=== PATIENT | male | born 1950 | race Caucasian/White ===

== ENCOUNTER 2018-05-02 13:49 | Outpatient (RCR) | payer MEDICARE, MEDICAID, SELFPAY | END 2018-05-20 23:59 | disposition home or self-care (01) | LOC: INF 13:49 | PROVIDERS: PCP General Practice; Visit Provider General Practice | DX: Z45.2 Encounter for adjustment and management of vascular access device (principal) | CPT/HCPCS: 36569; 71045 ==

== ENCOUNTER 2018-05-02 14:24 | Outpatient (CLI) | payer MEDICARE, MEDICAID, SELFPAY ==
--- NOTE | 2018-05-02 13:55 | DI.RAD_ITS ---
SYMPTOMS/DIAGNOSIS: S/P PICC LINE PORTABLE AP CHEST: Comparison is 12/11/17. The heart size and pulmonary vasculature are within normal limits. There is again seen an aortic valve replacement. Sternal wires are in place. There has been interval placement of a right PICC line. The tip is seen in the superior vena cava in good position. There are again seen catheters in the base of each lung, which are stable in position. The lungs are clear. No effusions are seen. No pneumothorax is appreciated. Old left rib fractures are identified. IMPRESSION: Interval placement of a right PICC line whose tip is at the junction of the superior vena cava and right atrium.
== END 2018-05-02 14:44 ==
PROVIDERS: PCP General Practice; Visit Provider General Practice
DX: Z95.2 Presence of prosthetic heart valve (principal); Z45.2 Encounter for adjustment and management of vascular access device; J44.9 Chronic obstructive pulmonary disease, unspecified
CPT/HCPCS: 71045

== ENCOUNTER 2018-05-04 11:50 | Emergency (ER) | payer MEDICARE, MEDICAID, SELFPAY ==
[2018-05-04 12:00] VITALS: BP 128/64; PULSE 80; RESP 20; TEMP 36.6; O2SAT 98
--- NOTE | 2018-05-04 13:06 | W.ED.GENAD ---
Discharge Plan Disposition Patient Disposition: HOME Condition: Improving Discharge Details Chief Complaint: Recheck Clinical Impression: Contact dermatitis, PICC (peripherally inserted central catheter) in place Primary Care Provider: Logan Bruce ED Provider: Shad Pelletier Home Meds and New Rx's Prescriptions: Continue omeprazole 20 MG capsule,delayed release(DR/EC) 20 mg PO DAILY RF: 0 gabapentin [Neurontin] 100 MG capsule 300 mg PO HS RF: 0 ipratropium-albuterol [Combivent] 200 PUFF aerosol 2 puff Inhalation QID RF: 0 morphine concentrate 20 MG/ML syringe 10 mg PO .Q4HR/PRN RF: 0 metoprolol tartrate 25 MG tablet 25 mg PO BID RF: 0 trace elements Cr-Cu-Mn-Zn [Multitrace-4 Concentrate] 1 ML solution 1 ml IV .BY DURATION RF: 0 potassium phosphate m-/d-basic 45 MM/15 ML solution 3 mm IV .BY DURATION RF: 0 sodium acetate 40 MEQ/20 ML solution 29.5 meq IV .BY DURATION RF: 0 magnesium chloride 10,000 MG/50 ML solution 254 mg IV .BY DURATION RF: 0 calcium gluconate 4.65 MEQ/10 ML solution 4.5 meq IV .BY DURATION RF: 0 sodium chloride 120 MEQ/30 ML parenteral solution 5.5 meq IV .BY DURATION RF: 0 potassium chloride 20 MEQ/10 ML solution 10 meq IV .BY DURATION RF: 0 mvi, adult no.4 with vit K [Infuvite Adult] 10 ML solution 10 ml IV .BY DURATION RF: 0 fat emulsion [Intralipid] 250 ML emulsion 250 ml IV DAILY@1700 RF: 0 prednisone 20 MG tablet PO DAILY Qty: 20 RF: 0 Discharge Instructions Instructions: Peripherally Inserted Central Catheters and Midline Catheters (ED), Dermatitis (ED) Additional Instructions: Continue to follow your regular dressing changes and if you continue to have symptoms please follow-up with your primary care provider for reassessment. Return immediately to the emergency department for any fever chills, significant swelling, bleeding, or changes in your access site they are concerned about. Referrals: Logan Bruce MD [Primary Care Provider] - Return if symptoms worsen Discharge Data Discharge Date/Time-TO BE ENTERED AT DEPARTURE: 05/04/18 13:28 Medical Decision Making MDM Narrative Medical decision making narrative: Patient presenting to the emergency department for chief complaint of burning and itching around PICC line insertion site of right arm. Patient recently had PICC line changed 2 days ago due to similar symptoms on left upper extremity. Patient denies fever chills, streaking redness, chest pain or shortness of breath. Physical exam is unremarkable except for left upper extremity showing squared off well-demarcated erythema surrounding old PICC line site and very mild erythema to right PICC line site. Given well demarcation and perfect square-like shape I am mostly concerned of contact dermatitis due to either chlorhexidine or Tegaderm. I did contact lens specialist whom stated she would come down and evaluate patient site given that she just removed the old one and is well familiar with patient along with inserted the new line Lauren SOLORZANO came down and viewed the left upper arm and states it is extremely improved since removal of the old line and that the new site dressing was changed and soon his dressing was changed and cleaned patient had results resolution of symptoms. I feel that this correlates with my clinical suspicion of a contact dermatitis due to either Tegaderm or chlorhexidine. I do not feel that there are any other interventions needed at this time patient should continue to follow through with normal dressing changes and PICC line care as previously directed . Patient to return immediately to the emergency department for new or worsening symptoms or follow up with his primary care provider as needed. After discussion of diagnosis and plan of care patient states no further needs, questions, or concerns at this time. HPI - General Adult General Mode of arrival: ambulatory. Date/Time Provider Initiated Documentation: 05/04/18 12:01. Limitations to Documentation: no limitations. Information obtained by: patient, RN notes reviewed and old records reviewed. History of Present Illness 67 year old M presents to the emergency department with the chief complaint of PICC line discomfort and reddness, described as moderate, with intensity rated at 3. Quality is described as burning (itching), and is localized to the right and upper extremity. Patient reports no radiation. Patient started experiencing this day(s) (2) and it has been constant. No relieving factors improve symptom(s), No exacerbating factors reported . Patient did receive the following treatments prior to arrival, none Related Data Home Medications Medication Instructions Recorded Confirmed omeprazole 20 mg PO DAILY 10/24/12 05/04/18 gabapentin [Neurontin] 300 mg PO HS 04/27/17 05/04/18 ipratropium-albuterol [Combivent] 2 puff INHALATION QID 04/27/17 05/04/18 metoprolol tartrate 25 mg PO BID 07/26/17 05/04/18 morphine concentrate 10 mg PO .Q4HR/PRN 11/29/17 05/04/18 Previous Rx's Medication Instructions Recorded calcium gluconate 4.5 meq IV .BY DURATION vial 12/11/17 fat emulsion [Intralipid] 250 ml IV DAILY@1700 bag 12/11/17 magnesium chloride 254 mg IV .BY DURATION vial 12/11/17 mvi, adult no.4 with vit K 10 ml IV .BY DURATION vial 12/11/17 [Infuvite Adult] potassium chloride 10 meq IV .BY DURATION vial 12/11/17 potassium phosphate m-/d-basic 3 mm IV .BY DURATION vial 12/11/17 prednisone See Taper PO DAILY #20 tab 12/11/17 sodium acetate 29.5 meq IV .BY DURATION vial 12/11/17 sodium chloride 5.5 meq IV .BY DURATION vial 12/11/17 trace elements Cr-Cu-Mn-Zn 1 ml IV .BY DURATION vial 12/11/17 [Multitrace-4 Concentrate] Allergies Allergy/AdvReac Type Severity Reaction Status Date / Time penicillin G Allergy Severe Unverified 12/28/17 11:41 General Stated Complaint: Recheck KIM: 4 Review of Systems Constitutional Denies body ache(s), Denies chills and Denies fever(s) Cardiovascular Denies chest pain and Denies dyspnea Respiratory Denies dyspnea Gastrointestinal Denies abdominal pain, Denies nausea and Denies vomiting Integumentary/Breasts Reports as per HPI and Denies rash Neurologic Denies confusion and Denies sensory deficit Psychiatric Denies confusion [facility] Social History Smoking/Tobacco Use Status: Former Tobacco Use Exam Const General: cooperative, no acute distress and not ill appearing Orientation: alert, awake and oriented x3 HENMT Mouth: moist mucous membranes Resp Effort & Inspection: normal respiratory effort, able to speak in complete sentences and no respiratory distress Cardio Rate: regular rate Rhythm: regular rhythm Neuro General: alert, awake, oriented x3, moves all extremities and no focal motor deficits Sensory Exam: no sensory deficits noted Extrem Right upper extremity: full ROM, normal capillary refill and shoulder/upper arm (mild erythema underneath the Tegaderm surrounding PICC line with no edema no purulence, no drainage, no streaking) Left upper extremity: shoulder/upper arm Details: axillary nerve sensory function normal, normal ROM and other (Erythema noted in a square pattern on the medial aspect of the left bicep over area where Tegaderm was previously placed. no streaking and minimal warmth) Course Vital Signs Temperature 36.6 C 05/04/18 12:00 Pulse 80 05/04/18 12:00 Respiratory Rate 20 05/04/18 12:00 Blood Pressure 128/64 05/04/18 12:00 Pulse Oximetry 98 05/04/18 12:00 Temperature 36.6 C 05/04/18 12:00 Pulse 80 05/04/18 12:00 Respiratory Rate 20 05/04/18 12:00 Blood Pressure 128/64 05/04/18 12:00 Pulse Oximetry 98 05/04/18 12:00
--- NOTE | 2018-05-04 13:12 | ED.GENADUL_ITS ---
Discharge Plan Disposition Patient Disposition: HOME Condition: Improving Discharge Details Chief Complaint: Recheck Clinical Impression: Contact dermatitis, PICC (peripherally inserted central catheter) in place Primary Care Provider: Logan Bruce ED Provider: Shad Pelletier Home Meds and New Rx's Prescriptions: Continue omeprazole 20 MG capsule,delayed release(DR/EC) 20 mg PO DAILY RF: 0 gabapentin [Neurontin] 100 MG capsule 300 mg PO HS RF: 0 ipratropium-albuterol [Combivent] 200 PUFF aerosol 2 puff Inhalation QID RF: 0 morphine concentrate 20 MG/ML syringe 10 mg PO .Q4HR/PRN RF: 0 metoprolol tartrate 25 MG tablet 25 mg PO BID RF: 0 trace elements Cr-Cu-Mn-Zn [Multitrace-4 Concentrate] 1 ML solution 1 ml IV .BY DURATION RF: 0 potassium phosphate m-/d-basic 45 MM/15 ML solution 3 mm IV .BY DURATION RF: 0 sodium acetate 40 MEQ/20 ML solution 29.5 meq IV .BY DURATION RF: 0 magnesium chloride 10,000 MG/50 ML solution 254 mg IV .BY DURATION RF: 0 calcium gluconate 4.65 MEQ/10 ML solution 4.5 meq IV .BY DURATION RF: 0 sodium chloride 120 MEQ/30 ML parenteral solution 5.5 meq IV .BY DURATION RF: 0 potassium chloride 20 MEQ/10 ML solution 10 meq IV .BY DURATION RF: 0 mvi, adult no.4 with vit K [Infuvite Adult] 10 ML solution 10 ml IV .BY DURATION RF: 0 fat emulsion [Intralipid] 250 ML emulsion 250 ml IV DAILY@1700 RF: 0 prednisone 20 MG tablet PO DAILY Qty: 20 RF: 0 Discharge Instructions Instructions: Peripherally Inserted Central Catheters and Midline Catheters (ED ), Dermatitis (ED) Additional Instructions: Continue to follow your regular dressing changes and if you continue to have symptoms please follow-up with your primary care provider for reassessment. Return immediately to the emergency department for any fever chills, significant swelling, bleeding, or changes in your access site they are concerned about. Referrals: Logan Bruce MD [Primary Care Provider] - Return if symptoms worsen Discharge Data Discharge Date/Time-TO BE ENTERED AT DEPARTURE: 05/04/18 13:28 Medical Decision Making MDM Narrative Medical decision making narrative: Patient presenting to the emergency department for chief complaint of burning and itching around PICC line insertion site of right arm. Patient recently had PICC line changed 2 days ago due to similar symptoms on left upper extremity. Patient denies fever chills, streaking redness, chest pain or shortness of breath. Physical exam is unremarkable except for left upper extremity showing squared off well- demarcated erythema surrounding old PICC line site and very mild erythema to right PICC line site. Given well demarcation and perfect square-like shape I am mostly concerned of contact dermatitis due to either chlorhexidine or Tegaderm. I did contact lens specialist whom stated she would come down and evaluate patient site given that she just removed the old one and is well familiar with patient along with inserted the new line Lauren SOLORZANO came down and viewed the left upper arm and states it is extremely improved since removal of the old line and that the new site dressing was changed and soon his dressing was changed and cleaned patient had results resolution of symptoms. I feel that this correlates with my clinical suspicion of a contact dermatitis due to either Tegaderm or chlorhexidine. I do not feel that there are any other interventions needed at this time patient should continue to follow through with normal dressing changes and PICC line care as previously directed . Patient to return immediately to the emergency department for new or worsening symptoms or follow up with his primary care provider as needed. After discussion of diagnosis and plan of care patient states no further needs, questions, or concerns at this time. HPI - General Adult General Mode of arrival: ambulatory . Date/Time Provider Initiated Documentation: 05/04/18 12:01 . Limitations to Documentation: no limitations . Information obtained by: patient, RN notes reviewed and old records reviewed . History of Present Illness 67 year old M presents to the emergency department with the chief complaint of PICC line discomfort and reddness, described as moderate, with intensity rated at 3. Quality is described as burning (itching), and is localized to the right and upper extremity. Patient reports no radiation. Patient started experiencing this day(s) (2) and it has been constant. No relieving factors improve symptom(s), No exacerbating factors reported . Patient did receive the following treatments prior to arrival, none Related Data Home Medications Medication Instructions Recorded Confirmed omeprazole 20 mg PO DAILY 10/24/12 05/04/18 gabapentin [Neurontin] 300 mg PO HS 04/27/17 05/04/18 ipratropium-albuterol [Combivent] 2 puff INHALATION QID 04/27/17 05/04/18 metoprolol tartrate 25 mg PO BID 07/26/17 05/04/18 morphine concentrate 10 mg PO .Q4HR/PRN 11/29/17 05/04/18 Previous Rx's Medication Instructions Recorded calcium gluconate 4.5 meq IV .BY DURATION vial 12/11/17 fat emulsion [Intralipid] 250 ml IV DAILY@1700 bag 12/11/17 magnesium chloride 254 mg IV .BY DURATION vial 12/11/17 mvi, adult no.4 with vit K 10 ml IV .BY DURATION vial 12/11/17 [Infuvite Adult] potassium chloride 10 meq IV .BY DURATION vial 12/11/17 potassium phosphate m-/d-basic 3 mm IV .BY DURATION vial 12/11/17 prednisone See Taper PO DAILY #20 tab 12/11/17 sodium acetate 29.5 meq IV .BY DURATION vial 12/11/17 sodium chloride 5.5 meq IV .BY DURATION vial 12/11/17 trace elements Cr-Cu-Mn-Zn 1 ml IV .BY DURATION vial 12/11/17 [Multitrace-4 Concentrate] Allergies Allergy/AdvReac Type Severity Reaction Status Date / Time penicillin G Allergy Severe Unverified 12/28/17 11:41 General Stated Complaint: Recheck KIM: 4 Review of Systems Constitutional Denies body ache(s), Denies chills and Denies fever(s) Cardiovascular Denies chest pain and Denies dyspnea Respiratory Denies dyspnea Gastrointestinal Denies abdominal pain, Denies nausea and Denies vomiting Integumentary/Breasts Reports as per HPI and Denies rash Neurologic Denies confusion and Denies sensory deficit Psychiatric Denies confusion [facility] Social History Smoking/Tobacco Use Status: Former Tobacco Use Exam Const General: cooperative, no acute distress and not ill appearing Orientation: alert, awake and oriented x3 HENMT Mouth: moist mucous membranes Resp Effort & Inspection: normal respiratory effort, able to speak in complete sentences and no respiratory distress Cardio Rate: regular rate Rhythm: regular rhythm Neuro General: alert, awake, oriented x3, moves all extremities and no focal motor deficits Sensory Exam: no sensory deficits noted Extrem Right upper extremity: full ROM, normal capillary refill and shoulder/upper arm (mild erythema underneath the Tegaderm surrounding PICC line with no edema no purulence, no drainage, no streaking) Left upper extremity: shoulder/upper arm Details: axillary nerve sensory function normal, normal ROM and other (Erythema noted in a square pattern on the medial aspect of the left bicep over area where Tegaderm was previously placed. no streaking and minimal warmth) Course Vital Signs Temperature 36.6 C 05/04/18 12:00 Pulse 80 05/04/18 12:00 Respiratory Rate 20 05/04/18 12:00 Blood Pressure 128/64 05/04/18 12:00 Pulse Oximetry 98 05/04/18 12:00 Temperature 36.6 C 05/04/18 12:00 Pulse 80 05/04/18 12:00 Respiratory Rate 20 05/04/18 12:00 Blood Pressure 128/64 05/04/18 12:00 Pulse Oximetry 98 05/04/18 12:00
[2018-05-04 13:28] VITALS: BP 128/64; PULSE 80; RESP 20; TEMP 36.6; O2SAT 98
== END 2018-05-04 13:28 | disposition home or self-care (01) ==
LOC: ER 14:02
PROVIDERS: Emergency Provider Nurse Practitioner Family; PCP General Practice
DX: L23.89 Allergic contact dermatitis due to other agents (principal); Z95.828 Presence of other vascular implants and grafts
CPT/HCPCS: 99281

== ENCOUNTER 2018-07-13 11:58 | Outpatient (CLI) | payer MEDICARE, SELFPAY ==
[2018-07-13 13:22] LABS: CREATININE 2.26 mg/dL (0.70-1.30); Estimated GFR 29.18 (mL/min/1.73m2); Potassium 4.6 mmol/L (3.5-5.1)
[2018-07-13 14:48] LABS: BUN 97 mg/dL (7-18)
== END 2018-07-13 12:18 ==
PROVIDERS: PCP General Practice; Visit Provider General Practice
DX: N19 Unspecified kidney failure (principal)
CPT/HCPCS: 36415; 84520; 82565; 84132

== ENCOUNTER 2018-08-29 17:57 | Emergency (ER) | payer MEDICARE, SELFPAY ==
[2018-08-29 18:38] VITALS: BP 130/66; PULSE 74; RESP 12; TEMP 36.6; O2SAT 99
--- NOTE | 2018-08-29 19:36 | DI.RAD_ITS ---
SYMPTOMS/DIAGNOSIS: COUGH PA AND LATERAL CHEST: Comparison is made with [id number]. The heart size is normal. An aortic valve prosthesis and sternal wires are noted. There has been no change in the position of the PICC line with the tip in the SVC. Bilateral lower lobe pleural catheters are again noted. The lungs appear clear. There are old left rib fractures. IMPRESSION: No acute abnormality.
--- NOTE | 2018-08-29 20:32 | ED.GENADUL_ITS ---
Discharge Plan Disposition Patient Disposition: HOME Condition: Fair Discharge Details Chief Complaint: RespSymp Clinical Impression: Pneumonia Primary Care Provider: Logan Bruce ED Provider: Lexy Rico Home Meds and New Rx's Prescriptions: New levofloxacin 750 mg tablet 750 mg PO DAILY Qty: 4 RF: 0 Continued omeprazole 20 MG capsule,delayed release(DR/EC) 20 mg PO DAILY RF: 0 gabapentin [Neurontin] 100 MG capsule 300 mg PO HS RF: 0 Combivent 200 PUFF aerosol 2 puff Inhalation QID RF: 0 prochlorperazine maleate 5 mg Tablet 5 mg PO DIRECTED RF: 0 ondansetron HCl 8 mg Tablet 8 mg PO BID PRNRF: 0 mirtazapine 15 mg Tablet 15 mg PO HS RF: 0 metoprolol tartrate 25 MG tablet 25 mg PO BID RF: 0 trace elements Cr-Cu-Mn-Zn [Multitrace-4 Concentrate] 1 ML solution 1 ml IV .BY DURATION RF: 0 potassium phosphate m-/d-basic 45 MM/15 ML solution 3 mm IV .BY DURATION RF: 0 sodium acetate 40 MEQ/20 ML solution 29.5 meq IV .BY DURATION RF: 0 magnesium chloride 10,000 MG/50 ML solution 254 mg IV .BY DURATION RF: 0 calcium gluconate 4.65 MEQ/10 ML solution 4.5 meq IV .BY DURATION RF: 0 sodium chloride 120 MEQ/30 ML parenteral solution 5.5 meq IV .BY DURATION RF: 0 potassium chloride 20 MEQ/10 ML solution 10 meq IV .BY DURATION RF: 0 mvi, adult no.4 with vit K [Infuvite Adult] 10 ML solution 10 ml IV .BY DURATION RF: 0 fat emulsion [Intralipid] 250 ML emulsion 250 ml IV DAILY@1700 RF: 0 Discharge Instructions Instructions: Pneumonia (ED) Additional Instructions: Encourage hydration. Please take medications as previously advised. Please use inhalers as these did seem to help while here today. Take antibiotics as prescribed even if symptoms begin to improve, please take the entire course. Please follow-up with primary care next week for reevaluation. If you develop a focal to breathing, shortness of breath or the new/worsening symptoms please seek care urgently once again Referrals: Logan Bruce MD [Primary Care Provider] - Medical Decision Making Patient is 68-year-old male, well-known to myself, with chief complaint of cough. He reports his symptoms began just a few days ago. He has been endorsing some fevers at home. Also endorsing congestion and sore throat. Patient has history of recurrent pneumonia, anemia, malnutrition, rib fracture, COPD, short gut syndrome, colon cancer, [place] I, recurrent pleural effusions, CHF. Patient has bilateral Pleurx tubes that were placed for his recurrent pleural effusions. Has not noted body ached. Denies CP. Has chronic SOB that is slightly increaesd from baseline. On exam, patient appears chronically ill. Patient has expiratory wheeze in bilateral upper lobes. Crackles in RLL. Does not appear acutely toxic, no signs of repiratory distress. VS WNL. Will obtain XR and give nebulizer. Will obtain rapid flu. XR reviewed by radiologist: FINDINGS: Tubes, catheters and devices: Radiopaque catheter superimposed over each inferior lung. Lungs: Mild COPD. Pleural space: Unremarkable. No pleural effusion. No pneumothorax. Heart/Mediastinum: Unremarkable. No cardiomegaly. Bones/joints: Prior median sternotomy. IMPRESSION: 1. No active pulmonary disease. 2. Mild COPD. Discussed findings with patient and his familyu. Rapid flu negative. He feels improved after neb and wheezing has improved. He has breathing treatments available at home but has not utilized these. Advised he do so. While XR does not suggest pneumonia, wth his history and continued crackles in the RLL, will treat with Levofloxacin. It has been over one year since last on abx. Has been on this historically without issue. Has not been taking Zofran, advised that both of these can prolong QT. We discussed new/worsening symptoms and hwen ot seek care urgently once again. Advised f/u with PCP. All f their questions adn concerns were addressed, they are in agreement iwht this plan. HPI General Mode of arrival: wheelchair . Date/Time Provider Initiated Documentation: 08/29/18 19:29 . Limitations to Documentation: no limitations . Information obtained by: patient and family . History of Present Illness 68 year old M presents to the emergency department with the chief complaint of cough, described as moderate, Patient started experiencing this day(s) and it has been constant. No relieving factors improve symptom(s), No exacerbating factors reported . Patient notes cough, fever/chills, loss of appetite (chronic), shortness of breath and weakness (chronic); denies chest pain, headaches, nausea/vomiting, rash and syncope. Patient did receive the following treatments prior to arrival, none Related Data Home Medications Medication Instructions Recorded Confirmed omeprazole 20 mg PO DAILY 10/24/12 08/29/18 Combivent 2 puff INHALATION QID 04/27/17 08/29/18 gabapentin [Neurontin] 300 mg PO HS 04/27/17 08/29/18 metoprolol tartrate 25 mg PO BID 07/26/17 08/29/18 calcium gluconate 4.5 meq IV .BY DURATION vial 12/11/17 05/04/18 fat emulsion [Intralipid] 250 ml IV DAILY@1700 bag 12/11/17 05/04/18 magnesium chloride 254 mg IV .BY DURATION vial 12/11/17 05/04/18 mvi, adult no.4 with vit K 10 ml IV .BY DURATION vial 12/11/17 05/04/18 [Infuvite Adult] potassium chloride 10 meq IV .BY DURATION vial 12/11/17 05/04/18 potassium phosphate m-/d-basic 3 mm IV .BY DURATION vial 12/11/17 05/04/18 sodium acetate 29.5 meq IV .BY DURATION vial 12/11/17 05/04/18 sodium chloride 5.5 meq IV .BY DURATION vial 12/11/17 05/04/18 trace elements Cr-Cu-Mn-Zn 1 ml IV .BY DURATION vial 12/11/17 05/04/18 [Multitrace-4 Concentrate] levofloxacin 750 mg PO DAILY #4 tab 08/29/18 mirtazapine 15 mg PO HS 08/29/18 08/29/18 ondansetron HCl 8 mg PO BID PRN 08/29/18 08/29/18 prochlorperazine maleate 5 mg PO DIRECTED 08/29/18 08/29/18 Previous Rx's Medication Instructions Recorded calcium gluconate 4.5 meq IV .BY DURATION vial 12/11/17 fat emulsion [Intralipid] 250 ml IV DAILY@1700 bag 12/11/17 magnesium chloride 254 mg IV .BY DURATION vial 12/11/17 mvi, adult no.4 with vit K 10 ml IV .BY DURATION vial 12/11/17 [Infuvite Adult] potassium chloride 10 meq IV .BY DURATION vial 12/11/17 potassium phosphate m-/d-basic 3 mm IV .BY DURATION vial 12/11/17 sodium acetate 29.5 meq IV .BY DURATION vial 12/11/17 sodium chloride 5.5 meq IV .BY DURATION vial 12/11/17 trace elements Cr-Cu-Mn-Zn 1 ml IV .BY DURATION vial 12/11/17 [Multitrace-4 Concentrate] levofloxacin 750 mg PO DAILY #4 tab 08/29/18 Allergies Allergy/AdvReac Type Severity Reaction Status Date / Time penicillin G Allergy Severe Unverified 08/29/18 18:42 General Stated Complaint: RespSymp KIM: 3 Review of Systems Constitutional Reports as per HPI and Denies headache(s) Eyes Reports as per HPI, Denies eye discharge and Denies irritation ENT Denies ear discharge, Denies otalgia, Denies headache(s), Reports nasal congestion, Reports nasal discharge, Denies sinus pain, Denies sinus pressure, Reports sore throat and Denies throat swelling Cardiovascular Reports as per HPI, Denies chest pain and Reports dyspnea (chronic) Respiratory Reports chest congestion, Reports cough, Denies hemoptysis, Denies pain on inspiration, Reports dyspnea (chronic), Denies stridor and Denies wheezing Gastrointestinal Reports as per HPI, Denies abdominal pain, Denies change in bowel habits, Denies nausea and Denies vomiting Integumentary/Breasts Reports as per HPI and Denies rash Neurologic Denies headache(s) Allergic/Immunologic Denies throat swelling and Denies wheezing [facility] Social History Smoking/Tobacco Use Status: Former Tobacco Use Exam Const General: cooperative, comfortable, no acute distress, well developed, well groomed and ill appearing chronically Nutritional Appearance: cachectic Orientation: alert and awake [facility] Head: normal to inspection, normocephalic and atraumatic Ears: hearing grossly normal bilaterally, external ears normal and TM's normal bilaterally General nose exam: external nose normal and nares normal Face and sinus: normal facial exam, sinuses nontender and face symmetric Mouth: oral mucosae normal, lip normal, tongue normal, oropharynx normal and mucous membranes dry (appears dry on exam) Teeth and gingiva: dentition normal Throat: posterior oropharynx normal, tonsils normal and uvula midline Eyes General: appearance normal, both eyes and all related structures Neck Neck: normal visual inspection, full ROM, no lymphadenopathy and no meningeal signs Resp Effort & Inspection: normal respiratory effort, able to speak in complete sentences, cough, no grunting, not labored, no respiratory distress, not tachypneic, no tripod positioning and no use of accessory muscles Auscultation: crackles on the right in the lower lung vann and wheezes (bilateral upper lobes) expiratory wheezes Cardio Rate: regular rate Rhythm: regular rhythm Heart Sounds: S1 normal and S2 normal Skin General skin exam: no rashes or lesions noted Neuro General: alert and awake Cognition: normal cognition Speech: speech normal Gait: normal gait Psych Appearance: grossly normal and well kempt Mental Status: mental status grossly normal Speech and Movement: speech and movement normal Course Vital Signs Temperature 36.6 C 08/29/18 18:38 Pulse 74 08/29/18 18:38 Respiratory Rate 12 08/29/18 18:38 Blood Pressure 130/66 08/29/18 18:38 Pulse Oximetry 99 08/29/18 18:38 Temperature 36.6 C 08/29/18 18:38 Temperature Source Temporal Artery Scan 08/29/18 18:38 Pulse 74 08/29/18 18:38 Respiratory Rate 12 08/29/18 18:38 Blood Pressure 130/66 08/29/18 18:38 Blood Pressure Position Sitting 08/29/18 18:38 Pulse Oximetry 99 08/29/18 18:38 Oxygen Delivery Method Room Air 08/29/18 18:38 Oxygen Flow Rate 0 08/29/18 18:38 Pain Level 8 08/29/18 18:38
[2018-08-29] MEDS: Albuterol/Ipratropium 3 ML UPD VIAL UPD (20:45)
--- NOTE | 2018-08-29 20:45 | DI.VRAD_ITS ---
EXAM: XR Chest, 2 Views EXAM DATE/TIME: 08/29/2018 7:37 PM CLINICAL HISTORY: 68 years old, male; Cough; Prior surgery TECHNIQUE: XR of the chest, 2 views. COMPARISON: CR (CHEST, RT) 05/02/2018 1:38 PM FINDINGS: Tubes, catheters and devices: Radiopaque catheter superimposed over each inferior lung. Lungs: Mild COPD. Pleural space: Unremarkable. No pleural effusion. No pneumothorax. Heart/Mediastinum: Unremarkable. No cardiomegaly. Bones/joints: Prior median sternotomy. IMPRESSION: 1. No active pulmonary disease. 2. Mild COPD. Dictated and Authenticated by: Garrett Ruby MD. Ordering:NITHIN Pugh MD
[2018-08-29] MEDS: LEVOFLOXACIN 500 MG, LEVOFLOXACIN 250 MG 750 MG PO (21:29)
== END 2018-08-29 21:40 | disposition home or self-care (01) ==
PROVIDERS: Emergency Provider Physician Assistant; PCP General Practice
DX: J18.9 Pneumonia, unspecified organism (principal); I12.9 Hypertensive chronic kidney disease with stage 1 through stage 4 chronic kidney disease, or unspecified chronic kidney disease; N18.9 Chronic kidney disease, unspecified
CPT/HCPCS: 87449; 94640; 99283; 71046; J7620

== ENCOUNTER 2018-09-17 17:19 | Inpatient (IN) | payer MEDICARE, MEDICAID, SELFPAY ==
[2018-09-17 17:32] VITALS: BP 113/87; PULSE 83; RESP 24; TEMP 36.3; O2SAT 94
--- NOTE | 2018-09-17 17:40 | DI.RAD_ITS ---
SYMPTOM/DIAGNOSIS: WORSENING COUGH PA AND LATERAL CHEST: Comparison is made with 29 Aug 2018. Sternal wires and aortic valve prosthesis as well as right sided PICC line and bilateral chest tubes are again noted. The heart size remains normal. There is stable mild bi-apical scarring. No superimposed infiltrate, effusion or pulmonary edema is seen. IMPRESSION: No acute abnormality.
--- NOTE | 2018-09-17 17:44 | W.ED.GENAD ---
Discharge Plan Disposition Patient Disposition: [facility] INPATIENT Condition: Stable Discharge Details Chief Complaint: SOB Clinical Impression: Pneumonitis Reason For Visit: PNEUMONITIS Admit Date/Time: 09/17/18 20:00 Admit Provider: Alfred Flynn Attending Provider: Alfred Flynn Primary Care Provider: Logan Bruce ED Provider: Hoang Wilde Discharge Data Discharge Date/Time-TO BE ENTERED AT DEPARTURE: 09/17/18 21:14 Medical Decision Making 68-year-old male with metastatic colon cancer on home TPN, presents with 3-4 days of worsening cough, congestion, production of sputum with associated fever and chills. Is referred in by Dr. Bruce today for admission. He was recently seen in the emergency department on August 29 and treated with a short course of Levaquin which he completed. He is on home TPN infusions and was referred in after home health spoke with Dr. Bruce. He states to me that he has had bilateral tube thoracostomies in his chest since having recurrent pleural effusions a year ago Patient arrives with a temperature of 36, pulse 83, blood pressure 113/87, 90-94% sat on room air with mild increased work of breathing. Differential diagnosis includes CHF, pneumonia, COPD exacerbation, possibly post-obstructive process. Patient given parenteral steroids, inhaled DuoNeb, referred for laboratory testing and chest x-ray. CXR without focal consolidation. Labs show acute renal failure and significant dehydration with a BUN of 128 and creatinine 5.7. This has increased over time. Potassium is 4.6. Patient has a chronic glucose cytosis and his white blood cell count today is 15. Other notable labs include a normal BNP and troponin. Given the fairly unremarkable chest x-ray, no evidence of CHF, and concern for chest mass or obstructive process, I did refer the patient for noncontrast CT scan of the chest. This shows mild opacities in the lower lobes that may represent atelectasis or pneumonia. Thoracostomy tubes are unchanged. We will admit for COPD exacerbation and pneumonia Lab Data Lab results reviewed: Yes I reviewed the patient's lab results. Laboratory Results - last 24 hr 09/17/18 09/17/18 18:34 18:34 WBC 15.78 H RBC 4.90 Hgb 13.7 Hct 40.4 MCV 82.4 MCH 28.0 MCHC 33.9 RDW 17.8 H Plt Count 250 MPV 13.4 H Immature Gran % 0.3 Neutrophils % 88.3 Lymphocytes % 6.0 Monocytes % 4.1 Eosinophils % 0.8 Basophils % 0.5 Absolute Neutrophils 13.93 H Absolute Lymphocytes 0.95 L Absolute Monocytes 0.65 Absolute Eosinophils 0.13 Absolute Basophils 0.08 Sodium 134 L Potassium 4.6 Chloride 93 L Carbon Dioxide 20.6 L Anion Gap 20.4 H BUN 128 H* Creatinine 5.78 H* Estimated GFR/1.73 m2 9.87 Glucose 166 H Calcium 9.6 Magnesium 2.7 H Total Bilirubin 1.3 H AST 40 H ALT 91 H Alkaline Phosphatase 398 H Troponin I 0.02 NT-Pro-B Natriuret Pep 276 Total Protein 8.5 H Albumin 3.2 L ECG Data Attestation: I personally reviewed and interpreted this ECG (s) as follows: Interpretation: Normal sinus rhythm with a rate of 71, the QRS is narrow, no ST segment elevation. HPI General Mode of arrival: ambulatory. Date/Time Provider Initiated Documentation: 09/17/18 17:26. Limitations to Documentation: no limitations. Information obtained by: patient and family. History of Present Illness 68 year old M presents to the emergency department with the chief complaint of Cough and shortness of breath, worsening this week over days time. + sputum, described as moderate, Quality is described as other (shortness of breath), and is localized to the chest. Patient started experiencing this day(s) and it has been constant. No relieving factors improve symptom(s), Movement worsens symptoms . Patient notes fever/chills, loss of appetite, shortness of breath and weakness; denies nausea/vomiting. Patient did receive the following treatments prior to arrival, none Related Data Home Medications Medication Instructions Recorded Confirmed omeprazole 20 mg PO DAILY 10/24/12 09/17/18 Combivent 2 puff INHALATION QID 04/27/17 09/17/18 gabapentin [Neurontin] 300 mg PO HS 04/27/17 09/17/18 metoprolol tartrate 25 mg PO BID 07/26/17 09/17/18 Infuvite Adult 10 ml IV .BY DURATION vial 12/11/17 09/17/18 Intralipid 250 ml IV DAILY@1700 bag 12/11/17 09/17/18 Multitrace-4 Concentrate 1 ml IV .BY DURATION vial 12/11/17 09/17/18 calcium gluconate 4.5 meq IV .BY DURATION vial 12/11/17 09/17/18 magnesium chloride 254 mg IV .BY DURATION vial 12/11/17 09/17/18 potassium chloride 10 meq IV .BY DURATION vial 12/11/17 09/17/18 potassium phosphate m-/d-basic 3 mm IV .BY DURATION vial 12/11/17 09/17/18 sodium acetate 29.5 meq IV .BY DURATION vial 12/11/17 09/17/18 sodium chloride 5.5 meq IV .BY DURATION vial 12/11/17 09/17/18 mirtazapine 15 mg PO HS 08/29/18 09/17/18 ondansetron HCl 8 mg PO BID PRN 08/29/18 09/17/18 prochlorperazine maleate 5 mg PO DIRECTED 08/29/18 09/17/18 morphine 10 mg PO Q4H PRN PRN 09/17/18 09/17/18 Previous Rx's Medication Instructions Recorded Infuvite Adult 10 ml IV .BY DURATION vial 12/11/17 Intralipid 250 ml IV DAILY@1700 bag 12/11/17 Multitrace-4 Concentrate 1 ml IV .BY DURATION vial 12/11/17 calcium gluconate 4.5 meq IV .BY DURATION vial 12/11/17 magnesium chloride 254 mg IV .BY DURATION vial 12/11/17 potassium chloride 10 meq IV .BY DURATION vial 12/11/17 potassium phosphate m-/d-basic 3 mm IV .BY DURATION vial 12/11/17 sodium acetate 29.5 meq IV .BY DURATION vial 12/11/17 sodium chloride 5.5 meq IV .BY DURATION vial 12/11/17 Allergies Allergy/AdvReac Type Severity Reaction Status Date / Time penicillin G Allergy Severe Unverified 09/17/18 21:03 General Stated Complaint: SOB KIM: 3 Review of Systems Review of Systems 8 systems reviewed and otherwise - [facility] Social History Smoking/Tobacco Use Status: Former Tobacco Use Exam Narrative Exam Narrative: GEN: awake, alert, oriented 3. Pleasant, well groomed, interactive. HEAD: Normocephalic, atraumatic ENT: Mucous membranes moist, oropharynx unremarkable, External ear exam unremarkable EYES: PERRL, EOMI NECK: Full ROM, no LEXIE, no menigismus CHEST/RESP: Nontender, mildly tachypneic with diffuse rhonchi/coarse rales bilaterally. Bilateral thoracostomy tubes CARDIOVASCULAR: Tachycardia, no murmur, rub paloma. 2+ Rad pulse bilateral ABDOMEN: Soft, nontender, no mass. +Bowel sounds. RLQ ostomy in place EXT: Full ROM, no edema, no rash. Right upper extremity with TPN infusing Neuro: Grossly normal neurologic exam, conversant, interactive. Psych: Speech fluent, thoughts congruent, affect normal Course Vital Signs Temperature 36.3 C L 09/17/18 17:32 Pulse 83 09/17/18 17:32 Respiratory Rate 24 09/17/18 17:32 Blood Pressure 113/87 09/17/18 17:32 Pulse Oximetry 94 L 09/17/18 17:32 Temperature 36.3 C L 09/17/18 17:32 Temperature Source Skin 09/17/18 17:32 Pulse 83 09/17/18 17:32 Respiratory Rate 24 09/17/18 17:32 Blood Pressure 113/87 09/17/18 17:32 Pulse Oximetry 94 L 09/17/18 17:32 Oxygen Delivery Method Room Air 09/17/18 17:32 Oxygen Flow Rate 0 09/17/18 17:32 Lab/Test Results Lab/Test Results: 09/17/18 17:40 Blood Blood Culture - Pending 09/17/18 17:40 Blood Blood Culture - Pending
--- NOTE | 2018-09-17 17:47 | ED.GENADUL_ITS ---
Discharge Plan Disposition Patient Disposition: [facility] INPATIENT Condition: Stable Discharge Details Chief Complaint: SOB Clinical Impression: Pneumonitis Reason For Visit: PNEUMONITIS Admit Date/Time: 09/17/18 20:00 Admit Provider: Alfred Flynn Attending Provider: Alfred Flynn Primary Care Provider: Logan Bruce ED Provider: Hoang Wilde Discharge Data Discharge Date/Time-TO BE ENTERED AT DEPARTURE: 09/17/18 21:14 Medical Decision Making 68-year-old male with metastatic colon cancer on home TPN, presents with 3-4 days of worsening cough, congestion, production of sputum with associated fever and chills. Is referred in by Dr. Bruce today for admission. He was recently seen in the emergency department on August 29 and treated with a short course of Levaquin which he completed. He is on home TPN infusions and was referred in after home health spoke with Dr. Bruce. He states to me that he has had bilateral tube thoracostomies in his chest since having recurrent pleural effusions a year ago Patient arrives with a temperature of 36, pulse 83, blood pressure 113/87, 90- 94% sat on room air with mild increased work of breathing. Differential diagnosis includes CHF, pneumonia, COPD exacerbation, possibly post-obstructive process. Patient given parenteral steroids, inhaled DuoNeb, referred for laboratory testing and chest x-ray. CXR without focal consolidation. Labs show acute renal failure and significant dehydration with a BUN of 128 and creatinine 5.7. This has increased over time. Potassium is 4.6. Patient has a chronic glucose cytosis and his white blood cell count today is 15. Other notable labs include a normal BNP and troponin. Given the fairly unremarkable chest x-ray, no evidence of CHF, and concern for chest mass or obstructive process, I did refer the patient for noncontrast CT scan of the chest. This shows mild opacities in the lower lobes that may represent atelectasis or pneumonia. Thoracostomy tubes are unchanged. We will admit for COPD exacerbation and pneumonia Lab Data Lab results reviewed: Yes I reviewed the patient's lab results. Laboratory Results - last 24 hr 09/17/18 09/17/18 18:34 18:34 WBC 15.78 H RBC 4.90 Hgb 13.7 Hct 40.4 MCV 82.4 MCH 28.0 MCHC 33.9 RDW 17.8 H Plt Count 250 MPV 13.4 H Immature Gran % 0.3 Neutrophils % 88.3 Lymphocytes % 6.0 Monocytes % 4.1 Eosinophils % 0.8 Basophils % 0.5 Absolute Neutrophils 13.93 H Absolute Lymphocytes 0.95 L Absolute Monocytes 0.65 Absolute Eosinophils 0.13 Absolute Basophils 0.08 Sodium 134 L Potassium 4.6 Chloride 93 L Carbon Dioxide 20.6 L Anion Gap 20.4 H BUN 128 H* Creatinine 5.78 H* Estimated GFR/1.73 m2 9.87 Glucose 166 H Calcium 9.6 Magnesium 2.7 H Total Bilirubin 1.3 H AST 40 H ALT 91 H Alkaline Phosphatase 398 H Troponin I 0.02 NT-Pro-B Natriuret Pep 276 Total Protein 8.5 H Albumin 3.2 L ECG Data Attestation: I personally reviewed and interpreted this ECG (s) as follows: Interpretation: Normal sinus rhythm with a rate of 71, the QRS is narrow, no ST segment elevation. HPI General Mode of arrival: ambulatory . Date/Time Provider Initiated Documentation: 09/17/18 17:26 . Limitations to Documentation: no limitations . Information obtained by: patient and family . History of Present Illness 68 year old M presents to the emergency department with the chief complaint of Cough and shortness of breath, worsening this week over days time. + sputum, described as moderate, Quality is described as other (shortness of breath), and is localized to the chest. Patient started experiencing this day(s) and it has been constant. No relieving factors improve symptom(s), Movement worsens symptoms . Patient notes fever/chills, loss of appetite, shortness of breath and weakness; denies nausea/vomiting. Patient did receive the following treatments prior to arrival, none Related Data Home Medications Medication Instructions Recorded Confirmed omeprazole 20 mg PO DAILY 10/24/12 09/17/18 Combivent 2 puff INHALATION QID 04/27/17 09/17/18 gabapentin [Neurontin] 300 mg PO HS 04/27/17 09/17/18 metoprolol tartrate 25 mg PO BID 07/26/17 09/17/18 Infuvite Adult 10 ml IV .BY DURATION vial 12/11/17 09/17/18 Intralipid 250 ml IV DAILY@1700 bag 12/11/17 09/17/18 Multitrace-4 Concentrate 1 ml IV .BY DURATION vial 12/11/17 09/17/18 calcium gluconate 4.5 meq IV .BY DURATION vial 12/11/17 09/17/18 magnesium chloride 254 mg IV .BY DURATION vial 12/11/17 09/17/18 potassium chloride 10 meq IV .BY DURATION vial 12/11/17 09/17/18 potassium phosphate m-/d-basic 3 mm IV .BY DURATION vial 12/11/17 09/17/18 sodium acetate 29.5 meq IV .BY DURATION vial 12/11/17 09/17/18 sodium chloride 5.5 meq IV .BY DURATION vial 12/11/17 09/17/18 mirtazapine 15 mg PO HS 08/29/18 09/17/18 ondansetron HCl 8 mg PO BID PRN 08/29/18 09/17/18 prochlorperazine maleate 5 mg PO DIRECTED 08/29/18 09/17/18 morphine 10 mg PO Q4H PRN PRN 09/17/18 09/17/18 Previous Rx's Medication Instructions Recorded Infuvite Adult 10 ml IV .BY DURATION vial 12/11/17 Intralipid 250 ml IV DAILY@1700 bag 12/11/17 Multitrace-4 Concentrate 1 ml IV .BY DURATION vial 12/11/17 calcium gluconate 4.5 meq IV .BY DURATION vial 12/11/17 magnesium chloride 254 mg IV .BY DURATION vial 12/11/17 potassium chloride 10 meq IV .BY DURATION vial 12/11/17 potassium phosphate m-/d-basic 3 mm IV .BY DURATION vial 12/11/17 sodium acetate 29.5 meq IV .BY DURATION vial 12/11/17 sodium chloride 5.5 meq IV .BY DURATION vial 12/11/17 Allergies Allergy/AdvReac Type Severity Reaction Status Date / Time penicillin G Allergy Severe Unverified 09/17/18 21:03 General Stated Complaint: SOB KIM: 3 Review of Systems Review of Systems 8 systems reviewed and otherwise - [facility] Social History Smoking/Tobacco Use Status: Former Tobacco Use Exam Narrative Exam Narrative: GEN: awake, alert, oriented 3. Pleasant, well groomed, interactive. HEAD: Normocephalic, atraumatic ENT: Mucous membranes moist, oropharynx unremarkable, External ear exam unremarkable EYES: PERRL, EOMI NECK: Full ROM, no LEXIE, no menigismus CHEST/RESP: Nontender, mildly tachypneic with diffuse rhonchi/coarse rales bilaterally. Bilateral thoracostomy tubes CARDIOVASCULAR: Tachycardia, no murmur, rub paloma. 2+ Rad pulse bilateral ABDOMEN: Soft, nontender, no mass. +Bowel sounds. RLQ ostomy in place EXT: Full ROM, no edema, no rash. Right upper extremity with TPN infusing Neuro: Grossly normal neurologic exam, conversant, interactive. Psych: Speech fluent, thoughts congruent, affect normal Course Vital Signs Temperature 36.3 C L 09/17/18 17:32 Pulse 83 09/17/18 17:32 Respiratory Rate 24 09/17/18 17:32 Blood Pressure 113/87 09/17/18 17:32 Pulse Oximetry 94 L 09/17/18 17:32 Temperature 36.3 C L 09/17/18 17:32 Temperature Source Skin 09/17/18 17:32 Pulse 83 09/17/18 17:32 Respiratory Rate 24 09/17/18 17:32 Blood Pressure 113/87 09/17/18 17:32 Pulse Oximetry 94 L 09/17/18 17:32 Oxygen Delivery Method Room Air 09/17/18 17:32 Oxygen Flow Rate 0 09/17/18 17:32 Lab/Test Results Lab/Test Results: 09/17/18 17:40 Blood Blood Culture - Pending 09/17/18 17:40 Blood Blood Culture - Pending
[2018-09-17 17:59] VITALS: RESP 24
--- NOTE | 2018-09-17 18:11 | DI.VRAD_ITS ---
EXAM: XR Chest, 2 Views EXAM DATE/TIME: 09/17/2018 5:42 PM CLINICAL HISTORY: 68 years old, male; Signs and symptoms; Cough; Prior surgery; Patient HX: Known CA, unknown origin TECHNIQUE: XR of the chest, 2 views. COMPARISON: CR XR CHEST 2V PA LATERAL 08/29/2018 7:56 PM FINDINGS: Tubes, catheters and devices: Stable tubes overlie the lung bases bilaterally. Lungs: Hyperexpanded lung vann consistent with COPD No focal consolidation Pleural space: Unremarkable. No pleural effusion. No pneumothorax. Heart/Mediastinum: Unremarkable. No cardiomegaly. Bones/joints: Status post median sternotomy IMPRESSION: No focal consolidation. Hyperexpanded lung vann consistent with COPD Dictated and Authenticated by: Clara Moore MD. Ordering:CHAD Bolton MD
[2018-09-17] MEDS: methylPREDNISolone SUCC 125 MG VIAL IVP (18:31)
[2018-09-17] MEDS: Albuterol/Ipratropium 3 ML UPD VIAL UPD ×2 (18:31→23:48)
[2018-09-17] MEDS: Normal Saline Flush 10 ML SYR IVP (18:32)
[2018-09-17 18:48] LABS: Abs Immature Grans 0.05 k/cumm (0.0-0.09); Absolute Basophil Count 0.08 k/cumm (0.0-0.2); Absolute Eosinophil Count 0.13 k/cumm (0.0-0.7); Absolute Lymphocyte Count 0.95 k/cumm (1.2-3.4); Absolute Monocyte Count 0.65 k/cumm (0.11-0.7); Basophils % 0.5; Eosinophils % 0.8; HCT 40.4 % (40.0-50.0); HGB 13.7 g/dL (13.5-17.5); Immature Grans % 0.3; Mean Corp. HGB Concentration 33.9 g/dL (32.0-36.0); Mean Corpuscular Volume 82.4 fL (80-95); Mean Platelet Volume 13.4 fL (8.0-11.0); Monocytes % 4.1; Neutrophils % 88.3; Platelet Count 250 x1000/uL (130-400); RBC Distribution Width 17.8 % (11.8-14.1); White Blood Cell Count 15.78 k/cumm (4.4-10.8)
[2018-09-17 18:52] LABS: Absolute Neutrophil Count 13.93 k/cumm (1.2-6.7)
[2018-09-17 19:09] LABS: ALT 91 U/L (12-78); AST 40 U/L (15-37); Albumin 3.2 g/dL (3.4-5.0); Alkaline Phosphatase 398 U/L (46-116); Anion Gap 20.4 mmol/L (3-11); Bilirubin, Total 1.3 mg/dL (0.2-1.0); CO2 20.6 mmol/L (21.0-32.0); Calcium 9.6 mg/dL (8.5-10.1); Chloride 93 mmol/L (98-107); Estimated GFR 9.87 (mL/min/1.73m2); Glucose 166 mg/dL (70-100); Magnesium 2.7 mg/dL (1.8-2.4); NT-proBNP 276 pg/mL; Potassium 4.6 mmol/L (3.5-5.1); Sodium 134 mmol/L (136-145); Total Protein 8.5 g/dL (6.4-8.2); Troponin I 0.02 ng/mL (0.00-0.06)
[2018-09-17 19:11] LABS: BUN 128 mg/dL (7-18)
[2018-09-17 19:12] LABS: CREATININE 5.78 mg/dL (0.70-1.30)
--- NOTE | 2018-09-17 19:14 | DI.CT_ITS ---
SYMPTOM/DIAGNOSIS: SOB, PERSISTENT COUGH, HX METASTATIC CANCER NONCONTRAST CHEST CT: Comparison is made with 01 December 2017. The patient is again noted to have bilateral thoracostomy tubes which terminate in the medial aspects of the lower lobes. No pneumothorax, pleural or pericardial effusion is seen. Coronary artery calcifications and aortic calcifications are noted. There is an aortic valve prosthesis. The ascending aorta measures 4.2 cm in diameter. Sternal wires are noted Evaluation of the lungs is limited by respiratory motion. There are mildly increased densities at the lung bases, left greater than right. The findings could represent foci of pneumonitis vs atelectasis. There is mild bronchiectasis. IMPRESSION: Limited exams secondary to respiratory motion. Question of bilateral lower lobe infiltrates vs atelectasis.
--- NOTE | 2018-09-17 19:59 | DI.VRAD_ITS ---
EXAM: CT Chest Without Contrast EXAM DATE/TIME: 09/17/2018 7:15 PM CLINICAL HISTORY: 68 years old, male; Signs and symptoms; Cough and shortness of breath; Prior surgery; Surgery date: 6+ months; Surgery type: Aortic valve surgery, HX of colon cancer. Metatastic CA, copd; Patient HX: Cough SOB TECHNIQUE: Axial computed tomography images of the chest without intravenous contrast. Coronal and sagittal reformatted images were created and reviewed. COMPARISON: CT CHEST WITHOUT CONTRAST 08/20/2017 8:43 AM FINDINGS: Tubes, catheters and devices: Thoracostomy tube terminates in the medial aspect of the right lower lobe. Additional thoracostomy tube terminates in the medial aspect of the left lower lobe.. Lungs: Mild panlobular emphysematous changes Mild opacities in the lower lobes may represent atelectasis or pneumonia. Bronchiectasis Pleural space: Normal. No pneumothorax. No pleural effusion. Heart: Coronary artery calcifications may indicate coronary artery disease. Mediastinum: Air debris level in mildly dilated mid esophagus. (2:34). Debris in the proximal esophagus. Aorta: Unruptured ascending aortic aneurysm 4 x 4.2 cm. Status post aortic valve replacement. Lymph nodes: Unremarkable. No enlarged lymph nodes. Bones/joints: Median sternotomy Soft tissues: Unremarkable. Other findings: Motion artifact degrades images IMPRESSION: 1. Mild opacities in the lower lobes may represent atelectasis or pneumonia. 2. Thoracostomy tube terminates in the medial aspect of the right lower lobe. Additional thoracostomy tube terminates in the medial aspect of the left lower lobe.. 3. Unruptured ascending aortic aneurysm 4 x 4.2 cm. Status post aortic valve replacement. 4. Air debris level in mildly dilated mid esophagus. (2:34). Debris in the proximal esophagus. Dictated and Authenticated by: Clara Moore MD. Ordering:CHAD Bolton MD
[2018-09-17] MEDS: Normal Saline 1,000 ML 150 ML IV (20:51)
[2018-09-17] MEDS: LEVOFLOXACIN 500 MG/100 ML BAG 100 MG IVPB (20:52)
[2018-09-17 21:14] VITALS: BP 114/50; PULSE 70; RESP 20; TEMP 36.6; O2SAT 94
[2018-09-17 21:25] VITALS: BP 159/68; PULSE 78; RESP 24; TEMP 36.7; O2SAT 94
--- NOTE | 2018-09-17 21:46 | NUR.NOTE ---
Patient brought to the unit coming for the Emergency Room. He gave history of coughing, SOB, generalize weakness for the passed 2 weeks. State is diagnosed with stage 4-5 Colon cancer since 1 year now and he has had multiple surgeries since then. On assessment patient has generalized muscle atrophy. He is conscious, alert, rational, oriented x 3. Mucus membrane pale pink not very moist. Lungs sounds noted with fine Rhonchi and diminishes in the bases. pt noted with bilateral tubes to his lungs and also colostomy to the right side of abdomen. IV fluids progressing with normal saline and Levoflaxacin at this time.
--- NOTE | 2018-09-17 23:57 | HPE_ITS ---
Date of service: 09/17/18 Time of Service: 23:57 Assessment and Plan (1) Community acquired pneumonia: Current visit: Yes Status: Acute given his structural lung disease from COPD and possible mets from his co anita CA, I have broadened his antibiotic coverage to include Cefepime. He has been on this in the remote past (November 2017) and had no reactions to this even though he reportedly has severe life threatening reaction to PCN. He just completed course of treatment w/ Levaquin but failed this therefore I do not feel that continued Levaquin will likely resolve his pneumonia. However, he needs coverage for atypicals, i.e. Mycoplasma, Legionella, etc. I will put him on Azithromycin instead of Levaquin and continue w/ Cefepime at renal adjusted doses. Also I have put him on hydrocortisone 50 mg IV q6hr for next 5 days. Continue w/ DuoNeb aerosol treatment. I have also put him on Tamiflu until we get PCR negative for influenza, although given the length of his symptoms and lack of fever, if he did have the flu he is past the point where Tamiflu is likely to benefit him. He should enter into hospice upon discharge and not be readmitted given the advanced stage of his colon cancer. (2) COPD (chronic obstructive pulmonary disease): Current visit: No Status: Chronic aerosolized bronchodilators and antibiotics and corticosteroids as listed above. (3) Acute kidney injury (nontraumatic): Current visit: Yes Status: Acute gentle iv fluid hydration. Given his chronic diastolic HF and pulm. 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 Mr. De Luna had recently been treated w/ Levaquin in early August for CAP. He says that despite completion of his Levaqin he continues to have moist productive cough of purulent sputum but no associated fever or rigors although he always feels chilled. He has had progressive dyspnea over past couple of weeks. Dr. Hoang Wilde, emergency room attending, performed workup that included labs (CMP, CBC, pro-BNP, troponin, nasal swab for influenza), CXR, EKG, and CT of his chest. Labs demonstrated severe dehydration and worsening azotemia w/ BUN 128, creatinine of 5.78 (baseline BUN of 97 and creatinine of 2.26 as of July 13. prior creatinine had bene 1.3 to 1.5 last spring. He has chronically elevated transaminases, low albumin of 3.2 with elevated total protein of 8.5 and a leukocytosis of 15,000. Influenza nasal swab was negative. He has been afebrile at 36.7 and his room air oxygen saturation has been satisfactory at 94%. His CXR failed to demonstrate any focal consolidation but shows hyperexpanded lungs c/w COPD. However his chest CT demonstrated mild lower lobe opacities that could represent either atelectasis or pneumonia. He has bilateral thoracostomy tubes in the medial right lower lobe and medial left lower lobe. He also has a nondissecting ascending aortic aneurysm of 4 x 4.2 cm. Treatment in the ER included iv fluids, iv levaquin, after obtaining blood cultures, (patient has severe allergy to PCN although by past records in November 2017 he tolerated Cefepime and Vancomcyin), Duoneb aerosol treatments and iv solumedrol. Patient is now admitted to hospital for stabilization of his pneumonia. I spoke w/ the patient about his colon cancer and it is his understanding that he has terminal colon cancer. I asked him if he is ready to go into hospice and he seems to think that hospice has been already set up for him. Review of Systems Constitutional Reports as per [facility] Medical History Chronic bilateral pleural effusions (Chronic) Chronic congestive heart failure with left ventricular diastolic dysfunction (Chronic) Depression (Chronic) History of Henoch-Schonlein purpura (Chronic) Anemia (Chronic) Iron deficiency (Chronic) Protein-calorie malnutrition, severe (Chronic) COPD (chronic obstructive pulmonary disease) (Chronic) Back pain (Chronic) Short gut syndrome (Chronic) Colon cancer (Chronic) Elevated LFTs (Chronic) High output ileostomy (Chronic) PTSD (post-traumatic stress disorder) (Chronic) History of colon cancer, stage IV (Chronic) Pleural effusion (Chronic) End of life care (Chronic) Weight loss (Chronic) History of endocarditis (Resolved) History of glomerulonephritis (Resolved) History of ischemic bowel disease (Resolved) History of nephrotic syndrome (Resolved) PSVT (paroxysmal supraventricular tachycardia) (Resolved) Surgical History History of colectomy (Chronic) History of aortic valve replacement (Resolved) History of bowel resection (Resolved) S/P thoracostomy tube placement (Resolved) Social History caregiver/support person: Yes household members: spouse housing: house marital status: lives independently: No (lives at home w/ help of his and visiting nurse) number of children: 1 correction: No current occupational status: disabled leisure activities: fishing diet: other high-fat food intake: 3 or more times/day eating out: rarely or never reads food labels: seldom or never during the past year weight has: increased > 10 lbs Smoking/Tobacco Use Status: Former Tobacco Use substance use type: does not use Meds Home Medications Medication Instructions Recorded Confirmed Type omeprazole 20 mg PO DAILY 10/24/12 09/17/18 History Combivent 2 puff INHALATION QID 04/27/17 09/17/18 History gabapentin [Neurontin] 300 mg PO HS 04/27/17 09/17/18 History metoprolol tartrate 25 mg PO BID 07/26/17 09/17/18 History Infuvite Adult 10 ml IV .BY DURATION vial 12/11/17 09/17/18 Rx Intralipid 250 ml IV DAILY@1700 bag 12/11/17 09/17/18 Rx Multitrace-4 Concentrate 1 ml IV .BY DURATION vial 12/11/17 09/17/18 Rx calcium gluconate 4.5 meq IV .BY DURATION vial 12/11/17 09/17/18 Rx magnesium chloride 254 mg IV .BY DURATION vial 12/11/17 09/17/18 Rx potassium chloride 10 meq IV .BY DURATION vial 12/11/17 09/17/18 Rx potassium phosphate m-/d-basic 3 mm IV .BY DURATION vial 12/11/17 09/17/18 Rx sodium acetate 29.5 meq IV .BY DURATION vial 12/11/17 09/17/18 Rx sodium chloride 5.5 meq IV .BY DURATION vial 12/11/17 09/17/18 Rx mirtazapine 15 mg PO HS 08/29/18 09/17/18 History ondansetron HCl 8 mg PO BID PRN 08/29/18 09/17/18 History prochlorperazine maleate 5 mg PO DIRECTED 08/29/18 09/17/18 History morphine 10 mg PO Q4H PRN PRN 09/17/18 09/17/18 History Allergies Allergy/AdvReac Type Severity Reaction Status Date / Time penicillin G Allergy Severe Unverified 09/17/18 21:03 Exam Const General: cooperative, frail appearing and ill appearing chronically Nutritional Appearance: cachectic Orientation: alert, awake and oriented x3 HENMT Head: normal to inspection, no palpable skull fracture, normocephalic and atraumatic Mouth: tongue abnormal discolored (wang) and other (dry mucous membranes) Eyes General: appearance normal, both eyes and all related structures Visual Vann: normal visual vann by confrontation Alignment and Position: alignment normal Periorbital: periorbital findings normal Eyelids: eyelids normal Conjunctivae: conjunctivae normal Sclera: sclerae normal Cornea: corneas normal Pupils: PERRL EOM: EOM intact bilaterally Neck Neck: normal visual inspection, full ROM, no lymphadenopathy and no JVD Carotids: normal carotid upstroke Lymphatic: no lymphadenopathy noted Resp Effort & Inspection: able to speak in complete sentences and audible wheezes Auscultation: bronchovesicular breath sounds bilaterally and wheezes scattered wheezes Cardio Jugular venous pressure: no JVD Palpation: normal PMI Rate: regular rate Rhythm: regular rhythm Heart Sounds: S1 normal and murmur systolic early, III/ and at the base Pulses: normal peripheral pulses GI Inspection: scaphoid Palpation: soft and nontender Percussion: normal to percussion Auscultation: normal bowel sounds Skin General skin exam: no rashes or lesions noted Neuro General: alert, awake, oriented x3, moves all extremities and no focal motor deficits Cognition: normal cognition Speech: speech normal Motor: muscle tone normal throughout and no movement abnormalities noted Sensory Exam: no sensory deficits noted Extrem General: normal to inspection, full ROM, no joint enlargement, no clubbing, cyanosis or edema, no pedal edema and no calf tenderness Psych Appearance: grossly normal Mental Status: mental status grossly normal Speech and Movement: speech and movement normal Mood: congruent mood Affect: normal affect Attitude: cooperative Thought Process: normal Thought Content: normal Insight: insight good Judgment: judgment good Results Imaging Chest x-ray: image reviewed (COPD w/ bilateral thoracostomy tubes in lower lung zones, no consolidation nor effusions) CT scan - chest: image reviewed (IMPRESSION: 1. Mild opacities in the lower lobes may represent atelectasis or pneumonia. 2. Thoracostomy tube terminates in the medial aspect of the right lower lobe. Additional thoracostomy tube terminates in the medial aspect of the left lower lobe.. 3. Unruptured ascending aortic aneurysm 4 ) Additional studies: NSR rate 70 bpm, evidence of pulmonary disease (prominent anterior R waves, inverted anterior T waves) EKG: image reviewed Labs : 09/19/18 06:10 09/19/18 06:10 Laboratory Results - last 24 hr 09/17/18 09/17/18 18:34 18:34 WBC 15.78 H RBC 4.90 Hgb 13.7 Hct 40.4 MCV 82.4 MCH 28.0 MCHC 33.9 RDW 17.8 H Plt Count 250 MPV 13.4 H Immature Gran % 0.3 Neutrophils % 88.3 Lymphocytes % 6.0 Monocytes % 4.1 Eosinophils % 0.8 Basophils % 0.5 Absolute Neutrophils 13.93 H Absolute Lymphocytes 0.95 L Absolute Monocytes 0.65 Absolute Eosinophils 0.13 Absolute Basophils 0.08 Sodium 134 L Potassium 4.6 Chloride 93 L Carbon Dioxide 20.6 L Anion Gap 20.4 H BUN 128 H* Creatinine 5.78 H* Estimated GFR/1.73 m2 9.87 Glucose 166 H Calcium 9.6 Magnesium 2.7 H Total Bilirubin 1.3 H AST 40 H ALT 91 H Alkaline Phosphatase 398 H Troponin I 0.02 NT-Pro-B Natriuret Pep 276 Total Protein 8.5 H Albumin 3.2 L Last Vital Signs Temp 36.7 C 09/17/18 21:25 Pulse 78 09/17/18 21:25 Resp 24 09/17/18 21:25 BP 159/68 H 09/17/18 21:25 Pulse Ox 94 L 09/17/18 21:25
[2018-09-18 01:29] VITALS: BP 118/58; PULSE 77; RESP 20; TEMP 36.6; O2SAT 94
[2018-09-18] MEDS: CEFEPIME 1 GM in Normal Saline 50 ML IVPB (02:26)
[2018-09-18] MEDS: Heparin 5,000 UNITS/ML VIAL 5000 UNITS SC ×3 (06:40→20:55)
[2018-09-18] MEDS: Hydrocortisone SOD SUC. 100 MG VIAL 50 MG IVP ×3 (06:44→19:35)
[2018-09-18] MEDS: Albuterol/Ipratropium 3 ML UPD VIAL UPD ×3 (06:44→18:29)
[2018-09-18] MEDS: Normal Saline Flush 10 ML SYR IVP ×2 (06:45→13:00)
[2018-09-18] MEDS: Normal Saline 1,000 ML 85 ML IV (07:13)
[2018-09-18 07:25] LABS: Abs Immature Grans 0.04 k/cumm (0.0-0.09); Absolute Basophil Count 0.01 k/cumm (0.0-0.2); Absolute Lymphocyte Count 0.95 k/cumm (1.2-3.4); Absolute Monocyte Count 0.24 k/cumm (0.11-0.7); Basophils % 0.1; HCT 34.2 % (40.0-50.0); HGB 11.5 g/dL (13.5-17.5); Immature Grans % 0.3; Lymphocytes % 6.7; Mean Corp. HGB Concentration 33.6 g/dL (32.0-36.0); Mean Corpuscular Hemoglobin 27.4 pg (27.0-33.0); Mean Corpuscular Volume 81.6 fL (80-95); Monocytes % 1.7; Neutrophils % 91.2; Platelet Count 212 x1000/uL (130-400); RBC 4.19 m/cumm (4.50-6.00); RBC Distribution Width 17.1 % (11.8-14.1); White Blood Cell Count 14.22 k/cumm (4.4-10.8)
[2018-09-18 07:27] LABS: Absolute Neutrophil Count 12.97 k/cumm (1.2-6.7)
[2018-09-18 07:35] VITALS: BP 109/63; PULSE 70; RESP 18; TEMP 36.2; O2SAT 97
[2018-09-18 07:39] LABS: Anion Gap 18.1 mmol/L (3-11); CO2 18.9 mmol/L (21.0-32.0); Chloride 97 mmol/L (98-107); Estimated GFR 11.33 (mL/min/1.73m2); Glucose 122 mg/dL (70-100); Magnesium 2.4 mg/dL (1.8-2.4); Potassium 4.1 mmol/L (3.5-5.1); Sodium 134 mmol/L (136-145)
[2018-09-18 07:41] LABS: BUN 130 mg/dL (7-18)
[2018-09-18 07:42] LABS: CREATININE 5.13 mg/dL (0.70-1.30)
[2018-09-18 08:00] VITALS: RESP 24; O2SAT 94
--- NOTE | 2018-09-18 09:40 | PDOC.CMIN ---
Care Management Initial Assess REASON FOR HOSPITALIZATION:: Pneumonitis PAST MEDICAL HISTORY/PAST SURGICAL HISTORY:: Anemia, back pain, chronic bilateral PE, chronic CHF with left ventricular diastolic dysfunction, colon cancer, COPD, Depression, Elevated PREVIOUS FUNCTIONAL STATUS/SOCIAL/FAMILY SUPPORTS:: Humberto Truong) lives at home with his in [place] where they rent a home. His cares for him with assitance from the [facility]. Spouse is Crystal she provides [place] transportation to and from appointments. CURRENT FUNCTIONAL STATUS:: Boogie was lying in bed when CM met with him, his face appeared shields than the last time this food writer observed him and he spoke in length about deep sea fishing with his son, as he had dreamed of-in [place]. He appeared in great spirits and only requested orders for nicotrol inhaler as he was feeling he needed replacement as soon as possible. CM notified GUEST ROOM INSPECTOR who entered order. JEANINE Boykin reported pharmacy was expediting request. Boogie was agreeable to meeting with Dr. Jensen for Palliative Care tomorrow and reported his would participate by phone. ADVANCE DIRECTIVES:: On File at [facility] agent Crystal De Luna Has patient been provided with information about the portal?: Yes Did the patient sign up for the portal?: No CODE STATUS:: DNR/DNI INSURANCE COVERAGE / FINANCIAL ISSUES:: Medicare. Medicaid CURRENT HOME/COMMUNITY SERVICES/EQUIPMENT:: Walker, wheelchair[facility] for TPN at home. PRIMARY CARE PHYSICIAN:: Dr.David Bruce POTENTIAL DISCHARGE NEEDS:: Resume orders through [facility], Palliative Care Consult, [place] order coordination to MD and resumption upon discharge, follow up appointments. PATIENT/FAMILY EDUCATION NEEDS:: Discharge education, limitation and follow up plan of care, ask me three dicussion and self management. ANTICIPATED BARRIERS TO DISCHARGE:: None at this time. TRANSPORTATION:: Via private car with spouse Crystal when medically ready. PLAN:: Boogie will dicharge home with a resumption of services through [facility], RN 3x/wk, primary nurse is Brittney Ramos contact number is [phone] fax for discharge orders is [phone]. [facility] care for TPN; [facility] faxed orders to this food writer who provided to MD and RNCC. Resumption orders-CM will fax orders to . Boogie will return home with spouse when medically ready and she will transport him by private car. CM will continue to provide support to patient, family and care team for ongoing discharge planning and disposition.
[2018-09-18] MEDS: Oseltamivir 30 MG CAP PO (10:01)
--- NOTE | 2018-09-18 10:04 | INITIAL_ITS ---
Care Management Initial Assess REASON FOR HOSPITALIZATION:: Pneumonitis PAST MEDICAL HISTORY/PAST SURGICAL HISTORY:: Anemia, back pain, chronic bilateral PE, chronic CHF with left ventricular diastolic dysfunction, colon cancer, COPD, Depression, Elevated PREVIOUS FUNCTIONAL STATUS/SOCIAL/FAMILY SUPPORTS:: Humberto Truong) lives at home with his in [place] where they rent a home. His cares for him with assitance from the [facility]. Spouse is Crystal she provides [place] transportation to and from appointments. CURRENT FUNCTIONAL STATUS:: Boogie was lying in bed when CM met with him, his face appeared shields than the last time this typewriter tester observed him and he spoke in length about deep sea fishing with his son, as he had dreamed of-in [place]. He appeared in great spirits and only requested orders for nicotrol inhaler as he was feeling he needed replacement as soon as possible. CM notified COMMUNITY RELATIONS ADVISOR who entered order. JEANINE Boykin reported pharmacy was expediting request. Boogie was agreeable to meeting with Dr. Jensen for Palliative Care tomorrow and reported his would participate by phone. ADVANCE DIRECTIVES:: On File at [facility] agent Crystal De Luna Has patient been provided with information about the portal?: Yes Did the patient sign up for the portal?: No CODE STATUS:: DNR/DNI INSURANCE COVERAGE / FINANCIAL ISSUES:: Medicare. Medicaid CURRENT HOME/COMMUNITY SERVICES/EQUIPMENT:: Walker[facility] wheelchair[facility] for [facility] at home. PRIMARY CARE PHYSICIAN:: Dr.David Bruce POTENTIAL DISCHARGE NEEDS:: Resume orders through [facility], Palliative Care Consult, [place] order coordination to MD and resumption upon discharge, follow up appointments. PATIENT/FAMILY EDUCATION NEEDS:: Discharge education, limitation and follow up plan of care, ask me three dicussion and self management. ANTICIPATED BARRIERS TO DISCHARGE:: None at this time. TRANSPORTATION:: Via private car with spouse Crystal when medically ready. PLAN:: Boogie will dicharge home with a resumption of services through [facility], RN 3x/wk, primary nurse is Brittney Ramos contact number is [phone] fax for discharge orders is [phone]. [facility] care for TPN; [facility] orders to this typewriter tester who provided to MD and RNCC. Resumption orders-CM will fax orders to . Boogie will return home with spouse when medically ready and she will transport him by private car. CM will continue to provide support to patient, family and care team for ongoing discharge planning and disposition.
[2018-09-18] MEDS: VANCOMYCIN 500 MG in Normal Saline 100 ML 100 MG IV (10:07)
[2018-09-18 12:03] VITALS: PULSE 68; RESP 18; RESP 2; RESP 4; RESP 7; O2SAT 93
--- NOTE | 2018-09-18 16:28 | PGE_ITS ---
Date of Service Date of service: 09/18/18 Time of Service: 16:08 Assessment and Plan (1) Pneumonia: Current visit: Yes Status: Acute Treat with HCAP coverage given presumed recent antibiotic failure. Initiate Vancomycin and continue Cefepime. Await culture results. Also on Stress dose steroids. (2) Acute kidney injury (nontraumatic): Current visit: Yes Status: Acute Potentially prerenal in patient with a history of CKD and prior HD with recovery. Continue gentle IVFs, renally dose medications, and avoid nephrotoxins. (3) Chronic bilateral pleural effusions: Current visit: No Status: Chronic B/l pleural Catheters in place (4) Chronic congestive heart failure with left ventricular diastolic dysfunction: Current visit: No Status: Chronic Diastolic CHF. Monitor fluid status. (5) History of colon cancer, stage IV: Current visit: No Status: Chronic Noted. Palliative medicine aware and will see patient in consultation. (6) Elevated LFTs: Current visit: No Status: Chronic Chronic, stable, and unchanged. 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 Continue TPN. (8) DVT prophylaxis: Current visit: Yes Status: Acute SC Heparin. (9) Advance directive on file: Current visit: Yes Status: Acute DNR/DNI Subjective Interval history since last seen: 68-year-old man with past medical history significant for end-stage colon CA and CKD, admitted from [facility] Emergency Department on 09/17 with a diagnosis of community-acquired pneumonia and ALONSO. Mr. De Luna has a history of likely end-stage colon CA, COPD, chronic b/l pleural effusions necessitating placement of bilateral pleural catheters in November 2017, CKD secondary to nephrotic syndrome and glomerulonephritis with a prior history of hemodialysis with subsequent recovery of renal function. 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 The patient also has a history of recurrent, potentially postobstructive pneumonia in the past. Mr. Cervantes reports being treated with levofloxacin in early August for community-acquired pneumonia. He states that despite completion of this antibiotic is continued to have a moist productive cough along with purulent sputum, along with progressive dyspnea. Workup in the ED included evidence of significant acute on chronic kidney injury with a BUN greater than 100 and a creatinine of 5.78, elevated LFTs that appear chronic, and leukocytosis. His flu swab was checked and negative. As his chest x-ray appeared negative, a CT of the chest was procured showing lower lobe opacities representing either atelectasis or pneumonia. Also noted was a non- dissecting a sending aortic aneurysm measuring 4 x 4.2 cm. He was referred for admission at that time. This morning Mr. De Luna reports mild improvement overall, but still with significant weakness. Patient with continued, minimally improved leukocytosis. Creatinine remains significantly elevated, minimally improved since admission. No other events reported. Currently remains afebrile. Exam Narrative Exam Narrative: General: Patient is thin, comfortable appearing, AAOX3, NAD Neck: Supple CV: Regular, nontachycardic, S1S2, No rubs, murmurs, or gallops. Pulmonary: Clear to auscultation bilaterally with minimal bibasilar crackles, no wheezing. Abdomen: + Bowel Sounds, soft, nontender, nondistended Vascular: No lower extremity edema Psych: Normal mood and affect. Objective Objective Clinical Data: Abnormal lab results 09/17/18 09/17/18 09/18/18 Range/Units 18:34 18:34 06:50 WBC 15.78 H (4.4-10.8) k/cumm RBC (4.50-6.00) m/cumm Hgb (13.5-17.5) g/dL Hct (40.0-50.0) % RDW 17.8 H (11.8-14.1) % MPV 13.4 H (8.0-11.0) fL Absolute Neutrophils 13.93 H (1.2-6.7) k/cumm Absolute Lymphocytes 0.95 L (1.2-3.4) k/cumm Sodium 134 L 134 L (136-145) mmol/L Chloride 93 L 97 L (98-107) mmol/L Carbon Dioxide 20.6 L 18.9 L (21.0-32.0) mmol/L Anion Gap 20.4 H 18.1 H (3-11) mmol/L BUN 128 H* 130 H* (7-18) mg/dL Creatinine 5.78 H* 5.13 H* (0.70-1.30) mg/dL Glucose 166 H 122 H (70-100) mg/dL Magnesium 2.7 H (1.8-2.4) mg/dL Total Bilirubin 1.3 H (0.2-1.0) mg/dL AST 40 H (15-37) U/L ALT 91 H (12-78) U/L Alkaline Phosphatase 398 H (46-116) U/L Total Protein 8.5 H (6.4-8.2) g/dL Albumin 3.2 L (3.4-5.0) g/dL 09/18/18 Range/Units 06:50 WBC 14.22 H (4.4-10.8) k/cumm RBC 4.19 L (4.50-6.00) m/cumm Hgb 11.5 L D (13.5-17.5) g/dL Hct 34.2 L (40.0-50.0) % RDW 17.1 H (11.8-14.1) % MPV 13.0 H (8.0-11.0) fL Absolute Neutrophils 12.97 H (1.2-6.7) k/cumm Absolute Lymphocytes 0.95 L (1.2-3.4) k/cumm Sodium (136-145) mmol/L Chloride (98-107) mmol/L Carbon Dioxide (21.0-32.0) mmol/L Anion Gap (3-11) mmol/L BUN (7-18) mg/dL Creatinine (0.70-1.30) mg/dL Glucose (70-100) mg/dL Magnesium (1.8-2.4) mg/dL Total Bilirubin (0.2-1.0) mg/dL AST (15-37) U/L ALT (12-78) U/L Alkaline Phosphatase (46-116) U/L Total Protein (6.4-8.2) g/dL Albumin (3.4-5.0) g/dL Vital Signs Temperature 36.2 C L 09/18/18 07:35 Temperature Source Tympanic 09/18/18 07:35 Pulse 68 09/18/18 12:03 Pulse Rhythm Irregular 09/18/18 08:15 Respiratory Rate 18 09/18/18 12:03 Respiratory Effort 09/18/18 08:15 Respiratory Depth Shallow 09/18/18 08:15 Respiratory Pattern Normal 09/18/18 08:15 Blood Pressure 109/63 09/18/18 07:35 Pulse Oximetry 93 L 09/18/18 12:03 Oxygen Delivery Method Room Air 09/18/18 12:03 Oxygen Flow Rate 0 09/18/18 12:03 Pain Level 7 09/18/18 10:37 Intake & Output 09/17/18 09/18/18 09/18/18 23:59 11:59 23:59 Intake Total 397.5 / 497.5 992.5 / 1232.5 240 / 1232.5 Output Total 125 / 450 325 / 450 Balance 397.5 / 497.5 867.5 / 782.5 -85 / 782.5 Weight 48.988 kg Intake: IV 397.5 / 497.5 752.5 / 752.5 Oral 240 / 480 240 / 480 Output: Urine 125 / 175 50 / 175 Stool 275 / 275 Other: Urine Color Light Lucia Urine Appearance Clear Clear Urine Odor Normal Comment urine sent to lab. Stool Characteristics Soft Voiding Methods Urinal Urinal Urinal Laboratory Results WBC 14.22 k/cumm (4.4-10.8) H 09/18/18 06:50 RBC 4.19 m/cumm (4.50-6.00) L 09/18/18 06:50 Hgb 11.5 g/dL (13.5-17.5) L D 09/18/18 06:50 Hct 34.2 % (40.0-50.0) L 09/18/18 06:50 MCV 81.6 fL (80-95) 09/18/18 06:50 MCH 27.4 pg (27.0-33.0) 09/18/18 06:50 MCHC 33.6 g/dL (32.0-36.0) 09/18/18 06:50 RDW 17.1 % (11.8-14.1) H 09/18/18 06:50 Plt Count 212 x1000/uL (130-400) 09/18/18 06:50 MPV 13.0 fL (8.0-11.0) H 09/18/18 06:50 Immature Gran % 0.3 09/18/18 06:50 Neutrophils % 91.2 09/18/18 06:50 Lymphocytes % 6.7 09/18/18 06:50 Monocytes % 1.7 09/18/18 06:50 Eosinophils % 0.0 09/18/18 06:50 Basophils % 0.1 09/18/18 06:50 Absolute Neutrophils 12.97 k/cumm (1.2-6.7) H 09/18/18 06:50 Absolute Lymphocytes 0.95 k/cumm (1.2-3.4) L 09/18/18 06:50 Absolute Monocytes 0.24 k/cumm (0.11-0.7) 09/18/18 06:50 Absolute Eosinophils 0.00 k/cumm (0.0-0.7) 09/18/18 06:50 Absolute Basophils 0.01 k/cumm (0.0-0.2) 09/18/18 06:50 Sodium 134 mmol/L (136-145) L 09/18/18 06:50 Potassium 4.1 mmol/L (3.5-5.1) 09/18/18 06:50 Chloride 97 mmol/L (98-107) L 09/18/18 06:50 Carbon Dioxide 18.9 mmol/L (21.0-32.0) L 09/18/18 06:50 Anion Gap 18.1 mmol/L (3-11) H 09/18/18 06:50 BUN 130 mg/dL (7-18) H* 09/18/18 06:50 Creatinine 5.13 mg/dL (0.70-1.30) H* 09/18/18 06:50 Estimated GFR/1.73 m2 11.33 (mL/min/1.73m2) 09/18/18 06:50 Glucose 122 mg/dL (70-100) H 09/18/18 06:50 Calcium 9.0 mg/dL (8.5-10.1) 09/18/18 06:50 Magnesium 2.4 mg/dL (1.8-2.4) 09/18/18 06:50 Total Bilirubin 1.3 mg/dL (0.2-1.0) H 09/17/18 18:34 AST 40 U/L (15-37) H 09/17/18 18:34 ALT 91 U/L (12-78) H 09/17/18 18:34 Alkaline Phosphatase 398 U/L (46-116) H 09/17/18 18:34 Troponin I 0.02 ng/mL (0.00-0.06) 09/17/18 18:34 NT-Pro-B Natriuret Pep 276 pg/mL (-299) 09/17/18 18:34 Total Protein 8.5 g/dL (6.4-8.2) H 09/17/18 18:34 Albumin 3.2 g/dL (3.4-5.0) L 09/17/18 18:34
[2018-09-18 16:31] VITALS: BP 118/65; PULSE 78; RESP 18; TEMP 35.8; O2SAT 96
[2018-09-18] MEDS: Insulin Aspart 300 UNITS/3 ML PEN SC (18:00)
[2018-09-19] VITALS (8 sets, daily range): BP systolic 104–126; BP diastolic 50–59; PULSE 71–88; RESP 1–18; TEMP 35.9–36.4; O2SAT 96–97
[2018-09-19] MEDS: Hydrocortisone SOD SUC. 100 MG VIAL 50 MG IVP ×3 (00:05→18:34)
[2018-09-19] MEDS: CEFEPIME 1 GM in Normal Saline 50 ML IVPB (02:50)
[2018-09-19] MEDS: Normal Saline 1,000 ML 100 ML IV (03:20)
[2018-09-19] MEDS: Albuterol/Ipratropium 3 ML UPD VIAL UPD ×4 (06:10→18:38)
[2018-09-19] MEDS: Heparin 5,000 UNITS/ML VIAL 5000 UNITS SC ×3 (06:21→21:06)
[2018-09-19] MEDS: Normal Saline Flush 10 ML SYR IVP ×2 (07:00→18:37)
[2018-09-19 07:24] LABS: Abs Immature Grans 0.04 k/cumm (0.0-0.09); Absolute Monocyte Count 0.54 k/cumm (0.11-0.7); Absolute Neutrophil Count 12.64 k/cumm (1.2-6.7); HCT 28.7 % (40.0-50.0); HGB 9.6 g/dL (13.5-17.5); Immature Grans % 0.3; Lymphocytes % 6.8; Mean Corp. HGB Concentration 33.4 g/dL (32.0-36.0); Mean Corpuscular Hemoglobin 27.6 pg (27.0-33.0); Mean Corpuscular Volume 82.5 fL (80-95); Monocytes % 3.8; Neutrophils % 89.1; RBC 3.48 m/cumm (4.50-6.00); RBC Distribution Width 17.3 % (11.8-14.1); White Blood Cell Count 14.19 k/cumm (4.4-10.8)
[2018-09-19 07:29] LABS: Absolute Lymphocyte Count 0.96 k/cumm (1.2-3.4)
[2018-09-19 07:40] LABS: Diff Comment RBC Morph Reviewed; Platelet Count 185 x1000/uL (130-400); Poikilocytes 1+
[2018-09-19 07:44] LABS: ALT 54 U/L (12-78); AST 25 U/L (15-37); Albumin 2.3 g/dL (3.4-5.0); Alkaline Phosphatase 238 U/L (46-116); Anion Gap 12.7 mmol/L (3-11); Bilirubin, Total 0.7 mg/dL (0.2-1.0); CO2 20.3 mmol/L (21.0-32.0); Calcium 8.9 mg/dL (8.5-10.1); Chloride 103 mmol/L (98-107); Estimated GFR 16.89 (mL/min/1.73m2); Glucose 125 mg/dL (70-100); Potassium 4.1 mmol/L (3.5-5.1); Sodium 136 mmol/L (136-145); Total Protein 6.3 g/dL (6.4-8.2)
[2018-09-19 08:10] LABS: BUN 115 mg/dL (7-18); CREATININE 3.63 mg/dL (0.70-1.30)
--- NOTE | 2018-09-19 08:53 | CMPROGNOTE_ITS ---
Care Management Progress Note S/O: Boogie met with Dr. Jensen today for Palliative Care. He continues to report confidence in knowing when he is ready to transition to Hospice Care through [facility]-Brittney Ramos RN confirmed this as well. Boogie remains pleasant in interaction and presents with good spirits. CM will continue to follow; no change to overall plan. A: 68 year old male admitted 09/17/18 for Pneumonitis P: Boogie will discharge home with a resumption of services through [facility], RN 3x/wk, primary nurse is Brittney Ramos contact number is [phone] fax for discharge orders is [phone]. [facility] for TPN; [facility] faxed orders to this hand sign writer who provided to MD and RNCC. Resumption orders-CM will fax orders to . Boogie will return home with spouse when medically ready and she will transport him by private car. CM will continue to provide support to patient, family and care team for ongoing discharge planning and disposition.
[2018-09-19] MEDS: Oseltamivir 30 MG CAP PO (09:55)
[2018-09-19] MEDS: Metoprolol 25 MG TAB PO ×2 (11:55→21:05)
--- NOTE | 2018-09-19 12:02 | W.NUTCONSULT ---
Date of service: 09/19/18 Time of Service: 12:03 Nutritional Consult ASSESSMENT: Mr. De Luna has a history of malnutrition. He currently gets TPN at home which provides 100% of his estimated energy and protein needs. He eats food by mouth ad maki to supplement. Here in the hospital he is receiving 1520 calories and 85 grams of protein from TPN. This regimen provides 31 kcal/kg/day and 1.7 g/kg/day of protein which is 100% of his calorie and protein needs. He is 48.9 kg on admission. He is 72. His weight has increased intentionally by 6% since November of 2017. NUTRITIONAL DIAGNOSIS: Underweight related to a history of malnutrition and inadequate energy intake as evidenced by a BMI of 15.5 kg/m2. INTERVENTION: Would continue TPN as ordered. RD and/or CDM will continue to visit with Mr. De Luna prior to meals to ensure that he get foods that are most appealing to him. MONITORING AND EVALUATION: 1. Will monitor weight and PO intake. Will watch for changes in TPN as well as make recommendations for changes if needed. 2. Will evaluate nutrition care plan ongoing and adjust as needed. Thank you for the consult. Time Spent in Nutritional Counseling and Treatment: TAI
--- NOTE | 2018-09-19 12:24 | PT.INIE ---
Date of service: 09/19/18 Time of Service: 12:00 PT Notes Inpatient Physical Therapy Evaluation Date: 09/19/18 Referring Doctor: Kalpana Pinzon NP PT Orders: PT CONSULT: generalized weakness Precautions: fall, contact Patient Profile/Admitting Diagnosis: Patient admitted for management of community acquired pneumonia in the presence of COPD, lung cancer with possible metastases, and chronic bilat pleural effusions with pleural cath. Patient has expressed desire to get up and moving, and PT consultation was requested to assess his mobility. PMHX: colon CA; recurrent pneumonia; CKD s/p prior hemodialysis; endocarditis s/p aortic valve replacement; chronic diastolic heart failure; ischemic bowel, s/p resection. Social History/Home Situation: Patient lives independently with his . He states that his home is fully set up for him with grab bars, multiple walkers, commode, etc. He does not manage stairs, but is up and around throughout the day, typically with a rollator walker, although at times with a cane. He states that he's up tinkering most of the day. His assists with his ADLs, and he also has Home Health daily. He states that he has a regular exercise program that he completes on his own each day. Current Functional Limitations: Patient states that he hasn't been walking in a couple of days and worries that he's getting weak. Equipment Owned/DME: as above. Handicap accessible home with with multiple assistive devices and adaptive equipment. Subjective: Boogie states that he's feeling well. He is anxious to get out of bed, stating he feels like he's getting weaker. He states that he's on his way out and wants to maintain his ability to walk and move around as he wishes for as long as possible. Objective: General Observation: Resting in bed with lines to both right and left UEs. Colostomy bag in place. Mental Status: A&Ox3. Very pleasant and conversant throughout session. Pain: denies ROM: Right Upper Extremity: WFL Left Upper Extremity: WFL, with the exception of left hand. Patient has only partial grasp, maintaining full right digit IP extension. Right Lower Extremity: WFL Left Lower Extremity: WFL Strength: Right Upper Extremity: Shoulder flexion 4/5. Biceps 4/5. Left Upper Extremity: Shoulder flexion 4/5. Biceps 4/5. Right Lower Extremity: Hip flexion 4/5. Quads 4/5. Ankle DF 4/5. Left Lower Extremity: Hip flexion 4/5. Quads 4/5. Ankle DF 4/5. Bed Mobility/Transfers: Supine to sit: Independent Sit to stand: Contact-guard Stand to sit: Contact-guard Bed to chair: Contact-guard, FW W Gait: Patient ambulate 6 feet with FW W and contact-guard. He has mild JOHNSON, which resolves with standing rest. Balance: Static Sitting: Normal Dynamic Sitting: Normal Static Standing: Good Dynamic Standing: Fair Special Tests: Mobility Limitations Standardized Measure [facility] AM-PAC 6 clicks Basic Mobility Inpatient Short Form: Raw Score: 18 standardized Score: 43.63 CMS Score: 47% Informed Consent/Education: Patient instructed in purpose of PT consult and plan of care. Treatment: The session consisted of evaluation, followed by instruction in an early therapeutic exercise program. Patient was instructed in both seated and standing activities for general conditioning and balance. Full program can be found noted in flowsheet. Assessment: Patient is a 68 year old male referred to physical therapy services with the diagnosis of generalized weakness in patient with community-acquired pneumonia in the presence of colon cancer and COPD.. Patient presents with clinical signs and symptoms consistent with diagnosis, as demonstrated by the following impairment level findings: 1. Decreased lower extremity strength 2. Decreased upper extremity strength 3. Decreased balance 4. Decreased activity tolerance Impairments are contributing to the following functional limitations: 1. Unable to tolerate community distance ambulation 2. Decreased safety with ambulation, at high risk for falls 3. Decreased independence with transfers [facility] score 47% deficit. Patient is assessed as Moderate 37131 complexity based on the following: History: 68-year-old male presenting with generalized weakness in the presence of terminal colon cancer. He has a complicated medical history as noted above, and diminished mobility at baseline. Patient has support systems in place at home, and has goals to maintain his mobility for as long as possible during this period of declining health Examination: Functional limitations as above Presentation: Unstable Decision Making: Moderate complexity Goals: Goals X1 week 1. Supine-Sit : Supervision 2. Sit-Supine : Supervision 3. Sit-Stand : Supervision 4. Stand-Sit : Supervision 5. Bed-Chair : Supervision with WW 6. Chair-Bed : Supervision with WW 7. Gait : Supervision with WW x 25' Plan of Care/Treatment Plan: 1-2x/day, 7 days/week x 1 week. Plan of care has been reviewed with the WIND TUNNEL TECHNICIAN providing the service under Physical Therapy direction. Initiate Physical Therapy intervention for strengthening, bed mobility, transfers, gait, stairs, balance training, use of assistive device. DISCHARGE RECOMMENDATIONS: Home with continued care from family and home health TREATMENT CODE/TIME: 25 minutes (02689) Roxane Albrecht, PT, DPT [facility]
--- NOTE | 2018-09-19 12:39 | IN_ITS ---
Date of service: 09/19/18 Time of Service: 12:00 PT Notes Inpatient Physical Therapy Evaluation Date: 09/19/18 Referring Doctor: Kalpana Pinzon NP PT Orders: PT CONSULT: generalized weakness Precautions: fall, contact Patient Profile/Admitting Diagnosis: Patient admitted for management of community acquired pneumonia in the presence of COPD, lung cancer with possible metastases, and chronic bilat pleural effusions with pleural cath. Patient has expressed desire to get up and moving, and PT consultation was requested to assess his mobility. PMHX: colon CA; recurrent pneumonia; CKD s/p prior hemodialysis; endocarditis s/p aortic valve replacement; chronic diastolic heart failure; ischemic bowel, s/p resection. Social History/Home Situation: Patient lives independently with his . He states that his home is fully set up for him with grab bars, multiple walkers, commode, etc. He does not manage stairs, but is up and around throughout the day, typically with a rollator walker, although at times with a cane. He states that he's up tinkering most of the day. His assists with his ADLs, and he also has Home Health daily. He states that he has a regular exercise program that he completes on his own each day. Current Functional Limitations: Patient states that he hasn't been walking in a couple of days and worries that he's getting weak. Equipment Owned/DME: as above. Handicap accessible home with with multiple assistive devices and adaptive equipment. Subjective: Boogie states that he's feeling well. He is anxious to get out of bed, stating he feels like he's getting weaker. He states that he's on his way out and wants to maintain his ability to walk and move around as he wishes for as long as possible. Objective: General Observation: Resting in bed with lines to both right and left UEs. Colostomy bag in place. Mental Status: A&Ox3. Very pleasant and conversant throughout session. Pain: denies ROM: Right Upper Extremity: WFL Left Upper Extremity: WFL, with the exception of left hand. Patient has only partial grasp, maintaining full right digit IP extension. Right Lower Extremity: WFL Left Lower Extremity: WFL Strength: Right Upper Extremity: Shoulder flexion 4/5. Biceps 4/5. Left Upper Extremity: Shoulder flexion 4/5. Biceps 4/5. Right Lower Extremity: Hip flexion 4/5. Quads 4/5. Ankle DF 4/5. Left Lower Extremity: Hip flexion 4/5. Quads 4/5. Ankle DF 4/5. Bed Mobility/Transfers: Supine to sit: Independent Sit to stand: Contact-guard Stand to sit: Contact-guard Bed to chair: Contact-guard, FW W Gait: Patient ambulate 6 feet with FW W and contact-guard. He has mild JOHNSON, which resolves with standing rest. Balance: Static Sitting: Normal Dynamic Sitting: Normal Static Standing: Good Dynamic Standing: Fair Special Tests: Mobility Limitations Standardized Measure [facility] AM-PAC 6 clicks Basic Mobility Inpatient Short Form: Raw Score: 18 standardized Score: 43.63 CMS Score: 47% Informed Consent/Education: Patient instructed in purpose of PT consult and plan of care. Treatment: The session consisted of evaluation, followed by instruction in an early therapeutic exercise program. Patient was instructed in both seated and standing activities for general conditioning and balance. Full program can be found noted in flowsheet. Assessment: Patient is a 68 year old male referred to physical therapy services with the diagnosis of generalized weakness in patient with community-acquired pneumonia in the presence of colon cancer and COPD.. Patient presents with clinical signs and symptoms consistent with diagnosis, as demonstrated by the following impairment level findings: 1. Decreased lower extremity strength 2. Decreased upper extremity strength 3. Decreased balance 4. Decreased activity tolerance Impairments are contributing to the following functional limitations: 1. Unable to tolerate community distance ambulation 2. Decreased safety with ambulation, at high risk for falls 3. Decreased independence with transfers [facility] score 47% deficit. Patient is assessed as Moderate [id number] complexity based on the following: History: 68-year-old male presenting with generalized weakness in the presence of terminal colon cancer. He has a complicated medical history as noted above, and diminished mobility at baseline. Patient has support systems in place at home, and has goals to maintain his mobility for as long as possible during this period of declining health Examination: Functional limitations as above Presentation: Unstable Decision Making: Moderate complexity Goals: Goals X1 week 1. Supine-Sit : Supervision 2. Sit-Supine : Supervision 3. Sit-Stand : Supervision 4. Stand-Sit : Supervision 5. Bed-Chair : Supervision with WW 6. Chair-Bed : Supervision with WW 7. Gait : Supervision with WW x 25' Plan of Care/Treatment Plan: 1-2x/day, 7 days/week x 1 week. Plan of care has been reviewed with the DIE PRESS OPERATOR providing the service under Physical Therapy direction. Initiate Physical Therapy intervention for strengthening, bed mobility, transfers, gait, stairs, balance training, use of assistive device. DISCHARGE RECOMMENDATIONS: Home with continued care from family and home health TREATMENT CODE/TIME: 25 minutes ([id number]) Roxane Albrecht, PT, DPT [facility]
--- NOTE | 2018-09-19 15:16 | PT.INNT ---
Date of service: 09/19/18 Time of Service: 15:17 PT Notes 09/19/18 Patient refused afternoon PT session stating he was too tired to participate. Will attempt to resume PT services tomorrow morning.
[2018-09-19] MEDS: Normal Saline 1,000 ML 75 ML IV (15:20)
--- NOTE | 2018-09-19 15:20 | PGE_ITS ---
Date of Service Date of service: 09/19/18 Time of Service: 15:13 Assessment and Plan (1) Pneumonia: Current visit: Yes Status: Acute Treat with HCAP coverage given presumed recent antibiotic failure. Continue Vancomycin and Cefepime, day #2. Await culture results - current sputum with MRSA. Also on Stress dose steroids - wean today. (2) Acute kidney injury (nontraumatic): Current visit: Yes Status: Acute Potentially prerenal in patient with a history of CKD and prior HD with recovery. Continue gentle IVFs, renally dose medications, and avoid nephrotoxins. Appears to be improving. (3) Chronic bilateral pleural effusions: Current visit: No Status: Chronic B/l pleural Catheters in place (4) Chronic congestive heart failure with left ventricular diastolic dysfunction: Current visit: No Status: Chronic Diastolic CHF. Monitor fluid status. (5) History of colon cancer, stage IV: Current visit: No Status: Chronic According to meeting between palliative care and patient: Mr. De Luna is aware that his Colon Ca is end-stage, without any further treatment options. He is DNR/DNI. He is also well known to Hospice, and accepted - he is currently enjoying his life and would like to continue until his quality of life becomes poor, and then will contact Hospice to actively enroll. Continue treatment regimen as above. (6) Elevated LFTs: Current visit: No Status: Chronic Chronic, stable, and unchanged. 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 Continue TPN. (8) DVT prophylaxis: Current visit: Yes Status: Acute SC Heparin. (9) Advance directive on file: Current visit: Yes Status: Acute DNR/DNI Subjective Interval history since last seen: 68-year-old man with past medical history significant for end-stage colon CA and CKD, admitted from [facility] Emergency Department on 09/17 with a diagnosis of community-acquired pneumonia and ALONSO. Mr. De Luna has a history of likely end-stage colon CA, COPD, chronic b/l pleural effusions necessitating placement of bilateral pleural catheters in November 2017, CKD secondary to nephrotic syndrome and glomerulonephritis with a prior history of hemodialysis with subsequent recovery of renal function. 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 The patient also has a history of recurrent, potentially postobstructive pneumonia in the past. Mr. Cervantes reports being treated with levofloxacin in early August for community-acquired pneumonia. He stated that despite completion of this antibiotic is continued to have a moist productive cough along with purulent sputum, along with progressive dyspnea. Workup in the ED included evidence of significant acute on chronic kidney injury with a BUN greater than 100 and a creatinine of 5.78, elevated LFTs that appear chronic, and leukocytosis. His flu swab was checked and negative. As his chest x-ray appeared negative, a CT of the chest was procured showing lower lobe opacities representing either atelectasis or pneumonia. Also noted was a non- dissecting a sending aortic aneurysm measuring 4 x 4.2 cm. He was referred for admission at that time. This morning Mr. De Luna reports vast improvement overall. His creatinine continues to improve, and his leukocytosis is unchanged in the setting of concurrent steroid use. Palliative care has met with patient, and reporting that Mr. De Luna is well known to hospice. No other events reported. Currently remains afebrile. Exam Narrative Exam Narrative: General: Patient is thin, comfortable appearing, AAOX3, NAD Neck: Supple CV: Regular, nontachycardic, S1S2, No rubs, murmurs, or gallops. Pulmonary: Clear to auscultation bilaterally with minimal bibasilar crackles, no wheezing. Abdomen: + Bowel Sounds, soft, nontender, nondistended Vascular: No lower extremity edema Psych: Normal mood and affect. Objective Objective Clinical Data: Abnormal lab results 09/19/18 09/19/18 Range/Units 06:10 06:10 WBC 14.19 H (4.4-10.8) k/cumm RBC 3.48 L (4.50-6.00) m/cumm Hgb 9.6 L (13.5-17.5) g/dL Hct 28.7 L (40.0-50.0) % RDW 17.3 H (11.8-14.1) % Absolute Neutrophils 12.64 H (1.2-6.7) k/cumm Absolute Lymphocytes 0.96 L (1.2-3.4) k/cumm Carbon Dioxide 20.3 L (21.0-32.0) mmol/L Anion Gap 12.7 H (3-11) mmol/L BUN 115 H* (7-18) mg/dL Creatinine 3.63 H* D (0.70-1.30) mg/dL Glucose 125 H (70-100) mg/dL Alkaline Phosphatase 238 H (46-116) U/L Total Protein 6.3 L (6.4-8.2) g/dL Albumin 2.3 L (3.4-5.0) g/dL Vital Signs Temperature 36.4 C L 09/19/18 11:01 Temperature Source Tympanic 09/19/18 11:01 Pulse 78 09/19/18 11:01 Pulse Rhythm Regular 09/19/18 10:00 Respiratory Rate 16 09/19/18 11:01 Respiratory Effort Non-Labored 09/19/18 10:00 Respiratory Depth Normal 09/19/18 10:00 Respiratory Pattern Normal 09/19/18 10:00 Blood Pressure 124/53 L 09/19/18 11:01 Pulse Oximetry 97 09/19/18 11:01 Oxygen Delivery Method Room Air 09/19/18 11:01 Oxygen Flow Rate 0 09/19/18 11:01 Pain Level 0 09/19/18 11:13 Intake & Output 09/18/18 09/19/18 09/19/18 23:59 11:59 23:59 Intake Total 1240 / 2332.5 1812.667 / 1812.667 Output Total 1250 / 1375 625 / 975 350 / 975 Balance -10 / 957.5 1187.667 / 837.667 -350 / 837.667 Intake: IV 1000 / 1852.5 1692.667 / 1692.667 Oral 240 / 480 120 / 120 Output: Urine 600 / 725 525 / 725 200 / 725 Stool 650 / 650 100 / 250 150 / 250 Other: Urine Color Yellow Yellow Straw Straw Urine Appearance Clear Clear Clear Urine Odor Normal Strong Normal Stool Characteristics Liquid Voiding Methods Urinal Urinal Laboratory Results WBC 14.19 k/cumm (4.4-10.8) H 09/19/18 06:10 RBC 3.48 m/cumm (4.50-6.00) L 09/19/18 06:10 Hgb 9.6 g/dL (13.5-17.5) L 09/19/18 06:10 Hct 28.7 % (40.0-50.0) L 09/19/18 06:10 MCV 82.5 fL (80-95) 09/19/18 06:10 MCH 27.6 pg (27.0-33.0) 09/19/18 06:10 MCHC 33.4 g/dL (32.0-36.0) 09/19/18 06:10 RDW 17.3 % (11.8-14.1) H 09/19/18 06:10 Plt Count 185 x1000/uL (130-400) 09/19/18 06:10 MPV fL (8.0-11.0) 09/19/18 06:10 Immature Gran % 0.3 09/19/18 06:10 Neutrophils % 89.1 09/19/18 06:10 Lymphocytes % 6.8 09/19/18 06:10 Monocytes % 3.8 09/19/18 06:10 Eosinophils % 0.0 09/19/18 06:10 Basophils % 0.0 09/19/18 06:10 Absolute Neutrophils 12.64 k/cumm (1.2-6.7) H 09/19/18 06:10 Absolute Lymphocytes 0.96 k/cumm (1.2-3.4) L 09/19/18 06:10 Absolute Monocytes 0.54 k/cumm (0.11-0.7) 09/19/18 06:10 Absolute Eosinophils 0.00 k/cumm (0.0-0.7) 09/19/18 06:10 Absolute Basophils 0.00 k/cumm (0.0-0.2) 09/19/18 06:10 Differential Comment Rbc morph reviewed 09/19/18 06:10 RBC Morphology See below 09/19/18 06:10 Poikilocytosis 1+ 09/19/18 06:10 Sodium 136 mmol/L (136-145) 09/19/18 06:10 Potassium 4.1 mmol/L (3.5-5.1) 09/19/18 06:10 Chloride 103 mmol/L (98-107) 09/19/18 06:10 Carbon Dioxide 20.3 mmol/L (21.0-32.0) L 09/19/18 06:10 Anion Gap 12.7 mmol/L (3-11) H 09/19/18 06:10 BUN 115 mg/dL (7-18) H* 09/19/18 06:10 Creatinine 3.63 mg/dL (0.70-1.30) H* D 09/19/18 06:10 Estimated GFR/1.73 m2 16.89 (mL/min/1.73m2) 09/19/18 06:10 Glucose 125 mg/dL (70-100) H 09/19/18 06:10 Calcium 8.9 mg/dL (8.5-10.1) 09/19/18 06:10 Magnesium 2.4 mg/dL (1.8-2.4) 09/18/18 06:50 Total Bilirubin 0.7 mg/dL (0.2-1.0) 09/19/18 06:10 AST 25 U/L (15-37) 09/19/18 06:10 ALT 54 U/L (12-78) 09/19/18 06:10 Alkaline Phosphatase 238 U/L (46-116) H 09/19/18 06:10 Troponin I 0.02 ng/mL (0.00-0.06) 09/17/18 18:34 NT-Pro-B Natriuret Pep 276 pg/mL (-299) 09/17/18 18:34 Total Protein 6.3 g/dL (6.4-8.2) L 09/19/18 06:10 Albumin 2.3 g/dL (3.4-5.0) L 09/19/18 06:10 Legionella Source (see note) 09/18/18 02:55 Legionella Reprt Status (see note) 09/18/18 02:55 Legionella Final Result (see note) 09/18/18 02:55
--- NOTE | 2018-09-19 15:52 | PHARADMIT ---
Addendum entered by Dana Regalado 09/20/18 17:34: TPN looks to be hanging 7am/7pm Vanco adjusted, see note on kinetic sheet because SCr went from 5.13 to 2.18, did not get a chance to reach steady state, in agreement Cefepime dose is still Q24h even though renal function has improved (CrCl~23ml/min) Omeprazole changed to Protonix IV BID Anemia work-up, H/H down, ostomy output is heme positive Added Ferrous sulfate and Ascorbic acid, IV steroids dc'd Original Note: Admission Pharmacy Clinical Review PNEUMONITIS Code Status DNR/DNI Current Weight Wgt-49 kg Renally Cleared and Narrow Therapeutic Index Meds CrCl~ 13.8 mL/min Meds-OK QTc Value / Action Taken QTc-432 NA BP Control, Fever BP- 124/53 Tmax- 36.7C Electrolytes reviewed Na- 136 K+4.1 Mag-2.4 DVT Prophylaxis Heparin 5,000 SC Opiate Usage / Scheduled Bowel Regimen Ordered Yes Yes Plt/SCr for Heparin / Enoxaparin Plts-185 SCr- 3.63 (down was 5.78) INR for Warfarin na H/H stable, WBC/Bands H&H- 9.6/28.7 WBC- 14.19 Antibiotic appropriateness Cefepime, Vancomycin, Tamiflu Cultures and Sensitivities BLOOD, Sputum, Flu-negative Surgical ABX d/c within 24 hr na DM control / Insulin Dosing BG- 125 Aspart Heart Failure (Check EF%) (MICHAEL's, B-Block, Diuretics) Lopressor IV to PO Switch No Home Meds Reviewed Yes Home Meds Not Ordered InTPN _MagChloride, CalciumGluconate, PotPhos, Comments On TPN (here and at home)
--- NOTE | 2018-09-19 19:42 | PCNE_ITS ---
Date of service: 09/19/18 History of Present Illness Chief Complaint: discussion of GOC, plans to transition to hospice Narrative: I last saw Humberto on his November 2017 admission. 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 He has been on TPN at home since that discharge. He has not developed any problems with his TPN, except for some worsening of his kidney function. He has had no line infections. He has had no liver failure. He has gained about 20 lbs over the last 8-9 months, though he is still cachectic at 108 lbs. He was able to go deep sea fishing with his only child, his son, 6 times this last summer. That was his goal. IF he lives to see this next summer, he wants to go out with his son again. He is very involved with the [facility] and hospice. He clearly states that there are no other cancer directed therapies or surgical therapies for him. He knows that he is being sustained by his TPN and that if he stopped it, he would likely from protein and calorie malnutrition in weeks. He says his pain is well controlled. His energy is not bad. He does still eat some foods by mouth, for pleasure, but not a lot. He has a plan with the [facility] that he will go on hospice when he has had enough OR when he develops complications from his TPN,. HIs of 37 years is aware. He is still enjoying life and tolerating TPN for now, so he is not quite ready to make that switch. He feels comfortable that his nurses, his PCP and his family will help him recognize when it is time. Until then, life is good. Consults Consult date: 09/19/18 Requesting physician: Apollo Nielsen Assessment and Plan (1) Palliative care patient: Current visit: Yes Status: Chronic Humberto looks remarkably well. He is being treated for pneumonia. His lung exam was close to normal today. He did not cough once during my visit. He had no increased WOB. He is well-versed in his illness and for him, the long process of dying. He still hopes to make it to the summer to fish again with his son. He knows that he is at risk for complications from his TPN. However, his creatinine is already coming down from 5 to 3 with hospitalist interventions. He is at peace. He tells me that he thinks he will know when it is time for him to . He believes his twin sister will come back and get him to go to the other side with her. He is not afraid. He is not having pain or anxiety. He feels very comfortable with his home health team from [facility]. He plans to at home on hospice when his TPN is no longer effective. He has a COLST form that outlines his wishes. No need to see him again on this admission (he would come back for IV antibiotics if needed). Am available in the future if hospitalist team needs me. Reason for consult today was to clarify his plans and understand how this admission fits into them. (2) On total parenteral nutrition (TPN): Current visit: Yes Status: Chronic See above (3) History of colon cancer, stage IV: Current visit: No Status: Chronic (4) Short gut syndrome: Current visit: No Status: Chronic (5) Protein-calorie malnutrition, severe: Current visit: No Status: Chronic Humberto has gained about 20 lbs in the last 9 months. He's very pleased with being able to have TPN at home so he can live his life as fully as possible. Review of Systems Constitutional Reports body ache(s), Reports fatigue, Reports weakness and Reports weight gain Eyes Reports requires corrective lenses ENT Reports change in voice, Reports dysphagia and Reports dry mouth Cardiovascular Reports pedal edema, Reports palpitations, Reports dyspnea and Reports dyspnea on exertion Respiratory Reports chest congestion, Reports cough, Reports dyspnea and Reports dyspnea on exertion Gastrointestinal Reports bloating, Reports dysphagia, Reports early satiety, Reports diarrhea and Reports loose stools Genitourinary Reports difficulty urinating Musculoskeletal Reports muscle weakness Neurologic Reports memory loss and Reports weakness Psychiatric Reports difficulty concentrating and Reports memory loss Endocrine Reports fatigue and Reports palpitations Hematologic/Lymphatic Reports easy bruising [facility] Medical History Chronic bilateral pleural effusions (Chronic) Chronic congestive heart failure with left ventricular diastolic dysfunction (Chronic) Depression (Chronic) History of Henoch-Schonlein purpura (Chronic) Anemia (Chronic) Iron deficiency (Chronic) Protein-calorie malnutrition, severe (Chronic) COPD (chronic obstructive pulmonary disease) (Chronic) Back pain (Chronic) Short gut syndrome (Chronic) Colon cancer (Chronic) Elevated LFTs (Chronic) High output ileostomy (Chronic) PTSD (post-traumatic stress disorder) (Chronic) History of colon cancer, stage IV (Chronic) Pleural effusion (Chronic) End of life care (Chronic) Weight loss (Chronic) History of endocarditis (Resolved) History of glomerulonephritis (Resolved) History of ischemic bowel disease (Resolved) History of nephrotic syndrome (Resolved) PSVT (paroxysmal supraventricular tachycardia) (Resolved) Surgical History History of colectomy (Chronic) History of aortic valve replacement (Resolved) History of bowel resection (Resolved) S/P thoracostomy tube placement (Resolved) Family History Son No problems noted. Sister HSP (Henoch Schonlein purpura) Social History caregiver/support person: Yes household members: spouse housing: house marital status: lives independently: No (lives at home w/ help of his and visiting nurse) number of children: 1 penitentiary: No current occupational status: disabled leisure activities: fishing diet: other high-fat food intake: 3 or more times/day eating out: rarely or never reads food labels: seldom or never during the past year weight has: increased > 10 lbs Smoking/Tobacco Use Status: Former Tobacco Use substance use type: does not use Exam Const General: cooperative, frail appearing and ill appearing Nutritional Appearance: cachectic Orientation: alert, awake and oriented x3 HENMT Head: normal to inspection, no palpable skull fracture, normocephalic and atraumatic Mouth: tongue abnormal and other (dry mucous membranes) Eyes General: appearance normal, both eyes and all related structures Visual Vann: normal visual vann by confrontation Alignment and Position: alignment normal Periorbital: periorbital findings normal Eyelids: eyelids normal Conjunctivae: conjunctivae normal Sclera: sclerae normal Cornea: corneas normal Pupils: PERRL EOM: EOM intact bilaterally Neck Neck: normal visual inspection, full ROM, no lymphadenopathy and no JVD Carotids: normal carotid upstroke Lymphatic: no lymphadenopathy noted Resp Effort & Inspection: able to speak in complete sentences and audible wheezes Auscultation: bronchovesicular breath sounds and wheezes Cardio Jugular venous pressure: no JVD Palpation: normal PMI Rate: regular rate Rhythm: regular rhythm Heart Sounds: S1 normal and murmur Pulses: normal peripheral pulses GI Inspection: scaphoid Palpation: soft and nontender Percussion: normal to percussion Auscultation: normal bowel sounds Skin General skin exam: no rashes or lesions noted Neuro General: alert, awake, oriented x3, moves all extremities and no focal motor deficits Cognition: normal cognition Speech: speech normal Motor: muscle tone normal throughout and no movement abnormalities noted Sensory Exam: no sensory deficits noted Extrem General: normal to inspection, full ROM, no joint enlargement, no clubbing, cyanosis or edema, no pedal edema and no calf tenderness Psych Appearance: grossly normal Mental Status: mental status grossly normal Speech and Movement: speech and movement normal Mood: congruent mood Affect: normal affect Attitude: cooperative Thought Process: normal Thought Content: normal Insight: insight good Judgment: judgment good Results Last Vital Signs Temp 97.5 F L 09/19/18 11:01 Pulse 78 09/19/18 11:01 Resp 16 09/19/18 11:01 BP 124/53 L 09/19/18 11:01 Pulse Ox 97 09/19/18 11:01 Labs : 09/19/18 06:10 09/19/18 06:10 Laboratory Results - last 24 hr 09/18/18 09/19/18 09/19/18 02:55 06:10 06:10 WBC 14.19 H RBC 3.48 L Hgb 9.6 L Hct 28.7 L MCV 82.5 MCH 27.6 MCHC 33.4 RDW 17.3 H Plt Count 185 MPV Immature Gran % 0.3 Neutrophils % 89.1 Lymphocytes % 6.8 Monocytes % 3.8 Eosinophils % 0.0 Basophils % 0.0 Absolute Neutrophils 12.64 H Absolute Lymphocytes 0.96 L Absolute Monocytes 0.54 Absolute Eosinophils 0.00 Absolute Basophils 0.00 Differential Comment Rbc morph reviewed RBC Morphology See below Poikilocytosis 1+ Sodium 136 Potassium 4.1 Chloride 103 Carbon Dioxide 20.3 L Anion Gap 12.7 H BUN 115 H* Creatinine 3.63 H* D Estimated GFR/1.73 m2 16.89 Glucose 125 H Calcium 8.9 Total Bilirubin 0.7 AST 25 ALT 54 Alkaline Phosphatase 238 H Total Protein 6.3 L Albumin 2.3 L Legionella Source (see note) Legionella Reprt Status (see note) Legionella Final Result (see note)
[2018-09-19] MEDS: Ondansetron O.D.T. 4 MG TABEF 8 MG PO (19:47)
[2018-09-19] MEDS: VANCOMYCIN 500 MG in Normal Saline 100 ML 100 MG IV (19:48)
[2018-09-19] MEDS: Mirtazapine 15 MG TAB PO (21:05)
[2018-09-19] MEDS: Gabapentin 300 MG CAP PO (21:05)
[2018-09-20 00:25] VITALS: BP 103/57; PULSE 64; RESP 20; TEMP 36; O2SAT 98
[2018-09-20] MEDS: CEFEPIME 1 GM in Normal Saline 50 ML IVPB (01:00)
[2018-09-20] MEDS: Hydrocortisone SOD SUC. 100 MG VIAL 50 MG IVP (05:59)
[2018-09-20] MEDS: Heparin 5,000 UNITS/ML VIAL 5000 UNITS SC (05:59)
[2018-09-20] MEDS: Normal Saline 1,000 ML 75 ML IV ×2 (06:00→18:41)
[2018-09-20 07:34] LABS: Abs Immature Grans 0.05 k/cumm (0.0-0.09); Absolute Basophil Count 0.01 k/cumm (0.0-0.2); Absolute Eosinophil Count 0.01 k/cumm (0.0-0.7); Absolute Monocyte Count 0.96 k/cumm (0.11-0.7); Basophils % 0.1; Eosinophils % 0.1; HCT 27.5 % (40.0-50.0); HGB 8.8 g/dL (13.5-17.5); Immature Grans % 0.4; Lymphocytes % 13.1; Mean Corpuscular Hemoglobin 27.3 pg (27.0-33.0); Mean Corpuscular Volume 85.4 fL (80-95); Mean Platelet Volume 12.9 fL (8.0-11.0); Monocytes % 7.7; Neutrophils % 78.6; Platelet Count 169 x1000/uL (130-400); RBC 3.22 m/cumm (4.50-6.00); RBC Distribution Width 17.6 % (11.8-14.1); White Blood Cell Count 12.49 k/cumm (4.4-10.8)
[2018-09-20 07:35] LABS: Absolute Lymphocyte Count 1.64 k/cumm (1.2-3.4); Absolute Neutrophil Count 9.82 k/cumm (1.2-6.7)
[2018-09-20 07:40] VITALS: BP 116/51; PULSE 63; RESP 20; O2SAT 99
[2018-09-20] MEDS: Ipratropium/Albuterol 4 GM 120 PUFF INH IH ×4 (07:43→20:46)
[2018-09-20 07:48] LABS: PHOSPHORUS 2.2 mg/dL (2.6-4.7)
[2018-09-20 07:51] LABS: ALT 75 U/L (12-78); AST 47 U/L (15-37); Albumin 2.2 g/dL (3.4-5.0); Alkaline Phosphatase 214 U/L (46-116); Anion Gap 8.8 mmol/L (3-11); Bilirubin, Total 0.7 mg/dL (0.2-1.0); CO2 23.2 mmol/L (21.0-32.0); CREATININE 2.18 mg/dL (0.70-1.30); Calcium 8.8 mg/dL (8.5-10.1); Chloride 109 mmol/L (98-107); Estimated GFR 30.42 (mL/min/1.73m2); Glucose 94 mg/dL (70-100); Magnesium 2.2 mg/dL (1.8-2.4); Potassium 4.5 mmol/L (3.5-5.1); Sodium 141 mmol/L (136-145); Total Protein 5.8 g/dL (6.4-8.2)
[2018-09-20 07:54] LABS: BUN 95 mg/dL (7-18)
[2018-09-20 08:12] LABS: Prothrombin Time 9.9 sec (9.3-11.0)
[2018-09-20] MEDS: Ondansetron O.D.T. 4 MG TABEF 8 MG PO ×2 (08:17→20:41)
[2018-09-20] MEDS: Omeprazole 20 MG CAPCR PO (08:17)
[2018-09-20] MEDS: Oseltamivir 30 MG CAP PO (08:17)
[2018-09-20] MEDS: Metoprolol 25 MG TAB PO (10:09)
[2018-09-20 10:10] VITALS: BP 104/44; PULSE 68
[2018-09-20 10:34] LABS: Iron 21 ug/dL (50-175); Total Iron Binding Capacity 312 ug/dL (250-450); Transferrin Sat 7 % (20-55)
[2018-09-20 11:01] LABS: Ferritin 28 ng/mL (8-388); Vitamin B12 1360 pg/mL (193-986)
[2018-09-20 11:09] LABS: Folate > 20.0 ng/mL (8.6-20.0)
--- NOTE | 2018-09-20 11:33 | PT.INTREAT ---
Date of service: 09/20/18 Time of Service: 11:33 PT Notes Inpatient Physical Therapy Treatment Note [facility] Date: 09/20/18 PRECAUTIONS: Contact, Fall SUBJECTIVE: Boogie states that he is feeling good today. OBJECTIVE: PAIN: No c/o pain BED MOBILITY/TRANSFERS Supine-sit: I Sit-supine: I Sit-stand: SBA Stand-sit: SBA GAIT Assistive Device: FWW Weight bearing: Full Assist: SBA Distance: 50' THEREX: Patient completed a standing LE strengthening program, as per flow sheet. NEURO RE-ED: Patient completed a static balance retraining program, as per flow sheet. Patient requires CGA for safety. ASSESSMENT: Patient tolerated session well without complaint of pain. He was able to tolerate a progression in gait distance with FWW support. He was able to tolerate a progression in ther ex, as well as the addition of neuro re-ed. He would benefit from continued gait and transfer training as well as ther ex and balance re-training. PLAN: Continue with PT's POC TREATMENT CODE/TIME: 40 minutes; 29877, [id number] x2
[2018-09-20 13:24] LABS: HCT 29.9 % (40.0-50.0); HGB 9.7 g/dL (13.5-17.5)
--- NOTE | 2018-09-20 14:20 | PT.INTREAT ---
Date of service: 09/20/18 Time of Service: 14:20 PT Notes Date: 09/20/18 PRECAUTIONS: Contact, Fall SUBJECTIVE: Boogie is agreeable to participating in PT. OBJECTIVE: PAIN: No c/o pain BED MOBILITY/TRANSFERS Supine-sit: I Sit-supine: I Sit-stand: S Stand-sit: S GAIT Assistive Device: FWW Weight bearing: Full Assist: SBA Distance: 40' THEREX: Patient completed a standing LE strengthening program, as per flow sheet. Patient tolerated a progression in his program, modifications made to reps are noted on flow sheet. ASSESSMENT: Patient tolerated session well without complaint of pain. He was able to tolerate a progression in his ther ex program. He would benefit from continued gait and transfer training as well as ther ex and balance re-training. PLAN: Continue with PT's POC TREATMENT CODE/TIME: 30 minutes; 63590, [id number]
[2018-09-20 14:33] LABS: Streptococcus Pneumoniae Ag, U Negative (Negative)
--- NOTE | 2018-09-20 15:46 | W.PM.PROGNOT ---
Date of Service Date of service: 09/20/18 Time of Service: 15:46 Assessment and Plan (1) Pneumonia: Current visit: Yes Status: Acute Treat with HCAP coverage given presumed recent antibiotic failure. Continue Vancomycin and Cefepime, day #3. Await culture results - current sputum with MRSA. Also on Stress dose steroids - discontinue today. (2) Anemia: Current visit: No Status: Chronic FOBT + in patient with end-stage Colon Cancer. Iron low and Ferritin abnormally low - Ensure PPI BID, discontinue steroids, and initiate iron. Continue to monitor Hgb carefully. (3) Acute kidney injury (nontraumatic): Current visit: Yes Status: Acute Potentially prerenal in patient with a history of CKD and and current acute illness. Prior history of HD with recovery. Continue gentle IVFs, renally dose medications, and avoid nephrotoxins. Continues to improve. (4) Chronic bilateral pleural effusions: Current visit: No Status: Chronic B/l pleural Catheters in place (5) Chronic congestive heart failure with left ventricular diastolic dysfunction: Current visit: No Status: Chronic Diastolic CHF. Monitor fluid status. (6) History of colon cancer, stage IV: Current visit: No Status: Chronic According to meeting between palliative care and patient: Mr. De Luna is aware that his Colon Ca is end-stage, without any further treatment options. He is DNR/DNI. He is also well known to Hospice, and accepted - he is currently enjoying his life and would like to continue until his quality of life becomes poor, and then will contact Hospice to actively enroll. Continue treatment regimen as above. (7) Elevated LFTs: Current visit: No Status: Chronic Chronic, stable, and unchanged. 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 Continue TPN. (9) DVT prophylaxis: Current visit: Yes Status: Acute SC Heparin. (10) Advance directive on file: Current visit: Yes Status: Acute DNR/DNI Subjective Interval history since last seen: 68-year-old man with past medical history significant for end-stage colon CA and CKD, admitted from [facility] Emergency Department on 09/17 with a diagnosis of community-acquired pneumonia and ALONSO. Mr. De Luna has a history of likely end-stage colon CA, COPD, chronic b/l pleural effusions necessitating placement of bilateral pleural catheters in November 2017, CKD secondary to nephrotic syndrome and glomerulonephritis with a prior history of hemodialysis with subsequent recovery of renal function. 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 The patient also has a history of recurrent, potentially postobstructive pneumonia in the past. Mr. Cervantes reports being treated with levofloxacin in early August for community-acquired pneumonia. He stated that despite completion of this antibiotic is continued to have a moist productive cough along with purulent sputum, along with progressive dyspnea. Workup in the ED included evidence of significant acute on chronic kidney injury with a BUN greater than 100 and a creatinine of 5.78, elevated LFTs that appear chronic, and leukocytosis. His flu swab was checked and negative. As his chest x-ray appeared negative, a CT of the chest was procured showing lower lobe opacities representing either atelectasis or pneumonia. Also noted was a non-dissecting asending aortic aneurysm measuring 4 x 4.2 cm. He was referred for admission at that time. This morning Mr. De Luna reports vast improvement overall. His creatinine continues to improve, as does his leukocytosis. Palliative care has met with patient, and reporting that Mr. De Luna is well known to hospice. His hemoglobin appears to have dropped further this morning, and his stool appears positive for occult blood. No other events reported. Currently remains afebrile. Exam Narrative Exam Narrative: General: Patient is thin, comfortable appearing, AAOX3, NAD. Pale. Neck: Supple CV: Regular, nontachycardic, S1S2, No rubs, murmurs, or gallops. Pulmonary: Clear to auscultation bilaterally with minimal bibasilar crackles, no wheezing. Abdomen: + Bowel Sounds, soft, nontender, nondistended Vascular: No lower extremity edema Psych: Normal mood and affect. Objective Objective Clinical Data: Abnormal lab results 09/20/18 09/20/18 09/20/18 Range/Units 06:25 06:25 06:25 WBC 12.49 H (4.4-10.8) k/cumm RBC 3.22 L (4.50-6.00) m/cumm Hgb 8.8 L (13.5-17.5) g/dL Hct 27.5 L (40.0-50.0) % RDW 17.6 H (11.8-14.1) % MPV 12.9 H (8.0-11.0) fL Absolute Neutrophils 9.82 H (1.2-6.7) k/cumm Absolute Monocytes 0.96 H (0.11-0.7) k/cumm Chloride 109 H (98-107) mmol/L BUN 95 H* (7-18) mg/dL Creatinine 2.18 H D (0.70-1.30) mg/dL Phosphorus 2.2 L (2.6-4.7) mg/dL Iron (50-175) ug/dL Transferrin % Sat (20-55) % AST 47 H (15-37) U/L Alkaline Phosphatase 214 H (46-116) U/L Total Protein 5.8 L (6.4-8.2) g/dL Albumin 2.2 L (3.4-5.0) g/dL Vitamin B12 1360 H (193-986) pg/mL Folate > 20.0 H (8.6-20.0) ng/mL 09/20/18 09/20/18 Range/Units 06:25 13:02 WBC (4.4-10.8) k/cumm RBC (4.50-6.00) m/cumm Hgb 9.7 L (13.5-17.5) g/dL Hct 29.9 L (40.0-50.0) % RDW (11.8-14.1) % MPV (8.0-11.0) fL Absolute Neutrophils (1.2-6.7) k/cumm Absolute Monocytes (0.11-0.7) k/cumm Chloride (98-107) mmol/L BUN (7-18) mg/dL Creatinine (0.70-1.30) mg/dL Phosphorus (2.6-4.7) mg/dL Iron 21 L (50-175) ug/dL Transferrin % Sat 7 L (20-55) % AST (15-37) U/L Alkaline Phosphatase (46-116) U/L Total Protein (6.4-8.2) g/dL Albumin (3.4-5.0) g/dL Vitamin B12 (193-986) pg/mL Folate (8.6-20.0) ng/mL Vital Signs Temperature 36.0 C L 09/20/18 00:25 Temperature Source Tympanic 09/20/18 07:40 Pulse 68 09/20/18 10:10 Pulse Rhythm Regular 09/20/18 10:00 Respiratory Rate 20 09/20/18 07:40 Respiratory Effort Non-Labored 09/20/18 10:00 Respiratory Depth Normal 09/20/18 10:00 Respiratory Pattern Normal 09/20/18 10:00 Blood Pressure 104/44 L 09/20/18 10:10 Pulse Oximetry 99 09/20/18 07:40 Oxygen Delivery Method Room Air 09/20/18 07:40 Oxygen Flow Rate 0 09/20/18 07:40 Pain Level 0 09/19/18 23:07 Intake & Output 09/19/18 09/20/18 09/20/18 23:59 11:59 23:59 Intake Total 1998.333 / 3811.000 3122 / 3362 240 / 3362 Output Total 750 / 1675 900 / 1350 450 / 1350 Balance 1248.333 / 2136.000 2221 -2011 Intake: IV 1758.333 / 3451.000 2031 / 2031 Oral 240 / 360 1090 / 1330 240 / 1330 Output: Urine 300 / 825 450 / 550 100 / 550 Stool 450 / 850 450 / 800 350 / 800 Other: Urine Color Yellow Yellow Yellow Urine Appearance Clear Clear Clear Urine Odor Normal Stool Occult Blood Positive Positive Voiding Methods Urinal Urinal Urinal Laboratory Results WBC 12.49 k/cumm (4.4-10.8) H 09/20/18 06:25 RBC 3.22 m/cumm (4.50-6.00) L 09/20/18 06:25 Hgb 9.7 g/dL (13.5-17.5) L 09/20/18 13:02 Hct 29.9 % (40.0-50.0) L 09/20/18 13:02 MCV 85.4 fL (80-95) 09/20/18 06:25 MCH 27.3 pg (27.0-33.0) 09/20/18 06:25 MCHC 32.0 g/dL (32.0-36.0) 09/20/18 06:25 RDW 17.6 % (11.8-14.1) H 09/20/18 06:25 Plt Count 169 x1000/uL (130-400) 09/20/18 06:25 MPV 12.9 fL (8.0-11.0) H 09/20/18 06:25 Immature Gran % 0.4 09/20/18 06:25 Neutrophils % 78.6 09/20/18 06:25 Lymphocytes % 13.1 09/20/18 06:25 Monocytes % 7.7 09/20/18 06:25 Eosinophils % 0.1 09/20/18 06:25 Basophils % 0.1 09/20/18 06:25 Absolute Neutrophils 9.82 k/cumm (1.2-6.7) H 09/20/18 06:25 Absolute Lymphocytes 1.64 k/cumm (1.2-3.4) 09/20/18 06:25 Absolute Monocytes 0.96 k/cumm (0.11-0.7) H 09/20/18 06:25 Absolute Eosinophils 0.01 k/cumm (0.0-0.7) 09/20/18 06:25 Absolute Basophils 0.01 k/cumm (0.0-0.2) 09/20/18 06:25 Differential Comment Rbc morph reviewed 09/19/18 06:10 RBC Morphology See below 09/19/18 06:10 Poikilocytosis 1+ 09/19/18 06:10 PT 9.9 sec (9.3-11.0) 09/20/18 06:25 INR 1.0 (0.9-1.1) 09/20/18 06:25 Sodium 141 mmol/L (136-145) 09/20/18 06:25 Potassium 4.5 mmol/L (3.5-5.1) 09/20/18 06:25 Chloride 109 mmol/L (98-107) H 09/20/18 06:25 Carbon Dioxide 23.2 mmol/L (21.0-32.0) 09/20/18 06:25 Anion Gap 8.8 mmol/L (3-11) 09/20/18 06:25 BUN 95 mg/dL (7-18) H* 09/20/18 06:25 Creatinine 2.18 mg/dL (0.70-1.30) H D 09/20/18 06:25 Estimated GFR/1.73 m2 30.42 (mL/min/1.73m2) 09/20/18 06:25 Glucose 94 mg/dL (70-100) 09/20/18 06:25 Calcium 8.8 mg/dL (8.5-10.1) 09/20/18 06:25 Phosphorus 2.2 mg/dL (2.6-4.7) L 09/20/18 06:25 Magnesium 2.2 mg/dL (1.8-2.4) 09/20/18 06:25 Iron 21 ug/dL (50-175) L 09/20/18 06:25 TIBC 312 ug/dL (250-450) 09/20/18 06:25 Transferrin % Sat 7 % (20-55) L 09/20/18 06:25 Ferritin 28 ng/mL (8-388) 09/20/18 06:25 Total Bilirubin 0.7 mg/dL (0.2-1.0) 09/20/18 06:25 AST 47 U/L (15-37) H 09/20/18 06:25 ALT 75 U/L (12-78) 09/20/18 06:25 Alkaline Phosphatase 214 U/L (46-116) H 09/20/18 06:25 Troponin I 0.02 ng/mL (0.00-0.06) 09/17/18 18:34 NT-Pro-B Natriuret Pep 276 pg/mL (-299) 09/17/18 18:34 Total Protein 5.8 g/dL (6.4-8.2) L 09/20/18 06:25 Albumin 2.2 g/dL (3.4-5.0) L 09/20/18 06:25 Vitamin B12 1360 pg/mL (193-986) H 09/20/18 06:25 Folate > 20.0 ng/mL (8.6-20.0) H 09/20/18 06:25 Legionella Source (see note) 09/18/18 02:55 Legionella Reprt Status (see note) 09/18/18 02:55 Legionella Final Result (see note) 09/18/18 02:55
[2018-09-20 16:24] VITALS: BP 104/48; PULSE 74; RESP 20; TEMP 36.8; O2SAT 99
--- NOTE | 2018-09-20 17:08 | PDOC.CMPRO ---
Care Management Progress Note S/O: Boogie continues to be treated with IV ABX and is being closely monitored; per MD his H&H is being closely monitored as his stool tested heme positive. Boogie remains pleasant in interaction and shares no concerns at this time. A: 68 year old male admitted 09/17/18 for Pneumonitis P: Boogie will discharge home with a resumption of services through [facility] central [place], RN 3x/wk, primary nurse is Brittney Ramos contact number is [phone] fax for discharge orders is [phone]. [facility] for TPN; [facility] faxed orders to this insurance underwriter who provided to MD and RNCC. Resumption orders- will fax orders to . Boogie will return home with spouse when medically ready and she will transport him by private car. CM will continue to provide support to patient, family and care team for ongoing discharge planning and disposition.
--- NOTE | 2018-09-20 17:12 | CMPROGNOTE_ITS ---
Care Management Progress Note S/O: Boogie continues to be treated with IV ABX and is being closely monitored; per MD his H&H is being closely monitored as his stool tested heme positive. Boogie remains pleasant in interaction and shares no concerns at this time. A: 68 year old male admitted 09/17/18 for Pneumonitis P: Boogie will discharge home with a resumption of services through [facility] central [place], RN 3x/wk, primary nurse is Brittney Ramos contact number is [phone] fax for discharge orders is [phone]. [facility] for TPN; [facility] faxed orders to this financial writer who provided to MD and RNCC. Resumption orders- will fax orders to . Boogie will return home with spouse when medically ready and she will transport him by private car. CM will continue to provide support to patient, family and care team for ongoing discharge planning and disposition.
[2018-09-20] MEDS: Normal Saline Flush 10 ML SYR IVP (20:40)
[2018-09-20] MEDS: Pantoprazole 40 MG VIAL IVP (20:40)
[2018-09-20] MEDS: Ferrous Sulfate 325 MG TAB PO (20:41)
[2018-09-20] MEDS: Ascorbic Acid 500 MG TAB PO (20:41)
[2018-09-20 21:29] LABS: Mycoplasma Pneumoniae PCR Negative; Specimen source SPUTUM
[2018-09-20] MEDS: Gabapentin 300 MG CAP PO (22:08)
[2018-09-20] MEDS: Mirtazapine 15 MG TAB PO (22:08)
[2018-09-20 22:24] VITALS: BP 116/60; PULSE 69; RESP 18; TEMP 36.7; O2SAT 98
[2018-09-21] MEDS: CEFEPIME 1 GM in Normal Saline 50 ML IVPB (01:52)
[2018-09-21 04:36] VITALS: O2SAT 98
[2018-09-21] MEDS: Normal Saline Flush 10 ML SYR IVP ×2 (06:18→08:46)
[2018-09-21] MEDS: Normal Saline 1,000 ML 75 ML IV (06:30)
[2018-09-21 07:26] LABS: Abs Immature Grans 0.08 k/cumm (0.0-0.09); Absolute Eosinophil Count 0.22 k/cumm (0.0-0.7); Absolute Lymphocyte Count 2.12 k/cumm (1.2-3.4); Absolute Monocyte Count 1.43 k/cumm (0.11-0.7); Absolute Neutrophil Count 8.24 k/cumm (1.2-6.7); Basophils % 0.2; Eosinophils % 1.8; HCT 29.6 % (40.0-50.0); HGB 9.5 g/dL (13.5-17.5); Immature Grans % 0.7; Lymphocytes % 17.5; Mean Corp. HGB Concentration 32.1 g/dL (32.0-36.0); Mean Corpuscular Hemoglobin 27.6 pg (27.0-33.0); Mean Platelet Volume 13.4 fL (8.0-11.0); Monocytes % 11.8; Platelet Count 185 x1000/uL (130-400); RBC 3.44 m/cumm (4.50-6.00); White Blood Cell Count 12.12 k/cumm (4.4-10.8)
[2018-09-21 07:29] LABS: Absolute Basophil Count 0.02 k/cumm (0.0-0.2)
[2018-09-21 07:46] LABS: ALT 124 U/L (12-78); AST 64 U/L (15-37); Albumin 2.2 g/dL (3.4-5.0); Alkaline Phosphatase 224 U/L (46-116); Anion Gap 8.6 mmol/L (3-11); BUN 73 mg/dL (7-18); Bilirubin, Total 1.3 mg/dL (0.2-1.0); CO2 22.4 mmol/L (21.0-32.0); CREATININE 1.83 mg/dL (0.70-1.30); Calcium 8.6 mg/dL (8.5-10.1); Chloride 109 mmol/L (98-107); Estimated GFR 37.22 (mL/min/1.73m2); Glucose 77 mg/dL (70-100); Magnesium 1.8 mg/dL (1.8-2.4); Potassium 4.1 mmol/L (3.5-5.1); Sodium 140 mmol/L (136-145)
[2018-09-21 08:06] VITALS: BP 124/68; PULSE 68; RESP 18; TEMP 37.1; O2SAT 98
[2018-09-21 08:19] LABS: PHOSPHORUS 1.1 mg/dL (2.6-4.7)
[2018-09-21] MEDS: Ondansetron O.D.T. 4 MG TABEF 8 MG PO ×2 (08:43→20:28)
[2018-09-21] MEDS: Oseltamivir 30 MG CAP PO (08:44)
[2018-09-21] MEDS: Ferrous Sulfate 325 MG TAB PO ×2 (08:44→20:28)
[2018-09-21] MEDS: Ascorbic Acid 500 MG TAB PO ×2 (08:44→20:28)
[2018-09-21] MEDS: Pantoprazole 40 MG VIAL IVP ×2 (08:45→20:28)
[2018-09-21 09:17] LABS: Prealbumin 30 mg/dL (20-40)
[2018-09-21] MEDS: VANCOMYCIN 750 MG in Normal Saline 250 ML 167 ML IVPB (10:29)
[2018-09-21] MEDS: Magnesium Oxide 400 MG TAB PO (10:30)
[2018-09-21] MEDS: Metoprolol 25 MG TAB PO ×2 (10:30→21:43)
[2018-09-21 10:31] VITALS: BP 128/53; PULSE 91
[2018-09-21] MEDS: Ipratropium/Albuterol 4 GM 120 PUFF INH IH ×3 (10:47→20:29)
--- NOTE | 2018-09-21 13:08 | PGE_ITS ---
Date of Service Date of service: 09/21/18 Time of Service: 12:59 Assessment and Plan (1) Pneumonia: Current visit: Yes Status: Acute Treat with HCAP coverage given presumed recent antibiotic failure. Continue Vancomycin and Cefepime, day #4. Await culture results - current sputum with MRSA. Was onStress dose steroids - discontinued yesterday. (2) Anemia: Current visit: No Status: Chronic FOBT + in patient with end-stage Colon Cancer. Iron and Ferritin low - Ensure PPI BID, discontinued steroids, and initiated iron. Continue to monitor Hgb carefully. (3) Acute kidney injury (nontraumatic): Current visit: Yes Status: Acute Likely pre-renal in patient with a history of CKD and and acute illness. Prior history of HD with recovery. Continue gentle IVFs, renally dose medications, and avoid nephrotoxins. Continues to improve. (4) Chronic bilateral pleural effusions: Current visit: No Status: Chronic B/l pleural Catheters in place (5) Chronic congestive heart failure with left ventricular diastolic dysfunction: Current visit: No Status: Chronic Diastolic CHF. Monitor fluid status, especially with current IVFs. (6) History of colon cancer, stage IV: Current visit: No Status: Chronic According to meeting between palliative care and patient: Mr. De Luna is aware that his Colon Ca is end-stage, without any further treatment options. He is DNR/DNI. He is also well known to Hospice, and accepted - he is currently enjoying his life and would like to continue until his quality of life becomes poor, and then will contact Hospice to actively enroll. Continue treatment regimen as above. (7) Elevated LFTs: Current visit: No Status: Chronic Chronic, stable, and unchanged. 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 Continue TPN. (9) DVT prophylaxis: Current visit: Yes Status: Acute SC Heparin. (10) Advance directive on file: Current visit: Yes Status: Acute DNR/DNI Subjective Interval history since last seen: 68-year-old man with past medical history significant for end-stage colon CA and CKD, admitted from [facility] Emergency Department on 09/17 with a diagnosis of community-acquired pneumonia and ALONSO. Mr. De Luna has a history of likely end-stage colon CA per review of Palliative Medicine's notes. 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 The patient also has a history of recurrent, potentially postobstructive pneumonia in the past. Mr. Cervantes reports being treated with levofloxacin in early August for community-acquired pneumonia. He stated that despite completion of this antibiotic he continued to have a moist productive cough along with purulent sputum, as well as progressive dyspnea. Work-up in the ED included evidence of significant acute on chronic kidney injury with a BUN greater than 100 and a creatinine of 5.78, elevated LFTs that appear chronic, and leukocytosis. His flu swab was checked and negative. As his chest x-ray appeared negative, a CT of the chest was procured showing lower lobe opacities representing either atelectasis or pneumonia. Also noted was a non-dissecting asending aortic aneurysm measuring 4 x 4.2 cm. He was referred for admission at that time. This morning Mr. De Luna reports continued improvement overall. His creatinine continues to improve, as does his leukocytosis. Palliative care has met with patient, and reporting that Mr. De Luna is well known to hospice. His hemoglobin appeared to have dropped previously, and his stool was checked and positive for occult blood. Hemoglobin was trended and remained stable after. No other events reported. Currently remains afebrile. Exam Narrative Exam Narrative: General: Patient is thin, comfortable appearing, AAOX3, NAD. Pale. Neck: Supple CV: Regular with intermittent ectopy, nontachycardic, S1S2, 3/6 RUSB/LLSB murmur Pulmonary: Clear to auscultation bilaterally with minimal bibasilar crackles, no wheezing. Abdomen: + Bowel Sounds, soft, nontender, nondistended Vascular: No lower extremity edema Psych: Normal mood and affect. Objective Objective Clinical Data: Abnormal lab results 09/20/18 09/21/18 09/21/18 Range/Units 13:02 06:25 06:25 WBC 12.12 H (4.4-10.8) k/cumm RBC 3.44 L (4.50-6.00) m/cumm Hgb 9.7 L 9.5 L (13.5-17.5) g/dL Hct 29.9 L 29.6 L (40.0-50.0) % RDW 18.0 H (11.8-14.1) % MPV 13.4 H (8.0-11.0) fL Absolute Neutrophils 8.24 H (1.2-6.7) k/cumm Absolute Monocytes 1.43 H (0.11-0.7) k/cumm Chloride 109 H (98-107) mmol/L BUN 73 H D (7-18) mg/dL Creatinine 1.83 H (0.70-1.30) mg/dL Phosphorus (2.6-4.7) mg/dL Total Bilirubin 1.3 H (0.2-1.0) mg/dL AST 64 H (15-37) U/L ALT 124 H (12-78) U/L Alkaline Phosphatase 224 H (46-116) U/L Total Protein 6.0 L (6.4-8.2) g/dL Albumin 2.2 L (3.4-5.0) g/dL 09/21/18 Range/Units 06:25 WBC (4.4-10.8) k/cumm RBC (4.50-6.00) m/cumm Hgb (13.5-17.5) g/dL Hct (40.0-50.0) % RDW (11.8-14.1) % MPV (8.0-11.0) fL Absolute Neutrophils (1.2-6.7) k/cumm Absolute Monocytes (0.11-0.7) k/cumm Chloride (98-107) mmol/L BUN (7-18) mg/dL Creatinine (0.70-1.30) mg/dL Phosphorus 1.1 L (2.6-4.7) mg/dL Total Bilirubin (0.2-1.0) mg/dL AST (15-37) U/L ALT (12-78) U/L Alkaline Phosphatase (46-116) U/L Total Protein (6.4-8.2) g/dL Albumin (3.4-5.0) g/dL Vital Signs Temperature 37.1 C 09/21/18 08:06 Temperature Source Tympanic 09/21/18 08:06 Pulse 91 H 09/21/18 10:31 Pulse Rhythm Regular 09/21/18 10:59 Respiratory Rate 18 09/21/18 08:06 Respiratory Effort 09/21/18 10:59 Respiratory Depth Normal 09/21/18 10:59 Respiratory Pattern Normal 09/21/18 10:59 Blood Pressure 128/53 L 09/21/18 10:31 Pulse Oximetry 98 09/21/18 08:06 Oxygen Delivery Method Room Air 09/21/18 08:06 Oxygen Flow Rate 0 09/21/18 08:06 Pain Level 0 09/21/18 08:06 Intake & Output 09/20/18 09/21/18 09/21/18 23:59 11:59 23:59 Intake Total 2850 / 5972 1546.25 / 1546.25 Output Total 2100 / 3000 500 / 500 Balance 750 / 2972 1046.25 / 1046.25 Weight 53.2 kg Intake: IV 2370 / 4402 936.25 / 936.25 Oral 480 / 1570 610 / 610 Output: Urine 700 / 1150 200 / 200 Stool 1400 / 1850 300 / 300 Other: Urine Color Yellow Pale Yellow Urine Appearance Clear Clear Urine Odor None Comment pt passes urine in the urinal Stool Occult Blood Positive Voiding Methods Urinal Laboratory Results WBC 12.12 k/cumm (4.4-10.8) H 09/21/18 06:25 RBC 3.44 m/cumm (4.50-6.00) L 09/21/18 06:25 Hgb 9.5 g/dL (13.5-17.5) L 09/21/18 06:25 Hct 29.6 % (40.0-50.0) L 09/21/18 06:25 MCV 86.0 fL (80-95) 09/21/18 06:25 MCH 27.6 pg (27.0-33.0) 09/21/18 06:25 MCHC 32.1 g/dL (32.0-36.0) 09/21/18 06:25 RDW 18.0 % (11.8-14.1) H 09/21/18 06:25 Plt Count 185 x1000/uL (130-400) 09/21/18 06:25 MPV 13.4 fL (8.0-11.0) H 09/21/18 06:25 Immature Gran % 0.7 09/21/18 06:25 Neutrophils % 68.0 09/21/18 06:25 Lymphocytes % 17.5 09/21/18 06:25 Monocytes % 11.8 09/21/18 06:25 Eosinophils % 1.8 09/21/18 06:25 Basophils % 0.2 09/21/18 06:25 Absolute Neutrophils 8.24 k/cumm (1.2-6.7) H 09/21/18 06:25 Absolute Lymphocytes 2.12 k/cumm (1.2-3.4) 09/21/18 06:25 Absolute Monocytes 1.43 k/cumm (0.11-0.7) H 09/21/18 06:25 Absolute Eosinophils 0.22 k/cumm (0.0-0.7) 09/21/18 06:25 Absolute Basophils 0.02 k/cumm (0.0-0.2) 09/21/18 06:25 Differential Comment Rbc morph reviewed 09/19/18 06:10 RBC Morphology See below 09/19/18 06:10 Poikilocytosis 1+ 09/19/18 06:10 PT 9.9 sec (9.3-11.0) 09/20/18 06:25 INR 1.0 (0.9-1.1) 09/20/18 06:25 Sodium 140 mmol/L (136-145) 09/21/18 06:25 Potassium 4.1 mmol/L (3.5-5.1) 09/21/18 06:25 Chloride 109 mmol/L (98-107) H 09/21/18 06:25 Carbon Dioxide 22.4 mmol/L (21.0-32.0) 09/21/18 06:25 Anion Gap 8.6 mmol/L (3-11) 09/21/18 06:25 BUN 73 mg/dL (7-18) H D 09/21/18 06:25 Creatinine 1.83 mg/dL (0.70-1.30) H 09/21/18 06:25 Estimated GFR/1.73 m2 37.22 (mL/min/1.73m2) 09/21/18 06:25 Glucose 77 mg/dL (70-100) 09/21/18 06:25 Calcium 8.6 mg/dL (8.5-10.1) 09/21/18 06:25 Phosphorus 1.1 mg/dL (2.6-4.7) L 09/21/18 06:25 Magnesium 1.8 mg/dL (1.8-2.4) 09/21/18 06:25 Iron 21 ug/dL (50-175) L 09/20/18 06:25 TIBC 312 ug/dL (250-450) 09/20/18 06:25 Transferrin % Sat 7 % (20-55) L 09/20/18 06:25 Ferritin 28 ng/mL (8-388) 09/20/18 06:25 Total Bilirubin 1.3 mg/dL (0.2-1.0) H 09/21/18 06:25 AST 64 U/L (15-37) H 09/21/18 06:25 ALT 124 U/L (12-78) H 09/21/18 06:25 Alkaline Phosphatase 224 U/L (46-116) H 09/21/18 06:25 Troponin I 0.02 ng/mL (0.00-0.06) 09/17/18 18:34 NT-Pro-B Natriuret Pep 276 pg/mL (-299) 09/17/18 18:34 Total Protein 6.0 g/dL (6.4-8.2) L 09/21/18 06:25 Albumin 2.2 g/dL (3.4-5.0) L 09/21/18 06:25 Prealbumin 30 mg/dL (20-40) 09/20/18 06:25 Vitamin B12 1360 pg/mL (193-986) H 09/20/18 06:25 Folate > 20.0 ng/mL (8.6-20.0) H 09/20/18 06:25 Legionella Source (see note) 09/18/18 02:55 Legionella Reprt Status (see note) 09/18/18 02:55 Legionella Final Result (see note) 09/18/18 02:55 M. pneumoniae Source Sputum 09/18/18 02:54 M. pneumoniae (PCR) Negative 09/18/18 02:54 Ur Strep pneumoniae Ag Negative (Negative) 09/18/18 02:55
[2018-09-21] MEDS: CEFEPIME 2 GM in Normal Saline 100 ML IVPB (14:25)
--- NOTE | 2018-09-21 15:51 | PT.INTREAT ---
Date of service: 09/21/18 Time of Service: 15:59 PT Notes Inpatient Physical Therapy Treatment Note [facility] Date: 09/21/18 PRECAUTIONS: Fall, Contact SUBJECTIVE: Humberto states that he has been having some trouble urinating this afternoon, which is causing him some discomfort. OBJECTIVE: PAIN: Patient c/o R ankle pain in a.m. with ther ex. BED MOBILITY/TRANSFERS Supine-sit: I Sit-supine: I Sit-stand: I Stand-sit: I GAIT Assistive Device: FWW Weight bearing: Full Assist: S Distance: 150' THEREX: Patient completed a LE strengthening program in a standing position with FWW support and CGA, as per flow sheet. He was able to tolerate a slight progression in his program, modifications made to reps are noted on flow sheet. NEURO RE-ED: Patient completed a static and dynamic balance re-training program, as per flow sheet. Patient was able to tolerate the addition of standing dynamic balance activities with eyes closed for improved proprioception and balance. Patient required CGA and gait belt for safety with all activities. ASSESSMENT: Patient tolerated sessions well with some c/o R ankle pain in a.m. with ther ex. He was able to tolerate a progression in gait distance with FWW support, as well as a progression in ther ex and neuro re-ed. PLAN: Continue with PT's POC TREATMENT CODE/TIME: Session 1: 35 minutes; 51789, [id number] Session 2: 30 minutes; 11782 x2
[2018-09-21 16:07] VITALS: BP 109/51; PULSE 76; RESP 19; TEMP 37.4; O2SAT 100
--- NOTE | 2018-09-21 16:07 | PTTR_ITS ---
Date of service: 09/21/18 Time of Service: 15:59 PT Notes Inpatient Physical Therapy Treatment Note [facility] Date: 09/21/18 PRECAUTIONS: Fall, Contact SUBJECTIVE: Humberto states that he has been having some trouble urinating this aft ernoon, which is causing him some discomfort. OBJECTIVE: PAIN: Patient c/o R ankle pain in a.m. with ther ex. BED MOBILITY/TRANSFERS Supine-sit: I Sit-supine: I Sit-stand: I Stand-sit: I GAIT Assistive Device: FWW Weight bearing: Full Assist: S Distance: 150' THEREX: Patient completed a LE strengthening program in a standing position with FWW support and CGA, as per flow sheet. He was able to tolerate a slight progression in his program, modifications made to reps are noted on flow sheet. NEURO RE-ED: Patient completed a static and dynamic balance re-training program, as per flow sheet. Patient was able to tolerate the addition of standing dynamic balance activities with eyes closed for improved proprioception and balance. Patient required CGA and gait belt for safety with all activities. ASSESSMENT: Patient tolerated sessions well with some c/o R ankle pain in a.m. with ther ex. He was able to tolerate a progression in gait distance with FWW support, as well as a progression in ther ex and neuro re-ed. PLAN: Continue with PT's POC TREATMENT CODE/TIME: Session 1: 35 minutes; 62275, [id number] Session 2: 30 minutes; 30005 x2
--- NOTE | 2018-09-21 18:00 | PDOC.CMPRO ---
Care Management Progress Note S/O: Boogie was lying in bed when CM met with him. He reported doing well and shared he had just been up ambulating. He reported having a sore throat but shared he had already notified the RN who was bringing him a lozenge. Boogie shared no concerns and reported confidence in discharge plan. CM notified [facility] [place] [facility] of anticipated discharge date of 09/23/18. [facility] requested confirmation tomorrow, 09/22/18 prior to mixing the TPN for delivery. CM notified weekend CM and [facility] of this information. A: 68 year old male admitted 09/17/18 for Pneumonitis P: Boogie will discharge home with a resumption of services through [facility] [place], RN 3x/wk, primary nurse is Brittney Ramos contact number is [phone] fax for discharge orders is [phone]. [facility] will require notification as well P#[phone], F#[phone], . Boogie will return home with spouse when medically ready and she will transport him by private car. CM will continue to provide support to patient, family and care team for ongoing discharge planning and disposition.
--- NOTE | 2018-09-21 18:05 | CMPROGNOTE_ITS ---
Care Management Progress Note S/O: Boogie was lying in bed when CM met with him. He reported doing well and shared he had just been up ambulating. He reported having a sore throat but shared he had already notified the RN who was bringing him a lozenge. Boogie shared no concerns and reported confidence in discharge plan. CM notified [facility] and [facility] of anticipated discharge date of 09/23/18. [facility] requested confirmation tomorrow, 09/22/18 prior to mixing the TPN for delivery. CM notified weekend CM and [facility] of this information. A: 68 year old male admitted 09/17/18 for Pneumonitis P: Boogie will discharge home with a resumption of services through [facility] [place], RN 3x/wk, primary nurse is Brittney Ramos contact number is [phone] fax f or discharge orders is [phone]. [facility] will require notification as well P#[phone], F#[phone], . Boogie will return home with spouse when medically ready and she will transport him by private car. CM will continue to provide support to patient, family and care team for ongoing discharge planning and disposition.
[2018-09-21 18:50] LABS: Bilirubin Negative (Negative); Blood Trace-lysed (Negative); Clarity Clear; Glucose Negative (Negative); Ketones Negative (Negative); Leukocyte Esterase Small (Negative); Nitrite Negative (Negative); Urobilinogen 0.2 EU/dL (Up TO 0.2); pH 5.5 (5-8)
[2018-09-21 19:01] LABS: Bacteria Rare HPF (Negative); Epithelial Cells Negative HPF (Negative); WBC 20-50 HPF (0-5)
[2018-09-21 19:02] LABS: C & S Indicated? Yes; Mucus Trace (Negative)
--- NOTE | 2018-09-21 19:46 | NUR.NOTE ---
Nursing Note: Report received from off-going nurse, patient is currently sitting up in bed with no report of pain or discomfort at this time, the bed is in the low and locked position, side rails up x2, call light within reach, bed alarm on.
[2018-09-21] MEDS: Gabapentin 300 MG CAP PO (21:42)
[2018-09-21] MEDS: Mirtazapine 15 MG TAB PO (21:43)
[2018-09-22 00:35] VITALS: BP 103/52; PULSE 76; RESP 18; TEMP 37.1; O2SAT 94
[2018-09-22] MEDS: CEFEPIME 2 GM in Normal Saline 100 ML IVPB ×2 (01:54→14:45)
[2018-09-22] MEDS: VANCOMYCIN 750 MG in Normal Saline 250 ML IVPB (01:54)
--- NOTE | 2018-09-22 02:04 | NUR.NOTE ---
Nursing Note: Pt. bladder scanned at this time, 223 reading obtained. Pt. is currently experiencing no discomfort.
[2018-09-22] MEDS: Normal Saline 1,000 ML 75 ML IV ×2 (04:52→16:18)
--- NOTE | 2018-09-22 04:58 | NUR.NOTE ---
Nursing Note: Patient bladder scanned after voiding, post void residual 257. Patient reports no discomfort at this time. I explained to the patient that the has placed orders for Q8 straight cath as needed, the patient has requested I wait and allow him time to go naturally before we cath him.
--- NOTE | 2018-09-22 06:56 | NUR.NOTE ---
Nursing Note: In and out cath performed on patient per MD orders, 400ml out very slowly over several minutes. Post cath residual of 87.
[2018-09-22 07:41] LABS: Absolute Monocyte Count 1.33 k/cumm (0.11-0.7); Absolute Neutrophil Count 8.06 k/cumm (1.2-6.7); Basophils % 0.3; Eosinophils % 5.2; HCT 26.8 % (40.0-50.0); HGB 8.5 g/dL (13.5-17.5); Immature Grans % 1.1; Mean Corp. HGB Concentration 31.7 g/dL (32.0-36.0); Mean Corpuscular Hemoglobin 27.5 pg (27.0-33.0); Mean Corpuscular Volume 86.7 fL (80-95); Mean Platelet Volume 13.2 fL (8.0-11.0); Monocytes % 11.1; Neutrophils % 67.3; Platelet Count 157 x1000/uL (130-400); RBC 3.09 m/cumm (4.50-6.00); RBC Distribution Width 18.1 % (11.8-14.1); White Blood Cell Count 11.97 k/cumm (4.4-10.8)
[2018-09-22 07:42] LABS: Abs Immature Grans 0.13 k/cumm (0.0-0.09); Absolute Eosinophil Count 0.62 k/cumm (0.0-0.7)
[2018-09-22 07:44] LABS: Absolute Basophil Count 0.04 k/cumm (0.0-0.2)
[2018-09-22 07:46] LABS: PHOSPHORUS 1.8 mg/dL (2.6-4.7)
[2018-09-22 07:49] LABS: ALT 85 U/L (12-78); AST 36 U/L (15-37); Albumin 1.8 g/dL (3.4-5.0); Alkaline Phosphatase 180 U/L (46-116); Anion Gap 9.1 mmol/L (3-11); BUN 58 mg/dL (7-18); CO2 23.9 mmol/L (21.0-32.0); CREATININE 1.62 mg/dL (0.70-1.30); Calcium 8.1 mg/dL (8.5-10.1); Chloride 110 mmol/L (98-107); Estimated GFR 42.84 (mL/min/1.73m2); Glucose 84 mg/dL (70-100); Magnesium 1.6 mg/dL (1.8-2.4); Potassium 3.6 mmol/L (3.5-5.1); Sodium 143 mmol/L (136-145); Total Protein 5.3 g/dL (6.4-8.2)
[2018-09-22 07:55] VITALS: BP 129/62; PULSE 77; RESP 19; TEMP 36.7; O2SAT 96
[2018-09-22] MEDS: Pantoprazole 40 MG VIAL IVP ×2 (07:56→20:20)
[2018-09-22] MEDS: Normal Saline Flush 10 ML SYR IVP ×2 (07:56→20:20)
[2018-09-22] MEDS: Ferrous Sulfate 325 MG TAB PO ×2 (07:57→20:18)
[2018-09-22] MEDS: Ondansetron O.D.T. 4 MG TABEF 8 MG PO ×2 (07:57→20:17)
[2018-09-22] MEDS: Ascorbic Acid 500 MG TAB PO ×2 (07:57→20:18)
[2018-09-22] MEDS: Oseltamivir 30 MG CAP PO (07:57)
[2018-09-22] MEDS: Ipratropium/Albuterol 4 GM 120 PUFF INH IH ×4 (09:25→22:27)
[2018-09-22 10:25] VITALS: BP 132/70
[2018-09-22] MEDS: Metoprolol 25 MG TAB PO ×2 (10:30→22:26)
--- NOTE | 2018-09-22 10:57 | DI.RAD_ITS ---
SYMPTOM/DIAGNOSIS: CHRONIC BILATERAL PLEURAL EFFUSIONS, FOLLOW UP PORTABLE CHEST: Comparison is made with 17 Sep 2018 There are now patchy bilateral pulmonary opacities not previously seen, suspicious for bilateral pneumonitis. Bilateral chest tubes, PICC line, sternal wires and aortic valve prosthesis are unchanged. IMPRESSION: Bilateral pulmonary infiltrates. Small bilateral pleural effusions.
[2018-09-22] MEDS: MAGNESIUM SULFATE 2 GM/50 ML BAG IVPB (11:08)
--- NOTE | 2018-09-22 11:30 | DI.VRAD_ITS ---
EXAM: XR Chest, 1 View EXAM DATE/TIME: 09/22/2018 10:28 AM CLINICAL HISTORY: 68 years old, male; Signs and symptoms; Other: Chronic bilat pleural effusions follow up TECHNIQUE: XR of the chest, 1 view. COMPARISON: CR XR CHEST 2V PA LATERAL 09/17/2018 5:56 PM FINDINGS: Tubes, catheters and devices: Stable bilateral chest tubes in place. Right PICC line tip over the atrial caval junction. Lungs: Interval appearance of mild mild interstitial pattern consistent with infectious pneumonitis, allergic pneumonitis or pulmonary interstitial edema. Interval appearance of mild bibasilar atelectasis and/or infiltrate and/or effusion. Pleural space: Unremarkable. No pleural effusion. No pneumothorax. Heart/Mediastinum: Unremarkable. No cardiomegaly. Bones/joints: Previous sternotomy. IMPRESSION: 1. Stable bilateral chest tubes in place. 2. Right PICC line tip over the atrial caval junction. 3. Interval appearance of mild mild interstitial pattern consistent with infectious pneumonitis, allergic pneumonitis or pulmonary interstitial edema. 4. Interval appearance of mild bibasilar atelectasis and/or infiltrate and/or effusion. Dictated and Authenticated by: Rashard Sauer MD. Ordering:DARLYN Mcdowell MD
--- NOTE | 2018-09-22 14:36 | PDOC.CMPRO ---
- If Service Date Differs Date of service: 09/22/18 Time of Service: 14:36
--- NOTE | 2018-09-22 14:58 | PDOC.CMPRO ---
- If Service Date Differs Date of service: 09/22/18 Time of Service: 14:58 Care Management Progress Note S/O: Boogie is lying in bed this morning when this grant writer visits, he is pleasant and receptive to discussion. CM spoke with Dr. Olvera this afternoon whom states that Boogie will most likely be ready for DC 09/23/18. CM contacted [facility] and spoke with Brianna whom will fax order to this grant writer. CM to have Dr. Olvera sign order and will fax back to [facility] today for DC tomorrow. A: 68 year old male admitted 09/17/18 for Pneumonitis P: Boogie will discharge home with a resumption of services through [facility] [place], RN 3x/wk, primary nurse is Brittney Ramos contact number is [phone] fax for discharge orders is [phone]. [facility] will require notification as well P#[phone], F#[phone], . Boogie will return home with spouse when medically ready and she will transport him by private car. CM will continue to provide support to patient, family and care team for ongoing discharge planning and disposition.
--- NOTE | 2018-09-22 15:22 | W.PM.PROGNOT ---
Date of Service Date of service: 09/22/18 Time of Service: 15:22 Assessment and Plan (1) Community acquired pneumonia: Current visit: Yes Status: Acute Due to MRSA. On HCAP coverage due to oral abx failure - continue vancomycin/cefepime D5. Consider discharging home tomorrow with 2-3 more days of antibiotics (levofloxacin) as patient is immunosuppressed. (2) COPD (chronic obstructive pulmonary disease): Current visit: No Status: Chronic No longer appears to be in acute exacerbation. Did receive stress dose steroids on presentation. (3) On total parenteral nutrition (TPN): Current visit: Yes Status: Chronic Continue while in the hospital and on discharge. Patient states he has a supply at home. Home health agency is being notified of likely discharge tomorrow. (4) Acute kidney injury (nontraumatic): Current visit: Yes Status: Acute On CKD, now at baseline. ALONSO was likely in setting of dehydration/acute illness. (5) Anemia: Current visit: No Status: Chronic Chronic. H/H down to 8.5 from 9.5 yesterday (baseline is closer to 12). Check hemoccult. Will recheck H/H in am - at this point, no massive bleeding is observed and no indication for urgent transfusion. Asymptomatic. (6) Chronic bilateral pleural effusions: Current visit: No Status: Chronic Not enough fluid on CXR to drain. (7) Chronic congestive heart failure with left ventricular diastolic dysfunction: Current visit: No Status: Chronic Euvolemic. 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 (10) Hypomagnesemia: Current visit: Yes Status: Acute replete and recheck in am (11) Discharge planning issues: Current visit: Yes Status: Acute Likely discharge home tomorrow with TPN (12) DVT prophylaxis: Current visit: Yes Status: Acute SCD's + TEDS Subjective Interval history since last seen: Mr De Luna feels almost back to normal today. His biggest complaint is his sore throat. He denies dizziness, chest pain, shortness of breath, nausea, vomiting. His cough is now productive of grayish sputum, and it was previously green. He feels it's getting a lot better. Exam Narrative Exam Narrative: General: Very pleasant middle-aged male, coughing occasionally, NAD, comfortable in bed HEENT: EOMI, MMM; no thrush or pharyngeal erythema Heart: RRR, no m/r/g; slightly tachycardic Lungs: CTAB/diminished breath sounds B; B anterior wall pleurex catheters GI: abdomen is soft, nontender; nondistended; ostomy clean/dry/intact Exremities: no e/c/c BLE's; 1+ pedal pulses B Objective Objective Clinical Data: Abnormal lab results 09/21/18 09/22/18 09/22/18 Range/Units 18:30 05:50 05:50 WBC 11.97 H (4.4-10.8) k/cumm RBC 3.09 L (4.50-6.00) m/cumm Hgb 8.5 L (13.5-17.5) g/dL Hct 26.8 L (40.0-50.0) % MCHC 31.7 L (32.0-36.0) g/dL RDW 18.1 H (11.8-14.1) % MPV 13.2 H (8.0-11.0) fL Absolute Neutrophils 8.06 H (1.2-6.7) k/cumm Absolute Monocytes 1.33 H (0.11-0.7) k/cumm Chloride 110 H (98-107) mmol/L BUN 58 H D (7-18) mg/dL Creatinine 1.62 H (0.70-1.30) mg/dL Calcium 8.1 L (8.5-10.1) mg/dL Phosphorus (2.6-4.7) mg/dL Magnesium 1.6 L (1.8-2.4) mg/dL ALT 85 H (12-78) U/L Alkaline Phosphatase 180 H (46-116) U/L Total Protein 5.3 L (6.4-8.2) g/dL Albumin 1.8 L (3.4-5.0) g/dL Urine Protein 30 H (Negative) mg/dL Urine Blood Trace-lysed H (Negative) Ur Leukocyte Esterase Small H (Negative) Urine RBC 3-5 H (0-2) 09/22/18 Range/Units 05:50 WBC (4.4-10.8) k/cumm RBC (4.50-6.00) m/cumm Hgb (13.5-17.5) g/dL Hct (40.0-50.0) % MCHC (32.0-36.0) g/dL RDW (11.8-14.1) % MPV (8.0-11.0) fL Absolute Neutrophils (1.2-6.7) k/cumm Absolute Monocytes (0.11-0.7) k/cumm Chloride (98-107) mmol/L BUN (7-18) mg/dL Creatinine (0.70-1.30) mg/dL Calcium (8.5-10.1) mg/dL Phosphorus 1.8 L (2.6-4.7) mg/dL Magnesium (1.8-2.4) mg/dL ALT (12-78) U/L Alkaline Phosphatase (46-116) U/L Total Protein (6.4-8.2) g/dL Albumin (3.4-5.0) g/dL Urine Protein (Negative) mg/dL Urine Blood (Negative) Ur Leukocyte Esterase (Negative) Urine RBC (0-2) Vital Signs Temperature 36.7 C 09/22/18 07:55 Temperature Source Tympanic 09/22/18 07:55 Pulse 77 09/22/18 07:55 Pulse Rhythm Regular 09/22/18 07:51 Respiratory Rate 19 09/22/18 07:55 Respiratory Effort Non-Labored 09/22/18 07:51 Respiratory Depth Normal 09/22/18 07:51 Respiratory Pattern Normal 09/22/18 07:51 Blood Pressure 129/62 09/22/18 07:55 Pulse Oximetry 96 09/22/18 07:55 Oxygen Delivery Method Room Air 09/22/18 07:55 Oxygen Flow Rate 0 09/22/18 07:55 Pain Level 0 09/21/18 22:35 Intake & Output 09/21/18 09/22/18 09/22/18 23:59 11:59 23:59 Intake Total 2980 / 5557.25 1744.3333 / 3507.1663 1762.833 / 3507.1663 Output Total 1100 / 1600 2050 / 2350 300 / 2350 Balance 1880 / 3957.25 -305.6667 / 1157.1663 1462.833 / 1157.1663 Intake: IV 2620 / 4587.25 1384.3333 / 2667.1663 1282.833 / 2667.1663 Oral 360 / 970 360 / 840 480 / 840 Output: Urine 800 / 1000 1625 / 1925 300 / 1925 Stool 300 / 600 425 / 425 Other: Urine Color Straw Pale Pale Yellow Urine Appearance Clear Cloudy Clear Urine Odor None Normal Normal Comment Void x3 in urinal. The Three scans were 341,234,498. Stool Size Moderate Small Stool Characteristics Liquid Liquid Green Voiding Methods Urinal Urinal Urinal Laboratory Results WBC 11.97 k/cumm (4.4-10.8) H 09/22/18 05:50 RBC 3.09 m/cumm (4.50-6.00) L 09/22/18 05:50 Hgb 8.5 g/dL (13.5-17.5) L 09/22/18 05:50 Hct 26.8 % (40.0-50.0) L 09/22/18 05:50 MCV 86.7 fL (80-95) 09/22/18 05:50 MCH 27.5 pg (27.0-33.0) 09/22/18 05:50 MCHC 31.7 g/dL (32.0-36.0) L 09/22/18 05:50 RDW 18.1 % (11.8-14.1) H 09/22/18 05:50 Plt Count 157 x1000/uL (130-400) 09/22/18 05:50 MPV 13.2 fL (8.0-11.0) H 09/22/18 05:50 Immature Gran % 1.1 09/22/18 05:50 Neutrophils % 67.3 09/22/18 05:50 Lymphocytes % 15.0 09/22/18 05:50 Monocytes % 11.1 09/22/18 05:50 Eosinophils % 5.2 09/22/18 05:50 Basophils % 0.3 09/22/18 05:50 Absolute Neutrophils 8.06 k/cumm (1.2-6.7) H 09/22/18 05:50 Absolute Lymphocytes 1.80 k/cumm (1.2-3.4) 09/22/18 05:50 Absolute Monocytes 1.33 k/cumm (0.11-0.7) H 09/22/18 05:50 Absolute Eosinophils 0.62 k/cumm (0.0-0.7) 09/22/18 05:50 Absolute Basophils 0.04 k/cumm (0.0-0.2) 09/22/18 05:50 Differential Comment Rbc morph reviewed 09/19/18 06:10 RBC Morphology See below 09/19/18 06:10 Poikilocytosis 1+ 09/19/18 06:10 PT 9.9 sec (9.3-11.0) 09/20/18 06:25 INR 1.0 (0.9-1.1) 09/20/18 06:25 Sodium 143 mmol/L (136-145) 09/22/18 05:50 Potassium 3.6 mmol/L (3.5-5.1) 09/22/18 05:50 Chloride 110 mmol/L (98-107) H 09/22/18 05:50 Carbon Dioxide 23.9 mmol/L (21.0-32.0) 09/22/18 05:50 Anion Gap 9.1 mmol/L (3-11) 09/22/18 05:50 BUN 58 mg/dL (7-18) H D 09/22/18 05:50 Creatinine 1.62 mg/dL (0.70-1.30) H 09/22/18 05:50 Estimated GFR/1.73 m2 42.84 (mL/min/1.73m2) 09/22/18 05:50 Glucose 84 mg/dL (70-100) 09/22/18 05:50 Calcium 8.1 mg/dL (8.5-10.1) L 09/22/18 05:50 Phosphorus 1.8 mg/dL (2.6-4.7) L 09/22/18 05:50 Magnesium 1.6 mg/dL (1.8-2.4) L 09/22/18 05:50 Iron 21 ug/dL (50-175) L 09/20/18 06:25 TIBC 312 ug/dL (250-450) 09/20/18 06:25 Transferrin % Sat 7 % (20-55) L 09/20/18 06:25 Ferritin 28 ng/mL (8-388) 09/20/18 06:25 Total Bilirubin 1.0 mg/dL (0.2-1.0) 09/22/18 05:50 AST 36 U/L (15-37) 09/22/18 05:50 ALT 85 U/L (12-78) H 09/22/18 05:50 Alkaline Phosphatase 180 U/L (46-116) H 09/22/18 05:50 Troponin I 0.02 ng/mL (0.00-0.06) 09/17/18 18:34 NT-Pro-B Natriuret Pep 276 pg/mL (-299) 09/17/18 18:34 Total Protein 5.3 g/dL (6.4-8.2) L 09/22/18 05:50 Albumin 1.8 g/dL (3.4-5.0) L 09/22/18 05:50 Prealbumin 30 mg/dL (20-40) 09/20/18 06:25 Vitamin B12 1360 pg/mL (193-986) H 09/20/18 06:25 Folate > 20.0 ng/mL (8.6-20.0) H 09/20/18 06:25 Urine Color Yellow (Yellow) 09/21/18 18:30 Urine Clarity Clear 09/21/18 18:30 Urine pH 5.5 (5-8) 09/21/18 18:30 Ur Specific [place] 1.010 (1.005-1.025) 09/21/18 18:30 Urine Protein 30 mg/dL (Negative) H 09/21/18 18:30 Urine Ketones Negative mg/dL (Negative) 09/21/18 18:30 Urine Blood Trace-lysed (Negative) H 09/21/18 18:30 Urine Nitrite Negative (Negative) 09/21/18 18:30 Urine Bilirubin Negative (Negative) 09/21/18 18:30 Urine Urobilinogen 0.2 EU/dL (Up TO 0.2) 09/21/18 18:30 Ur Leukocyte Esterase Small (Negative) H 09/21/18 18:30 Urine RBC 3-5 (0-2) H 09/21/18 18:30 Urine WBC 20-50 HPF (0-5) 09/21/18 18:30 Ur Epithelial Cells Negative HPF (Negative) 09/21/18 18:30 Urine Crystals HPF (Negative) 09/21/18 18:30 Urine Bacteria Rare HPF (Negative) 09/21/18 18:30 Urine Casts 10-20 coarsegranular LPF (Negative) 09/21/18 18:30 Urine Mucus Trace (Negative) 09/21/18 18:30 Ur Culture Indicated? Yes 09/21/18 18:30 Urine Glucose Negative mg/dL (Negative) 09/21/18 18:30 Specimen Type Cancelled 09/19/18 18:39 Influenza Type A RNA Cancelled 09/19/18 18:39 Influenza Type B RNA Cancelled 09/19/18 18:39 Legionella Source (see note) 09/18/18 02:55 Legionella Reprt Status (see note) 09/18/18 02:55 Legionella Final Result (see note) 09/18/18 02:55 M. pneumoniae Source Sputum 09/18/18 02:54 M. pneumoniae (PCR) Negative 09/18/18 02:54 RSV RNA Qual (PCR) Cancelled 09/19/18 18:39 Ur Strep pneumoniae Ag Negative (Negative) 09/18/18 02:55 CXR: 1. Stable bilateral chest tubes in place. 2. Right PICC line tip over the atrial caval junction. 3. Interval appearance of mild mild interstitial pattern consistent with infectious pneumonitis, allergic pneumonitis or pulmonary interstitial edema. 4. Interval appearance of mild bibasilar atelectasis and/or infiltrate and/or effusion.
--- NOTE | 2018-09-22 15:37 | CMPROGNOTE_ITS ---
- If Service Date Differs Date of service: 09/22/18 Time of Service: 14:58 Care Management Progress Note S/O: Boogie is lying in bed this morning when this law writer visits, he is pleasant and receptive to discussion. CM spoke with Dr. Olvera this afternoon whom states that Boogie will most likely be ready for DC 09/23/18. CM contacted [facility] and spoke with Brianna whom will fax order to this law writer. CM to have Dr. Olvera sign order and will fax back to [facility] today for DC tomorrow. A: 68 year old male admitted 09/17/18 for Pneumonitis P: Boogie will discharge home with a resumption of services through [facility] [place], RN 3x/wk, primary nurse is Brittney Ramos contact number is [phone] fax for discharge orders is [phone]. [facility] will require notification as well P#[phone], F#[phone], . Boogie will return home with spouse when medically ready and she will transport him by private car. CM will continue to provide support to patient, family and care team for ongoing discharge planning and disposition.
[2018-09-22 16:01] VITALS: BP 113/65; PULSE 73; RESP 18; TEMP 37.3; O2SAT 96
[2018-09-22] MEDS: Lidocaine 2% Jelly 11 ML SYR UR (20:37)
[2018-09-22 22:24] VITALS: BP 124/57; PULSE 78; RESP 18; TEMP 37.8; O2SAT 96
[2018-09-22] MEDS: Gabapentin 300 MG CAP PO (22:26)
[2018-09-22] MEDS: Mirtazapine 15 MG TAB PO (22:26)
[2018-09-22] MEDS: Insulin Aspart 300 UNITS/3 ML PEN SC (23:58)
[2018-09-23] MEDS: CEFEPIME 2 GM in Normal Saline 100 ML IVPB (02:28)
[2018-09-23] MEDS: Normal Saline 1,000 ML 75 ML IV (05:16)
[2018-09-23 07:17] LABS: Abs Immature Grans 0.25 k/cumm (0.0-0.09); Absolute Basophil Count 0.03 k/cumm (0.0-0.2); Absolute Eosinophil Count 0.58 k/cumm (0.0-0.7); Absolute Lymphocyte Count 1.61 k/cumm (1.2-3.4); Basophils % 0.3; Eosinophils % 5.2; HCT 27.5 % (40.0-50.0); HGB 8.6 g/dL (13.5-17.5); Immature Grans % 2.3; Lymphocytes % 14.5; Mean Corp. HGB Concentration 31.3 g/dL (32.0-36.0); Mean Corpuscular Hemoglobin 27.2 pg (27.0-33.0); Mean Platelet Volume 13.1 fL (8.0-11.0); Monocytes % 11.6; Neutrophils % 66.1; Platelet Count 154 x1000/uL (130-400); RBC 3.16 m/cumm (4.50-6.00); RBC Distribution Width 18.2 % (11.8-14.1); White Blood Cell Count 11.08 k/cumm (4.4-10.8)
[2018-09-23 07:26] LABS: Absolute Monocyte Count 1.29 k/cumm (0.11-0.7); Absolute Neutrophil Count 7.32 k/cumm (1.2-6.7)
[2018-09-23 07:27] LABS: Anion Gap 8.8 mmol/L (3-11); BUN 45 mg/dL (7-18); CO2 23.2 mmol/L (21.0-32.0); Calcium 7.8 mg/dL (8.5-10.1); Chloride 112 mmol/L (98-107); Estimated GFR 43.46 (mL/min/1.73m2); Glucose 96 mg/dL (70-100); Magnesium 1.9 mg/dL (1.8-2.4); Potassium 3.4 mmol/L (3.5-5.1); Sodium 144 mmol/L (136-145)
[2018-09-23 07:31] LABS: PHOSPHORUS 2.2 mg/dL (2.6-4.7)
[2018-09-23] MEDS: Ondansetron O.D.T. 4 MG TABEF 8 MG PO (08:00)
[2018-09-23] MEDS: Ascorbic Acid 500 MG TAB PO (08:00)
[2018-09-23] MEDS: Oseltamivir 30 MG CAP PO (08:00)
[2018-09-23] MEDS: Ferrous Sulfate 325 MG TAB PO (08:01)
[2018-09-23] MEDS: Normal Saline Flush 10 ML SYR IVP (08:01)
[2018-09-23] MEDS: Pantoprazole 40 MG VIAL IVP (08:01)
[2018-09-23 08:02] LABS: Diff Comment Agrees w/ Instrument
[2018-09-23 08:03] LABS: Hypochromasia 1+; Poikilocytes 1+; Polychromasia Present
[2018-09-23 08:21] VITALS: BP 118/49; PULSE 82; RESP 20; TEMP 36.3; O2SAT 95
[2018-09-23] MEDS: Ipratropium/Albuterol 4 GM 120 PUFF INH IH ×2 (08:25→12:43)
[2018-09-23] MEDS: Tamsulosin 0.4 MG CAPCR PO (09:24)
[2018-09-23] MEDS: Metoprolol 25 MG TAB PO (09:24)
--- NOTE | 2018-09-23 10:38 | PT.INTREAT ---
Date of service: 09/23/18 Time of Service: 10:39 PT Notes Inpatient Physical Therapy Treatment Note [facility] Date: 09/23/18 PRECAUTIONS: Fall, contact SUBJECTIVE: Humberto states that he is feeling good today, that he may be going home later today. OBJECTIVE: PAIN: No complaints of pain BED MOBILITY/TRANSFERS Rolling L/R: I Supine-sit: I Sit-supine: I Sit-stand: I Stand-sit: I GAIT Assistive Device: FWW Weight bearing: Full Assist: I Distance: 250' THEREX: Patient completed a global strengthening program in a supine position, as per flow sheet. Patient quickly fatigued today, while performing exercises, patient was not able to complete ther ex program in its entirety today. ASSESSMENT: Patient tolerated session with complaints of increased fatigue. Patient was able to tolerate a progression in gait distance with FWW support demonstrating appropriate pacing and safety. Patient would benefit from continued strengthening for improved activity tolerance. PLAN: As per primary PT TREATMENT CODE/TIME: 25 minutes; 20911, [id number]
[2018-09-23] MEDS: Potassium Chloride 20 MEQ TABCR 40 MEQ PO (13:15)
--- NOTE | 2018-09-23 14:09 | PDOC.CMDIS ---
- If Service Date Differs Date of service: 09/23/18 Time of Service: 14:09 LACE Index Scoring Tool - Questions: Length of Stay (in days): 4 - 6 Acuity (Admit via E.D.?): Yes Comorbidities: Congestive Heart Failure, Chronic Pulmonary Disease, Any Tumor E.D. Visits: 8 - Answers: Total Score: 16 Risk of Readmission: High Risk Care Management Discharge Reason for Hospitalization: Pneumonitis Discharge Plan: Boogie will return home today with a resumption of home health RN services through [facility]. ALEKS spoke with JOHAN Becerra, and faxed TPN orders, Mariam will arrange for delivery. ALEKS has outreached to [facility] and am awaiting a call back to alert of DC plan for today. [place] to transport. He will F/U with PCP and plan of care as prescribed. Patient/Family Education Needs: Review DC instructions, any limitations, and discuss 'Ask me three' Services Needed at Discharge: Home Health Care Services ([facility] - RN services), Infusion Therapy (TPN through [facility])
--- NOTE | 2018-09-23 14:12 | CMDISCH_ITS ---
- If Service Date Differs Date of service: 09/23/18 Time of Service: 14:09 LACE Index Scoring Tool - Questions: Length of Stay (in days): 4 - 6 Acuity (Admit via E.D.?): Yes Comorbidities: Congestive Heart Failure, Chronic Pulmonary Disease, Any Tumor E.D. Visits: 8 - Answers: Total Score: 16 Risk of Readmission: High Risk Care Management Discharge Reason for Hospitalization: Pneumonitis Discharge Plan: Boogie will return home today with a resumption of home health RN services through [facility]. ALEKS spoke with JOHAN Becerra, and faxed TPN orders, Mariam will arrange for delivery. ALEKS has outreached to [facility] and am awaiting a call back to alert of DC plan for today. [place] to transport. He will F/U with PCP and plan of care as prescribed. Patient/Family Education Needs: Review DC instructions, any limitations, and discuss 'Ask me three' Services Needed at Discharge: Home Health Care Services ([facility] - RN services), Infusion Therapy (TPN through [facility])
--- NOTE | 2018-09-23 15:10 | W.PM.DS.N ---
Date of service: 09/23/18 Time of Service: 15:13 DS: Diagnosis Discharge Diagnosis (1) Community acquired pneumonia: Status: Acute Asessment and Plan: Sputum with MRSA (2) COPD (chronic obstructive pulmonary disease): Status: Chronic (3) On total parenteral nutrition (TPN): Status: Chronic (4) Acute kidney injury (nontraumatic): Status: Acute (5) Anemia: Status: Chronic Asessment and Plan: hemoccult positive and dilutional (6) Chronic bilateral pleural effusions: Status: Chronic (7) Chronic congestive heart failure with left ventricular diastolic dysfunction: Status: Chronic (8) Short gut syndrome: Status: Chronic (9) History of colon cancer, stage IV: Status: Chronic (10) Hypomagnesemia: Status: Acute (11) Urinary retention: Status: Acute (12) Hypophosphatemia: Status: Acute Discharge Plan Disposition Patient Disposition: HOME W/HOME HEALTH SERVICE Condition: Stable Discharge Details Reason For Visit: PNEUMONITIS Admit Date/Time: 09/17/18 20:00 Admit Provider: Alfred Flynn Attending Provider: Alfred Flynn Primary Care Provider: Logan Bruce Hospital Course Hospital Course: Mr De Luna is a 68 year old male with PMHx of stage IV colon cancer, non-oxygen requiring COPD, tobacco abuse, chronic bilateral pleural effusions, CKD, no longer HD dependent, s/p AVR due to prior endocarditis, who was admitted to [facility] on 09/17/18 for CAP, having failed outpatient therapy, in addition to ALONSO with evidence of both dehydration and urinary retention. The patient's sputum grew MRSA. His antibiotics were initially azithromycin and cefepime, but were adjusted to vancomycin and cefepime when this became evident. He received 6 days of vancomycin and 7 days of cefepime during his hospitalization with clinical resolution of symptoms, and return of his kidney function to baseline. He does not require oxygen. He did not require drainage of his pleurex catheters as there were not significant pleural effusions noted on this admission. He was maintained on his TPN in addition to IVF. He was re-initiated on flomax that he used to take previously with improvement of his urinary retention. He is anemic, and his anemia is hemoccult positive. H/H on discharge is 8.6/27.5, without any symptoms of anemia. Baseline H/H is around 12. The hemoccult positivity is expected with his colon cancer and was not investigated further. He does not require a transfusion at this time as he is asymptomatic and H/H remains stable. Dilutional component is also likely. He was started on PO iron and vitamin C. He is not quite ready for hospice on this admission, but was seen by Dr Jensen in consultation. He has a plan on when to call hospice, but at this time is not quite ready. He is returning home today with resumption of his home health services, baseline TPN and labs as prior to admission. He is to be discharged home with a PICC line in place. Home Meds and New Rx's Prescriptions: New ascorbic acid (vitamin C) [Vitamin C] 500 mg Tablet 500 mg PO BID Qty: 0 RF: 0 ferrous sulfate 325 mg (65 mg iron) Tablet 325 mg PO BID Qty: 60 RF: 0 Phenaseptic 1.4 % Aerosol,[place] 5 spray Mucous Membrane QID PRN PRNQty: 1 RF: 0 tamsulosin [Flomax] 0.4 mg capsule 0.4 mg PO DAILY Qty: 30 RF: 0 pantoprazole [Protonix] 40 mg tablet,delayed release (DR/EC) 40 mg PO DAILY Qty: 30 RF: 0 Nicotrol 10 mg cartridge 1 inh IH 4-6XD PRN (Reason: nicotine cravings) Qty: 168 RF: 0 Continued gabapentin [Neurontin] 100 MG capsule 300 mg PO HS RF: 0 Combivent 200 PUFF aerosol 2 puff Inhalation QID RF: 0 prochlorperazine maleate 5 mg Tablet 5 mg PO DIRECTED RF: 0 ondansetron HCl 8 mg Tablet 8 mg PO BID PRNRF: 0 mirtazapine 15 mg Tablet 15 mg PO HS RF: 0 metoprolol tartrate 25 MG tablet 25 mg PO BID RF: 0 Multitrace-4 Concentrate 1 ML solution 1 ml IV .BY DURATION RF: 0 potassium phosphate m-/d-basic 45 MM/15 ML solution 3 mm IV .BY DURATION RF: 0 sodium acetate 40 MEQ/20 ML solution 29.5 meq IV .BY DURATION RF: 0 magnesium chloride 10,000 MG/50 ML solution 254 mg IV .BY DURATION RF: 0 calcium gluconate 4.65 MEQ/10 ML solution 4.5 meq IV .BY DURATION RF: 0 sodium chloride 120 MEQ/30 ML parenteral solution 5.5 meq IV .BY DURATION RF: 0 potassium chloride 20 MEQ/10 ML solution 10 meq IV .BY DURATION RF: 0 Infuvite Adult 10 ML solution 10 ml IV .BY DURATION RF: 0 Intralipid 250 ML emulsion 250 ml IV DAILY@1700 RF: 0 morphine 10 mg/5 mL Solution 10 mg PO Q4H PRN PRNRF: 0 Discontinued omeprazole 20 MG capsule,delayed release(DR/EC) 20 mg PO DAILY RF: 0 Discharge Instructions Instructions: Tamsulosin (By mouth), Pneumonitis (DC), Urinary Retention in Men (GEN), Anemia (DC) Additional Instructions: Return to the hospital if you have any difficulty with urination/are unable to void, if you having chest pain, shortness of breath, or bleeding. You must try to stop smoking! Follow up with your PCP in 1-2 days. Care Plan Goals: Resume home health services and TPN as prior to admission. Stand Alone Forms: Nursing Discharge Form Referrals: Logan Bruce MD [Primary Care Provider] - (Please call Dr. Bruce's office to schedule a follow up appointment for within 2 weeks of discharge. ) Activity:: Activity as Tolerated Equipment/Supplies:: No Equipment Needed Diet:: regular + TPN via PICC Discharge Orders Discharge Orders: Discharge Order (Routine); Ordered 09/23/18 Ordered By: July Olvera Exam Narrative Exam Narrative: General: Very pleasant middle-aged male, coughing occasionally, NAD, comfortable in bed HEENT: EOMI, MMM; no thrush or pharyngeal erythema Heart: RRR, +JUANA Lungs: CTAB/diminished breath sounds B; B anterior wall pleurex catheters GI: abdomen is soft, nontender; nondistended; ostomy clean/dry/intact Exremities: no e/c/c BLE's; 1+ pedal pulses B DS: Data Vitals/I&O Vitals and I&O: Vital Signs Temperature 36.3 C L 09/23/18 08:21 Temperature Source Tympanic 09/23/18 08:21 Pulse 82 09/23/18 08:21 Pulse Rhythm Regular 09/23/18 07:54 Respiratory Rate 20 09/23/18 08:21 Respiratory Effort Short of Breath 09/23/18 07:54 Respiratory Depth Normal 09/23/18 07:54 Respiratory Pattern Normal 09/23/18 07:54 Blood Pressure 118/49 L 09/23/18 08:21 Pulse Oximetry 95 09/23/18 08:21 Oxygen Delivery Method Room Air 09/23/18 08:21 Oxygen Flow Rate 0 09/23/18 08:21 Pain Level 7 09/22/18 22:26 Comment 09/22/18 10:25 Intake & Output 09/22/18 09/23/18 09/23/18 23:59 11:59 23:59 Intake Total 3664.5833 / 5408.9166 1641.8333 / 1641.8333 Output Total 1300 / 3350 1345 / 2270 925 / 2270 Balance 2364.5833 / 2058.9166 296.8333 / -628.1667 -925 / -628.1667 Weight 54.2 kg Intake: IV 2944.5833 / 4328.9166 1641.8333 / 1641.8333 Oral 720 / 1080 Output: Urine 1050 / 2675 650 / 1175 525 / 1175 Stool 250 / 675 695 / 1095 400 / 1095 Other: Urine Color Yellow Yellow Yellow Urine Appearance Clear Clear Clear Urine Odor Normal Normal Normal Comment The Three scans were 341,234,498. Average of 100 ml in bladder post void. Pt received dose of flomax this am Post void. Stool Occult Blood Positive Negative Stool Size Small Small Stool Characteristics Liquid Liquid Liquid Brown Voiding Methods Urinal Urinal Urinal Pending studies at discharge: CT chest: Limited exams secondary to respiratory motion. Question of bilateral lower lobe infiltrates vs atelectasis. CXR 09/22/18: 1. Stable bilateral chest tubes in place. 2. Right PICC line tip over the atrial caval junction. 3. Interval appearance of mild mild interstitial pattern consistent with infectious pneumonitis, allergic pneumonitis or pulmonary interstitial edema. 4. Interval appearance of mild bibasilar atelectasis and/or infiltrate and/or effusion. Labs on day of discharge: Labs from last 24 hours 09/23/18 09/23/18 09/23/18 06:10 06:10 06:10 WBC 11.08 H RBC 3.16 L Hgb 8.6 L Hct 27.5 L MCV 87.0 MCH 27.2 MCHC 31.3 L RDW 18.2 H Plt Count 154 MPV 13.1 H Immature Gran % 2.3 Neutrophils % 66.1 Lymphocytes % 14.5 Monocytes % 11.6 Eosinophils % 5.2 Basophils % 0.3 Absolute Neutrophils 7.32 H Absolute Lymphocytes 1.61 Absolute Monocytes 1.29 H Absolute Eosinophils 0.58 Absolute Basophils 0.03 Differential Comment Agrees w/ instrument RBC Morphology See below Polychromasia Present Hypochromasia 1+ Poikilocytosis 1+ Sodium 144 Potassium 3.4 L Chloride 112 H Carbon Dioxide 23.2 Anion Gap 8.8 BUN 45 H D Creatinine 1.60 H Estimated GFR/1.73 m2 43.46 Glucose 96 Calcium 7.8 L Phosphorus 2.2 L Magnesium 1.9 PFSH Medical History Chronic bilateral pleural effusions (Chronic) Chronic congestive heart failure with left ventricular diastolic dysfunction (Chronic) Depression (Chronic) History of Henoch-Schonlein purpura (Chronic) Anemia (Chronic) Iron deficiency (Chronic) Protein-calorie malnutrition, severe (Chronic) COPD (chronic obstructive pulmonary disease) (Chronic) Back pain (Chronic) Short gut syndrome (Chronic) Colon cancer (Chronic) Elevated LFTs (Chronic) High output ileostomy (Chronic) PTSD (post-traumatic stress disorder) (Chronic) History of colon cancer, stage IV (Chronic) Pleural effusion (Chronic) End of life care (Chronic) Weight loss (Chronic) History of endocarditis (Resolved) History of glomerulonephritis (Resolved) History of ischemic bowel disease (Resolved) History of nephrotic syndrome (Resolved) PSVT (paroxysmal supraventricular tachycardia) (Resolved) Surgical History History of colectomy (Chronic) History of aortic valve replacement (Resolved) History of bowel resection (Resolved) S/P thoracostomy tube placement (Resolved) Family History Son No problems noted. Sister HSP (Henoch Schonlein purpura) Social History caregiver/support person: Yes household members: spouse housing: house marital status: lives independently: No (lives at home w/ help of his and visiting nurse) number of children: 1 fdc: No current occupational status: disabled leisure activities: fishing diet: other high-fat food intake: 3 or more times/day eating out: rarely or never reads food labels: seldom or never during the past year weight has: increased > 10 lbs Smoking/Tobacco Use Status: Former Tobacco Use substance use type: does not use
[2018-09-23 15:59] VITALS: BP 121/65; PULSE 72; RESP 18; TEMP 37.7; O2SAT 99
[2018-09-24 09:59] LABS: Specimen Description SEE COMMENTS
[2018-09-24 10:00] LABS: Influenza A RNA Result Negative; Influenza B RNA Result Negative; RSV RNA Result Negative
--- NOTE | 2018-09-24 10:35 | PT.INDS ---
Date of service: 09/24/18 Time of Service: 10:35 PT Notes Date: 09/24/18 Referring Doctor: Kalpana Pinzon NP PT Orders: PT CONSULT: generalized weakness Treatment Dates: 09/19/18 - 09/23/18 This document serves as a summary of care. No PT intervention was provided on this date. Patient Profile/Admitting Diagnosis: Patient admitted for management of community acquired pneumonia in the presence of COPD, lung cancer with possible metastases, and chronic bilat pleural effusions with pleural cath. Patient has expressed desire to get up and moving, and PT consultation was requested to assess his mobility. Boogie was seen for 7 PT sessions over the course of 5 days, with improvements in independence and activity tolerance during that time. PMHX: colon CA; recurrent pneumonia; CKD s/p prior hemodialysis; endocarditis s/p aortic valve replacement; chronic diastolic heart failure; ischemic bowel, s/p resection. Social History/Home Situation: Patient lives independently with his . He states that his home is fully set up for him with grab bars, multiple walkers, commode, etc. He does not manage stairs, but is up and around throughout the day, typically with a rollator walker, although at times with a cane. He states that he's up tinkering most of the day. His assists with his ADLs, and he also has Home Health daily. He states that he has a regular exercise program that he completes on his own each day. Current Functional Limitations: Patient states that he hasn't been walking in a couple of days and worries that he's getting weak. Equipment Owned/DME: as above. Handicap accessible home with with multiple assistive devices and adaptive equipment. Subjective: None obtained, as patient discharged home 09/23/18 Objective: ROM: Right Upper Extremity: WFL Left Upper Extremity: WFL, with the exception of left hand. Patient has only partial grasp, maintaining full right digit IP extension. Right Lower Extremity: WFL Left Lower Extremity: WFL Strength: Right Upper Extremity: Shoulder flexion 4/5. Biceps 4/5. Left Upper Extremity: Shoulder flexion 4/5. Biceps 4/5. Right Lower Extremity: Hip flexion 4/5. Quads 4/5. Ankle DF 4/5. Left Lower Extremity: Hip flexion 4/5. Quads 4/5. Ankle DF 4/5. Bed Mobility/Transfers: Supine to sit: Independent Sit to stand: Independent Stand to sit: Independent Bed to chair: Independent with FWW Gait: Patient ambulate 250 feet with FW W, independently. Balance: Static Sitting: Normal Dynamic Sitting: Normal Static Standing: Good Dynamic Standing: Fair Assessment: Patient is a 68 year old male referred to physical therapy services with the diagnosis of generalized weakness in patient with community-acquired pneumonia in the presence of colon cancer and COPD.. Patient was seen for 7 PT sessions over the course of 5 days, with improvements in mobility and activity tolerance sufficient to allow for safe return home once he medically stabilized. All rehab goals were met, and patient was safe for transition back to independent living with support from his . Goals: Goals X1 week 1. Supine-Sit : Supervision 2. Sit-Supine : Supervision 3. Sit-Stand : Supervision 4. Stand-Sit : Supervision 5. Bed-Chair : Supervision with WW 6. Chair-Bed : Supervision with WW 7. Gait : Supervision with WW x 25' GOALS 1-7 MET Plan of Care/Treatment Plan: D/C from PT in acute care setting DISCHARGE RECOMMENDATIONS: Home with continued care from family and home health TREATMENT CODE/TIME: NONE Roxane Albrecht, PT, DPT [facility]
== END 2018-09-23 17:07 | disposition home health service (06) | DRG 177 ==
LOC: ER 20:02 → MS 21:12
PROVIDERS: Internal Medicine; Admitting Provider Internal Medicine; Emergency Provider Emergency Medicine; PCP General Practice; Visit Provider Internal Medicine
DX: J15.212 Pneumonia due to Methicillin resistant Staphylococcus aureus (principal); E43 Unspecified severe protein-calorie malnutrition; J44.0 Chronic obstructive pulmonary disease with (acute) lower respiratory infection; N17.9 Acute kidney failure, unspecified; J90 Pleural effusion, not elsewhere classified; I50.32 Chronic diastolic (congestive) heart failure; K91.2 Postsurgical malabsorption, not elsewhere classified; C18.9 Malignant neoplasm of colon, unspecified; Z68.1 Body mass index [BMI] 19.9 or less, adult; R33.9 Retention of urine, unspecified; E86.0 Dehydration; J44.9 Chronic obstructive pulmonary disease, unspecified; D64.9 Anemia, unspecified; R79.89 Other specified abnormal findings of blood chemistry; E83.42 Hypomagnesemia; E83.39 Other disorders of phosphorus metabolism; R19.5 Other fecal abnormalities; F17.210 Nicotine dependence, cigarettes, uncomplicated; N18.9 Chronic kidney disease, unspecified; Z51.5 Encounter for palliative care; Z88.0 Allergy status to penicillin; Z93.8 Other artificial opening status; Z66 Do not resuscitate; Z93.2 Ileostomy status
CPT/HCPCS: 36415; 71250; 80048; 80053; 87040; 87077; 87449; 87631; 93005; 94640; 96361; 96365; 96375; 97110; 97112; 97162; 97530; 99223; 99232; 99233; 99239; 99254; 99285; 71045; 71046; 81003; 81015; 82270; 82607; 82728; 82746; 83540; 83550; 83735; 83880; 84100; 84134; 84484; 85014; 85018; 85025; 85610; 87070; 87086; 87186; 87205; 87450; 87581; 93010; J1644; J1720; J1956; J2930; J3490; J7620

== ENCOUNTER 2018-09-29 16:43 | Inpatient (IN) | payer MEDICARE, MEDICAID, SELFPAY ==
[2018-09-29] VITALS (36 sets, daily range): BP systolic 100–151; BP diastolic 50–88; PULSE 63–93; RESP 4–36; TEMP 36.7–37.5; O2SAT 89–99
--- NOTE | 2018-09-29 17:01 | DI.RAD_ITS ---
SYMPTOM/DIAGNOSIS: COUGH, SOB, H/O BILAT PLEURAL EFFUSIONS CHEST X-RAY: Portable AP view. Comparison 09/22/18 Heart size and pulmonary vasculature are within normal limits. There are again seen post surgical changes of an aortic valve replacement. There is also a right PICC line. The tip of the catheter is stable in position at the cavo-atrial junction. Bilateral basilar infiltrates are noted right greater than left. There also appears to be a small right pleural effusion. There are bilateral chest tubes projected over the lower lobes laterally. No pneumothorax is identified.
[2018-09-29 17:07] LABS: BE (Venous) 1.2 mmol/L (-3-3); HCO3 (Venous) 26 mmol/L (22-28); O2 Sat (Venous) 72 % (70-80); TCO2 (Venous) 24 mmol/L (22-29); pCO2 (Venous) 38 mm/Hg (34-47); pH (Venous) 7.43 (7.32-7.43); pO2 (Venous) 36 mm/Hg (28-44)
[2018-09-29 17:11] LABS: Lactate-non-spesis 1.4 mmol/l (0.6-1.4)
[2018-09-29 17:12] LABS: Abs Immature Grans 0.06 k/cumm (0.0-0.09); HCT 29.9 % (40.0-50.0); HGB 9.3 g/dL (13.5-17.5); Mean Corp. HGB Concentration 31.1 g/dL (32.0-36.0); Mean Corpuscular Hemoglobin 27.4 pg (27.0-33.0); Mean Corpuscular Volume 87.9 fL (80-95); Mean Platelet Volume 12.3 fL (8.0-11.0); RBC Distribution Width 18.1 % (11.8-14.1); White Blood Cell Count 13.84 k/cumm (4.4-10.8)
[2018-09-29 17:27] LABS: ALT 43 U/L (12-78); AST 26 U/L (15-37); Albumin 2.1 g/dL (3.4-5.0); Alkaline Phosphatase 444 U/L (46-116); Anion Gap 10.1 mmol/L (3-11); BUN 32 mg/dL (7-18); Bilirubin, Total 0.6 mg/dL (0.2-1.0); CO2 25.9 mmol/L (21.0-32.0); CREATININE 1.41 mg/dL (0.70-1.30); Calcium 8.8 mg/dL (8.5-10.1); Chloride 106 mmol/L (98-107); Estimated GFR 50.29 (mL/min/1.73m2); Glucose 89 mg/dL (70-100); Potassium 4.1 mmol/L (3.5-5.1); Sodium 142 mmol/L (136-145); Total Protein 6.9 g/dL (6.4-8.2); Troponin I 0.02 ng/mL (0.00-0.06)
[2018-09-29 17:31] LABS: NT-proBNP 867 pg/mL
[2018-09-29 17:45] LABS: Absolute Eosinophil Count 0.55 k/cumm (0.0-0.7); Absolute Lymphocyte Count 1.52 k/cumm (1.2-3.4); Absolute Monocyte Count 0.69 k/cumm (0.11-0.7); Absolute Neutrophil Count 10.93 k/cumm (1.2-6.7); Anisocytosis 2+; Diff Comment Manual Differential; Hypochromasia 2+; Microcytosis 1+; Poikilocytes 1+
[2018-09-29 17:46] LABS: Polychromasia Present
[2018-09-29 17:48] LABS: Platelet Count 214 x1000/uL (130-400)
--- NOTE | 2018-09-29 18:11 | DI.VRAD_ITS ---
EXAM: XR Chest, 1 View EXAM DATE/TIME: 09/29/2018 5:02 PM CLINICAL HISTORY: 68 years old, male; Signs and symptoms; Cough; Prior surgery; Surgery date: 6+ months; Patient HX: Cough, SOB, HX of bilat pleural effusions TECHNIQUE: XR of the chest, 1 view. COMPARISON: SC XR PORTABLE CHEST AP 09/22/2018 10:51 AM FINDINGS: The patient is status post aortic valve replacement. A PICC line is present with its tip superimposed over the cavoatrial junction, unchanged. There is a chest tube superimposed over the right lower thorax. There has been mild interval increase in right lower lobe patchy opacities consistent with worsening airspace disease (atelectasis and/or pneumonia). There are findings suspicious for a tiny right pleural effusion. There is a chest tube superimposed over the left lower thorax. No left pleural effusion is identified. There is worsening parenchymal opacity within the left lower lobe consistent with worsening atelectasis and/or pneumonia. No pneumothorax is identified. The cardiomediastinal silhouette and pulmonary vasculature are within normal limits. IMPRESSION: 1. Worsening bilateral lower lobe airspace disease (atelectasis versus pneumonia). 2. Bilateral chest tubes. There are findings suspicious for a small right pleural effusion. No left pleural effusion is identified. Dictated and Authenticated by: Mal Adame MD. Ordering:ROBBY Pierre MD
--- NOTE | 2018-09-29 19:11 | HPE_ITS ---
Date of service: 09/29/18 Time of Service: 19:07 Assessment and Plan (1) Hospital acquired PNA: Start date: 09/29/18 Current visit: Yes Status: Acute This is a 68-year-old gentleman who has recurrent pneumonia now over both bases with chronic pleural effusions and chronic MRSA by history. He is on triple antibiotic therapy and this will be continued for now. Long-term need to decide whether we should keep treating his possible pneumonia or move toward comfort care with hospice with his end-stage colon cancer and pleural effusions. He is a DNR/DNI. (2) Chronic bilateral pleural effusions: Current visit: No Status: Chronic Patient does have bilateral pleural tubes which can be accessed or recurrent effusions with this. Be stable at this time. (3) COPD (chronic obstructive pulmonary disease): Current visit: No Status: Chronic This problem complicates his recurrent respiratory infections and will max imize nebulizer treatments but for now we will not start steroids. He appears more comfortable at this time. (4) Colon cancer: Current visit: No Status: Chronic Patient appears to have metastatic colon cancer which may be causing recurrent pulmonary issues and he should move toward hospice care and not be rehospitalized but Comfortable at home. This discussion is ongoing with his PMD. 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 Long-term this may need to be rediscussed if he goes to hospice. He does seem to do well when he eats better this should be the direction his healthcare providers move toward if he stays home on hospice. History of Present Illness Chief Complaint: Shortness of breath with recent hospitalization for pneumonia Narrative: This is a 68-year-old gentleman who was recently hospitalized September 17, 2018 for pneumonia. This is recurrent in a patient with bilateral pleural catheters because of recurrent effusions which may be secondary to metastatic colon cancer status post colectomy but also he does have CHF. He is to be placed on hospice in the near future but for now is being rehospitalized for recurrent pneumonia with the patient presenting with increasing shortness of breath, rigors which he often has whether he has infection are not and CT scan revealing probable bilateral lower lobe pneumonia which is now hospital-acquired being recently hospitalized. He was given broad-spectrum antibiotics in the ED and these will be continued for now. Long-term he needs to determine whether he wants to keep treating these pneumonias with a history of chronic MRSA c olonization of his sputum and his end-stage pulmonary, cardiac and colon cancer with metastases. He has been on multiple antibiotic treatments for pulmonary infections in the recent past. His prognosis is poor and he is a DNR/DNI but as stated still is not on hospice. I did review his history and physical from September 17, 2018 which was was quite extensive extensive with the details of his past history. He states that his health has gone downhill since he had renal failure requiring dialysis which then prompted cardiac disease with endocarditis and required an aortic valve replacement with a bioprosthetic valve. He is status post colectomy and then bowel resection for ischemic bowel with an ileostomy bag in his upper right abdomen. He has been losing weight despite being on TPN but during his last hospitalization he states he gained weight because he ate well. He is very pleasant and comfortable at the time I saw him offering detailed history. He was not given steroids during this hospitalization and with his respiratory status improved after nebulizers these will not be started at this time. We will continue his triple antibiotic coverage. Long-term he does need to decide hospice and possibly not treating infections which are recurrent and not clearing at this time. [facility] Medical History Chronic bilateral pleural effusions (Chronic) Chronic congestive heart failure with left ventricular diastolic dysfunction (Chronic) Depression (Chronic) History of Henoch-Schonlein purpura (Chronic) Anemia (Chronic) Iron deficiency (Chronic) Protein-calorie malnutrition, severe (Chronic) COPD (chronic obstructive pulmonary disease) (Chronic) Back pain (Chronic) Short gut syndrome (Chronic) Colon cancer (Chronic) Elevated LFTs (Chronic) High output ileostomy (Chronic) PTSD (post-traumatic stress disorder) (Chronic) History of colon cancer, stage IV (Chronic) Pleural effusion (Chronic) End of life care (Chronic) Weight loss (Chronic) History of endocarditis (Resolved) History of glomerulonephritis (Resolved) History of ischemic bowel disease (Resolved) History of nephrotic syndrome (Resolved) PSVT (paroxysmal supraventricular tachycardia) (Resolved) Surgical History History of colectomy (Chronic) History of aortic valve replacement (Resolved) History of bowel resection (Resolved) S/P thoracostomy tube placement (Resolved) Family History Son No problems noted. Sister HSP (Henoch Schonlein purpura) Social History caregiver/support person: Yes household members: spouse housing: house marital status details: for 37 years lives independently: No (lives at home w/ help of his and visiting nurse) number of children: 1 highest education level completed: high school graduate [employer]: No current occupational status: disabled leisure activities: fishing diet: other high-fat food intake: 3 or more times/day eating out: rarely or never reads food labels: seldom or never during the past year weight has: increased > 10 lbs Smoking and Tabacco status: Former Tobacco Use substance use type: does not use What is your relationship status?: How often do you talk on the phone with friends or family?: three or more times per week How often do you get together with friends or relatives?: three or more times per week Panel score (0-1 are the most socially isolated patients): 2 Meds Home Medications Medication Instructions Recorded Confirmed Type Combivent 2 puff INHALATION QID 04/27/17 09/29/18 History gabapentin [Neurontin] 300 mg PO HS 04/27/17 09/29/18 History metoprolol tartrate 25 mg PO BID 07/26/17 09/29/18 History Infuvite Adult 10 ml IV .BY DURATION vial 12/11/17 09/29/18 Rx Intralipid 250 ml IV DAILY@1700 bag 12/11/17 09/29/18 Rx Multitrace-4 Concentrate 1 ml IV .BY DURATION vial 12/11/17 09/29/18 Rx calcium gluconate 4.5 meq IV .BY DURATION vial 12/11/17 09/29/18 Rx magnesium chloride 254 mg IV .BY DURATION vial 12/11/17 09/29/18 Rx potassium chloride 10 meq IV .BY DURATION vial 12/11/17 09/29/18 Rx potassium phosphate m-/d-basic 3 mm IV .BY DURATION vial 12/11/17 09/29/18 Rx sodium acetate 29.5 meq IV .BY DURATION vial 12/11/17 09/29/18 Rx sodium chloride 5.5 meq IV .BY DURATION vial 12/11/17 09/29/18 Rx mirtazapine 15 mg PO HS 08/29/18 09/29/18 History ondansetron HCl 8 mg PO BID PRN 08/29/18 09/29/18 History prochlorperazine maleate 5 mg PO DIRECTED 08/29/18 09/29/18 History morphine 10 mg PO Q4H PRN PRN 09/17/18 09/29/18 History ascorbic acid (vitamin C) [Vitamin 500 mg PO BID #0 tab 09/23/18 Rx C] ferrous sulfate 325 mg PO BID #60 tab 09/23/18 09/29/18 Rx nicotine [Nicotrol] 1 inh IH 4-6XD PRN #168 each 09/23/18 09/29/18 Rx pantoprazole [Protonix] 40 mg PO DAILY #30 tab 09/23/18 09/29/18 Rx phenol [Phenaseptic] 5 spray MUCOUS MEMBRANE QID PRN 09/23/18 09/29/18 Rx PRN #1 ml tamsulosin [Flomax] 0.4 mg PO DAILY #30 cap 09/23/18 09/29/18 Rx Allergies Allergy/AdvReac Type Severity Reaction Status Date / Time penicillin G Allergy Severe Unverified 09/29/18 19:00 Exam Narrative Exam Narrative: General: Patient appears cachectic but comfortable, alert and oriented x3. He is in no acute distress. HEENT: Normocephalic with eyes revealing pupils equal react to light symmetrically and extraocular movement intact without anicteric sclera. Ears normal. Oropharynx with moist mucosa and the patient edentulous. Neck: Without JVD and supple. Lungs: Poor aeration with diffuse expiratory and expiratory rhonchi more on the right and left with no focalizing expiratory rales, decreased aeration over the right base more than left and bronchovesicular breath sounds diffusely. Aeration is best over the upper lung vann. Does have slight increased ex piratory phase but no expiratory wheeze. There are bilateral pleural tubes over the anterior lower chest area. Heart: Regular rate and rhythm with 3/6 to 4/6 systolic murmur of the left sternal border. No rubs or gallops appreciated. Abdomen: Scaphoid, ileostomy bag over the right upper abdomen with brown stool in the bag, bowel sounds are positive but decreased in all quadrants. No palpable masses or hepatosplenomegaly. Nontender to palpation. Genitalia: Normal external genitalia with uncircumcised penis. Rectal: Not examined. Patient states that he does not pass stool and he may have had an AP resection though this is not documented. Extremities: Without clubbing, cyanosis or pitting edema. Marked muscle atrophy over his upper and lower extremities. No joint swelling. Neuro: No focalizing motor deficits, cranial nerves II through XII grossly intact. No Babinski's. Sensation appear to be grossly intact. Skin: Diffuse actinic changes with no skin lesions or rashes noted. There is no bruising. Psych/mental status: Patient has a normal affect and is almost euphoric despite his multiple medical problems. Short-term and long-term memory appear to be intact. Results Labs : 09/29/18 17:00 09/29/18 17:00 Laboratory Results - last 24 hr 09/29/18 09/29/18 09/29/18 17:00 17:00 17:00 WBC 13.84 H RBC 3.40 L Hgb 9.3 L Hct 29.9 L MCV 87.9 MCH 27.4 MCHC 31.1 L RDW 18.1 H Plt Count 214 MPV 12.3 H Immature Gran % 0.0 Neutrophils % 76.0 Band Neutrophils % 3.0 Lymphocytes % 11.0 Monocytes % 5.0 Eosinophils % 4.0 Basophils % 0.0 Absolute Neutrophils 10.93 H Absolute Lymphocytes 1.52 Absolute Monocytes 0.69 Absolute Eosinophils 0.55 Absolute Basophils 0.00 Metamyelocytes 1.0 Differential Comment Manual differential RBC Morphology See below Polychromasia Present Hypochromasia 2+ Poikilocytosis 1+ Anisocytosis 2+ Microcytosis 1+ VBG pH VBG pCO2 VBG pO2 VBG HCO3 VBG Total CO2 VBG O2 Saturation VBG Base Excess Sodium 142 Potassium 4.1 Chloride 106 Carbon Dioxide 25.9 Anion Gap 10.1 BUN 32 H Creatinine 1.41 H Estimated GFR/1.73 m2 50.29 Glucose 89 Lactate 1.4 Calcium 8.8 Total Bilirubin 0.6 AST 26 ALT 43 Alkaline Phosphatase 444 H Troponin I 0.02 NT-Pro-B Natriuret Pep Total Protein 6.9 Albumin 2.1 L 02/09/19 02/09/19 17:00 17:00 WBC RBC Hgb Hct MCV MCH MCHC RDW Plt Count MPV Immature Gran % Neutrophils % Band Neutrophils % Lymphocytes % Monocytes % Eosinophils % Basophils % Absolute Neutrophils Absolute Lymphocytes Absolute Monocytes Absolute Eosinophils Absolute Basophils Metamyelocytes Differential Comment RBC Morphology Polychromasia Hypochromasia Poikilocytosis Anisocytosis Microcytosis VBG pH 7.43 VBG pCO2 38 VBG pO2 36 VBG HCO3 26 VBG Total CO2 24 VBG O2 Saturation 72 VBG Base Excess 1.2 Sodium Potassium Chloride Carbon Dioxide Anion Gap BUN Creatinine Estimated GFR/1.73 m2 Glucose Lactate Calcium Total Bilirubin AST ALT Alkaline Phosphatase Troponin I NT-Pro-B Natriuret Pep 867 H Total Protein Albumin Last Vital Signs Temp 37.2 C 09/29/18 16:50 Pulse 78 09/29/18 16:50 Resp 28 H 09/29/18 16:50 BP 151/53 H 09/29/18 16:50 Pulse Ox 99 09/29/18 16:50
[2018-09-29] MEDS: LEVOFLOXACIN 750 MG/150 ML BAG 100 MG IVPB (19:17)
[2018-09-29 20:31] LABS: Magnesium 1.7 mg/dL (1.8-2.4)
[2018-09-29] MEDS: Ferrous Sulfate 325 MG TAB PO (20:46)
[2018-09-29] MEDS: Metoprolol 25 MG TAB PO (20:46)
[2018-09-29] MEDS: Normal Saline Flush 10 ML SYR IVP ×2 (20:46→21:58)
--- NOTE | 2018-09-29 20:51 | ED.GENADUL_ITS ---
Discharge Plan Disposition Patient Disposition: HOME Condition: Stable Discharge Details Chief Complaint: SOB Clinical Impression: Hospital-acquired bacterial pneumonia, Colon cancer Reason For Visit: BILATERAL HOSPITAL ACQUIRED PNEUMONIA Admit Date/Time: 09/29/18 18:42 Admit Provider: Logan Hurley Attending Provider: Logan Hurley Primary Care Provider: Logan Bruce ED Provider: Ignacio Mejia Medical Decision Making This is a 68-year-old male with stage IV colon cancer, who is DNR/DNI, who was recently here and subsequently discharged 1 week ago for community- acquired pneumonia. No antibiotics are given at discharge as he had notable improvement. Over the last 3 days he has had shortness of breath, with productive green and yellow sputum, with notable shortness of breath. Patient has no evidence of tachycardia, tachypnea or hypoxemia, however his productivity for his cough is notably worsened and he feels subjectively continued short of breath. X-ray was ordered to evaluate for worsening or return pneumonia, and x- ray does demonstrate evidence of worsening bilateral lower lobe airspace disease, and with his worsening productivity, shortness of breath and feel this does correlate well with worsening pneumonia. Troponin and EKG are benign, EKG shows no evidence of S1, Q3 T 3. VBG is stable, electrolytes are normal, troponin is normal, proBNP stable at 867, which is notably lower than normal. Patient does demonstrate a notable left shift at 10.93, and an elevated white count of 13.84 which is raised from discharge. With the positive chest x-ray findings, medical symptoms of cough, and productive sputum, I do feel that his signs and symptoms are clinically consistent with now hospital-acquired pneumonia. I discussed the case with the hospitalist Dr. Reid, he agrees with the assessment and plan need for inpatient admission. The patient's penicillin allergy we will give aztreonam, vancomycin, and Levaquin for double gram-negative coverage for hospital-acquired pneumonia. I have extensively reviewed the treatment plan with the patient. I have addressed all patient concerns at this time. I have also discussed the plan with the admitting physician and they agree with the current assessment and plan and have agreed to assume responsibility for the patient. All parties demonstrate verbal understanding and agreement with our assessment and plan at this time. FINDINGS: The patient is status post aortic valve replacement. A PICC line is present with its tip superimposed over the cavoatrial junction, unchanged. There is a chest tube superimposed over the right lower thorax. There has been mild interval increase in right lower lobe patchy opacities consistent with worsening airspace disease (atelectasis and/or pneumonia). There are findings suspicious for a tiny right pleural effusion. There is a chest tube superimposed over the left lower thorax. No left pleural effusion is identified. There is worsening parenchymal opacity within the left lower lobe consistent with worsening atelectasis and/or pneumonia. No pneumothorax is identified. The cardiomediastinal silhouette and pulmonary vasculature are within normal limits. IMPRESSION: 1. Worsening bilateral lower lobe airspace disease (atelectasis versus pneumonia). 2. Bilateral chest tubes. There are findings suspicious for a small right pleural effusion. No left pleural effusion is identified. Dictated and Authenticated by: Mal Adame MD. HPI General Date/Time Provider Initiated Documentation: 09/29/18 16:45 . HPI Narrative: This is a 68-year-old male with past medical history of colon cancer stage IV, chronic pleural effusions, aortic valve replacement with a pig valve, who was recently here and discharged on Monday for community-acquired pneumonia. He was given Levaquin here in the hospital, but was not given antibiotics for home. 3 days ago which was 3 days after discharge he developed chills, shortness of breath, cough, difficulty breathing. He denies any chest pain, or pleuritic chest pain. He does admit to a productive cough with green sputum. He does admit to generalized weakness, however he does have chronic recurrent weakness secondary to a stroke in the past. Patient denies any recent weight gain, any vomiting, or diarrhea. He denies any other complaints at this time. He does have a chronic right-sided PICC line, and takes TPN through this. Related Data Home Medications Medication Instructions Recorded Confirmed Combivent 2 puff INHALATION QID 04/27/17 09/29/18 gabapentin [Neurontin] 300 mg PO HS 04/27/17 09/29/18 metoprolol tartrate 25 mg PO BID 07/26/17 09/29/18 Infuvite Adult 10 ml IV .BY DURATION vial 12/11/17 09/29/18 Intralipid 250 ml IV DAILY@1700 bag 12/11/17 09/29/18 Multitrace-4 Concentrate 1 ml IV .BY DURATION vial 12/11/17 09/29/18 calcium gluconate 4.5 meq IV .BY DURATION vial 12/11/17 09/29/18 magnesium chloride 254 mg IV .BY DURATION vial 12/11/17 09/29/18 potassium chloride 10 meq IV .BY DURATION vial 12/11/17 09/29/18 potassium phosphate m-/d-basic 3 mm IV .BY DURATION vial 12/11/17 09/29/18 sodium acetate 29.5 meq IV .BY DURATION vial 12/11/17 09/29/18 sodium chloride 5.5 meq IV .BY DURATION vial 12/11/17 09/29/18 mirtazapine 15 mg PO HS 08/29/18 09/29/18 ondansetron HCl 8 mg PO BID PRN 08/29/18 09/29/18 prochlorperazine maleate 5 mg PO DIRECTED 08/29/18 09/29/18 morphine 10 mg PO Q4H PRN PRN 09/17/18 09/29/18 ascorbic acid (vitamin C) [Vitamin 500 mg PO BID #0 tab 09/23/18 C] ferrous sulfate 325 mg PO BID #60 tab 09/23/18 09/29/18 nicotine [Nicotrol] 1 inh IH 4-6XD PRN #168 each 09/23/18 09/29/18 pantoprazole [Protonix] 40 mg PO DAILY #30 tab 09/23/18 09/29/18 phenol [Phenaseptic] 5 spray MUCOUS MEMBRANE QID PRN 09/23/18 09/29/18 PRN #1 ml tamsulosin [Flomax] 0.4 mg PO DAILY #30 cap 09/23/18 09/29/18 Previous Rx's Medication Instructions Recorded Infuvite Adult 10 ml IV .BY DURATION vial 12/11/17 Intralipid 250 ml IV DAILY@1700 bag 12/11/17 Multitrace-4 Concentrate 1 ml IV .BY DURATION vial 12/11/17 calcium gluconate 4.5 meq IV .BY DURATION vial 12/11/17 magnesium chloride 254 mg IV .BY DURATION vial 12/11/17 potassium chloride 10 meq IV .BY DURATION vial 12/11/17 potassium phosphate m-/d-basic 3 mm IV .BY DURATION vial 12/11/17 sodium acetate 29.5 meq IV .BY DURATION vial 12/11/17 sodium chloride 5.5 meq IV .BY DURATION vial 12/11/17 ascorbic acid (vitamin C) [Vitamin 500 mg PO BID #0 tab 09/23/18 C] ferrous sulfate 325 mg PO BID #60 tab 09/23/18 nicotine [Nicotrol] 1 inh IH 4-6XD PRN #168 each 09/23/18 pantoprazole [Protonix] 40 mg PO DAILY #30 tab 09/23/18 phenol [Phenaseptic] 5 spray MUCOUS MEMBRANE QID PRN 09/23/18 PRN #1 ml tamsulosin [Flomax] 0.4 mg PO DAILY #30 cap 09/23/18 Allergies Allergy/AdvReac Type Severity Reaction Status Date / Time penicillin G Allergy Severe Unverified 09/29/18 19:00 General Stated Complaint: SOB KIM: 2 Review of Systems Review of Systems All systems reviewed & are unremarkable except as noted in HPI and below PFSH Medical History Chronic bilateral pleural effusions (Chronic) Chronic congestive heart failure with left ventricular diastolic dysfunction (Chronic) Depression (Chronic) History of Henoch-Schonlein purpura (Chronic) Anemia (Chronic) Iron deficiency (Chronic) Protein-calorie malnutrition, severe (Chronic) COPD (chronic obstructive pulmonary disease) (Chronic) Back pain (Chronic) Short gut syndrome (Chronic) Colon cancer (Chronic) Elevated LFTs (Chronic) High output ileostomy (Chronic) PTSD (post-traumatic stress disorder) (Chronic) History of colon cancer, stage IV (Chronic) Pleural effusion (Chronic) End of life care (Chronic) Weight loss (Chronic) History of endocarditis (Resolved) History of glomerulonephritis (Resolved) History of ischemic bowel disease (Resolved) History of nephrotic syndrome (Resolved) PSVT (paroxysmal supraventricular tachycardia) (Resolved) Surgical History History of colectomy (Chronic) History of aortic valve replacement (Resolved) History of bowel resection (Resolved) S/P thoracostomy tube placement (Resolved) Family History Son No problems noted. Sister HSP (Henoch Schonlein purpura) Social History caregiver/support person: Yes household members: spouse housing: house marital status details: for 37 years lives independently: No (lives at home w/ help of his and visiting nurse) number of children: 1 highest education level completed: high school graduate shelter: No current occupational status: disabled leisure activities: fishing diet: other high-fat food intake: 3 or more times/day eating out: rarely or never reads food labels: seldom or never during the past year weight has: increased > 10 lbs Smoking and Tabacco status: Former Tobacco Use substance use type: does not use What is your relationship status?: How often do you talk on the phone with friends or family?: three or more times per week How often do you get together with friends or relatives?: three or more times per week Panel score (0-1 are the most socially isolated patients): 2 Exam Narrative Exam Narrative: 1.Const: Cachectic appearing 2.Eyes: PERRL, no conjunctival injection, and symmetrical lids. 3.ENT: Atraumatic external nose and ears. dry MM. Neck: Symmetric, trachea midline, No thyromegaly. 4.CVS: +S1/S2, No murmurs or gallops. Peripheral pulses 2+ and equal in all extremities. Brisk capillary refill in all extremities. 5.RESP: Notable rhonchi throughout, crackles in the bases. Bilateral thoracic drains are present. No significant erythema or leak. 6.GI: Soft, Nontender/Nondistended, No hepatosplenomegaly. No guarding or rebound. 7.MSK: Normocephalic/Atraumatic, Extremities w/o deformity or ttp No cyanosis or clubbing, right-sided PICC line in place. Patient demonstrates chronic weakness in his right upper and lower extremity, but baseline movements in all of them per the patient. 8.Skin: Warm, Dry. No rashes or lesions. 9.Neuro: golf range attendant II-XII grossly intact. Sensation grossly intact, no focal neurologic deficits. Patient at his normal neurologic baseline with movements and capabilities secondary to his chronic stroke. 10.Psych: (AAO) x3. Appropriate mood and affect Course Vital Signs Pulse 79 09/29/18 16:44 Blood Pressure 151/53 H 09/29/18 16:44 Pulse Oximetry 99 09/29/18 16:44 Temperature 36.7 C 09/29/18 20:15 Temperature Source Temporal Artery Scan 09/29/18 16:50 Pulse 80 09/29/18 20:15 Pulse Rhythm Irregular 09/29/18 20:15 Pulse 74 09/29/18 19:50 Respiratory Rate 20 09/29/18 20:15 Respiratory Effort Incrsd Work of Breathing 09/29/18 20:15 Respiratory Depth Normal 09/29/18 20:15 Respiratory Pattern Normal 09/29/18 20:15 Blood Pressure 128/63 09/29/18 20:15 Blood Pressure Mean 74 09/29/18 19:33 Blood Pressure Position Supine 09/29/18 16:50 Pulse Oximetry 94 L 09/29/18 20:15 Oxygen Delivery Method Room Air 09/29/18 20:15 Oxygen Flow Rate 0 09/29/18 20:15 Pain Level 6 09/29/18 20:15 Lab/Test Results Lab/Test Results: 09/29/18 18:25 Blood Blood Culture - Pending 09/29/18 17:00 Blood Blood Culture - Pending Laboratory Tests Range/Units 09/29/18 09/29/18 09/29/18 17:00 17:00 17:00 WBC (4.4-10.8) k/cumm 13.84 H RBC (4.50-6.00) m/cumm 3.40 L Hgb (13.5-17.5) g/dL 9.3 L Hct (40.0-50.0) % 29.9 L MCV (80-95) fL 87.9 MCH (27.0-33.0) pg 27.4 MCHC (32.0-36.0) g/dL 31.1 L RDW (11.8-14.1) % 18.1 H Plt Count (130-400) x1000/uL 214 MPV (8.0-11.0) fL 12.3 H Immature Gran % 0.0 Neutrophils % 76.0 Band Neutrophils % % 3.0 Lymphocytes % 11.0 Monocytes % 5.0 Eosinophils % 4.0 Basophils % 0.0 Absolute Neutrophils (1.2-6.7) k/cumm 10.93 H Absolute Lymphocytes (1.2-3.4) k/cumm 1.52 Absolute Monocytes (0.11-0.7) k/cumm 0.69 Absolute Eosinophils (0.0-0.7) k/cumm 0.55 Absolute Basophils (0.0-0.2) k/cumm 0.00 Metamyelocytes % 1.0 Differential Comment Manual differential RBC Morphology See below Polychromasia Present Hypochromasia 2+ Poikilocytosis 1+ Anisocytosis 2+ Microcytosis 1+ VBG pH (7.32-7.43) VBG pCO2 (34-47) mm/Hg VBG pO2 (28-44) mm/Hg VBG HCO3 (22-28) mmol/L VBG Total CO2 (22-29) mmol/L VBG O2 Saturation (70-80) % VBG Base Excess (-3-3) mmol/L Sodium (136-145) mmol/L 142 Potassium (3.5-5.1) mmol/L 4.1 Chloride (98-107) mmol/L 106 Carbon Dioxide (21.0-32.0) mmol/L 25.9 Anion Gap (3-11) mmol/L 10.1 BUN (7-18) mg/dL 32 H Creatinine (0.70-1.30) mg/dL 1.41 H Estimated GFR/1.73 m2 (mL/min/1.73m2) 50.29 Glucose (70-100) mg/dL 89 Lactate (0.6-1.4) mmol/l 1.4 Calcium (8.5-10.1) mg/dL 8.8 Magnesium (1.8-2.4) mg/dL Total Bilirubin (0.2-1.0) mg/dL 0.6 AST (15-37) U/L 26 ALT (12-78) U/L 43 Alkaline Phosphatase (46-116) U/L 444 H Troponin I (0.00-0.06) ng/mL 0.02 NT-Pro-B Natriuret Pep ( - 299) pg/mL Total Protein (6.4-8.2) g/dL 6.9 Albumin (3.4-5.0) g/dL 2.1 L Range/Units 09/29/18 09/29/18 09/29/18 17:00 17:00 17:00 WBC (4.4-10.8) k/cumm RBC (4.50-6.00) m/cumm Hgb (13.5-17.5) g/dL Hct (40.0-50.0) % MCV (80-95) fL MCH (27.0-33.0) pg MCHC (32.0-36.0) g/dL RDW (11.8-14.1) % Plt Count (130-400) x1000/uL MPV (8.0-11.0) fL Immature Gran % Neutrophils % Band Neutrophils % % Lymphocytes % Monocytes % Eosinophils % Basophils % Absolute Neutrophils (1.2-6.7) k/cumm Absolute Lymphocytes (1.2-3.4) k/cumm Absolute Monocytes (0.11-0.7) k/cumm Absolute Eosinophils (0.0-0.7) k/cumm Absolute Basophils (0.0-0.2) k/cumm Metamyelocytes % Differential Comment RBC Morphology Polychromasia Hypochromasia Poikilocytosis Anisocytosis Microcytosis VBG pH (7.32-7.43) 7.43 VBG pCO2 (34-47) mm/Hg 38 VBG pO2 (28-44) mm/Hg 36 VBG HCO3 (22-28) mmol/L 26 VBG Total CO2 (22-29) mmol/L 24 VBG O2 Saturation (70-80) % 72 VBG Base Excess (-3-3) mmol/L 1.2 Sodium (136-145) mmol/L Potassium (3.5-5.1) mmol/L Chloride (98-107) mmol/L Carbon Dioxide (21.0-32.0) mmol/L Anion Gap (3-11) mmol/L BUN (7-18) mg/dL Creatinine (0.70-1.30) mg/dL Estimated GFR/1.73 m2 (mL/min/1.73m2) Glucose (70-100) mg/dL Lactate (0.6-1.4) mmol/l Calcium (8.5-10.1) mg/dL Magnesium (1.8-2.4) mg/dL 1.7 L Total Bilirubin (0.2-1.0) mg/dL AST (15-37) U/L ALT (12-78) U/L Alkaline Phosphatase (46-116) U/L Troponin I (0.00-0.06) ng/mL NT-Pro-B Natriuret Pep ( - 299) pg/mL 867 H Total Protein (6.4-8.2) g/dL Albumin (3.4-5.0) g/dL
[2018-09-29] MEDS: Normal Saline 500 ML IV (21:56)
[2018-09-29] MEDS: Gabapentin 100 MG CAP 300 MG PO (22:04)
[2018-09-29] MEDS: Mirtazapine 15 MG TAB PO (22:05)
[2018-09-29] MEDS: Heparin 5,000 UNITS/ML VIAL 5000 UNITS SC (22:05)
[2018-09-29] MEDS: Albuterol/Ipratropium 3 ML UPD VIAL UPD (23:33)
[2018-09-29] MEDS: Water,Injection,Bacteriostatic 30 ML VIAL (23:34)
[2018-09-29] MEDS: AZTREONAM 2,000 MG in Normal Saline 100 ML 200 MG IVPB (23:45)
[2018-09-29] MEDS: Ondansetron 4 MG TAB 8 MG PO (23:51)
[2018-09-30] VITALS (13 sets, daily range): BP systolic 100–122; BP diastolic 49–65; PULSE 67–82; RESP 4–24; TEMP 36.4–38.5; O2SAT 94–96
[2018-09-30] MEDS: Acetaminophen 325 MG TAB PO ×2 (00:18→20:01)
[2018-09-30] MEDS: Normal Saline Flush 10 ML SYR IVP ×4 (01:05→19:22)
[2018-09-30] MEDS: Albuterol/Ipratropium 3 ML UPD VIAL UPD ×4 (06:21→23:21)
[2018-09-30] MEDS: Heparin 5,000 UNITS/ML VIAL 5000 UNITS SC ×2 (06:21→14:12)
[2018-09-30 08:27] LABS: HCT 26.8 % (40.0-50.0); HGB 8.3 g/dL (13.5-17.5); Mean Corpuscular Volume 87.3 fL (80-95); Mean Platelet Volume 12.6 fL (8.0-11.0); Platelet Count 181 x1000/uL (130-400); RBC 3.07 m/cumm (4.50-6.00); White Blood Cell Count 14.81 k/cumm (4.4-10.8)
[2018-09-30 08:50] LABS: ALT 34 U/L (12-78); AST 22 U/L (15-37); Albumin 1.7 g/dL (3.4-5.0); Alkaline Phosphatase 357 U/L (46-116); Anion Gap 8.6 mmol/L (3-11); BUN 29 mg/dL (7-18); Bilirubin, Total 0.5 mg/dL (0.2-1.0); CO2 26.4 mmol/L (21.0-32.0); CREATININE 1.64 mg/dL (0.70-1.30); Calcium 8.1 mg/dL (8.5-10.1); Chloride 106 mmol/L (98-107); Estimated GFR 42.24 (mL/min/1.73m2); Glucose 91 mg/dL (70-100); Magnesium 1.5 mg/dL (1.8-2.4); PHOSPHORUS 3.2 mg/dL (2.6-4.7); Potassium 3.9 mmol/L (3.5-5.1); Sodium 141 mmol/L (136-145); Total Protein 5.9 g/dL (6.4-8.2)
[2018-09-30] MEDS: Pantoprazole 40 MG TABCR PO (09:39)
[2018-09-30] MEDS: Ferrous Sulfate 325 MG TAB PO ×2 (09:39→19:21)
[2018-09-30] MEDS: Tamsulosin 0.4 MG CAPCR PO (09:39)
[2018-09-30] MEDS: Metoprolol 25 MG TAB PO ×2 (09:39→19:21)
[2018-09-30] MEDS: AZTREONAM 2,000 MG in Normal Saline 100 ML 200 MG IVPB ×2 (10:14→18:11)
[2018-09-30] MEDS: MAGNESIUM SULFATE 2 GM/50 ML BAG IVPB (11:19)
[2018-09-30] MEDS: Potassium Chloride 10 MEQ TABCR PO (11:19)
--- NOTE | 2018-09-30 12:49 | PDOC.CMIN ---
Care Management Initial Assess REASON FOR HOSPITALIZATION:: Bilateral HCAP PAST MEDICAL HISTORY/PAST SURGICAL HISTORY:: Anemia, back pain, chronic bilateral PE, chronic CHF with left ventricular diastolic dysfunction, colon cancer, COPD, Depression, Elevated PREVIOUS FUNCTIONAL STATUS/SOCIAL/FAMILY SUPPORTS:: Humberto Truong) resides in [place] with his , Crystal. His cares for him with assitance from the [facility] of [facility]. Crystal provides transportation as well. CURRENT FUNCTIONAL STATUS:: Humberto is much sicker and weaker than a week ago when he discharged home. He was sleeping when CM attempted to meet with him. ADVANCE DIRECTIVES:: On File at [facility] agent Crystal De Luna Has patient been provided with information about the portal?: Yes Did the patient sign up for the portal?: No CODE STATUS:: DNR/DNI INSURANCE COVERAGE / FINANCIAL ISSUES:: Medicare. Medicaid CURRENT HOME/COMMUNITY SERVICES/EQUIPMENT:: Walker, wheelchair. [facility], palliative services and [facility] for TPN at home. PRIMARY CARE PHYSICIAN:: Logan Bruce MD. POTENTIAL DISCHARGE NEEDS:: [facility], [facility] order coordination to MD and resumption upon discharge, follow up appointments. CM faxed notification of patient admission to [facility]: F#[phone]. PATIENT/FAMILY EDUCATION NEEDS:: Discharge education, limitation and follow up plan of care, ask me three dicussion and self management. ANTICIPATED BARRIERS TO DISCHARGE:: None at this time. Boogie is followed by Palliative Care and well managed by VNA; plan is for Boogie to transition to Hospice when he feels ready. TRANSPORTATION:: Via private car with spouse Crystal when medically ready. PLAN:: Boogie will dicharge home with a resumption of services through [facility], RN 3x/wk, primary nurse is Brittney Ramos contact number is [phone] fax for discharge orders is [phone]. [facility] care for TPN; F# . Boogie will return home with Crystal when medically ready and she will transport him via private vehicle. CM will continue to provide support to patient, family and care team for ongoing discharge planning and disposition. Readmission - Within the Past 30 Days Yes or No: Y - Date of First Admission Date of 1st Admission: 09/17/18 - Date of this Admission Date of Admission: 09/29/18 This admission was: Through ED - If the patient had a VNA ordered Did the patient have a VNA order?: Yes - ED visits How many ED visits in the past 12 months: 9 - Assessment for Readmission Summary of readmission circumstances, based upon interviews: Medically complex, terminal patient, re-presents six days post discharge with BILAT HCAP. 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 Humberto has been on TPN since November of 2017. 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 His of 37 years is aware. He is still enjoying life and tolerating TPN for now, so he is not quite ready to make that switch. He feels comfortable that his nurses, his PCP and his family will help him recognize when it is time. Until then, life is good.
--- NOTE | 2018-09-30 13:02 | INITIAL_ITS ---
Care Management Initial Assess REASON FOR HOSPITALIZATION:: Bilateral HCAP PAST MEDICAL HISTORY/PAST SURGICAL HISTORY:: Anemia, back pain, chronic bilateral PE, chronic CHF with left ventricular diastolic dysfunction, colon cancer, COPD, Depression, Elevated PREVIOUS FUNCTIONAL STATUS/SOCIAL/FAMILY SUPPORTS:: Humberto Truong) resides in [place] with his , Crystal. His cares for him with assitance from the [facility] of [facility]. Crystal provides transportation as well. CURRENT FUNCTIONAL STATUS:: Humberto is much sicker and weaker than a week ago when he discharged home. He was sleeping when CM attempted to meet with him. ADVANCE DIRECTIVES:: On File at [facility] agent Crystal De Luna Has patient been provided with information about the portal?: Yes Did the patient sign up for the portal?: No CODE STATUS:: DNR/DNI INSURANCE COVERAGE / FINANCIAL ISSUES:: Medicare. Medicaid CURRENT HOME/COMMUNITY SERVICES/EQUIPMENT:: Walker, wheelchair. [facility], palliative services and [facility] for TPN at home. PRIMARY CARE PHYSICIAN:: Logan Bruce MD. POTENTIAL DISCHARGE NEEDS:: [facility], [facility] order coordination to MD and resumption upon discharge, follow up appointments. CM faxed notification of patient admission to [facility]: F#[phone]. PATIENT/FAMILY EDUCATION NEEDS:: Discharge education, limitation and follow up plan of care, ask me three dicussion and self management. ANTICIPATED BARRIERS TO DISCHARGE:: None at this time. Boogie is followed by Palliative Care and well managed by VNA; plan is for Boogie to transition to Hospice when he feels ready. TRANSPORTATION:: Via private car with spouse Crystal when medically ready. PLAN:: Boogie will dicharge home with a resumption of services through [facility], RN 3x/wk, primary nurse is Brittney Ramos contact number is [phone] fax for discharge orders is [phone]. [facility] care for TPN; F# . Boogie will return home with Crystal when medically ready and she will transport him via private vehicle. CM will continue to provide support to patient, family and care team for ongoing discharge planning and disposition. Readmission - Within the Past 30 Days Yes or No: Y - Date of First Admission Date of 1st Admission: 09/17/18 - Date of this Admission Date of Admission: 09/29/18 This admission was: Through ED - If the patient had a VNA ordered Did the patient have a VNA order?: Yes - ED visits How many ED visits in the past 12 months: 9 - Assessment for Readmission Summary of readmission circumstances, based upon interviews: Medically complex, terminal patient, re-presents six days post discharge with BILAT HCAP. 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 Humberto has been on TPN since November of 2017. Not willing to consider [employer] until he is ready; Per Palliative Care Consult last admission: He has a plan with the [place] [facility] that he will go on hospice when he has had enough OR when he develops complications from his TPN,. His of 37 years is aware. He is still enjoying life and tolerating TPN for now, so he is not quite ready to make that switch. He feels comfortable that his nurses, his PCP and his family will help him recognize when it is time. Until then, life is good.
--- NOTE | 2018-09-30 17:07 | W.PM.PROGNOT ---
Date of Service Date of service: 09/30/18 Time of Service: 17:07 Assessment and Plan (1) Pneumonia: Current visit: No Status: Acute Just treated with HCAP coverage that included Vancomycin and Cefepime, with course completed on 09/22, now returning with worsening symptoms and imaging. Also with history of recurrent PNA, as well as b/l pleural catheters in place. Continue Vancomycin, Levofloxacin, and Aztreonam day #1, and monitor blood and sputum cultures. Appears improved. (2) Anemia: Current visit: No Status: Chronic FOBT + during last hospitalization, in patient with end-stage Colon Cancer. Iron and Ferritin low - Continue PP and initiated iron. Continue to monitor Hgb. (3) Chronic bilateral pleural effusions: Current visit: No Status: Chronic B/l pleural Catheters in place (4) Chronic congestive heart failure with left ventricular diastolic dysfunction: Current visit: No Status: Chronic Diastolic CHF. Currently appears mildly dry to euvolemic, with BNP levels significantly lower than prior values. Monitor fluid status and daily weight. (5) History of colon cancer, stage IV: Current visit: No Status: Chronic According to meeting between palliative care and patient during prior hospitalization - Mr. De Luna is aware that his Colon Ca is end-stage, without any further treatment options. He is DNR/DNI. He is also well known to Hospice, and accepted - he is currently enjoying his life and would like to continue until his quality of life becomes poor, and then will contact Hospice to actively enroll. (6) Elevated LFTs: Current visit: No Status: Chronic Chronic, stable, and unchanged. Monitor. 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 Continue TPN. (8) DVT prophylaxis: Current visit: No Status: Acute Hold SC Heparin in setting of anemia and recent heme + stool. Ensure SCDs and TEDs. (9) Advance directive on file: Current visit: No Status: Acute DNR/DNI. Subjective Interval history since last seen: 68-year-old man with past medical history significant for end-stage colon CA and CKD, admitted from [facility] Emergency Department on 09/29 with a diagnosis of Healthcare-acquired pneumonia. Mr. De Luna has a history of likely end-stage colon CA. He also suffers from COPD, chronic b/l pleural effusions necessitating placement of bilateral pleural catheters in November 2017, CKD secondary to nephrotic syndrome and glomerulonephritis with a prior history of hemodialysis, with subsequent recovery of renal function. 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 During his last admission imaging showed evidence of a non-dissecting Ascending Aortic Aneurysm. The patient also has a history of recurrent, pneumonia, recently hospitalized between 09/17 - 09/23 and treated for a bout of Pneumonia and ALONSO, reportedly after an initial treatment with levofloxacin in early August for community-acquired pneumonia was unsuccessful. Following discharge Mr. De Luna felt well until approximately 3 days prior to his readmission, when he began experiencing worsening dyspnea, with a productive cough. Imaging in the ED showed evidence of worsening b/l lower lobe opacities. He also had a mild leukocytosis. The patient was referred for admission for further evaluation and treatment of HCAP. This morning the patient reports improved symptoms overall. There were no overnight events reported. Remains afebrile. Exam Narrative Exam Narrative: General: Patient is thin, comfortable appearing, AAOX3, NAD. Pale. Neck: Supple CV: Regular, nontachycardic, S1S2, 3/6 RUSB/LLSB murmur Pulmonary: Clear to auscultation bilaterally with minimal bibasilar crackles and decreased breath sounds, no wheezing. Abdomen: + Bowel Sounds, soft, nontender, nondistended Vascular: No lower extremity edema Psych: Normal mood and affect. Objective Objective Clinical Data: Abnormal lab results 09/29/18 09/29/18 09/29/18 Range/Units 17:00 17:00 17:00 WBC 13.84 H (4.4-10.8) k/cumm RBC 3.40 L (4.50-6.00) m/cumm Hgb 9.3 L (13.5-17.5) g/dL Hct 29.9 L (40.0-50.0) % MCHC 31.1 L (32.0-36.0) g/dL RDW 18.1 H (11.8-14.1) % MPV 12.3 H (8.0-11.0) fL Absolute Neutrophils 10.93 H (1.2-6.7) k/cumm BUN 32 H (7-18) mg/dL Creatinine 1.41 H (0.70-1.30) mg/dL Calcium (8.5-10.1) mg/dL Magnesium (1.8-2.4) mg/dL Alkaline Phosphatase 444 H (46-116) U/L NT-Pro-B Natriuret Pep 867 H ( - 299) pg/mL Total Protein (6.4-8.2) g/dL Albumin 2.1 L (3.4-5.0) g/dL 09/29/18 09/30/18 09/30/18 Range/Units 17:00 08:00 08:00 WBC 14.81 H (4.4-10.8) k/cumm RBC 3.07 L (4.50-6.00) m/cumm Hgb 8.3 L (13.5-17.5) g/dL Hct 26.8 L (40.0-50.0) % MCHC 31.0 L (32.0-36.0) g/dL RDW 18.0 H (11.8-14.1) % MPV 12.6 H (8.0-11.0) fL Absolute Neutrophils (1.2-6.7) k/cumm BUN 29 H (7-18) mg/dL Creatinine 1.64 H (0.70-1.30) mg/dL Calcium 8.1 L (8.5-10.1) mg/dL Magnesium 1.7 L 1.5 L (1.8-2.4) mg/dL Alkaline Phosphatase 357 H (46-116) U/L NT-Pro-B Natriuret Pep ( - 299) pg/mL Total Protein 5.9 L (6.4-8.2) g/dL Albumin 1.7 L (3.4-5.0) g/dL Vital Signs Temperature 36.5 C 09/30/18 15:53 Temperature Source Tympanic 09/30/18 15:53 Pulse 68 09/30/18 15:53 Pulse Rhythm Regular 09/30/18 13:40 Pulse 74 09/29/18 19:50 Respiratory Rate 19 09/30/18 15:53 Respiratory Effort Non-Labored 09/30/18 13:40 Respiratory Depth Normal 09/30/18 13:40 Respiratory Pattern Normal 09/30/18 13:40 Blood Pressure 115/63 09/30/18 15:53 Blood Pressure Mean 74 09/29/18 19:33 Blood Pressure Position Supine 09/29/18 16:50 Pulse Oximetry 95 09/30/18 15:53 Oxygen Delivery Method Room Air 09/30/18 15:53 Oxygen Flow Rate 0 09/30/18 15:53 Pain Level 6 09/30/18 16:06 Intake & Output 09/29/18 09/30/18 09/30/18 23:59 11:59 23:59 Intake Total 400 / 400 968.358 / 968.358 Output Total 650 / 650 650 / 950 300 / 950 Balance -250 / -250 318.358 / 18.358 -300 / 18.358 Weight 51.8 kg 51.2 kg Intake: IV 400 / 400 318.358 / 318.358 Oral 650 / 650 Output: Urine 250 / 250 500 / 700 200 / 700 Stool 400 / 400 150 / 250 100 / 250 Other: Urine Color Yellow Yellow Yellow Urine Appearance Clear Clear Urine Odor Normal Normal Voiding Methods Urinal Urinal Urinal Laboratory Results WBC 14.81 k/cumm (4.4-10.8) H 09/30/18 08:00 RBC 3.07 m/cumm (4.50-6.00) L 09/30/18 08:00 Hgb 8.3 g/dL (13.5-17.5) L 09/30/18 08:00 Hct 26.8 % (40.0-50.0) L 09/30/18 08:00 MCV 87.3 fL (80-95) 09/30/18 08:00 MCH 27.0 pg (27.0-33.0) 09/30/18 08:00 MCHC 31.0 g/dL (32.0-36.0) L 09/30/18 08:00 RDW 18.0 % (11.8-14.1) H 09/30/18 08:00 Plt Count 181 x1000/uL (130-400) 09/30/18 08:00 MPV 12.6 fL (8.0-11.0) H 09/30/18 08:00 Immature Gran % 0.0 09/29/18 17:00 Neutrophils % 76.0 09/29/18 17:00 Band Neutrophils % 3.0 % 09/29/18 17:00 Lymphocytes % 11.0 09/29/18 17:00 Monocytes % 5.0 09/29/18 17:00 Eosinophils % 4.0 09/29/18 17:00 Basophils % 0.0 09/29/18 17:00 Absolute Neutrophils 10.93 k/cumm (1.2-6.7) H 09/29/18 17:00 Absolute Lymphocytes 1.52 k/cumm (1.2-3.4) 09/29/18 17:00 Absolute Monocytes 0.69 k/cumm (0.11-0.7) 09/29/18 17:00 Absolute Eosinophils 0.55 k/cumm (0.0-0.7) 09/29/18 17:00 Absolute Basophils 0.00 k/cumm (0.0-0.2) 09/29/18 17:00 Metamyelocytes 1.0 % 09/29/18 17:00 Differential Comment Manual differential 09/29/18 17:00 RBC Morphology See below 09/29/18 17:00 Polychromasia Present 09/29/18 17:00 Hypochromasia 2+ 09/29/18 17:00 Poikilocytosis 1+ 09/29/18 17:00 Anisocytosis 2+ 09/29/18 17:00 Microcytosis 1+ 09/29/18 17:00 VBG pH 7.43 (7.32-7.43) 09/29/18 17:00 VBG pCO2 38 mm/Hg (34-47) 09/29/18 17:00 VBG pO2 36 mm/Hg (28-44) 09/29/18 17:00 VBG HCO3 26 mmol/L (22-28) 09/29/18 17:00 VBG Total CO2 24 mmol/L (22-29) 09/29/18 17:00 VBG O2 Saturation 72 % (70-80) 09/29/18 17:00 VBG Base Excess 1.2 mmol/L (-3-3) 09/29/18 17:00 Sodium 141 mmol/L (136-145) 09/30/18 08:00 Potassium 3.9 mmol/L (3.5-5.1) 09/30/18 08:00 Chloride 106 mmol/L (98-107) 09/30/18 08:00 Carbon Dioxide 26.4 mmol/L (21.0-32.0) 09/30/18 08:00 Anion Gap 8.6 mmol/L (3-11) 09/30/18 08:00 BUN 29 mg/dL (7-18) H 09/30/18 08:00 Creatinine 1.64 mg/dL (0.70-1.30) H 09/30/18 08:00 Estimated GFR/1.73 m2 42.24 (mL/min/1.73m2) 09/30/18 08:00 Glucose 91 mg/dL (70-100) 09/30/18 08:00 Lactate 1.4 mmol/l (0.6-1.4) 09/29/18 17:00 Calcium 8.1 mg/dL (8.5-10.1) L 09/30/18 08:00 Phosphorus 3.2 mg/dL (2.6-4.7) 09/30/18 08:00 Magnesium 1.5 mg/dL (1.8-2.4) L 09/30/18 08:00 Total Bilirubin 0.5 mg/dL (0.2-1.0) 09/30/18 08:00 AST 22 U/L (15-37) 09/30/18 08:00 ALT 34 U/L (12-78) 09/30/18 08:00 Alkaline Phosphatase 357 U/L (46-116) H 09/30/18 08:00 Troponin I 0.02 ng/mL (0.00-0.06) 09/29/18 17:00 NT-Pro-B Natriuret Pep 867 pg/mL (-299) H 09/29/18 17:00 Total Protein 5.9 g/dL (6.4-8.2) L 09/30/18 08:00 Albumin 1.7 g/dL (3.4-5.0) L 09/30/18 08:00
[2018-09-30] MEDS: LEVOFLOXACIN 500 MG/100 ML BAG 100 MG IVPB (19:22)
[2018-09-30] MEDS: Mirtazapine 15 MG TAB PO (21:07)
[2018-09-30] MEDS: Gabapentin 300 MG CAP PO (21:07)
[2018-10-01] VITALS (14 sets, daily range): BP systolic 92–123; BP diastolic 49–66; PULSE 71–80; RESP 4–22; TEMP 36.5–37.5; O2SAT 86–97
[2018-10-01] MEDS: AZTREONAM 2,000 MG in Normal Saline 100 ML 200 MG IVPB ×3 (01:32→18:10)
[2018-10-01] MEDS: Normal Saline Flush 10 ML SYR IVP ×7 (01:33→19:39)
[2018-10-01] MEDS: Albuterol 2.5 MG/3 ML INH SOLN VIAL UPD (04:26)
--- NOTE | 2018-10-01 04:49 | NUR.NOTE ---
Nursing Note: At 04:00 hrs., Patient was shivering and having SOB while on bed. O2 Sat was 79% at [facility] air. O2 administered at 2L/NC, K-Pad applied, more warm blankets provided. O2 rechecked 96% at 2L/NC. Nebs tx and morphine PRN given and with good effect. Verbalized of feeling better. Latest temp is 36.6. Will continue to monitor.
[2018-10-01] MEDS: Albuterol/Ipratropium 3 ML UPD VIAL UPD ×4 (06:18→23:19)
[2018-10-01 07:10] LABS: Abs Immature Grans 0.03 k/cumm (0.0-0.09); Absolute Basophil Count 0.05 k/cumm (0.0-0.2); Absolute Eosinophil Count 0.27 k/cumm (0.0-0.7); Absolute Lymphocyte Count 0.52 k/cumm (1.2-3.4); Absolute Monocyte Count 0.86 k/cumm (0.11-0.7); Basophils % 0.6; Eosinophils % 3.2; HCT 26.5 % (40.0-50.0); Immature Grans % 0.4; Lymphocytes % 6.1; Mean Corp. HGB Concentration 30.2 g/dL (32.0-36.0); Mean Corpuscular Hemoglobin 26.8 pg (27.0-33.0); Mean Corpuscular Volume 88.9 fL (80-95); Mean Platelet Volume 12.5 fL (8.0-11.0); Monocytes % 10.1; Neutrophils % 79.6; Platelet Count 161 x1000/uL (130-400); RBC 2.98 m/cumm (4.50-6.00); RBC Distribution Width 17.9 % (11.8-14.1); White Blood Cell Count 8.51 k/cumm (4.4-10.8)
[2018-10-01 07:13] LABS: Absolute Neutrophil Count 6.77 k/cumm (1.2-6.7)
[2018-10-01 07:31] LABS: ALT 30 U/L (12-78); AST 20 U/L (15-37); Albumin 1.7 g/dL (3.4-5.0); Alkaline Phosphatase 309 U/L (46-116); Anion Gap 8.3 mmol/L (3-11); BUN 28 mg/dL (7-18); Bilirubin, Total 0.5 mg/dL (0.2-1.0); CO2 26.7 mmol/L (21.0-32.0); CREATININE 1.49 mg/dL (0.70-1.30); Chloride 105 mmol/L (98-107); Estimated GFR 47.19 (mL/min/1.73m2); Glucose 100 mg/dL (70-100); Potassium 3.9 mmol/L (3.5-5.1); Sodium 140 mmol/L (136-145); Total Protein 5.8 g/dL (6.4-8.2)
[2018-10-01 07:34] LABS: CREATININE 1.49 mg/dL (0.70-1.30); Estimated GFR 47.19 (mL/min/1.73m2); Magnesium 1.8 mg/dL (1.8-2.4); PHOSPHORUS 3.3 mg/dL (2.6-4.7)
[2018-10-01] MEDS: Tamsulosin 0.4 MG CAPCR PO (08:33)
[2018-10-01] MEDS: Ferrous Sulfate 325 MG TAB PO ×2 (08:33→19:36)
[2018-10-01] MEDS: Pantoprazole 40 MG TABCR PO (08:33)
[2018-10-01] MEDS: Potassium Chloride 20 MEQ TABCR PO (09:41)
[2018-10-01 09:54] LABS: INR 1.1 (0.9-1.1); Prothrombin Time 10.6 sec (9.3-11.0)
[2018-10-01] MEDS: Magnesium Oxide 400 MG TAB PO (10:33)
--- NOTE | 2018-10-01 17:06 | PDOC.CMPRO ---
Care Management Progress Note S/O: Boogie was lying in bed when CM met with him. He shared some frustration at his current state of health and spoke about how fast the onset was, and reported feeling as he made to the ER just in time. He was pleasant in interaction, but struggled with shortness of breath when speaking. CM will continue to follow. A: 68 year old male admitted to [facility] P: Boogie will dicharge home with a resumption of services through [facility] ricardo GRIGSBY, RN 3x/wk, primary nurse is Brittney Ramos contact number is [phone] fax for discharge orders is [phone]. [facility] for TPN; F# . Boogie will return home with Crystal when medically ready and she will transport him via private vehicle. CM will continue to provide support to patient, family and care team for ongoing discharge planning and disposition.
--- NOTE | 2018-10-01 17:48 | PGE_ITS ---
Date of Service Date of service: 10/01/18 Time of Service: 17:42 Assessment and Plan (1) Pneumonia: Current visit: No Status: Acute Just treated with HCAP coverage that included Vancomycin and Cefepime, with course completed on 09/22, now returning with worsening symptoms and imaging. Also with history of recurrent PNA, as well as b/l pleural catheters in place. Continue Vancomycin, Levofloxacin, and Aztreonam day #2, and monitor blood and sputum cultures. Check speech eval to ensure lack of aspiration risk given recurrence of pneumonia, and consider repeat CT if continued symptoms. (2) Anemia: Current visit: No Status: Chronic FOBT + during last hospitalization, in patient with end-stage Colon Cancer. Iron and Ferritin low - Continue PP and initiated iron. Continue to monitor Hgb. (3) Chronic bilateral pleural effusions: Current visit: No Status: Chronic B/l pleural Catheters in place (4) Chronic congestive heart failure with left ventricular diastolic dysfunction: Current visit: No Status: Chronic Diastolic CHF. Currently appears mildly dry to euvolemic, with BNP levels significantly lower than prior values. Monitor fluid status and daily weight. (5) History of colon cancer, stage IV: Current visit: No Status: Chronic According to meeting between palliative care and patient during prior hospitalization - Mr. De Luna is aware that his Colon Ca is end-stage, without any further treatment options. He is DNR/DNI. He is also well known to Hospice, and accepted - he is currently enjoying his life and would like to continue until his quality of life becomes poor, and then will contact Hospice to actively enroll. (6) Elevated LFTs: Current visit: No Status: Chronic Chronic finding, currently with normal ALT & AST. Monitor. 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 Continue TPN. (8) DVT prophylaxis: Current visit: No Status: Acute No chemical prophylaxis in setting of anemia and recent heme + stool. Ensure SCDs and TEDs. (9) Advance directive on file: Current visit: No Status: Acute DNR/DNI. Subjective Interval history since last seen: 68-year-old man with past medical history significant for end-stage colon CA and CKD, admitted from [facility] Emergency Department on 09/29 with a diagnosis of Healthcare-acquired pneumonia. Mr. De Luna has a history of likely end-stage colon CA. He also suffers from COPD, chronic b/l pleural effusions necessitating placement of bilateral pleural catheters in November 2017, CKD secondary to nephrotic syndrome, and glomerulonephritis with a prior history of hemodialysis with subsequent recovery of renal function. 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 During his last admission imaging showed evidence of a non-dissecting Ascending Aortic Aneurysm. The patient also has a history of recurrent, pneumonia, recently hospitalized between 09/17 - 09/23 and treated for a bout of Pneumonia and ALONSO, reportedly after an initial treatment with levofloxacin in early August for community-acquired pneumonia was unsuccessful. Following discharge Mr. De Luna felt well until approximately 3 days prior to his readmission, when he began experiencing worsening dyspnea and a productive cough. Imaging in the ED showed evidence of worsening b/l lower lobe opacities. He also had a mild leukocytosis. The patient was referred for admission for further evaluation and treatment of HCAP. Yesterday the patient continued to have fevers, and reported onset of rigors overnight - all resolved and improved this morning. Continues to complain of a cough. There were no other overnight events reported. Remains afebrile. Exam Narrative Exam Narrative: General: Patient is thin, comfortable appearing, AAOX3, NAD. Pale. Neck: Supple CV: Regular, nontachycardic, S1S2, 3/6 RUSB/LLSB murmur Pulmonary: Clear to auscultation bilaterally with minimal bibasilar crackles and decreased breath sounds, no wheezing. Abdomen: + Bowel Sounds, soft, nontender, nondistended Vascular: No lower extremity edema Psych: Normal mood and affect. Objective Objective Clinical Data: Abnormal lab results 10/01/18 10/01/18 10/01/18 Range/Units 06:30 06:30 06:30 RBC 2.98 L (4.50-6.00) m/cumm Hgb 8.0 L (13.5-17.5) g/dL Hct 26.5 L (40.0-50.0) % MCH 26.8 L (27.0-33.0) pg MCHC 30.2 L (32.0-36.0) g/dL RDW 17.9 H (11.8-14.1) % MPV 12.5 H (8.0-11.0) fL Absolute Neutrophils 6.77 H (1.2-6.7) k/cumm Absolute Lymphocytes 0.52 L (1.2-3.4) k/cumm Absolute Monocytes 0.86 H (0.11-0.7) k/cumm BUN 28 H (7-18) mg/dL Creatinine 1.49 H 1.49 H (0.70-1.30) mg/dL Calcium 8.0 L (8.5-10.1) mg/dL Alkaline Phosphatase 309 H (46-116) U/L Total Protein 5.8 L (6.4-8.2) g/dL Albumin 1.7 L (3.4-5.0) g/dL Vital Signs Temperature 37 C 10/01/18 16:15 Temperature Source Tympanic 10/01/18 16:15 Pulse 71 10/01/18 16:15 Pulse Rhythm Regular 10/01/18 08:30 Pulse 74 09/29/18 19:50 Respiratory Rate 19 10/01/18 16:15 Respiratory Effort 10/01/18 12:28 Respiratory Depth Normal 10/01/18 12:28 Respiratory Pattern Normal 10/01/18 08:30 Blood Pressure 123/66 10/01/18 16:15 Blood Pressure Mean 74 09/29/18 19:33 Blood Pressure Position Supine 09/29/18 16:50 Pulse Oximetry 97 10/01/18 16:15 Oxygen Delivery Method Nasal Cannula 10/01/18 16:15 Oxygen Flow Rate 2 10/01/18 16:15 Pain Level 0 10/01/18 04:40 Comment 10/01/18 07:30 Intake & Output 09/30/18 10/01/18 10/01/18 23:59 11:59 23:59 Intake Total 350 / 9601.478 5284.3333 / 3647.6666 1393.3333 / 3647.6666 Output Total 950 / 1600 2350 / 3250 900 / 3250 Balance -600 / -281.642 -95.6667 / 397.6666 493.3333 / 397.6666 Weight 52.3 kg Intake: IV 350 / 788.964 3861.3333 / 2737.6666 1033.3333 / 2737.6666 Oral 550 / 910 360 / 910 Output: Urine 350 / 850 1050 / 1450 400 / 1450 Stool 600 / 750 1300 / 1800 500 / 1800 Other: Urine Color Yellow Yellow Yellow Urine Appearance Clear Clear Clear Urine Odor Normal Strong Normal Voiding Methods Urinal Urinal Urinal Laboratory Results WBC 8.51 k/cumm (4.4-10.8) D 10/01/18 06:30 RBC 2.98 m/cumm (4.50-6.00) L 10/01/18 06:30 Hgb 8.0 g/dL (13.5-17.5) L 10/01/18 06:30 Hct 26.5 % (40.0-50.0) L 10/01/18 06:30 MCV 88.9 fL (80-95) 10/01/18 06:30 MCH 26.8 pg (27.0-33.0) L 10/01/18 06:30 MCHC 30.2 g/dL (32.0-36.0) L 10/01/18 06:30 RDW 17.9 % (11.8-14.1) H 10/01/18 06:30 Plt Count 161 x1000/uL (130-400) 10/01/18 06:30 MPV 12.5 fL (8.0-11.0) H 10/01/18 06:30 Immature Gran % 0.4 10/01/18 06:30 Neutrophils % 79.6 10/01/18 06:30 Band Neutrophils % 3.0 % 09/29/18 17:00 Lymphocytes % 6.1 10/01/18 06:30 Monocytes % 10.1 10/01/18 06:30 Eosinophils % 3.2 10/01/18 06:30 Basophils % 0.6 10/01/18 06:30 Absolute Neutrophils 6.77 k/cumm (1.2-6.7) H 10/01/18 06:30 Absolute Lymphocytes 0.52 k/cumm (1.2-3.4) L 10/01/18 06:30 Absolute Monocytes 0.86 k/cumm (0.11-0.7) H 10/01/18 06:30 Absolute Eosinophils 0.27 k/cumm (0.0-0.7) 10/01/18 06:30 Absolute Basophils 0.05 k/cumm (0.0-0.2) 10/01/18 06:30 Metamyelocytes 1.0 % 09/29/18 17:00 Differential Comment Manual differential 09/29/18 17:00 RBC Morphology See below 09/29/18 17:00 Polychromasia Present 09/29/18 17:00 Hypochromasia 2+ 09/29/18 17:00 Poikilocytosis 1+ 09/29/18 17:00 Anisocytosis 2+ 09/29/18 17:00 Microcytosis 1+ 09/29/18 17:00 PT 10.6 sec (9.3-11.0) 10/01/18 08:45 INR 1.1 (0.9-1.1) 10/01/18 08:45 VBG pH 7.43 (7.32-7.43) 09/29/18 17:00 VBG pCO2 38 mm/Hg (34-47) 09/29/18 17:00 VBG pO2 36 mm/Hg (28-44) 09/29/18 17:00 VBG HCO3 26 mmol/L (22-28) 09/29/18 17:00 VBG Total CO2 24 mmol/L (22-29) 09/29/18 17:00 VBG O2 Saturation 72 % (70-80) 09/29/18 17:00 VBG Base Excess 1.2 mmol/L (-3-3) 09/29/18 17:00 Sodium 140 mmol/L (136-145) 10/01/18 06:30 Potassium 3.9 mmol/L (3.5-5.1) 10/01/18 06:30 Chloride 105 mmol/L (98-107) 10/01/18 06:30 Carbon Dioxide 26.7 mmol/L (21.0-32.0) 10/01/18 06:30 Anion Gap 8.3 mmol/L (3-11) 10/01/18 06:30 BUN 28 mg/dL (7-18) H 10/01/18 06:30 Creatinine 1.49 mg/dL (0.70-1.30) H 10/01/18 06:30 Estimated GFR/1.73 m2 47.19 (mL/min/1.73m2) 10/01/18 06:30 Glucose 100 mg/dL (70-100) 10/01/18 06:30 Lactate 1.4 mmol/l (0.6-1.4) 09/29/18 17:00 Calcium 8.0 mg/dL (8.5-10.1) L 10/01/18 06:30 Phosphorus 3.3 mg/dL (2.6-4.7) 10/01/18 06:30 Magnesium 1.8 mg/dL (1.8-2.4) 10/01/18 06:30 Total Bilirubin 0.5 mg/dL (0.2-1.0) 10/01/18 06:30 AST 20 U/L (15-37) 10/01/18 06:30 ALT 30 U/L (12-78) 10/01/18 06:30 Alkaline Phosphatase 309 U/L (46-116) H 10/01/18 06:30 Troponin I 0.02 ng/mL (0.00-0.06) 09/29/18 17:00 NT-Pro-B Natriuret Pep 867 pg/mL (-299) H 09/29/18 17:00 Total Protein 5.8 g/dL (6.4-8.2) L 10/01/18 06:30 Albumin 1.7 g/dL (3.4-5.0) L 10/01/18 06:30
--- NOTE | 2018-10-01 17:56 | CMPROGNOTE_ITS ---
Care Management Progress Note S/O: Boogie was lying in bed when CM met with him. He shared some frustration at his current state of health and spoke about how fast the onset was, and reported feeling as he made to the ER just in time. He was pleasant in interaction, but struggled with shortness of breath when speaking. CM will continue to follow. A: 68 year old male admitted to [facility] P: Boogie will dicharge home with a resumption of services through [facility] ricardo GRIGSBY, RN 3x/wk, primary nurse is Brittney Ramos contact number is [phone] fax for discharge orders is [phone]. [facility] for TPN; F# . Boogie will return home with Crystal when medically ready and she will transport him via private vehicle. CM will continue to provide support to patient, family and care team for ongoing discharge planning and disposition.
[2018-10-01] MEDS: LEVOFLOXACIN 500 MG/100 ML BAG 100 MG IVPB (19:37)
[2018-10-01] MEDS: Gabapentin 300 MG CAP PO (21:02)
[2018-10-01] MEDS: Mirtazapine 15 MG TAB PO (21:02)
[2018-10-02] VITALS (12 sets, daily range): BP systolic 113–125; BP diastolic 55–72; PULSE 66–85; RESP 1–22; TEMP 36.5–37.2; O2SAT 91–97
[2018-10-02] MEDS: Normal Saline Flush 10 ML SYR IVP ×4 (01:27→20:03)
[2018-10-02] MEDS: AZTREONAM 2,000 MG in Normal Saline 100 ML 200 MG IVPB ×3 (01:27→18:01)
[2018-10-02] MEDS: Albuterol/Ipratropium 3 ML UPD VIAL UPD ×4 (05:43→23:20)
[2018-10-02 05:45] LABS: Vancomycin, Trough 23.8 ug/mL (10.0-20.0)
[2018-10-02 07:13] LABS: Abs Immature Grans 0.02 k/cumm (0.0-0.09); Absolute Basophil Count 0.04 k/cumm (0.0-0.2); Absolute Eosinophil Count 0.44 k/cumm (0.0-0.7); Absolute Monocyte Count 0.88 k/cumm (0.11-0.7); Absolute Neutrophil Count 4.51 k/cumm (1.2-6.7); Basophils % 0.6; Eosinophils % 6.2; HCT 27.8 % (40.0-50.0); HGB 8.5 g/dL (13.5-17.5); Immature Grans % 0.3; Lymphocytes % 16.9; Mean Corp. HGB Concentration 30.6 g/dL (32.0-36.0); Mean Corpuscular Hemoglobin 27.3 pg (27.0-33.0); Mean Corpuscular Volume 89.4 fL (80-95); Monocytes % 12.4; Neutrophils % 63.6; Platelet Count 185 x1000/uL (130-400); RBC 3.11 m/cumm (4.50-6.00); RBC Distribution Width 18.3 % (11.8-14.1); White Blood Cell Count 7.09 k/cumm (4.4-10.8)
[2018-10-02 07:22] LABS: ALT 28 U/L (12-78); AST 22 U/L (15-37); Albumin 1.7 g/dL (3.4-5.0); Alkaline Phosphatase 312 U/L (46-116); Anion Gap 6.5 mmol/L (3-11); BUN 31 mg/dL (7-18); Bilirubin, Total 0.4 mg/dL (0.2-1.0); CO2 27.5 mmol/L (21.0-32.0); CREATININE 1.44 mg/dL (0.70-1.30); Calcium 8.4 mg/dL (8.5-10.1); Chloride 105 mmol/L (98-107); Estimated GFR 49.08 (mL/min/1.73m2); Glucose 98 mg/dL (70-100); Magnesium 1.9 mg/dL (1.8-2.4); PHOSPHORUS 3.4 mg/dL (2.6-4.7); Potassium 4.2 mmol/L (3.5-5.1); Sodium 139 mmol/L (136-145); Total Protein 6.1 g/dL (6.4-8.2)
[2018-10-02] MEDS: Pantoprazole 40 MG TABCR PO (07:45)
[2018-10-02] MEDS: Ferrous Sulfate 325 MG TAB PO ×2 (07:45→20:03)
[2018-10-02] MEDS: Tamsulosin 0.4 MG CAPCR PO (07:45)
[2018-10-02] MEDS: Metoprolol 25 MG TAB PO ×2 (07:45→20:03)
--- NOTE | 2018-10-02 09:41 | W.SPEECHEVAL ---
Date of service: 10/02/18 Time of Service: 07:15 Speech Therapy Evaluation Note: REFERRING PROVIDER: Dr. Nielsen BACKGROUND This is a 68 year old right-handed male who presented to the ED from home on 09/29/18 and was subsequently admitted for tx of a recurrent hospital acquired pneumonia. A CXR of that date showed a bibasilar pneumonia, R greater than L and a small R pleural effusion. A swallow evaluation was requested on 10/01/18. The pt has a recent h/o multiple visits to the ED as well as hospital admissions in a setting of end-stage metastatic colon CA. PMH: metastatic colon CA, CHF, COPD, PTSD, depression, anemia, iron deficiency, protein-calorie malnutrition, short gut syndrome, h/o Henoch-Schonlein purpura. 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 The patient (pt) is able to give additional information regarding p.o. consistencies taken at home in the weeks prior to this admission. He states that he takes what, by description, are Thin liquids, a Dysphagia Advanced diet with chopped meats and whole pills with a liquid wash. OBJECTIVE Nursing reports: - T: 36.8 - O2 sat: 94% on 2 L via NC - LS: wheezes bilaterally (B) in the presence of ABX - Toleration of whole pills with a liquid wash yesterday. - Poor p. o. intake yesterday - an avg of 25% - in the setting of TPN. - Pt stated his day yesterday with no voice but it did return after the pt had been awake for a bit. - Pt is on a Regular consistency diet, Thin liquids. The pt is awake, alert and able to converse, albeit with an aphonic voice. Later he gives a spontaneous phlegmy-sounding productive cough, after which his voice returns. He questions the reason for the eval and, once the connection between pneumonia and swallowing is explained to abby, he agrees to the eval. He is A & O x 2 (person, place) and able to follow 3-step directions. Oral Sensorimotor Exam The pt is totally edentulous and states he has been so for about 10 years. He denies any oral soft tissue soreness. Oral sensation is WNL-B for buccal, labial and lingual areas. Motorically, the smile is symmetrical as are forehead wrinkles. No lingual deviation on protrusion is seen in a setting of good excursion. Lingual lateralization is WNL-B but lingual rapid alternating movements are mildly decreased on the left and WNL on the R. Mandibular lateralization is WNL-B. Velopharyngeal elevation is strong and symmetrical. Volitional cough and throat-clear are both strong. Speech intelligibility to this unfamiliar listener in a setting of mild background noise is 100% in both phonic and aphonic settings. With the return of his voice, vocal quality is mildly hoarse and vocal intensity is mildly-moderately decreased. Swallowing - Thin liquid: Good bolus control and posterior oral transit (POT); no gómez signs/symptoms (s/s) of aspiration/penetration (A/P); oral clearance 100%; no oral escape. These results are true for both single and consecutive swallows by both large and small diameter straws. - Puree food: Good bolus control and linguopalatal bolus compression; POT is WNL; no gómez s/s A/P; oral clearance 100%; no oral escape. - Mechanically Altered food: Good mastication quality, bolus control & POT; no gómez s/s A/P; oral clearance 100%; no oral escape. - Dysphagia Advanced food: Use of increased mastication time but this does result in good mastication quality; good bolus control & POT; no gómez s/s A/P; oral clearance 100%; no oral escape. - Multiple whole pills taken at one time with a Thin liquid wash via straw: Good bolus control & POT; no gómez s/s A/P; oral clearance 100%; no oral escape. Pt is observed to self-feed using his dominant RUE and a regular utensil. INTERPRETATION The pt shows a mild oral-prep dysphagia secondary to total edentulousness. There are no clinical signs of a pharyngeal dysphagia. RECOMMENDATIONS 1. Change from a Regular consistency diet to a Dysphagia Advanced diet with moistened chopped meats. 2. Continue: - Thin liquids - whole pills with a liquid wash 3. Independent self-feeding 4. No speech therapy is indicated at this time. Thank you for referring [facility] pt.
[2018-10-02] MEDS: Magnesium Oxide 400 MG TAB PO (09:56)
--- NOTE | 2018-10-02 09:59 | CMPROGNOTE_ITS ---
Care Management Progress Note S/O: Boogie had a speech consult today for a swallow evaluation with the resulting recommendations; Dysphagia Advanced diet with moistened chopped meats, Thin liquids, whole pills with a liquid wash; Boogie was deemed independent for self-feeding. Boogie remains pleasant in interaction but reports not feeling well and continues to be short of breath. He shares no other concerns at this time. A: 68 year old male admitted to [facility] P: Boogie will discharge home with a resumption of services through [facility] ricardo GRIGSBY, RN 3x/wk, primary nurse is Brittney Ramos contact number is [phone] fax for discharge orders is [phone]. [facility] for TPN; F# . Boogie will return home with Crystal when medically ready and she will transport him via private vehicle. will continue to provide support to patient, family and care team for ongoing discharge planning and disposition.
--- NOTE | 2018-10-02 15:59 | PGE_ITS ---
Date of Service Date of service: 10/02/18 Time of Service: 15:51 Assessment and Plan (1) Pneumonia: Current visit: No Status: Acute Just treated with HCAP coverage that included Vancomycin and Cefepime, with course completed on 09/22, now returning with worsening symptoms and imaging. Also with history of recurrent PNA, as well as b/l pleural catheters in place. Continue Vancomycin, Levofloxacin, and Aztreonam day #3, and monitor blood and sputum cultures - currently with one set positive for staph epidermidis only. Speech eval without overt aspiration risk. Consider repeat CT if continued symptoms. (2) Anemia: Current visit: No Status: Chronic FOBT + during last hospitalization, in patient with end-stage Colon Cancer. Iron and Ferritin low - Continue PP and ironVitamin C. Continue to monitor Hgb. (3) Chronic bilateral pleural effusions: Current visit: No Status: Chronic B/l pleural Catheters in place (4) Chronic congestive heart failure with left ventricular diastolic dysfunction: Current visit: No Status: Chronic Diastolic CHF. Currently appears mildly dry to euvolemic, with BNP levels significantly lower than prior values at time of admission. Monitor fluid status and daily weight. (5) History of colon cancer, stage IV: Current visit: No Status: Chronic According to meeting between palliative care and patient during prior hospitalization - Mr. De Luna is aware that his Colon Ca is end-stage, without any further treatment options. He is DNR/DNI. He is also well known to Hospice, and accepted - he is currently enjoying his life and would like to continue until his quality of life becomes poor, and then will contact Hospice to actively enroll. (6) Elevated LFTs: Current visit: No Status: Chronic Chronic finding, currently with normal ALT & AST. Monitor. 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 Continue TPN. (8) DVT prophylaxis: Current visit: No Status: Acute No chemical prophylaxis in setting of anemia and recent heme + stool. Ensure SCDs and TEDs. (9) Advance directive on file: Current visit: No Status: Acute DNR/DNI. Subjective Interval history since last seen: 68-year-old man with past medical history significant for end-stage colon CA and CKD, admitted from [facility] Emergency Department on 09/29 with a diagnosis of Healthcare-acquired pneumonia. Mr. De Luna has a history of likely end-stage colon CA. He also suffers from COPD, chronic b/l pleural effusions necessitating placement of bilateral pleural catheters in November 2017, CKD secondary to nephrotic syndrome, and glomerulonephritis with a prior history of hemodialysis with subsequent recovery of renal function. 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 During his last admission imaging showed evidence of a non-dissecting Ascending Aortic Aneurysm. The patient also has a history of recurrent, pneumonia, recently hospitalized between 09/17 - 09/23 and treated for a bout of Pneumonia and ALONSO, reportedly after an initial treatment with levofloxacin in early August for community-acquired pneumonia was unsuccessful. Following discharge Mr. De Luna felt well until approximately 3 days prior to his readmission, when he began experiencing worsening dyspnea and a productive cough. Imaging in the ED showed evidence of worsening b/l lower lobe opacities. He also had a mild leukocytosis. The patient was referred for admission for further evaluation and treatment of HCAP. Mr. De Luna had continued to have fevers until the night of 09/30, and reported onset of rigors overnight previously - all resolved. He has remained afebrile since. Continues to complain of a cough and hoarseness when speaking. There were no other overnight events reported. Was evaluated by speech without evidence of overt aspiration. Recommendations for change to dysphagia diet due to mild oral -prep dysphagia secondary to being completely edentulous. Exam Narrative Exam Narrative: General: Patient is thin, comfortable appearing, AAOX3, NAD. Pale. Neck: Supple CV: Regular, nontachycardic, S1S2, 3/6 RUSB/LLSB murmur Pulmonary: Clear to auscultation bilaterally with minimal bibasilar crackles and decreased breath sounds, no wheezing. Abdomen: + Bowel Sounds, soft, nontender, nondistended Vascular: No lower extremity edema Psych: Normal mood and affect. Objective Objective Clinical Data: Abnormal lab results 10/02/18 10/02/18 10/02/18 Range/Units 05:15 05:15 05:15 RBC 3.11 L (4.50-6.00) m/cumm Hgb 8.5 L (13.5-17.5) g/dL Hct 27.8 L (40.0-50.0) % MCHC 30.6 L (32.0-36.0) g/dL RDW 18.3 H (11.8-14.1) % MPV 13.0 H (8.0-11.0) fL Absolute Monocytes 0.88 H (0.11-0.7) k/cumm BUN 31 H (7-18) mg/dL Creatinine 1.44 H (0.70-1.30) mg/dL Calcium 8.4 L (8.5-10.1) mg/dL Alkaline Phosphatase 312 H (46-116) U/L Total Protein 6.1 L (6.4-8.2) g/dL Albumin 1.7 L (3.4-5.0) g/dL Vancomycin Trough 23.8 H* (10.0-20.0) ug/mL Vital Signs Temperature 36.5 C 10/02/18 15:33 Temperature Source Tympanic 10/02/18 15:33 Pulse 82 10/02/18 15:33 Pulse Rhythm Regular 10/02/18 07:40 Pulse 74 09/29/18 19:50 Respiratory Rate 22 10/02/18 15:33 Respiratory Effort 10/02/18 07:40 Respiratory Depth Normal 10/02/18 07:40 Respiratory Pattern Normal 10/02/18 07:40 Blood Pressure 125/55 L 10/02/18 15:33 Blood Pressure Mean 74 09/29/18 19:33 Blood Pressure Position Supine 09/29/18 16:50 Pulse Oximetry 96 10/02/18 15:33 Oxygen Delivery Method Nasal Cannula 10/02/18 15:33 Oxygen Flow Rate 2 10/02/18 15:33 Pain Level 0 10/02/18 07:40 Comment 10/01/18 07:30 Intake & Output 10/01/18 10/02/18 10/02/18 23:59 11:59 23:59 Intake Total 1663.3333 / 3917.6666 2056.3333 / 2296.3333 240 / 2296.3333 Output Total 900 / 3250 750 / 1100 350 / 1100 Balance 763.3333 / 667.6666 1306.3333 / 1196.3333 -110 / 1196.3333 Weight 55.4 kg Intake: IV 1303.3333 / 3007.6666 1606.3333 / 1606.3333 Oral 360 / 910 450 / 690 240 / 690 Output: Urine 400 / 1450 400 / 550 150 / 550 Stool 500 / 1800 350 / 550 200 / 550 Other: Urine Color Yellow Yellow Yellow Urine Appearance Clear Clear Clear Urine Odor Normal None None Voiding Methods Urinal Urinal Urinal Laboratory Results WBC 7.09 k/cumm (4.4-10.8) 10/02/18 05:15 RBC 3.11 m/cumm (4.50-6.00) L 10/02/18 05:15 Hgb 8.5 g/dL (13.5-17.5) L 10/02/18 05:15 Hct 27.8 % (40.0-50.0) L 10/02/18 05:15 MCV 89.4 fL (80-95) 10/02/18 05:15 MCH 27.3 pg (27.0-33.0) 10/02/18 05:15 MCHC 30.6 g/dL (32.0-36.0) L 10/02/18 05:15 RDW 18.3 % (11.8-14.1) H 10/02/18 05:15 Plt Count 185 x1000/uL (130-400) 10/02/18 05:15 MPV 13.0 fL (8.0-11.0) H 10/02/18 05:15 Immature Gran % 0.3 10/02/18 05:15 Neutrophils % 63.6 10/02/18 05:15 Band Neutrophils % 3.0 % 09/29/18 17:00 Lymphocytes % 16.9 10/02/18 05:15 Monocytes % 12.4 10/02/18 05:15 Eosinophils % 6.2 10/02/18 05:15 Basophils % 0.6 10/02/18 05:15 Absolute Neutrophils 4.51 k/cumm (1.2-6.7) 10/02/18 05:15 Absolute Lymphocytes 1.20 k/cumm (1.2-3.4) 10/02/18 05:15 Absolute Monocytes 0.88 k/cumm (0.11-0.7) H 10/02/18 05:15 Absolute Eosinophils 0.44 k/cumm (0.0-0.7) 10/02/18 05:15 Absolute Basophils 0.04 k/cumm (0.0-0.2) 10/02/18 05:15 Metamyelocytes 1.0 % 09/29/18 17:00 Differential Comment Manual differential 09/29/18 17:00 RBC Morphology See below 09/29/18 17:00 Polychromasia Present 09/29/18 17:00 Hypochromasia 2+ 09/29/18 17:00 Poikilocytosis 1+ 09/29/18 17:00 Anisocytosis 2+ 09/29/18 17:00 Microcytosis 1+ 09/29/18 17:00 PT 10.6 sec (9.3-11.0) 10/01/18 08:45 INR 1.1 (0.9-1.1) 10/01/18 08:45 VBG pH 7.43 (7.32-7.43) 09/29/18 17:00 VBG pCO2 38 mm/Hg (34-47) 09/29/18 17:00 VBG pO2 36 mm/Hg (28-44) 09/29/18 17:00 VBG HCO3 26 mmol/L (22-28) 09/29/18 17:00 VBG Total CO2 24 mmol/L (22-29) 09/29/18 17:00 VBG O2 Saturation 72 % (70-80) 09/29/18 17:00 VBG Base Excess 1.2 mmol/L (-3-3) 09/29/18 17:00 Sodium 139 mmol/L (136-145) 10/02/18 05:15 Potassium 4.2 mmol/L (3.5-5.1) 10/02/18 05:15 Chloride 105 mmol/L (98-107) 10/02/18 05:15 Carbon Dioxide 27.5 mmol/L (21.0-32.0) 10/02/18 05:15 Anion Gap 6.5 mmol/L (3-11) 10/02/18 05:15 BUN 31 mg/dL (7-18) H 10/02/18 05:15 Creatinine 1.44 mg/dL (0.70-1.30) H 10/02/18 05:15 Estimated GFR/1.73 m2 49.08 (mL/min/1.73m2) 10/02/18 05:15 Glucose 98 mg/dL (70-100) 10/02/18 05:15 Lactate 1.4 mmol/l (0.6-1.4) 09/29/18 17:00 Calcium 8.4 mg/dL (8.5-10.1) L 10/02/18 05:15 Phosphorus 3.4 mg/dL (2.6-4.7) 10/02/18 05:15 Magnesium 1.9 mg/dL (1.8-2.4) 10/02/18 05:15 Total Bilirubin 0.4 mg/dL (0.2-1.0) 10/02/18 05:15 AST 22 U/L (15-37) 10/02/18 05:15 ALT 28 U/L (12-78) 10/02/18 05:15 Alkaline Phosphatase 312 U/L (46-116) H 10/02/18 05:15 Troponin I 0.02 ng/mL (0.00-0.06) 09/29/18 17:00 NT-Pro-B Natriuret Pep 867 pg/mL (-299) H 09/29/18 17:00 Total Protein 6.1 g/dL (6.4-8.2) L 10/02/18 05:15 Albumin 1.7 g/dL (3.4-5.0) L 10/02/18 05:15 Vancomycin Trough 23.8 ug/mL (10.0-20.0) H* 10/02/18 05:15
[2018-10-02] MEDS: LEVOFLOXACIN 500 MG/100 ML BAG 100 MG IVPB (20:04)
[2018-10-02] MEDS: Mirtazapine 15 MG TAB PO (22:10)
[2018-10-02] MEDS: Gabapentin 300 MG CAP PO (22:10)
[2018-10-03] VITALS (9 sets, daily range): BP systolic 86–128; BP diastolic 50–72; PULSE 66–102; RESP 7–21; TEMP 36.1–37.2; O2SAT 92–97
[2018-10-03] MEDS: Normal Saline Flush 10 ML SYR IVP ×6 (01:15→16:11)
[2018-10-03] MEDS: AZTREONAM 2,000 MG in Normal Saline 100 ML 200 MG IVPB ×3 (01:16→18:27)
[2018-10-03] MEDS: VANCOMYCIN 750 MG in Normal Saline 250 ML IVPB ×2 (02:06→19:26)
[2018-10-03] MEDS: Albuterol/Ipratropium 3 ML UPD VIAL UPD ×4 (05:37→23:30)
[2018-10-03 07:36] LABS: Abs Immature Grans 0.02 k/cumm (0.0-0.09); Absolute Basophil Count 0.03 k/cumm (0.0-0.2); Absolute Eosinophil Count 0.33 k/cumm (0.0-0.7); Absolute Lymphocyte Count 1.05 k/cumm (1.2-3.4); Absolute Monocyte Count 0.74 k/cumm (0.11-0.7); Absolute Neutrophil Count 4.75 k/cumm (1.2-6.7); Basophils % 0.4; Eosinophils % 4.8; HCT 27.3 % (40.0-50.0); HGB 8.3 g/dL (13.5-17.5); Immature Grans % 0.3; Lymphocytes % 15.2; Mean Corp. HGB Concentration 30.4 g/dL (32.0-36.0); Mean Corpuscular Hemoglobin 27.2 pg (27.0-33.0); Mean Corpuscular Volume 89.5 fL (80-95); Mean Platelet Volume 12.7 fL (8.0-11.0); Monocytes % 10.7; Neutrophils % 68.6; Platelet Count 194 x1000/uL (130-400); RBC 3.05 m/cumm (4.50-6.00); RBC Distribution Width 18.4 % (11.8-14.1); White Blood Cell Count 6.92 k/cumm (4.4-10.8)
[2018-10-03 07:53] LABS: Magnesium 1.8 mg/dL (1.8-2.4); PHOSPHORUS 3.6 mg/dL (2.6-4.7)
[2018-10-03 07:54] LABS: ALT 23 U/L (12-78); AST 21 U/L (15-37); Albumin 1.6 g/dL (3.4-5.0); Alkaline Phosphatase 355 U/L (46-116); Anion Gap 8.5 mmol/L (3-11); BUN 31 mg/dL (7-18); Bilirubin, Total 0.5 mg/dL (0.2-1.0); CO2 27.5 mmol/L (21.0-32.0); CREATININE 1.42 mg/dL (0.70-1.30); Calcium 8.5 mg/dL (8.5-10.1); Chloride 106 mmol/L (98-107); Estimated GFR 49.88 (mL/min/1.73m2); Glucose 100 mg/dL (70-100); Potassium 3.7 mmol/L (3.5-5.1); Sodium 142 mmol/L (136-145); Total Protein 5.9 g/dL (6.4-8.2)
[2018-10-03] MEDS: Pantoprazole 40 MG TABCR PO (08:46)
[2018-10-03] MEDS: Metoprolol 25 MG TAB PO ×2 (08:46→19:29)
[2018-10-03] MEDS: Ferrous Sulfate 325 MG TAB PO ×2 (08:46→19:29)
[2018-10-03] MEDS: Tamsulosin 0.4 MG CAPCR PO (08:46)
[2018-10-03] MEDS: POTASSIUM CHLORIDE 20 MEQ, POTASSIUM CHLORIDE 10 MEQ 30 MEQ PO (09:32)
[2018-10-03] MEDS: Magnesium Oxide 400 MG TAB PO (09:32)
--- NOTE | 2018-10-03 13:06 | DI.RAD_ITS ---
SYMPTOMS/DIAGNOSIS: WORSENING RESPIRATORY SYMPTOMS, RECURRENT PNEUMONIA PA AND LATERAL CHEST: The examination is compared with the prior study of 09/29/18. Interval deterioration is demonstrated with note made of small to moderate sized bilateral pleural effusions. Increased prominence of the basilar infiltrates particularly in the right lower lobe is also noted. Chest tubes are again demonstrated unchanged in position. A PICC line is in good position. The heart is unchanged in size in this patient who is status post AVR. The hilar structures, mediastinum and tracheal air column are intact. SUMMARY: Increased prominence of the basilar areas of infiltration and interval development of a small moderate sized bilateral pleural effusion is demonstrated.
--- NOTE | 2018-10-03 13:18 | PDOC.CMPRO ---
- If Service Date Differs Date of service: 10/03/18 Time of Service: 13:19 Care Management Progress Note S/O: ALEKS met with the patient at the bedside he is engaged and smiling. He states his breathing feels better since he has the left lung drained from the plural tube and bilat tubes where removed. Boogie's plural tubes removed and sent to lab for culture. ALEKS spoke with Boogie about his discharge plan he would prefer not to return home until he feels ready. He remains on his TPN here, IV antibiotics and steroids. Anticipate he will return home early next week once he has completed the full course of IV antibiotics. ALEKS did contacted [facility] today and provided update as well as a copy of his nutrition orders. [facility] will need current TPN orders prior to discharge, labs, faxed to [facility] once that is complete nutrition will review and return the orders for provider signature. A: Boogie is a 68 year old male admitted with Health care acquired pneumonia with a history of COPD, CHF and colon Ca. P: Boogie will return home with resumptions of home health services for nursing home. He will continue with palliative services through [facility]. Primary nurse is Brittney Ramos contact number is [phone] fax for discharge orders is [phone]. [facility] for TPN; F# . Boogie will return home with Crystal when medically ready and she will transport him via private vehicle. ALEKS will continue to provide support to patient, family and care team for ongoing discharge planning and disposition.
[2018-10-03] MEDS: methylPREDNISolone SUCC 40 MG VIAL IVP ×2 (13:23→19:29)
--- NOTE | 2018-10-03 13:30 | CMPROGNOTE_ITS ---
- If Service Date Differs Date of service: 10/03/18 Time of Service: 13:19 Care Management Progress Note S/O: ALEKS met with the patient at the bedside he is engaged and smiling. He states his breathing feels better since he has the left lung drained from the plural tube and bilat tubes where removed. Boogie's plural tubes removed and sent to lab for culture. ALEKS spoke with Boogie about his discharge plan he would prefer not to return home until he feels ready. He remains on his TPN here, IV an tibiotics and steroids. Anticipate he will return home early next week once he has completed the full course of IV antibiotics. ALEKS did contacted [facility] today and provided update as well as a copy of his nutrition orders. [facility] will need current TPN orders prior to discharge, labs, faxed to [facility] once that is complete nutrition will review and return the orders for provider signature. A: Boogie is a 68 year old male admitted with Health care acquired pneumonia with a history of COPD, CHF and colon Ca. P: Boogie will return home with resumptions of home health services for [facility]. He will continue with palliative services through [facility]. Primary nurse is Brittney Ramos contact number is [phone] fax for discharge orders is [phone]. [facility] for TPN; F# . Boogie will return home with Crystal when medically ready and she will transport him via private vehicle. ALEKS will continue to provide support to patient, family and care team for ongoing discharge planning and disposition.
--- NOTE | 2018-10-03 14:45 | PHARADMIT ---
Addendum entered by Kumar Dumas III 10/05/18 15:51: Provider & Patient have decided to transfer to Hospice on Monday. Plan is to continue current care and start Morphine infusion to be titrate for comfort and pain control, before him leaves. Nutrition consult recommends tapering his TPN. TPN to run at 86mL/hr from 8PM to 8AM daily x 2 bags, then stop. Atreonam & Vancomycin continue for now. Original Note: Addendum entered by Kumar Dumas III 10/04/18 15:52: Pharmacy Note Subjective Patient had tough day yetserday, Had pleural effusions tapped (400cc) and surgeon noted pigtails looked crusty, pulled tubes. Tips cultured staph & yeast. Bloood no growth X 96HRS. Objective Temp-38.5C WBC-13.17 pain:10/10 SCr-1.51 Assessment Vancomycin trough extrapolated to 19.1, increased drug interval by 2 hours. Aztreonam continues. Plan Pigtails to be replaced once infection clears Original Note: Admission Pharmacy Clinical Review bilateral hospital acquired Pneumonia, on TPN Code Status DNR/DNI Current Weight Wgt-52.2 kg Renally Cleared and Narrow Therapeutic Index Meds CrCl~ 37 mL/min Meds-OK QTc Value / Action Taken QTc-414 NA BP Control, Fever BP- 105/50 Tmax- 37.2C Electrolytes reviewed Na- 142 K+3.7 Mag- 1.8 Phos-3.6 DVT Prophylaxis TEDS SCDs Opiate Usage / Scheduled Bowel Regimen Ordered Yes Yes Plt/SCr for Heparin / Enoxaparin Plts-194 SCr-1.42 INR for Warfarin inr-1.1 H/H stable, WBC/Bands H&H- 8.3/27.3 WBC- 6.92 Antibiotic appropriateness Aztreonam, Levaquin, Vancomycin Cultures and Sensitivities Blood-no growth x 72hrs, Spututm-neg, Nose-MRSA positive Surgical ABX d/c within 24 hr na DM control / Insulin Dosing BG- 100 Heart Failure (Check EF%) (MICHAEL's, B-Block, Diuretics) Lopressor, IV to PO Switch No Home Meds Reviewed Yes Home Meds Not Ordered Vit-C, Comments [facility] Chloraseptic [place]
--- NOTE | 2018-10-03 15:21 | W.SURGCON ---
Date of service: 10/03/18 Time of Service: 15:21 Assessment and Plan (1) Pleural effusion: Current visit: No Status: Chronic A\\ 68 year old with end stage colon cancer and recurrent pleural effusions who was admitted with pneumonia. His effusions have gotten larger and I was asked to see patient to assist with drainage through the pleurX catheters. P\\ Drainage of pleural effusions through pleurX catheter. History of Present Illness Chief Complaint: Pleural effusions/ issues with pleurex catheter Narrative: Mr. De Luna is a 68 year old male with end stage colon cancer who about 1 1/2 years ago had recurrent pleural effusions. I placed pleurex catheters bilaterally. Since then he has drained his chest a handful of times. He was admitted recently with pneumonia. He was discharged and now re-admitted with pneumonia again. CXR today showed increase in pleural effusions and I was asked to assist with drainage. Patient also has had increased work of breathing and was having trouble speaking due to his SOB. Consults Consult date: 10/03/18 Requesting physician: Apollo Nielsen Review of Systems Constitutional Reports anorexia, Reports fatigue, Reports fever(s) and Denies weight loss Cardiovascular Reports system reviewed and no additional complaints, except as docu Respiratory Reports as per HPI Gastrointestinal Reports system reviewed and no additional complaints, except as docu Endocrine Reports fatigue [facility] Medical History Chronic bilateral pleural effusions (Chronic) Chronic congestive heart failure with left ventricular diastolic dysfunction (Chronic) Depression (Chronic) History of Henoch-Schonlein purpura (Chronic) Anemia (Chronic) Iron deficiency (Chronic) Protein-calorie malnutrition, severe (Chronic) COPD (chronic obstructive pulmonary disease) (Chronic) Back pain (Chronic) Short gut syndrome (Chronic) Colon cancer (Chronic) Elevated LFTs (Chronic) High output ileostomy (Chronic) PTSD (post-traumatic stress disorder) (Chronic) History of colon cancer, stage IV (Chronic) Pleural effusion (Chronic) End of life care (Chronic) Weight loss (Chronic) History of endocarditis (Resolved) History of glomerulonephritis (Resolved) History of ischemic bowel disease (Resolved) History of nephrotic syndrome (Resolved) PSVT (paroxysmal supraventricular tachycardia) (Resolved) Surgical History Status post thoracostomy tube placement (Acute ~2017) History of colectomy (Chronic) History of aortic valve replacement (Resolved) History of bowel resection (Resolved) S/P thoracostomy tube placement (Resolved) Family History Son No problems noted. Sister HSP (Henoch Schonlein purpura) Social History caregiver/support person: Yes household members: spouse housing: house marital status details: for 37 years lives independently: No (lives at home w/ help of his and visiting nurse) number of children: 1 highest education level completed: high school graduate residential: No current occupational status: disabled leisure activities: fishing diet: other high-fat food intake: 3 or more times/day eating out: rarely or never reads food labels: seldom or never during the past year weight has: increased > 10 lbs Smoking and Tabacco status: Former Tobacco Use substance use type: does not use What is your relationship status?: How often do you talk on the phone with friends or family?: three or more times per week How often do you get together with friends or relatives?: three or more times per week Panel score (0-1 are the most socially isolated patients): 2 Exam Const Nutritional Appearance: cachectic Orientation: alert and oriented x3 Chest Chest/axillae images: 1. pleurX catheter 2. pleurX catheter Resp Effort & Inspection: normal respiratory effort Auscultation: crackles and diminished lung sounds Cardio Rate: regular rate Rhythm: regular rhythm GI Palpation: soft Auscultation: normal bowel sounds Results Last Vital Signs Temp 97.0 F L 10/03/18 11:15 Pulse 77 10/03/18 11:15 Resp 18 10/03/18 11:15 BP 105/50 L 10/03/18 11:15 Pulse Ox 97 10/03/18 11:15 Labs : 10/03/18 06:45 10/03/18 06:40 Laboratory Results - last 24 hr 10/03/18 10/03/18 10/03/18 06:40 06:45 06:45 WBC 6.92 RBC 3.05 L Hgb 8.3 L Hct 27.3 L MCV 89.5 MCH 27.2 MCHC 30.4 L RDW 18.4 H Plt Count 194 MPV 12.7 H Immature Gran % 0.3 Neutrophils % 68.6 Lymphocytes % 15.2 Monocytes % 10.7 Eosinophils % 4.8 Basophils % 0.4 Absolute Neutrophils 4.75 Absolute Lymphocytes 1.05 L Absolute Monocytes 0.74 H Absolute Eosinophils 0.33 Absolute Basophils 0.03 Sodium 142 Potassium 3.7 Chloride 106 Carbon Dioxide 27.5 Anion Gap 8.5 BUN 31 H Creatinine 1.42 H Estimated GFR/1.73 m2 49.88 Glucose 100 Calcium 8.5 Phosphorus 3.6 Magnesium 1.8 Total Bilirubin 0.5 AST 21 ALT 23 Alkaline Phosphatase 355 H Total Protein 5.9 L Albumin 1.6 L
[2018-10-03] MEDS: HYDROmorphone 2 MG/ML VIAL 1 MG IVP (16:10)
[2018-10-03] MEDS: Lidocaine 2% Multi-Dose 20 ML VIAL IJ (16:12)
--- NOTE | 2018-10-03 16:37 | W.PM.OP ---
Date of service: 10/03/18 Time of Service: 16:37 Operative Note DATE OF PROCEDURE: 10/03/18 PRE-OP DIAGNOSIS: Pneumonia/ indwelling pleural catheters POST-OP DIAGNOSIS: same PROCEDURE: Removal of pleurX catheters at the bedside SURGEON: Octavia Bustamante ANESTHESIA: local (2% Lidocaine 15 cc) ESTIMATED BLOOD LOSS: 5 PATHOLOGY: other (catheters sent for culture) COMPLICATIONS: None Patient was transported to: no change Patient's condition: stable Indications: Mr. Butler was admitted a second time for pneumonia. I placed pleurX catheters last year for recurrent pleural effusions for end stage Colon Cancer. The catheters may be the source of the infection so I recommended removal of the catheters. Risks, benefits and complications were reviewed and he wished to proceed. No guarantees were given or implied. Procedure Description: After informed consent was obtained the skin and subcutenous tissue on both sides was infiltrated with 2% Lidocaine. Once the skin was numb a hemostat was used to separate the flange from the skin. The tube was from the tissue with the hemostat all the way to the entrance into the chest. The rib was then infiltrated with Lidocaine. Once numb the catheter was pulled out. The skin was cleaned and dried and a Dry dressing was applied. The same was done on the left side. The patient tolerated the procedure well and there were no immediate complications.
[2018-10-03] MEDS: Normal Saline 500 ML 200 ML IV (18:28)
[2018-10-03] MEDS: Insulin Aspart 300 UNITS/3 ML PEN SC (18:29)
[2018-10-03] MEDS: LEVOFLOXACIN 500 MG/100 ML BAG 100 MG IVPB (19:30)
--- NOTE | 2018-10-03 20:19 | PGE_ITS ---
Date of Service Date of service: 10/03/18 Time of Service: 20:11 Assessment and Plan (1) Pneumonia: Current visit: No Status: Acute Just treated with HCAP coverage that included Vancomycin and Cefepime, with course completed on 09/22, now returning with worsening symptoms and imaging. Also with history of recurrent PNA, as well as b/l pleural catheters in place. Symptomatically worsened despite 4 days of combination Vancomycin, Levofloxacin, and Aztreonam. Imaging with worsening effusion and infiltrate - surgery was consulted regarding draining of the caths - following discussion both caths were drained, with approximate 400cc's of fluid removal on the left only. As there was concern regarding infection involving the catheter tubes themselves, both of these were removed as well. Plan will be for culture of the fluid as well as catheters, continuation of antibiotics, and consideration for new catheters in the future if warranted following antibiotic therapy. Continue to monitor cultures, currently with one set of blood cultures positive for staph epidermidis only. Speech eval without overt aspiration risk. (2) Chronic bilateral pleural effusions: Current visit: No Status: Chronic B/l pleural Catheters, both removed today. Plan as above. (3) Anemia: Current visit: No Status: Chronic FOBT + during last hospitalization, in patient with end-stage Colon Cancer. Iron and Ferritin low - Continue PP and ironVitamin C. Continue to monitor Hgb. (4) Chronic congestive heart failure with left ventricular diastolic dysfunction: Current visit: No Status: Chronic Diastolic CHF. Currently appears mildly dry to euvolemic, with BNP levels significantly lower than prior values at time of admission. Monitor fluid status and daily weight. (5) History of colon cancer, stage IV: Current visit: No Status: Chronic According to meeting between palliative care and patient during prior hospitalization - Mr. De Luna is aware that his Colon Ca is end-stage, without any further treatment options. He is DNR/DNI. He is also well known to Hospice, and accepted - he is currently enjoying his life and would like to continue until his quality of life becomes poor, and then will contact Hospice to actively enroll. (6) Elevated LFTs: Current visit: No Status: Chronic Chronic finding, currently with normal ALT & AST. Monitor. 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 Continue TPN. (8) DVT prophylaxis: Current visit: No Status: Acute No chemical prophylaxis in setting of anemia and recent heme + stool. Ensure SCDs and TEDs. (9) Advance directive on file: Current visit: No Status: Acute DNR/DNI. Subjective Interval history since last seen: 68-year-old man with past medical history significant for end-stage colon CA and CKD, admitted from [facility] Emergency Department on 09/29 with a diagnosis of Healthcare-acquired pneumonia. Mr. De Luna has a history of likely end-stage colon CA. He also suffers from COPD, chronic b/l pleural effusions necessitating placement of bilateral pleural catheters in November 2017, CKD secondary to nephrotic syndrome, and glomerul onephritis with a prior history of hemodialysis with subsequent recovery of renal function. 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 During his last admission imaging showed evidence of a non-dissecting Ascending Aortic Aneurysm. The patient also has a history of recurrent, pneumonia, recently hospitalized between 09/17 - 09/23 and treated for a bout of Pneumonia and ALONSO, reportedly after an initial treatment with levofloxacin in early August for community-acquired pneumonia was unsuccessful. Following discharge Mr. De Luna felt well until approximately 3 days prior to his readmission, when he began experiencing worsening dyspnea and a productive cough. Imaging in the ED showed evidence of worsening b/l lower lobe opacities. He also had a mild leukocytosis. The patient was referred for admission for further evaluation and treatment of HCAP. Mr. De Luna had continued to have fevers until the night of 09/30, and reported onset of rigors overnight previously - all resolved. He has remained afebrile since. Continues to complain of a cough and hoarseness when speaking, followed by episodes of hemoptysis when coughing. A repeat CXR was obtained showing increased prominence of the basilar areas of infiltration, and interval development of a small to moderate sized pleural effusion. There were no other overnight events reported. Was evaluated by speech without evidence of overt aspiration. Recommendations for change to dysphagia diet due to mild oral -prep dysphagia secondary to being completely edentulous. Exam Narrative Exam Narrative: General: Patient is thin, More uncomfortable appearing, AAOX3, NAD. Pale. Neck: Supple CV: Regular, nontachycardic, S1S2, 3/6 RUSB/LLSB murmur Pulmonary: Worsening bibasilar crackles and decreased breath sounds, no wheezing. Abdomen: + Bowel Sounds, soft, nontender, nondistended Vascular: No lower extremity edema Psych: Normal mood and affect. Objective Objective Clinical Data: Abnormal lab results 10/03/18 10/03/18 Range/Units 06:40 06:45 RBC 3.05 L (4.50-6.00) m/cumm Hgb 8.3 L (13.5-17.5) g/dL Hct 27.3 L (40.0-50.0) % MCHC 30.4 L (32.0-36.0) g/dL RDW 18.4 H (11.8-14.1) % MPV 12.7 H (8.0-11.0) fL Absolute Lymphocytes 1.05 L (1.2-3.4) k/cumm Absolute Monocytes 0.74 H (0.11-0.7) k/cumm BUN 31 H (7-18) mg/dL Creatinine 1.42 H (0.70-1.30) mg/dL Alkaline Phosphatase 355 H (46-116) U/L Total Protein 5.9 L (6.4-8.2) g/dL Albumin 1.6 L (3.4-5.0) g/dL Vital Signs Temperature 37 C 10/03/18 16:29 Temperature Source Tympanic 10/03/18 16:29 Pulse 86 10/03/18 16:29 Pulse Rhythm Regular 10/03/18 08:10 Pulse 74 09/29/18 19:50 Respiratory Rate 21 10/03/18 16:29 Respiratory Effort Non-Labored 10/03/18 08:10 Respiratory Depth Normal 10/03/18 08:10 Respiratory Pattern Normal 10/03/18 08:10 Blood Pressure 107/62 10/03/18 16:29 Blood Pressure Mean 74 09/29/18 19:33 Blood Pressure Position Supine 09/29/18 16:50 Pulse Oximetry 95 10/03/18 16:29 Oxygen Delivery Method Nasal Cannula 10/03/18 16:29 Oxygen Flow Rate 2 10/03/18 16:29 Pain Level 4 10/03/18 17:10 Comment 10/03/18 16:29 Intake & Output 02/08/0810/03/18 10/03/18 23:59 11:59 23:59 Intake Total 1873.3333 / 3929.6666 2651.0003 / 4297.6666 1646.6663 / 4297.6666 Output Total 1475 / 2225 1425 / 1825 400 / 1825 Balance 398.3333 / 1704.6666 1226.0003 / 2472.6666 1246.6663 / 2472.6666 Weight 52.2 kg Intake: IV 1393.3333 / 2999.6666 1861.0003 / 3027.6666 1166.6663 / 3027.6666 Oral 480 / 930 790 / 1270 480 / 1270 Output: Urine 800 / 1200 825 / 925 100 / 925 Stool 675 / 1025 600 / 900 300 / 900 Other: Urine Color Yellow Yellow Yellow Urine Appearance Clear Clear Clear Urine Odor None None Normal Comment Void x1 in the urinal. Voiding Methods Urinal Urinal Urinal Laboratory Results WBC 6.92 k/cumm (4.4-10.8) 10/03/18 06:45 RBC 3.05 m/cumm (4.50-6.00) L 10/03/18 06:45 Hgb 8.3 g/dL (13.5-17.5) L 10/03/18 06:45 Hct 27.3 % (40.0-50.0) L 10/03/18 06:45 MCV 89.5 fL (80-95) 10/03/18 06:45 MCH 27.2 pg (27.0-33.0) 10/03/18 06:45 MCHC 30.4 g/dL (32.0-36.0) L 10/03/18 06:45 RDW 18.4 % (11.8-14.1) H 10/03/18 06:45 Plt Count 194 x1000/uL (130-400) 10/03/18 06:45 MPV 12.7 fL (8.0-11.0) H 10/03/18 06:45 Immature Gran % 0.3 10/03/18 06:45 Neutrophils % 68.6 10/03/18 06:45 Band Neutrophils % 3.0 % 09/29/18 17:00 Lymphocytes % 15.2 10/03/18 06:45 Monocytes % 10.7 10/03/18 06:45 Eosinophils % 4.8 10/03/18 06:45 Basophils % 0.4 10/03/18 06:45 Absolute Neutrophils 4.75 k/cumm (1.2-6.7) 10/03/18 06:45 Absolute Lymphocytes 1.05 k/cumm (1.2-3.4) L 10/03/18 06:45 Absolute Monocytes 0.74 k/cumm (0.11-0.7) H 10/03/18 06:45 Absolute Eosinophils 0.33 k/cumm (0.0-0.7) 10/03/18 06:45 Absolute Basophils 0.03 k/cumm (0.0-0.2) 10/03/18 06:45 Metamyelocytes 1.0 % 09/29/18 17:00 Differential Comment Manual differential 09/29/18 17:00 RBC Morphology See below 09/29/18 17:00 Polychromasia Present 09/29/18 17:00 Hypochromasia 2+ 09/29/18 17:00 Poikilocytosis 1+ 09/29/18 17:00 Anisocytosis 2+ 09/29/18 17:00 Microcytosis 1+ 09/29/18 17:00 PT 10.6 sec (9.3-11.0) 10/01/18 08:45 INR 1.1 (0.9-1.1) 10/01/18 08:45 VBG pH 7.43 (7.32-7.43) 09/29/18 17:00 VBG pCO2 38 mm/Hg (34-47) 09/29/18 17:00 VBG pO2 36 mm/Hg (28-44) 09/29/18 17:00 VBG HCO3 26 mmol/L (22-28) 09/29/18 17:00 VBG Total CO2 24 mmol/L (22-29) 09/29/18 17:00 VBG O2 Saturation 72 % (70-80) 09/29/18 17:00 VBG Base Excess 1.2 mmol/L (-3-3) 09/29/18 17:00 Sodium 142 mmol/L (136-145) 10/03/18 06:40 Potassium 3.7 mmol/L (3.5-5.1) 10/03/18 06:40 Chloride 106 mmol/L (98-107) 10/03/18 06:40 Carbon Dioxide 27.5 mmol/L (21.0-32.0) 10/03/18 06:40 Anion Gap 8.5 mmol/L (3-11) 10/03/18 06:40 BUN 31 mg/dL (7-18) H 10/03/18 06:40 Creatinine 1.42 mg/dL (0.70-1.30) H 10/03/18 06:40 Estimated GFR/1.73 m2 49.88 (mL/min/1.73m2) 10/03/18 06:40 Glucose 100 mg/dL (70-100) 10/03/18 06:40 Lactate 1.4 mmol/l (0.6-1.4) 09/29/18 17:00 Calcium 8.5 mg/dL (8.5-10.1) 10/03/18 06:40 Phosphorus 3.6 mg/dL (2.6-4.7) 10/03/18 06:45 Magnesium 1.8 mg/dL (1.8-2.4) 10/03/18 06:45 Total Bilirubin 0.5 mg/dL (0.2-1.0) 10/03/18 06:40 AST 21 U/L (15-37) 10/03/18 06:40 ALT 23 U/L (12-78) 10/03/18 06:40 Alkaline Phosphatase 355 U/L (46-116) H 10/03/18 06:40 Troponin I 0.02 ng/mL (0.00-0.06) 09/29/18 17:00 NT-Pro-B Natriuret Pep 867 pg/mL (-299) H 09/29/18 17:00 Total Protein 5.9 g/dL (6.4-8.2) L 10/03/18 06:40 Albumin 1.6 g/dL (3.4-5.0) L 10/03/18 06:40 Vancomycin Trough 23.8 ug/mL (10.0-20.0) H* 10/02/18 05:15
[2018-10-03] MEDS: Mirtazapine 15 MG TAB PO (21:38)
[2018-10-03] MEDS: Gabapentin 300 MG CAP PO (21:38)
[2018-10-04] VITALS (11 sets, daily range): BP systolic 95–118; BP diastolic 56–69; PULSE 90–104; RESP 1–34; TEMP 36.7–38.5; O2SAT 90–95
[2018-10-04] MEDS: AZTREONAM 2,000 MG in Normal Saline 100 ML 200 MG IVPB ×3 (01:42→17:39)
[2018-10-04] MEDS: methylPREDNISolone SUCC 40 MG VIAL IVP ×3 (03:08→20:25)
[2018-10-04] MEDS: Normal Saline Flush 10 ML SYR IVP ×4 (03:09→17:56)
[2018-10-04] MEDS: Albuterol/Ipratropium 3 ML UPD VIAL UPD ×3 (05:32→18:39)
[2018-10-04 07:38] LABS: Abs Immature Grans 0.04 k/cumm (0.0-0.09); Absolute Basophil Count 0.01 k/cumm (0.0-0.2); Absolute Eosinophil Count 0.01 k/cumm (0.0-0.7); Absolute Lymphocyte Count 0.63 k/cumm (1.2-3.4); Absolute Monocyte Count 0.78 k/cumm (0.11-0.7); Basophils % 0.1; Eosinophils % 0.1; HCT 27.5 % (40.0-50.0); HGB 8.4 g/dL (13.5-17.5); Immature Grans % 0.3; Lymphocytes % 4.8; Mean Corp. HGB Concentration 30.5 g/dL (32.0-36.0); Mean Corpuscular Hemoglobin 27.1 pg (27.0-33.0); Mean Corpuscular Volume 88.7 fL (80-95); Mean Platelet Volume 12.8 fL (8.0-11.0); Monocytes % 5.9; Neutrophils % 88.8; Platelet Count 206 x1000/uL (130-400); RBC Distribution Width 18.3 % (11.8-14.1); White Blood Cell Count 13.17 k/cumm (4.4-10.8)
[2018-10-04 07:45] LABS: Absolute Neutrophil Count 11.69 k/cumm (1.2-6.7)
[2018-10-04 07:59] LABS: ALT 25 U/L (12-78); AST 22 U/L (15-37); Albumin 1.6 g/dL (3.4-5.0); Alkaline Phosphatase 345 U/L (46-116); Anion Gap 13.1 mmol/L (3-11); BUN 36 mg/dL (7-18); Bilirubin, Total 0.5 mg/dL (0.2-1.0); CO2 22.9 mmol/L (21.0-32.0); CREATININE 1.51 mg/dL (0.70-1.30); Calcium 8.6 mg/dL (8.5-10.1); Chloride 105 mmol/L (98-107); Estimated GFR 46.47 (mL/min/1.73m2); Glucose 119 mg/dL (70-100); Magnesium 1.7 mg/dL (1.8-2.4); Potassium 3.8 mmol/L (3.5-5.1); Sodium 141 mmol/L (136-145); Total Protein 6.4 g/dL (6.4-8.2)
[2018-10-04 08:02] LABS: PHOSPHORUS 3.4 mg/dL (2.6-4.7)
[2018-10-04] MEDS: Tamsulosin 0.4 MG CAPCR PO (08:13)
[2018-10-04] MEDS: Metoprolol 25 MG TAB PO ×2 (08:13→20:24)
[2018-10-04] MEDS: Ferrous Sulfate 325 MG TAB PO ×2 (08:13→20:36)
[2018-10-04] MEDS: Pantoprazole 40 MG TABCR PO (08:13)
[2018-10-04 09:53] LABS: Vancomycin, Trough 21.7 ug/mL (10.0-20.0)
[2018-10-04] MEDS: Potassium Chloride 20 MEQ TABCR PO (10:14)
[2018-10-04] MEDS: Magnesium Oxide 400 MG TAB PO (10:14)
[2018-10-04] MEDS: VANCOMYCIN 750 MG in Normal Saline 250 ML IVPB (10:56)
--- NOTE | 2018-10-04 12:41 | PDOC.CMPRO ---
Care Management Progress Note S/O: Boogie had the pigtail pleural catheters removed last night, and cultures tested positive for yeast. shared concerns around possible sepsis and Boogie's BP is low, his lungs continue to fill with fluid and the pigtails can not be replaced due to sepsis; per MD. Boogie had a stat chest xray. JUDY Melgoza contacted Boogie's , Crystal to notify likely ongoing draining Boogie's lungs would be required. Crystal reported her preference would be to continue draining the lungs until she could come see Boogie tomorrow as she is unable to get to [facility] today. CM called Dr. Jensen and requested she come help walk Boogie and Crystal through decision making process. Dr. Jensen met with Boogie for some time, his Crystal participated by phone. Dr. Jensen reported she would return in the morning to revisit discussion with Boogie as per their discussion, both Dr. Jensen and Boogie feel this is the most clinically fragile he has been, and may not recover this time. will continue to follow and support Boogie and Crystal. A: Boogie is a 68 year old male admitted with Health care acquired pneumonia with a history of COPD, CHF and colon Ca. P: Boogie and his Crystal will meet with Palliative Care; Dr. Jensen again tomorrow morning to determine next steps.
--- NOTE | 2018-10-04 13:08 | CMPROGNOTE_ITS ---
Care Management Progress Note S/O: Boogie had the pigtail pleural catheters removed last night, and cultures tested positive for yeast. shared concerns around possible sepsis and Boogie's BP is low, his lungs continue to fill with fluid and the pigtails can not be replaced due to sepsis; per MD. Boogie had a stat chest xray. JUDY Melgoza contacted Boogie's , Crystal to notify likely ongoing draining Boogie's lungs would be required. Crystal reported her preference would be to continue draining the lungs until she could come see Boogie tomorrow as she is unable to get to [facility] today. CM called Dr. Jensen and requested she come help walk Boogie and Crystal through decision making process. Dr. Jensen met with Boogie for some time, his Crystal participated by phone. Dr. Jensen reported she would return in the morning to revisit discussion with Boogie as per their discussion, both Dr. Jensen and Boogie feel this is the most clinically fragile he has been, and may not recover this time. will continue to follow and support Boogie and Crystal. A: Boogie is a 68 year old male admitted with Health care acquired pneumonia with a history of COPD, CHF and colon Ca. P: Boogie and his Crystal will meet with Palliative Care; Dr. Jensen again tomorrow morning to determine next steps.
--- NOTE | 2018-10-04 13:12 | DI.RAD_ITS ---
SYMPTOMS/DIAGNOSIS: SHORTNESS OF BREATH, RT CHEST PAIN, S/P CHEST TUBE REMOVAL UPRIGHT AP PORTABLE CHEST: When compared with the previous examination of 10/03/18, there has been a significant interval decrease in the region of atelectasis and size of a left pleural effusion. Also there has been some apparent partial re-expansion of the right lower lobe. The right pleural effusion appears unchanged. The heart is unchanged in size in this patient who is status post AVR.
--- NOTE | 2018-10-04 17:07 | CHAPLAIN ---
I visited with Humberto shortly after the DI team had completed portable xrays. Humberto said he thinks he broke a rib coughing. He said he still feels like he hasn't turned the corner, and told me again that he hopes to have a good summer and then go be with the Lord. I asked him what a good summer would entail, and he said he hopes to spend time with his son who lives in [place], work on cars with him and go fishing. Humberto also told me about an experience he had in which he met his twin sister who has . Humberto said his sister told him he I still have work to do, but she'll be waiting for me. Humberto described this experience as being very comforting to him.
--- NOTE | 2018-10-04 17:24 | PGE_ITS ---
Date of Service Date of service: 10/04/18 Time of Service: 17:22 Assessment and Plan (1) Pneumonia: Current visit: No Status: Acute Just treated with HCAP coverage that included Vancomycin and Cefepime, with course completed on 09/22, returned with worsening symptoms and imaging. Also with history of recurrent PNA, as well as b/l pleural catheters in place. Symptomatically worsened despite 4 days of combination Vancomycin, Levofloxacin, and Aztreonam. Imaging with worsening effusion and infiltrate - surgery was consulted regarding draining of the caths - following discussion both caths were drained, with approximate 400cc's of fluid removal on the left only - subsequent CXR improved. As there was concern regarding infection involving the catheter tubes themselves, both of these were removed as well. Current cultures growing Coag Negative Staph - will await speciation. Patient also with repeat fever today - Will check CT of the chest to ensure lack of empyema or other pathology, and monitor. Continue antibiotics with above combination, now day #2 post removal of catheters. Continue to monitor cultures, currently with one set of blood cultures positive for staph epidermidis only. Speech eval without overt aspiration risk. (2) Chronic bilateral pleural effusions: Current visit: No Status: Chronic B/l pleural Catheters, both removed 10/03. Plan as above. (3) Anemia: Current visit: No Status: Chronic FOBT + during last hospitalization, in patient with end-stage Colon Cancer. Iron and Ferritin low - Continue PP and iron/Vitamin C. Continue to monitor Hgb. (4) Chronic congestive heart failure with left ventricular diastolic dysfunction: Current visit: No Status: Chronic Diastolic CHF. Currently appears mildly dry to euvolemic, with BNP levels significantly lower than prior values at time of admission. Monitor fluid status and daily weight. (5) History of colon cancer, stage IV: Current visit: No Status: Chronic According to meeting between palliative care and patient during prior hospitalization - Mr. De Luna is aware that his Colon Ca is end-stage, without any further treatment options. He is DNR/DNI. He is also well known to Hospice, and accepted - he is currently enjoying his life and would like to continue until his quality of life becomes poor, and then will contact Hospice to actively enroll. (6) Elevated LFTs: Current visit: No Status: Chronic Chronic finding, currently with normal ALT & AST. Monitor. 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 Continue TPN. (8) DVT prophylaxis: Current visit: No Status: Acute No chemical prophylaxis in setting of anemia and recent heme + stool. Ensure SCDs and TEDs. (9) Advance directive on file: Current visit: No Status: Acute DNR/DNI. Subjective Interval history since last seen: 68-year-old man with past medical history significant for end-stage colon CA and CKD, admitted from [facility] Emergency Department on 09/29 with a diagnosis of Healthcare-acquired pneumonia. Mr. De Luna has a history of likely end-stage colon CA. He also suffers from COPD, chronic b/l pleural effusions necessitating placement of bilateral pleural catheters in November 2017, CKD secondary to nephrotic syndrome, and glomerulonephritis with a prior history of hemodialysis with subsequent recovery of renal function. 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 During his last admission imaging showed evidence of a non-dissecting Ascending Aortic Aneurysm. The patient also has a history of recurrent, pneumonia, recently hospitalized between 09/17 - 09/23 and treated for a bout of Pneumonia and ALONSO, reportedly after an initial treatment with levofloxacin in early August for community-acquired pneumonia was unsuccessful. Following discharge Mr. De Luna felt well until approximately 3 days prior to his readmission, when he began experiencing worsening dyspnea and a productive cough. Imaging in the ED showed evidence of worsening b/l lower lobe opacities. He also had a mild leukocytosis. The patient was referred for admission for further evaluation and treatment of HCAP. Mr. De Luna had continued to have fevers until the night of 09/30, and reported onset of rigors overnight previously - all resolved until today. He Continued to complain of a cough and hoarseness when speaking, followed by episodes of hemoptysis when coughing. A repeat CXR was obtained showing increased prominence of the basilar areas of infiltration, and interval development of a small to moderate sized pleural effusion. His catheters were drained, and found to be encrusted with purulent appearing material. His pleural caths were pulled, and along with fluid were sent to the lab, now growing a Coag negative Staph. Cathie ent is complaining of pain at the catheter site on the right side. He had a fever of 38.5 this afternoon. Exam Narrative Exam Narrative: General: Patient is thin, More uncomfortable appearing, AAOX3, NAD. Pale. Neck: Supple CV: Regular, nontachycardic, S1S2, 3/6 RUSB/LLSB murmur Pulmonary: Decreased bibasilar crackles and decreased breath sounds, improved. No wheezing. Abdomen: + Bowel Sounds, soft, nontender, nondistended Vascular: No lower extremity edema Psych: Normal mood and affect. Objective Objective Clinical Data: Abnormal lab results 10/04/18 10/04/18 10/04/18 Range/Units 06:50 06:50 09:10 WBC 13.17 H D (4.4-10.8) k/cumm RBC 3.10 L (4.50-6.00) m/cumm Hgb 8.4 L (13.5-17.5) g/dL Hct 27.5 L (40.0-50.0) % MCHC 30.5 L (32.0-36.0) g/dL RDW 18.3 H (11.8-14.1) % MPV 12.8 H (8.0-11.0) fL Absolute Neutrophils 11.69 H (1.2-6.7) k/cumm Absolute Lymphocytes 0.63 L (1.2-3.4) k/cumm Absolute Monocytes 0.78 H (0.11-0.7) k/cumm Anion Gap 13.1 H (3-11) mmol/L BUN 36 H (7-18) mg/dL Creatinine 1.51 H (0.70-1.30) mg/dL Glucose 119 H (70-100) mg/dL Magnesium 1.7 L (1.8-2.4) mg/dL Alkaline Phosphatase 345 H (46-116) U/L Albumin 1.6 L (3.4-5.0) g/dL Vancomycin Trough 21.7 H* (10.0-20.0) ug/mL Vital Signs Temperature 37.5 C 10/04/18 15:45 Temperature Source Tympanic 10/04/18 15:45 Pulse 104 H 10/04/18 15:45 Pulse Rhythm Regular 10/04/18 08:00 Pulse 74 09/29/18 19:50 Respiratory Rate 34 H 02/14/19 15:45 Respiratory Effort Accessory Muscle Use 10/04/18 15:45 Respiratory Depth Deep 10/04/18 15:45 Respiratory Pattern Tachypnea 10/04/18 15:45 Blood Pressure 118/69 10/04/18 15:45 Blood Pressure Mean 74 09/29/18 19:33 Blood Pressure Position Supine 09/29/18 16:50 Pulse Oximetry 90 L 10/04/18 15:45 Oxygen Delivery Method Nasal Cannula 10/04/18 13:05 Oxygen Flow Rate 2 10/04/18 13:05 Pain Level 10 10/04/18 13:00 Comment 10/03/18 21:00 Intake & Output 10/03/18 10/04/18 10/04/18 23:59 11:59 23:59 Intake Total 2016.6663 / 4667.6666 2034.3333 / 2844.3333 810 / 2844.3333 Output Total 950 / 2375 700 / 1600 900 / 1600 Balance 1066.6663 / 2292.6666 1334.3333 / 1244.3333 -90 / 1244.3333 Weight 52.4 kg Intake: IV 1536.6663 / 3397.6666 1484.3333 / 1794.3333 310 / 1794.3333 Oral 480 / 1270 550 / 1050 500 / 1050 Output: Urine 300 / 1125 600 / 1050 450 / 1050 Stool 650 / 1250 100 / 550 450 / 550 Other: Urine Color Yellow Yellow Yellow Urine Appearance Clear Clear Clear Urine Odor Normal Normal Normal Voiding Methods Urinal Urinal Urinal Laboratory Results WBC 13.17 k/cumm (4.4-10.8) H D 10/04/18 06:50 RBC 3.10 m/cumm (4.50-6.00) L 10/04/18 06:50 Hgb 8.4 g/dL (13.5-17.5) L 10/04/18 06:50 Hct 27.5 % (40.0-50.0) L 10/04/18 06:50 MCV 88.7 fL (80-95) 10/04/18 06:50 MCH 27.1 pg (27.0-33.0) 10/04/18 06:50 MCHC 30.5 g/dL (32.0-36.0) L 10/04/18 06:50 RDW 18.3 % (11.8-14.1) H 10/04/18 06:50 Plt Count 206 x1000/uL (130-400) 10/04/18 06:50 MPV 12.8 fL (8.0-11.0) H 10/04/18 06:50 Immature Gran % 0.3 10/04/18 06:50 Neutrophils % 88.8 10/04/18 06:50 Band Neutrophils % 3.0 % 09/29/18 17:00 Lymphocytes % 4.8 10/04/18 06:50 Monocytes % 5.9 10/04/18 06:50 Eosinophils % 0.1 10/04/18 06:50 Basophils % 0.1 10/04/18 06:50 Absolute Neutrophils 11.69 k/cumm (1.2-6.7) H 10/04/18 06:50 Absolute Lymphocytes 0.63 k/cumm (1.2-3.4) L 10/04/18 06:50 Absolute Monocytes 0.78 k/cumm (0.11-0.7) H 10/04/18 06:50 Absolute Eosinophils 0.01 k/cumm (0.0-0.7) 10/04/18 06:50 Absolute Basophils 0.01 k/cumm (0.0-0.2) 10/04/18 06:50 Metamyelocytes 1.0 % 09/29/18 17:00 Differential Comment Manual differential 09/29/18 17:00 RBC Morphology See below 09/29/18 17:00 Polychromasia Present 09/29/18 17:00 Hypochromasia 2+ 09/29/18 17:00 Poikilocytosis 1+ 09/29/18 17:00 Anisocytosis 2+ 09/29/18 17:00 Microcytosis 1+ 09/29/18 17:00 PT 10.6 sec (9.3-11.0) 10/01/18 08:45 INR 1.1 (0.9-1.1) 10/01/18 08:45 VBG pH 7.43 (7.32-7.43) 09/29/18 17:00 VBG pCO2 38 mm/Hg (34-47) 09/29/18 17:00 VBG pO2 36 mm/Hg (28-44) 09/29/18 17:00 VBG HCO3 26 mmol/L (22-28) 09/29/18 17:00 VBG Total CO2 24 mmol/L (22-29) 09/29/18 17:00 VBG O2 Saturation 72 % (70-80) 09/29/18 17:00 VBG Base Excess 1.2 mmol/L (-3-3) 09/29/18 17:00 Sodium 141 mmol/L (136-145) 10/04/18 06:50 Potassium 3.8 mmol/L (3.5-5.1) 10/04/18 06:50 Chloride 105 mmol/L (98-107) 10/04/18 06:50 Carbon Dioxide 22.9 mmol/L (21.0-32.0) 10/04/18 06:50 Anion Gap 13.1 mmol/L (3-11) H 10/04/18 06:50 BUN 36 mg/dL (7-18) H 10/04/18 06:50 Creatinine 1.51 mg/dL (0.70-1.30) H 10/04/18 06:50 Estimated GFR/1.73 m2 46.47 (mL/min/1.73m2) 10/04/18 06:50 Glucose 119 mg/dL (70-100) H 10/04/18 06:50 Lactate 1.4 mmol/l (0.6-1.4) 09/29/18 17:00 Calcium 8.6 mg/dL (8.5-10.1) 10/04/18 06:50 Phosphorus 3.4 mg/dL (2.6-4.7) 10/04/18 06:50 Magnesium 1.7 mg/dL (1.8-2.4) L 10/04/18 06:50 Total Bilirubin 0.5 mg/dL (0.2-1.0) 10/04/18 06:50 AST 22 U/L (15-37) 10/04/18 06:50 ALT 25 U/L (12-78) 10/04/18 06:50 Alkaline Phosphatase 345 U/L (46-116) H 10/04/18 06:50 Troponin I 0.02 ng/mL (0.00-0.06) 09/29/18 17:00 NT-Pro-B Natriuret Pep 867 pg/mL (-299) H 09/29/18 17:00 Total Protein 6.4 g/dL (6.4-8.2) 10/04/18 06:50 Albumin 1.6 g/dL (3.4-5.0) L 10/04/18 06:50 Vancomycin Trough 21.7 ug/mL (10.0-20.0) H* 10/04/18 09:10
[2018-10-04] MEDS: Normal Saline 500 ML IV (17:38)
--- NOTE | 2018-10-04 17:45 | DI.CT_ITS ---
SYMPTOM/DIAGNOSIS:PERSISTENT FEVER, PNEUMONIA, PLEURAL FLUID CHEST CT: A noncontrast examination was performed. There is atherosclerosis of the thoracic aorta. The heart appears upper limits of normal to mildly enlarged. No significant pericardial effusion is seen. There is a right PICC line, the tip of the catheter is seen at the junction of the superior vena cava and right atrium. Mildly enlarged lymph nodes are seen in the mediastinum which are likely reactive. There are bilateral pleural effusions. There is a moderate right and a small left pleural effusion. Portion of the right pleural effusion appears loculated laterally. There are bilateral basilar infiltrates suspicious for pneumonia, right greater than left. Note is made of a small residual pneumothorax in the right lateral hemithorax. It appears to lie at the chest tube insertion level. Mild to moderate emphysematous changes are seen in the lungs. The tracheobronchial tree is unremarkable. No acute osseous abnormality is identified. Degenerative changes are seen in the bones. There is patient motion artifact present. IMPRESSION: 1. Bilateral basilar infiltrates suspicious for pneumonia, right greater than left. 2. Bilateral pleural effusions, moderate and loculated right and small left pleural effusion are present. 3. Patient motion artifact. 4. Small loculated right pneumothorax.
--- NOTE | 2018-10-04 18:23 | DI.VRAD_ITS ---
EXAM: CT Chest Without Contrast EXAM DATE/TIME: 10/04/2018 4:57 PM CLINICAL HISTORY: 68 years old, male; Signs and symptoms; Fever; Patient HX: Persistent fever; Pneumonia; Pleural fluid TECHNIQUE: Axial computed tomography images of the chest without intravenous contrast. Coronal and sagittal reformatted images were created and reviewed. COMPARISON: CT CHEST WO 09/17/2018 7:19 PM FINDINGS: Tubes, catheters and devices: Previous right upper lobe chest tube track identified with trace loculated residual pneumothorax at the chest tube insertion level. Lungs: There is moderate, dense right lower lobe consolidation and mild left lower lobe pneumonia. There is a moderate size right pleural effusion with areas of loculation and small left effusion. Pleural space: See Lungs Finding. Heart: Normal. No cardiomegaly. No pericardial effusion. Aorta: Moderate atherosclerotic change present in the vasculature. Lymph nodes: Unremarkable. No enlarged lymph nodes. Bones/joints: Status post median sternotomy. Soft tissues: Unremarkable. Other findings: Respiratory motion noted. IMPRESSION: 1. Bibasilar pneumonia, right worse than left. 2. Loculated, moderate sized right pleural effusion with small left effusion. COMMENT: Preliminary interpretation is based on receipt of 207 image(s). A final report will be issued subsequently. Dictated and Authenticated by: Debra Land MD. Ordering:MARJORIE Bustillos MD
[2018-10-04] MEDS: LEVOFLOXACIN 500 MG/100 ML BAG 100 MG IVPB (20:23)
[2018-10-04] MEDS: Mirtazapine 15 MG TAB PO (22:11)
[2018-10-04] MEDS: Gabapentin 300 MG CAP PO (22:11)
[2018-10-05] VITALS (13 sets, daily range): BP systolic 81–114; BP diastolic 51–76; PULSE 76–92; RESP 1–28; TEMP 36.3–37; O2SAT 90–99
[2018-10-05] MEDS: AZTREONAM 2,000 MG in Normal Saline 100 ML 200 MG IVPB ×3 (02:57→18:01)
[2018-10-05] MEDS: methylPREDNISolone SUCC 40 MG VIAL IVP ×3 (03:55→19:45)
[2018-10-05] MEDS: VANCOMYCIN 750 MG in Normal Saline 250 ML IVPB (07:01)
[2018-10-05] MEDS: Albuterol/Ipratropium 3 ML UPD VIAL UPD ×3 (07:02→17:29)
[2018-10-05 07:09] LABS: Abs Immature Grans 0.03 k/cumm (0.0-0.09); Absolute Basophil Count 0.01 k/cumm (0.0-0.2); Absolute Eosinophil Count 0.01 k/cumm (0.0-0.7); Absolute Lymphocyte Count 0.52 k/cumm (1.2-3.4); Absolute Monocyte Count 0.65 k/cumm (0.11-0.7); Absolute Neutrophil Count 12.01 k/cumm (1.2-6.7); Basophils % 0.1; Eosinophils % 0.1; HCT 26.6 % (40.0-50.0); HGB 8.2 g/dL (13.5-17.5); Immature Grans % 0.2; Lymphocytes % 3.9; Mean Corp. HGB Concentration 30.8 g/dL (32.0-36.0); Mean Corpuscular Hemoglobin 27.6 pg (27.0-33.0); Mean Corpuscular Volume 89.6 fL (80-95); Mean Platelet Volume 12.7 fL (8.0-11.0); Monocytes % 4.9; Neutrophils % 90.8; Platelet Count 211 x1000/uL (130-400); RBC 2.97 m/cumm (4.50-6.00); White Blood Cell Count 13.23 k/cumm (4.4-10.8)
[2018-10-05 07:41] LABS: Chloride 106 mmol/L (98-107); Magnesium 1.9 mg/dL (1.8-2.4)
[2018-10-05 07:47] LABS: Anisocytosis 2+; Diff Comment RBC Morph Reviewed; Hypochromasia 1+; Poikilocytes 1+; Polychromasia Present
[2018-10-05 07:48] LABS: PHOSPHORUS 3.4 mg/dL (2.6-4.7)
[2018-10-05] MEDS: Normal Saline Flush 10 ML SYR IVP ×3 (08:05→19:45)
[2018-10-05] MEDS: Metoprolol 25 MG TAB PO ×2 (08:06→19:45)
[2018-10-05] MEDS: Tamsulosin 0.4 MG CAPCR PO (08:06)
[2018-10-05] MEDS: Ferrous Sulfate 325 MG TAB PO ×2 (08:06→19:45)
[2018-10-05] MEDS: Pantoprazole 40 MG TABCR PO (08:06)
[2018-10-05 08:35] LABS: INR 1.1 (0.9-1.1); Prothrombin Time 10.8 sec (9.3-11.0)
[2018-10-05 08:47] LABS: ALT 24 U/L (12-78); AST 17 U/L (15-37); Albumin 1.6 g/dL (3.4-5.0); Alkaline Phosphatase 308 U/L (46-116); Anion Gap 10.4 mmol/L (3-11); BUN 39 mg/dL (7-18); Bilirubin, Total 0.5 mg/dL (0.2-1.0); CO2 24.6 mmol/L (21.0-32.0); CREATININE 1.47 mg/dL (0.70-1.30); Calcium 8.5 mg/dL (8.5-10.1); Estimated GFR 47.93 (mL/min/1.73m2); Glucose 136 mg/dL (70-100); Potassium 4.6 mmol/L (3.5-5.1); Sodium 141 mmol/L (136-145); Total Protein 6.1 g/dL (6.4-8.2)
--- NOTE | 2018-10-05 11:59 | PDOC.CMPRO ---
Care Management Progress Note S/O: Boogie had a family meeting with Dr. Jensen, his Crystal, his son Rashida and Rashida's , as well as RN: Kaya from [facility]. Boogie will transition home on Monday to Hospice Care. Dr. Jensen completed DME orders which this scenario writer faxed to [facility]. CM also spoke with Brittney Ramos to notify of Hospice Admission. Brittney agreed to fax CTI and additional Hospice orders as needed for completion. CM will continue to follow. A: Boogie is a 68 year old male admitted with Health care acquired pneumonia with a history of COPD, CHF and colon Ca. P: Boogie will transition home on Monday to Hospice Care. He will transport via EMS coordinated by this scenario writer.
--- NOTE | 2018-10-05 12:25 | CMPROGNOTE_ITS ---
Care Management Progress Note S/O: Boogie had a family meeting with Dr. Jensen, his Crystal, his son Rashida and Rashida's , as well as RN: Kaya from [facility]. Boogie will transition home on Monday to Hospice Care. Dr. Jensen completed DME orders which this process description writer faxed to [facility]. CM also spoke with Brittney Ramos to notify of Hospice Admission. Brittney agreed to fax CTI and additional Hospice orders as needed for completion. CM will continue to follow. A: Boogie is a 68 year old male admitted with Health care acquired pneumonia with a history of COPD, CHF and colon Ca. P: Boogie will transition home on Monday to Hospice Care. He will transport via EMS coordinated by this process description writer.
[2018-10-05] MEDS: Insulin Aspart 300 UNITS/3 ML PEN SC ×3 (13:12→22:27)
--- NOTE | 2018-10-05 13:59 | CHAPLAIN ---
Boogie was sitting up in bed when I visited today. He seemed more comfortable and in less pain than yesterday. Boogie said a scan done yesterday showed that he has a mass on his lung that can be removed and he said this has changed his outlook and expectation of his life expectancy. Yesterday he told me that he hopes to have a good summer, and likely after that because of his colon cancer. His twin sister predeceased him and yesterday he said he would be seeing her again soon, and today he said she'll have to wait. Boogie shared some personal history telling me about he and his twin sister raising their eight younger sisters after their dad abandoned the family and their mom began drinking and not being responsible. Boogie began working at 16 to earn money. 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 I grew up even faster then, he said of his service during [place]. He is close to his sister, after raising them. He also said he and his are very devoted to each other. They have been 38 years, have had disagreements but have never had a fight. Boogie said his is coming in today to meet with him and Dr. Jensen and make plans for next steps.
--- NOTE | 2018-10-05 14:21 | W.PM.PROGNOT ---
Date of Service Date of service: 10/05/18 Time of Service: 14:21 Assessment and Plan (1) Pneumonia: Current visit: No Status: Acute Recurrent pneumonia in setting of loculated effusions, indwelling pleural caths now removed - according to surgery would require a Video-assisted Thoracoscopic Surgery, and Mr. De Luna is not a good candidate given his comorbidities. Palliative care has met with patient - plan for initiation of morphine drip for pain control and for titration purposes, monitoring over the weekend, with discharge to home with home hospice on monday. For now will continue antibiotics while in-house so patient is able to return home. (2) Chronic bilateral pleural effusions: Current visit: No Status: Chronic B/l pleural Catheters, both removed 10/03. Plan as above. (3) Anemia: Current visit: No Status: Chronic FOBT + during last hospitalization, in patient with end-stage Colon Cancer. Iron and Ferritin low - Continue PP and iron/Vitamin C. Discontinue daily CBC. (4) Chronic congestive heart failure with left ventricular diastolic dysfunction: Current visit: No Status: Chronic Diastolic CHF. Currently appears mildly dry to euvolemic. (5) History of colon cancer, stage IV: Current visit: No Status: Chronic Home Hospice as above. 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 TPN being weaned off by nutrition, with plans for patient to return to eating for comfort. (8) DVT prophylaxis: Current visit: No Status: Acute No chemical prophylaxis in setting of anemia and recent heme + stool. Ensure SCDs and TEDs. (9) Advance directive on file: Current visit: No Status: Acute DNR/DNI. Subjective Interval history since last seen: 68-year-old man with past medical history significant for end-stage colon CA and CKD, admitted from [facility] Emergency Department on 09/29 with a diagnosis of Healthcare-acquired pneumonia. Mr. De Luna has a history of likely end-stage colon CA. He also suffers from COPD, chronic b/l pleural effusions necessitating placement of bilateral pleural catheters in November 2017, CKD secondary to nephrotic syndrome, and glomerulonephritis with a prior history of hemodialysis with subsequent recovery of renal function. 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 During his last admission imaging showed evidence of a non-dissecting Ascending Aortic Aneurysm. The patient also has a history of recurrent, pneumonia, recently hospitalized between 09/17 - 09/23 and treated for a bout of Pneumonia and ALONSO, reportedly after an initial treatment with levofloxacin in early August for community-acquired pneumonia was unsuccessful. Following discharge Mr. De Luna felt well until approximately 3 days prior to his readmission, when he began experiencing worsening dyspnea and a productive cough. Imaging in the ED showed evidence of worsening b/l lower lobe opacities. He also had a mild leukocytosis. The patient was referred for admission for further evaluation and treatment of HCAP. Mr. De Luna had continued to have fevers until the night of 09/30, and reported onset of rigors overnight previously. He also continued to complain of a cough and hoarseness when speaking, followed by episodes of hemoptysis when coughing. A repeat CXR was obtained showing increased prominence of the basilar areas of infiltration, and interval development of a small to moderate sized pleural effusion. His catheters were drained, and found to be encrusted with purulent appearing material. His pleural caths were pulled, and along with fluid were sent to the lab, now growing a Coag negative Staph (also with ubaldo on cultures). Of note, one set of blood cultures from 09/29 was positive for Staph Epidermidis. Patient was complaining of pain at the catheter site on the right side following catheter removal. Given continued fevers an empyema /loculated fluid collection was suspected. Susbsequent CT showed evidence of basilar infiltrates, bilateral effusions, loculated on the right, as well as a small loculated right pneumothorax. Discussed case with Surgery who informed that treatment would have to include VATS procedure, and that given patient's comorbidities he was unlikely to be a candidate for this. Following meeting with Palliative Care Mr. De Luna has decided to return to his home with Home Hospice. Exam Narrative Exam Narrative: General: Patient is thin, More uncomfortable appearing, AAOX3, NAD. Pale. Neck: Supple CV: Regular, nontachycardic, S1S2, 3/6 RUSB/LLSB murmur Pulmonary: Decreased bibasilar crackles and decreased breath sounds, improved. No wheezing. Abdomen: + Bowel Sounds, soft, nontender, nondistended Vascular: No lower extremity edema Psych: Normal mood and affect. Objective Objective Clinical Data: Abnormal lab results 10/05/18 10/05/18 Range/Units 06:40 06:40 WBC 13.23 H (4.4-10.8) k/cumm RBC 2.97 L (4.50-6.00) m/cumm Hgb 8.2 L (13.5-17.5) g/dL Hct 26.6 L (40.0-50.0) % MCHC 30.8 L (32.0-36.0) g/dL RDW 19.0 H (11.8-14.1) % MPV 12.7 H (8.0-11.0) fL Absolute Neutrophils 12.01 H (1.2-6.7) k/cumm Absolute Lymphocytes 0.52 L (1.2-3.4) k/cumm BUN 39 H (7-18) mg/dL Creatinine 1.47 H (0.70-1.30) mg/dL Glucose 136 H (70-100) mg/dL Alkaline Phosphatase 308 H (46-116) U/L Total Protein 6.1 L (6.4-8.2) g/dL Albumin 1.6 L (3.4-5.0) g/dL Vital Signs Temperature 37.0 C 10/05/18 11:35 Temperature Source Tympanic 10/05/18 11:35 Pulse 84 10/05/18 13:18 Pulse Rhythm Regular 10/05/18 03:00 Pulse 74 09/29/18 19:50 Respiratory Rate 28 H 10/05/18 13:18 Respiratory Effort 10/05/18 03:00 Respiratory Depth Deep 10/05/18 03:00 Respiratory Pattern Normal 10/05/18 03:00 Blood Pressure 96/60 L 10/05/18 11:35 Blood Pressure Mean 74 09/29/18 19:33 Blood Pressure Position Supine 09/29/18 16:50 Pulse Oximetry 99 10/05/18 13:22 Oxygen Delivery Method Nasal Cannula 10/05/18 13:18 Oxygen Flow Rate 2 10/05/18 13:18 Pain Level 10 10/04/18 13:00 Comment 10/05/18 03:00 Intake & Output 10/04/18 10/05/18 10/05/18 23:59 11:59 23:59 Intake Total 2373.7003 / 4408.0336 2040.9993 / 2490.9993 450 / 2490.9993 Output Total 1450 / 2150 900 / 1200 300 / 1200 Balance 923.7003 / 2258.0336 1140.9993 / 1290.9993 150 / 1290.9993 Weight 53.3 kg Intake: IV 1433.7003 / 2918.0336 1490.9993 / 1940.9993 450 / 1940.9993 Oral 940 / 1490 550 / 550 Output: Urine 700 / 1300 700 / 700 Stool 750 / 850 200 / 500 300 / 500 Other: Urine Color Dark Lucia Light Lucia Urine Appearance Clear Clear Urine Odor None Normal Voiding Methods Bedside Commode Urinal Urinal Laboratory Results WBC 13.23 k/cumm (4.4-10.8) H 10/05/18 06:40 RBC 2.97 m/cumm (4.50-6.00) L 10/05/18 06:40 Hgb 8.2 g/dL (13.5-17.5) L 10/05/18 06:40 Hct 26.6 % (40.0-50.0) L 10/05/18 06:40 MCV 89.6 fL (80-95) 10/05/18 06:40 MCH 27.6 pg (27.0-33.0) 10/05/18 06:40 MCHC 30.8 g/dL (32.0-36.0) L 10/05/18 06:40 RDW 19.0 % (11.8-14.1) H 10/05/18 06:40 Plt Count 211 x1000/uL (130-400) 10/05/18 06:40 MPV 12.7 fL (8.0-11.0) H 10/05/18 06:40 Immature Gran % 0.2 10/05/18 06:40 Neutrophils % 90.8 10/05/18 06:40 Band Neutrophils % 3.0 % 09/29/18 17:00 Lymphocytes % 3.9 10/05/18 06:40 Monocytes % 4.9 10/05/18 06:40 Eosinophils % 0.1 10/05/18 06:40 Basophils % 0.1 10/05/18 06:40 Absolute Neutrophils 12.01 k/cumm (1.2-6.7) H 10/05/18 06:40 Absolute Lymphocytes 0.52 k/cumm (1.2-3.4) L 10/05/18 06:40 Absolute Monocytes 0.65 k/cumm (0.11-0.7) 10/05/18 06:40 Absolute Eosinophils 0.01 k/cumm (0.0-0.7) 10/05/18 06:40 Absolute Basophils 0.01 k/cumm (0.0-0.2) 10/05/18 06:40 Metamyelocytes 1.0 % 09/29/18 17:00 Differential Comment Rbc morph reviewed 10/05/18 06:40 RBC Morphology See below 10/05/18 06:40 Polychromasia Present 10/05/18 06:40 Hypochromasia 1+ 10/05/18 06:40 Poikilocytosis 1+ 10/05/18 06:40 Anisocytosis 2+ 10/05/18 06:40 Microcytosis 1+ 09/29/18 17:00 PT 10.8 sec (9.3-11.0) 10/05/18 06:40 INR 1.1 (0.9-1.1) 10/05/18 06:40 VBG pH 7.43 (7.32-7.43) 09/29/18 17:00 VBG pCO2 38 mm/Hg (34-47) 09/29/18 17:00 VBG pO2 36 mm/Hg (28-44) 09/29/18 17:00 VBG HCO3 26 mmol/L (22-28) 09/29/18 17:00 VBG Total CO2 24 mmol/L (22-29) 09/29/18 17:00 VBG O2 Saturation 72 % (70-80) 09/29/18 17:00 VBG Base Excess 1.2 mmol/L (-3-3) 09/29/18 17:00 Sodium 141 mmol/L (136-145) 10/05/18 06:40 Potassium 4.6 mmol/L (3.5-5.1) D 10/05/18 06:40 Chloride 106 mmol/L (98-107) 10/05/18 06:40 Carbon Dioxide 24.6 mmol/L (21.0-32.0) 10/05/18 06:40 Anion Gap 10.4 mmol/L (3-11) 10/05/18 06:40 BUN 39 mg/dL (7-18) H 10/05/18 06:40 Creatinine 1.47 mg/dL (0.70-1.30) H 10/05/18 06:40 Estimated GFR/1.73 m2 47.93 (mL/min/1.73m2) 10/05/18 06:40 Glucose 136 mg/dL (70-100) H 10/05/18 06:40 Lactate 1.4 mmol/l (0.6-1.4) 09/29/18 17:00 Calcium 8.5 mg/dL (8.5-10.1) 10/05/18 06:40 Phosphorus 3.4 mg/dL (2.6-4.7) 10/05/18 06:40 Magnesium 1.9 mg/dL (1.8-2.4) 10/05/18 06:40 Total Bilirubin 0.5 mg/dL (0.2-1.0) 10/05/18 06:40 AST 17 U/L (15-37) 10/05/18 06:40 ALT 24 U/L (12-78) 10/05/18 06:40 Alkaline Phosphatase 308 U/L (46-116) H 10/05/18 06:40 Troponin I 0.02 ng/mL (0.00-0.06) 09/29/18 17:00 NT-Pro-B Natriuret Pep 867 pg/mL (-299) H 09/29/18 17:00 Total Protein 6.1 g/dL (6.4-8.2) L 10/05/18 06:40 Albumin 1.6 g/dL (3.4-5.0) L 10/05/18 06:40 Vancomycin Trough 21.7 ug/mL (10.0-20.0) H* 10/04/18 09:10
--- NOTE | 2018-10-05 14:25 | W.NUTCONSULT ---
Date of service: 10/05/18 Time of Service: 14:28 Nutritional Consult ASSESSMENT: Nutrition consult for recommendations to wean TPN. Mr. De Luna currently gets TPN which meets his caloric needs to maintain his current weight. His TPN currently runs at 85/hr x 24 hours. He is eating 25-100% of his meals. He did refuse a meal or two while he was here. He is ordered for a regular diet with advanced consistency and thin liquids. He is 72 and 53.3 kg. His weight has actually been fairly stable over the past month and has increased over the past few months. His BMI is 16.9 kg/m2 consistent with underweight. His estimated energy needs to maintain his current weight which is reasonable at this time is 1600 kcal/day (30 kcal/kg/day). His estimated protein needs are 53g-64g/day (1.0-1.2g/kg/day). NUTRITIONAL DIAGNOSIS: Underweight related to a history of inadequate intake of calories and protein as evidenced by BMI of 16.9 kg/m2. INTERVENTION: Would recommend the following wean from TPN: Recommend stop TPN 10/06/18 @ 0800 (or in the morning) and restart it at 2000 (or 12 hours later). Run the TPN for 12 hours until the morning of 10/07/18 and then discontinue TPN therapy. RD and/or CDM will encourage nutrient dense meals as well as liquid nutritional supplements. He does drink Ensure and similar drinks at home and here at times. MONITORING AND EVALUATION: Will monitor PO and transition. Will evaluate nutrition care plan ongoing and adjust as needed. Thank you for the consult. Time Spent in Nutritional Counseling and Treatment: TAI
[2018-10-05] MEDS: MORPHine 250 MG in Normal Saline 245 ML IV (15:55)
--- NOTE | 2018-10-05 16:44 | W.PALPGNOTE ---
Date of service: 10/05/18 Assessment and Plan (1) Palliative care patient: Current visit: No Status: Chronic We discussed whether hospice could cover tube feeds. Usually they do not. Nursing reports he is eating between 50-80% of his food as an inpatient. upset that he doesn't eat her food at home. Decision made to wean him off his tube feeds over the weekend and go home Monday or Monday just eating by mouth.. Consult called into nutrition to help us figure out proper way to wean him off his tube feeds. (2) Encounter for hospice care discussion: Current visit: No Status: Acute Humberto and his family have been hovering around the possibility of him entering hospice for about a year. He has made it much farther than expected. We talked about his desire to go deep sea fishing again. Son DARLENE present will try to arrange this for him. (3) Hospital acquired PNA: Current visit: No Status: Gina Will complete his treatment while here over the weekend. Continue IVF. Not a candidate for VATS or repeat chest tubes, as they were ineffective and risk of pneumothorax high given his frailty. Subjective Patient reports: still having pain, diarrhea and shortness of breath Interval history since last seen: met with Crystal, his ; DARLENE, his son; daughter in law; and Kaya, his Home Health nurse who came to see him on her vacation. We talked about Humberto's goals. He wants to get better. He wants to go home. He wanted me to explain the results of his CT scan ordered the night before today's visit, after my initial visit with Humberto on this admission. I explained to Humberto that I had reviewed the images, the report, talked with Dr Nielsen and Dr Bustamante about the findings. Dr Nielsen was hoping that Dr Bustamante would be able to draw off fluid from Humberto's lungs with needle aspiration or a new chest tube. She felt confident, reviewing the images, that this would not be helpful. When she removed his chest tubes soon after this admission, they were not draining. Humberto said they had not been draining for a long time. The other alternative to treating his lungs would be a VATS procedure, which would require Humberto to be intubated. Both Drs. Nielsen and Robby stated to me that they though intubation in his current condition would be high risk. We do not think that [facility] would be able to take Humberto down in transfer. He has been preparing to go on hospice for about a year now. We talked about the fact that this looks like the only way to proceed now. His , Crystal, asked if we could keep him through the weekend and admit him to hospice Monday or Monday. I deferred to the hospitalist. Exam Const General: cooperative, disheveled, frail appearing and ill appearing Nutritional Appearance: cachectic Orientation: alert, awake and oriented x3 HENMT Head: normocephalic and atraumatic Ears: hearing grossly normal bilaterally General nose exam: external nose normal Face and sinus: dry mucous membranes Eyes Conjunctivae: conjunctivae normal Sclera: sclerae normal Neck Neck: no lymphadenopathy and no JVD Resp Effort & Inspection: pursed lip breathing, respiratory distress, retractions, tachypneic and uses accessory muscles Auscultation: bronchial breath sounds and crackles Cardio Jugular venous pressure: no JVD Rate: tachycardic Rhythm: regular rhythm Heart Sounds: S1 normal and S2 normal GI Inspection: scaphoid and scar Palpation: soft Auscultation: hypoactive bowel sounds Skin General skin exam: ecchymosis Lesions: no lesions Hair: general thinning Nails: clubbing Neuro General: alert, awake and oriented x3 Cognition: normal cognition Speech: speech normal Gait: other (bedbound due to weakness and severe tachypnea with worsening JOHNSON) Extrem General: clubbing and muscle atrophy Psych Appearance: disheveled Mental Status: mental status grossly normal Speech and Movement: restless Mood: anxious mood Affect: sad and anxious affect Attitude: cooperative Thought Process: impoverished (frightened of next steps; wanted to live until end of summer, unlikely now) Thought Content: normal Insight: fair Judgment: fair Objective Objective Clinical Data: Abnormal lab results 10/05/18 10/05/18 Range/Units 06:40 06:40 WBC 13.23 H (4.4-10.8) k/cumm RBC 2.97 L (4.50-6.00) m/cumm Hgb 8.2 L (13.5-17.5) g/dL Hct 26.6 L (40.0-50.0) % MCHC 30.8 L (32.0-36.0) g/dL RDW 19.0 H (11.8-14.1) % MPV 12.7 H (8.0-11.0) fL Absolute Neutrophils 12.01 H (1.2-6.7) k/cumm Absolute Lymphocytes 0.52 L (1.2-3.4) k/cumm BUN 39 H (7-18) mg/dL Creatinine 1.47 H (0.70-1.30) mg/dL Glucose 136 H (70-100) mg/dL Alkaline Phosphatase 308 H (46-116) U/L Total Protein 6.1 L (6.4-8.2) g/dL Albumin 1.6 L (3.4-5.0) g/dL Vital Signs Temperature 97.5 F L 10/05/18 15:54 Temperature Source Tympanic 10/05/18 15:54 Pulse 92 H 10/05/18 15:54 Pulse Rhythm Regular 10/05/18 15:42 Pulse 74 09/29/18 19:50 Respiratory Rate 18 10/05/18 15:54 Respiratory Effort 10/05/18 15:42 Respiratory Depth Shallow 10/05/18 15:42 Respiratory Pattern Normal 10/05/18 15:42 Blood Pressure 114/76 10/05/18 15:54 Blood Pressure Mean 74 09/29/18 19:33 Blood Pressure Position Supine 09/29/18 16:50 Pulse Oximetry 93 L 10/05/18 15:54 Oxygen Delivery Method Nasal Cannula 10/05/18 15:54 Oxygen Flow Rate 2 10/05/18 15:54 Pain Level 6 10/05/18 15:55 Comment 10/05/18 03:00 Intake & Output 10/04/18 10/05/18 10/05/18 23:59 11:59 23:59 Intake Total 2373.7003 / 4408.0336 2040.9993 / 2770.9993 730 / 2770.9993 Output Total 1450 / 2150 900 / 2100 1200 / 2100 Balance 923.7003 / 2258.0336 1140.9993 / 670.9993 -470 / 670.9993 Weight 117 lb 8.102 oz Intake: IV 1433.7003 / 2918.0336 1490.9993 / 1980.9993 490 / 1980.9993 Oral 940 / 1490 550 / 790 240 / 790 Output: Urine 700 / 1300 700 / 1600 900 / 1600 Stool 750 / 850 200 / 500 300 / 500 Other: Urine Color Dark Lucia Light Lucia Straw Urine Appearance Clear Clear Clear Urine Odor None Normal Normal Voiding Methods Bedside Commode Urinal Urinal Urinal Laboratory Results WBC 13.23 k/cumm (4.4-10.8) H 10/05/18 06:40 RBC 2.97 m/cumm (4.50-6.00) L 10/05/18 06:40 Hgb 8.2 g/dL (13.5-17.5) L 10/05/18 06:40 Hct 26.6 % (40.0-50.0) L 10/05/18 06:40 MCV 89.6 fL (80-95) 10/05/18 06:40 MCH 27.6 pg (27.0-33.0) 10/05/18 06:40 MCHC 30.8 g/dL (32.0-36.0) L 10/05/18 06:40 RDW 19.0 % (11.8-14.1) H 10/05/18 06:40 Plt Count 211 x1000/uL (130-400) 10/05/18 06:40 MPV 12.7 fL (8.0-11.0) H 10/05/18 06:40 Immature Gran % 0.2 10/05/18 06:40 Neutrophils % 90.8 10/05/18 06:40 Band Neutrophils % 3.0 % 09/29/18 17:00 Lymphocytes % 3.9 10/05/18 06:40 Monocytes % 4.9 10/05/18 06:40 Eosinophils % 0.1 10/05/18 06:40 Basophils % 0.1 10/05/18 06:40 Absolute Neutrophils 12.01 k/cumm (1.2-6.7) H 10/05/18 06:40 Absolute Lymphocytes 0.52 k/cumm (1.2-3.4) L 10/05/18 06:40 Absolute Monocytes 0.65 k/cumm (0.11-0.7) 10/05/18 06:40 Absolute Eosinophils 0.01 k/cumm (0.0-0.7) 10/05/18 06:40 Absolute Basophils 0.01 k/cumm (0.0-0.2) 10/05/18 06:40 Metamyelocytes 1.0 % 09/29/18 17:00 Differential Comment Rbc morph reviewed 10/05/18 06:40 RBC Morphology See below 10/05/18 06:40 Polychromasia Present 10/05/18 06:40 Hypochromasia 1+ 10/05/18 06:40 Poikilocytosis 1+ 10/05/18 06:40 Anisocytosis 2+ 10/05/18 06:40 Microcytosis 1+ 09/29/18 17:00 PT 10.8 sec (9.3-11.0) 10/05/18 06:40 INR 1.1 (0.9-1.1) 10/05/18 06:40 VBG pH 7.43 (7.32-7.43) 09/29/18 17:00 VBG pCO2 38 mm/Hg (34-47) 09/29/18 17:00 VBG pO2 36 mm/Hg (28-44) 09/29/18 17:00 VBG HCO3 26 mmol/L (22-28) 09/29/18 17:00 VBG Total CO2 24 mmol/L (22-29) 09/29/18 17:00 VBG O2 Saturation 72 % (70-80) 09/29/18 17:00 VBG Base Excess 1.2 mmol/L (-3-3) 09/29/18 17:00 Sodium 141 mmol/L (136-145) 10/05/18 06:40 Potassium 4.6 mmol/L (3.5-5.1) D 10/05/18 06:40 Chloride 106 mmol/L (98-107) 10/05/18 06:40 Carbon Dioxide 24.6 mmol/L (21.0-32.0) 10/05/18 06:40 Anion Gap 10.4 mmol/L (3-11) 10/05/18 06:40 BUN 39 mg/dL (7-18) H 10/05/18 06:40 Creatinine 1.47 mg/dL (0.70-1.30) H 10/05/18 06:40 Estimated GFR/1.73 m2 47.93 (mL/min/1.73m2) 10/05/18 06:40 Glucose 136 mg/dL (70-100) H 10/05/18 06:40 Lactate 1.4 mmol/l (0.6-1.4) 09/29/18 17:00 Calcium 8.5 mg/dL (8.5-10.1) 10/05/18 06:40 Phosphorus 3.4 mg/dL (2.6-4.7) 10/05/18 06:40 Magnesium 1.9 mg/dL (1.8-2.4) 10/05/18 06:40 Total Bilirubin 0.5 mg/dL (0.2-1.0) 10/05/18 06:40 AST 17 U/L (15-37) 10/05/18 06:40 ALT 24 U/L (12-78) 10/05/18 06:40 Alkaline Phosphatase 308 U/L (46-116) H 10/05/18 06:40 Troponin I 0.02 ng/mL (0.00-0.06) 09/29/18 17:00 NT-Pro-B Natriuret Pep 867 pg/mL (-299) H 09/29/18 17:00 Total Protein 6.1 g/dL (6.4-8.2) L 10/05/18 06:40 Albumin 1.6 g/dL (3.4-5.0) L 10/05/18 06:40 Vancomycin Trough 21.7 ug/mL (10.0-20.0) H* 10/04/18 09:10
[2018-10-05] MEDS: Normal Saline 500 ML 20 ML IV (18:01)
[2018-10-05] MEDS: LEVOFLOXACIN 500 MG/100 ML BAG 100 MG IVPB (19:44)
[2018-10-05] MEDS: Gabapentin 300 MG CAP PO (22:28)
[2018-10-05] MEDS: Mirtazapine 15 MG TAB PO (22:28)
[2018-10-06] VITALS (9 sets, daily range): BP systolic 91–156; BP diastolic 60–71; PULSE 86–97; RESP 1–21; TEMP 36.1–36.8; O2SAT 93–97
[2018-10-06] MEDS: Normal Saline Flush 10 ML SYR IVP ×3 (00:22→19:33)
[2018-10-06] MEDS: VANCOMYCIN 750 MG in Normal Saline 250 ML IVPB ×2 (00:23→19:33)
[2018-10-06] MEDS: Albuterol/Ipratropium 3 ML UPD VIAL UPD ×5 (00:23→23:42)
[2018-10-06] MEDS: Normal Saline 500 ML 20 ML IV (01:50)
[2018-10-06] MEDS: AZTREONAM 2,000 MG in Normal Saline 100 ML 200 MG IVPB ×3 (02:04→17:52)
[2018-10-06] MEDS: methylPREDNISolone SUCC 40 MG VIAL IVP ×3 (04:36→19:35)
[2018-10-06 07:36] LABS: PHOSPHORUS 3.9 mg/dL (2.6-4.7)
[2018-10-06] MEDS: Ferrous Sulfate 325 MG TAB PO ×2 (09:09→19:35)
[2018-10-06] MEDS: Pantoprazole 40 MG TABCR PO (09:09)
[2018-10-06] MEDS: Metoprolol 25 MG TAB PO ×2 (09:09→19:37)
[2018-10-06] MEDS: Tamsulosin 0.4 MG CAPCR PO (09:09)
--- NOTE | 2018-10-06 12:05 | PDOC.CMPRO ---
Care Management Progress Note S/O: Sitting up in bed visiting. Appeared to be engaged in the conversation. I did not interrupt. A: 68 y.o. male admitted for treatment of bilateral pneumonia. Chest tubes have been removed. P: Anticipate discharge home on Hospice Monday. Transport by ambulance.
[2018-10-06] MEDS: Normal Saline 500 ML IV (17:51)
--- NOTE | 2018-10-06 20:20 | W.PM.PROGNOT ---
Date of Service Date of service: 10/06/18 Time of Service: 13:30 Assessment and Plan (1) Pneumonia: Current visit: No Status: Acute Recurrent pneumonia with loculated effusions/indwelling pleural caths now removed - not a candidate for VATS, per surgery. Planned to go to home on hospice on Monday. Meanwhile, continue aztreonam, levofloxacin, and vancomycin. Decrease solumedrol. (2) Chronic bilateral pleural effusions: Current visit: No Status: Chronic B/l pleural Catheters, both removed 10/03. Plan as above. (3) Anemia: Current visit: No Status: Chronic FOBT + during last hospitalization, in patient with end-stage Colon Cancer. Iron and Ferritin low - Continue PP and iron/Vitamin C. Discontinue daily CBC. (4) Chronic congestive heart failure with left ventricular diastolic dysfunction: Current visit: No Status: Chronic Diastolic CHF. Currently appears mildly dry to euvolemic. (5) History of colon cancer, stage IV: Current visit: No Status: Chronic Home Hospice as above. (6) Elevated LFTs: Current visit: No Status: Chronic Chronic finding, currently with normal ALT & AST. Monitor. 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 TPN being weaned off by nutrition, with plans for patient to return to eating for comfort. (8) DVT prophylaxis: Current visit: No Status: Acute No chemical prophylaxis in setting of anemia and recent heme + stool. Ensure SCDs and TEDs. (9) Advance directive on file: Current visit: No Status: Acute DNR/DNI. Planned for discharge home on Hospice on 10/08/18 Subjective Interval history since last seen: Mr De Luna states he is ready to go home on hospice on Monday. His cough is better. He hasn't brought up the bloody sputum in the last couple of days, he states. Denies dizziness, chest pain, shortness of breath, nausea, vomiting. He has been transitioned to a Cadd pump for morphine infusion. Exam Narrative Exam Narrative: General: Middle aged male, very pleasant, tearful when talking about how grateful he is for the care that he received. HEENT: EOMI, MMM Heart: RRR, +JUANA Lungs: Diminished breath sounds at B bases GI: abdomen is soft, nontender, nondistended Extremities: no e/c/c BLE's Objective Objective Clinical Data: Vital Signs Temperature 36.4 C L 10/06/18 19:28 Temperature Source Tympanic 10/06/18 19:28 Pulse 93 H 10/06/18 19:28 Pulse Rhythm Regular 10/06/18 15:22 Pulse 74 09/29/18 19:50 Respiratory Rate 20 10/06/18 19:28 Respiratory Effort 10/06/18 15:22 Respiratory Depth Deep 10/06/18 15:22 Respiratory Pattern Tachypnea 10/06/18 15:22 Blood Pressure 91/60 L 10/06/18 19:28 Blood Pressure Mean 74 09/29/18 19:33 Blood Pressure Position Supine 09/29/18 16:50 Pulse Oximetry 96 10/06/18 19:28 Oxygen Delivery Method Nasal Cannula 10/06/18 19:28 Oxygen Flow Rate 2 10/06/18 19:28 Pain Level 6 10/06/18 15:22 Comment 10/06/18 19:28 Intake & Output 10/05/18 10/06/18 10/06/18 23:59 11:59 23:59 Intake Total 2213.3333 / 4254.3326 996.333 / 1818.274 821.941 / 1818.274 Output Total 2200 / 3100 675 / 1125 450 / 1125 Balance 13.3333 / 1154.3326 321.333 / 693.274 371.941 / 693.274 Intake: IV 1733.3333 / 3224.3326 756.333 / 1338.274 581.941 / 1338.274 Oral 480 / 1030 240 / 480 240 / 480 Output: Urine 1500 / 2200 675 / 975 300 / 975 Stool 700 / 900 150 / 150 Other: Urine Color Yellow Yellow Yellow Urine Appearance Clear Clear Clear Urine Odor None Voiding Methods Urinal Urinal Laboratory Results WBC 13.23 k/cumm (4.4-10.8) H 10/05/18 06:40 RBC 2.97 m/cumm (4.50-6.00) L 10/05/18 06:40 Hgb 8.2 g/dL (13.5-17.5) L 10/05/18 06:40 Hct 26.6 % (40.0-50.0) L 10/05/18 06:40 MCV 89.6 fL (80-95) 10/05/18 06:40 MCH 27.6 pg (27.0-33.0) 10/05/18 06:40 MCHC 30.8 g/dL (32.0-36.0) L 10/05/18 06:40 RDW 19.0 % (11.8-14.1) H 10/05/18 06:40 Plt Count 211 x1000/uL (130-400) 10/05/18 06:40 MPV 12.7 fL (8.0-11.0) H 10/05/18 06:40 Immature Gran % 0.2 10/05/18 06:40 Neutrophils % 90.8 10/05/18 06:40 Band Neutrophils % 3.0 % 09/29/18 17:00 Lymphocytes % 3.9 10/05/18 06:40 Monocytes % 4.9 10/05/18 06:40 Eosinophils % 0.1 10/05/18 06:40 Basophils % 0.1 10/05/18 06:40 Absolute Neutrophils 12.01 k/cumm (1.2-6.7) H 10/05/18 06:40 Absolute Lymphocytes 0.52 k/cumm (1.2-3.4) L 10/05/18 06:40 Absolute Monocytes 0.65 k/cumm (0.11-0.7) 10/05/18 06:40 Absolute Eosinophils 0.01 k/cumm (0.0-0.7) 10/05/18 06:40 Absolute Basophils 0.01 k/cumm (0.0-0.2) 10/05/18 06:40 Metamyelocytes 1.0 % 09/29/18 17:00 Differential Comment Rbc morph reviewed 10/05/18 06:40 RBC Morphology See below 10/05/18 06:40 Polychromasia Present 10/05/18 06:40 Hypochromasia 1+ 10/05/18 06:40 Poikilocytosis 1+ 10/05/18 06:40 Anisocytosis 2+ 10/05/18 06:40 Microcytosis 1+ 09/29/18 17:00 PT 10.8 sec (9.3-11.0) 10/05/18 06:40 INR 1.1 (0.9-1.1) 10/05/18 06:40 VBG pH 7.43 (7.32-7.43) 09/29/18 17:00 VBG pCO2 38 mm/Hg (34-47) 09/29/18 17:00 VBG pO2 36 mm/Hg (28-44) 09/29/18 17:00 VBG HCO3 26 mmol/L (22-28) 09/29/18 17:00 VBG Total CO2 24 mmol/L (22-29) 09/29/18 17:00 VBG O2 Saturation 72 % (70-80) 09/29/18 17:00 VBG Base Excess 1.2 mmol/L (-3-3) 09/29/18 17:00 Sodium 141 mmol/L (136-145) 10/05/18 06:40 Potassium 4.6 mmol/L (3.5-5.1) D 10/05/18 06:40 Chloride 106 mmol/L (98-107) 10/05/18 06:40 Carbon Dioxide 24.6 mmol/L (21.0-32.0) 10/05/18 06:40 Anion Gap 10.4 mmol/L (3-11) 10/05/18 06:40 BUN 39 mg/dL (7-18) H 10/05/18 06:40 Creatinine 1.47 mg/dL (0.70-1.30) H 10/05/18 06:40 Estimated GFR/1.73 m2 47.93 (mL/min/1.73m2) 10/05/18 06:40 Glucose 136 mg/dL (70-100) H 10/05/18 06:40 Lactate 1.4 mmol/l (0.6-1.4) 09/29/18 17:00 Calcium 8.5 mg/dL (8.5-10.1) 10/05/18 06:40 Phosphorus 3.9 mg/dL (2.6-4.7) 10/06/18 06:05 Magnesium 1.9 mg/dL (1.8-2.4) 10/05/18 06:40 Total Bilirubin 0.5 mg/dL (0.2-1.0) 10/05/18 06:40 AST 17 U/L (15-37) 10/05/18 06:40 ALT 24 U/L (12-78) 10/05/18 06:40 Alkaline Phosphatase 308 U/L (46-116) H 10/05/18 06:40 Troponin I 0.02 ng/mL (0.00-0.06) 09/29/18 17:00 NT-Pro-B Natriuret Pep 867 pg/mL (-299) H 09/29/18 17:00 Total Protein 6.1 g/dL (6.4-8.2) L 10/05/18 06:40 Albumin 1.6 g/dL (3.4-5.0) L 10/05/18 06:40 Vancomycin Trough 21.7 ug/mL (10.0-20.0) H* 10/04/18 09:10
[2018-10-06] MEDS: Mirtazapine 15 MG TAB PO (21:07)
[2018-10-06] MEDS: Gabapentin 300 MG CAP PO (21:08)
[2018-10-06] MEDS: LEVOFLOXACIN 500 MG/100 ML BAG 100 MG IVPB (21:23)
[2018-10-07] VITALS (10 sets, daily range): BP systolic 94–136; BP diastolic 58–74; PULSE 83–93; RESP 1–20; TEMP 35.7–36.9; O2SAT 93–100
[2018-10-07] MEDS: AZTREONAM 2,000 MG in Normal Saline 100 ML 200 MG IVPB ×3 (02:00→18:06)
[2018-10-07] MEDS: Albuterol/Ipratropium 3 ML UPD VIAL UPD ×4 (05:32→23:59)
[2018-10-07 06:10] LABS: Abs Immature Grans 0.18 k/cumm (0.0-0.09); Absolute Neutrophil Count 12.87 k/cumm (1.2-6.7); Basophils % 0.1; HCT 27.5 % (40.0-50.0); HGB 8.3 g/dL (13.5-17.5); Immature Grans % 1.2; Lymphocytes % 6.2; Mean Corp. HGB Concentration 30.2 g/dL (32.0-36.0); Mean Corpuscular Hemoglobin 27.4 pg (27.0-33.0); Mean Corpuscular Volume 90.8 fL (80-95); Mean Platelet Volume 12.5 fL (8.0-11.0); Monocytes % 7.9; Neutrophils % 84.6; Platelet Count 290 x1000/uL (130-400); RBC 3.03 m/cumm (4.50-6.00); RBC Distribution Width 19.1 % (11.8-14.1); White Blood Cell Count 15.21 k/cumm (4.4-10.8)
[2018-10-07 06:21] LABS: Absolute Basophil Count 0.02 k/cumm (0.0-0.2); Absolute Lymphocyte Count 0.94 k/cumm (1.2-3.4)
[2018-10-07 06:25] LABS: Anion Gap 10.3 mmol/L (3-11); BUN 47 mg/dL (7-18); CO2 24.7 mmol/L (21.0-32.0); CREATININE 1.45 mg/dL (0.70-1.30); Calcium 8.8 mg/dL (8.5-10.1); Chloride 109 mmol/L (98-107); Estimated GFR 48.69 (mL/min/1.73m2); Glucose 135 mg/dL (70-100); Magnesium 1.9 mg/dL (1.8-2.4); Potassium 4.3 mmol/L (3.5-5.1); Sodium 144 mmol/L (136-145)
[2018-10-07] MEDS: Metoprolol 25 MG TAB PO ×2 (09:59→19:59)
[2018-10-07] MEDS: Pantoprazole 40 MG TABCR PO (09:59)
[2018-10-07] MEDS: methylPREDNISolone SUCC 40 MG VIAL IVP ×2 (09:59→19:58)
[2018-10-07] MEDS: Tamsulosin 0.4 MG CAPCR PO (09:59)
[2018-10-07] MEDS: Ferrous Sulfate 325 MG TAB PO ×2 (09:59→19:58)
[2018-10-07] MEDS: Normal Saline Flush 10 ML SYR IVP ×2 (10:00→18:05)
[2018-10-07] MEDS: VANCOMYCIN 750 MG in Normal Saline 250 ML IVPB (12:02)
--- NOTE | 2018-10-07 15:38 | PDOC.CMPRO ---
Care Management Progress Note S/O: Lying in bed with his eyes closed. Appears relaxed and comfortable. A: 68 y.o. male admitted for treatment of bilateral pneumonia. Chest tubes have been removed. P: Anticipate discharge home on Hospice Monday. Transport by ambulance.
[2018-10-07] MEDS: Normal Saline 500 ML 200 ML IV (18:06)
--- NOTE | 2018-10-07 19:23 | W.PM.PROGNOT ---
Date of Service Date of service: 10/07/18 Time of Service: 17:30 Subjective Interval history since last seen: Patient is emptying his ostomy bag when I came to examine him. He asked me to come back tomorrow (happily) so I can discharge him. Objective Objective Clinical Data: Abnormal lab results 10/07/18 10/07/18 Range/Units 05:35 05:35 WBC 15.21 H (4.4-10.8) k/cumm RBC 3.03 L (4.50-6.00) m/cumm Hgb 8.3 L (13.5-17.5) g/dL Hct 27.5 L (40.0-50.0) % MCHC 30.2 L (32.0-36.0) g/dL RDW 19.1 H (11.8-14.1) % MPV 12.5 H (8.0-11.0) fL Absolute Neutrophils 12.87 H (1.2-6.7) k/cumm Absolute Lymphocytes 0.94 L (1.2-3.4) k/cumm Absolute Monocytes 1.20 H (0.11-0.7) k/cumm Chloride 109 H (98-107) mmol/L BUN 47 H (7-18) mg/dL Creatinine 1.45 H (0.70-1.30) mg/dL Glucose 135 H (70-100) mg/dL Vital Signs Temperature 36.0 C L 10/07/18 15:50 Temperature Source Tympanic 10/07/18 15:50 Pulse 84 10/07/18 15:50 Pulse Rhythm Regular 10/07/18 02:10 Pulse 74 09/29/18 19:50 Respiratory Rate 18 10/07/18 15:50 Respiratory Effort 10/07/18 02:10 Respiratory Depth Shallow 10/07/18 02:10 Respiratory Pattern Tachypnea 10/07/18 02:10 Blood Pressure 136/62 10/07/18 15:50 Blood Pressure Mean 74 09/29/18 19:33 Blood Pressure Position Supine 09/29/18 16:50 Pulse Oximetry 98 10/07/18 15:50 Oxygen Delivery Method Nasal Cannula 10/07/18 15:50 Oxygen Flow Rate 2 10/07/18 15:50 Pain Level 0 10/07/18 16:05 Comment 10/06/18 23:50 Intake & Output 10/06/18 10/07/18 10/07/18 23:59 11:59 23:59 Intake Total 1213.608 / 3244.2743 1524.3333 / 2077.6663 553.333 / 2077.6663 Output Total 1400 / 2075 700 / 700 Balance -186.392 / 1169.2743 824.3333 / 1377.6663 553.333 / 1377.6663 Weight 54.8 kg Intake: IV 973.608 / 2764.2743 1284.3333 / 1597.6663 313.333 / 1597.6663 Oral 240 / 480 240 / 480 240 / 480 Output: Urine 700 / 1375 450 / 450 Stool 700 / 700 250 / 250 Other: Urine Color Yellow Pale Yellow Urine Appearance Clear Clear Urine Odor None None Comment Void x1 in the urinal. Voiding Methods Urinal Urinal Laboratory Results WBC 15.21 k/cumm (4.4-10.8) H 10/07/18 05:35 RBC 3.03 m/cumm (4.50-6.00) L 10/07/18 05:35 Hgb 8.3 g/dL (13.5-17.5) L 10/07/18 05:35 Hct 27.5 % (40.0-50.0) L 10/07/18 05:35 MCV 90.8 fL (80-95) 10/07/18 05:35 MCH 27.4 pg (27.0-33.0) 10/07/18 05:35 MCHC 30.2 g/dL (32.0-36.0) L 10/07/18 05:35 RDW 19.1 % (11.8-14.1) H 10/07/18 05:35 Plt Count 290 x1000/uL (130-400) 10/07/18 05:35 MPV 12.5 fL (8.0-11.0) H 10/07/18 05:35 Immature Gran % 1.2 10/07/18 05:35 Neutrophils % 84.6 10/07/18 05:35 Band Neutrophils % 3.0 % 09/29/18 17:00 Lymphocytes % 6.2 10/07/18 05:35 Monocytes % 7.9 10/07/18 05:35 Eosinophils % 0.0 10/07/18 05:35 Basophils % 0.1 10/07/18 05:35 Absolute Neutrophils 12.87 k/cumm (1.2-6.7) H 10/07/18 05:35 Absolute Lymphocytes 0.94 k/cumm (1.2-3.4) L 10/07/18 05:35 Absolute Monocytes 1.20 k/cumm (0.11-0.7) H 10/07/18 05:35 Absolute Eosinophils 0.00 k/cumm (0.0-0.7) 10/07/18 05:35 Absolute Basophils 0.02 k/cumm (0.0-0.2) 10/07/18 05:35 Metamyelocytes 1.0 % 09/29/18 17:00 Differential Comment Rbc morph reviewed 10/05/18 06:40 RBC Morphology See below 10/05/18 06:40 Polychromasia Present 10/05/18 06:40 Hypochromasia 1+ 10/05/18 06:40 Poikilocytosis 1+ 10/05/18 06:40 Anisocytosis 2+ 10/05/18 06:40 Microcytosis 1+ 09/29/18 17:00 PT 10.8 sec (9.3-11.0) 10/05/18 06:40 INR 1.1 (0.9-1.1) 10/05/18 06:40 VBG pH 7.43 (7.32-7.43) 09/29/18 17:00 VBG pCO2 38 mm/Hg (34-47) 09/29/18 17:00 VBG pO2 36 mm/Hg (28-44) 09/29/18 17:00 VBG HCO3 26 mmol/L (22-28) 09/29/18 17:00 VBG Total CO2 24 mmol/L (22-29) 09/29/18 17:00 VBG O2 Saturation 72 % (70-80) 09/29/18 17:00 VBG Base Excess 1.2 mmol/L (-3-3) 09/29/18 17:00 Sodium 144 mmol/L (136-145) 10/07/18 05:35 Potassium 4.3 mmol/L (3.5-5.1) 10/07/18 05:35 Chloride 109 mmol/L (98-107) H 10/07/18 05:35 Carbon Dioxide 24.7 mmol/L (21.0-32.0) 10/07/18 05:35 Anion Gap 10.3 mmol/L (3-11) 10/07/18 05:35 BUN 47 mg/dL (7-18) H 10/07/18 05:35 Creatinine 1.45 mg/dL (0.70-1.30) H 10/07/18 05:35 Estimated GFR/1.73 m2 48.69 (mL/min/1.73m2) 10/07/18 05:35 Glucose 135 mg/dL (70-100) H 10/07/18 05:35 Lactate 1.4 mmol/l (0.6-1.4) 09/29/18 17:00 Calcium 8.8 mg/dL (8.5-10.1) 10/07/18 05:35 Phosphorus 3.9 mg/dL (2.6-4.7) 10/06/18 06:05 Magnesium 1.9 mg/dL (1.8-2.4) 10/07/18 05:35 Total Bilirubin 0.5 mg/dL (0.2-1.0) 10/05/18 06:40 AST 17 U/L (15-37) 10/05/18 06:40 ALT 24 U/L (12-78) 10/05/18 06:40 Alkaline Phosphatase 308 U/L (46-116) H 10/05/18 06:40 Troponin I 0.02 ng/mL (0.00-0.06) 09/29/18 17:00 NT-Pro-B Natriuret Pep 867 pg/mL (-299) H 09/29/18 17:00 Total Protein 6.1 g/dL (6.4-8.2) L 10/05/18 06:40 Albumin 1.6 g/dL (3.4-5.0) L 10/05/18 06:40 Vancomycin Trough 21.7 ug/mL (10.0-20.0) H* 10/04/18 09:10
[2018-10-07] MEDS: LEVOFLOXACIN 500 MG/100 ML BAG 100 MG IVPB (19:58)
[2018-10-07] MEDS: Gabapentin 300 MG CAP PO (21:10)
[2018-10-07] MEDS: Mirtazapine 15 MG TAB PO (21:10)
[2018-10-08] VITALS (8 sets, daily range): BP systolic 123–142; BP diastolic 60–78; PULSE 67–95; RESP 2–20; TEMP 35.8–36.9; O2SAT 95–98
[2018-10-08] MEDS: AZTREONAM 2,000 MG in Normal Saline 100 ML 200 MG IVPB ×2 (01:13→10:05)
[2018-10-08] MEDS: VANCOMYCIN 750 MG in Normal Saline 250 ML IVPB (05:22)
[2018-10-08] MEDS: Albuterol/Ipratropium 3 ML UPD VIAL UPD ×2 (05:25→11:14)
[2018-10-08] MEDS: methylPREDNISolone SUCC 40 MG VIAL IVP (07:55)
[2018-10-08] MEDS: Metoprolol 25 MG TAB PO (07:56)
[2018-10-08] MEDS: Ferrous Sulfate 325 MG TAB PO (07:56)
[2018-10-08] MEDS: Tamsulosin 0.4 MG CAPCR PO (07:56)
[2018-10-08] MEDS: Pantoprazole 40 MG TABCR PO (07:56)
[2018-10-08] MEDS: Normal Saline Flush 10 ML SYR IVP ×2 (07:57→10:05)
--- NOTE | 2018-10-08 10:49 | CHAPLAIN ---
Boogie told me right away that he's going to be discharged home today. He seems very happy about that. He lives in [place] so the home health and hospice program from over that way will provide his care at home. Boogie said that [facility] will be helping with the transfer of his care, and he seemed pleased about that. Boogie said he knows he is going to , but he will do it on my own time and he is making plans for fishing trips with his son in the mean time. His twin sister several years ago (he and his twin raised eight younger sisters) and Boogie said he is aware of her presence as a guardian mago and he knows his sister will be waiting for him when he dies and that brings him comfort. Boogie prays often and tells me that speaks often with God.
--- NOTE | 2018-10-08 11:45 | W.PM.DS.N ---
Date of service: 10/08/18 Time of Service: 11:46 DS: Diagnosis Discharge Diagnosis (1) Pneumonia: Status: Acute (2) Chronic bilateral pleural effusions: Status: Chronic (3) Anemia: Status: Chronic (4) Chronic congestive heart failure with left ventricular diastolic dysfunction: Status: Chronic (5) History of colon cancer, stage IV: Status: Chronic (6) Elevated LFTs: Status: Chronic (7) Short gut syndrome: Status: Chronic (8) Hemothorax: Status: Acute (9) Empyema: Status: Acute Discharge Plan Disposition Patient Disposition: OTHER Condition: Stable Discharge Details Reason For Visit: BILATERAL HOSPITAL ACQUIRED PNEUMONIA Admit Date/Time: 09/29/18 18:42 Admit Provider: Logan Hurley Attending Provider: Logan Hurley Primary Care Provider: Logan Bruce Hospital Course Hospital Course: Mr De Luna is a 68 year old male with PMHx of metastatic colon cancer, bilateral pleural effusions previously with B pleurex catheters in place, non-oxygen dependent COPD, chronic diastolic CHF, admitted to [facility] on 09/29/18 for HCAP. He was treated with vancomycin, levofloxacin, and aztreonam. He had a negative speech eval. One aerobic blood culture bottle from admission grew Staph epidermidis. The two pleurex catheters were thought to be the likely source, especially since there were bilateral loculated pleural effusions. Bilateral pleurex catheters were removed on 10/03/18. The tip cultures grew Staph. Epidermidis. Follow up CT demonstrated a small hemothorax, which was not hemodynamically significant. Post removal of pleurex catheter, pain was a major issue for the patient, so he was initiated on morphine [employer] ADMINISTRATOR and transitioned to a morphine Cadd pump subcutaneously. Ideally, to resolve these bilateral infected pleural effusions (empyemas), the patient would have needed to have a VATS procedure, but he was felt to not be a candidate to undergo this. Palliative care was involved in the care of this patient and, upon meeting with them, the decision was made to go home with hospice on 10/08/18. Until then, the patient stayed on IV abx (vancomycin, levofloxacin, aztreonam). He is requiring 2 L of supplemental oxygen at this time, which will be arranged by home hospice. He is no longer on TPN for his short-gut syndrome, but the PICC line remains in in case the patient needs access for medications through hospice. He feels ready to go home, and we wish him well! Home Meds and New Rx's Prescriptions: New acetaminophen [Tylenol] 325 mg Tablet 650 mg PO Q4H PRN PRNQty: 0 RF: 0 ipratropium-albuterol 0.5 mg-3 mg(2.5 mg base)/3 mL Solution For Nebulization 3 ml UPD Q6H WHILE AWAKE Qty: 0 RF: 0 albuterol sulfate 2.5 mg /3 mL (0.083 %) Solution For Nebulization 2.5 mg UPD Q2H PRN PRNQty: 0 RF: 0 prednisone 20 mg tablet See Rx Instructions .ROUTE .COMPLEX Qty: 6 RF: 0 Continued gabapentin [Neurontin] 100 MG capsule 300 mg PO HS RF: 0 Combivent 200 PUFF aerosol 2 puff Inhalation QID RF: 0 prochlorperazine maleate 5 mg Tablet 5 mg PO DIRECTED RF: 0 ondansetron HCl 8 mg Tablet 8 mg PO BID PRNRF: 0 mirtazapine 15 mg Tablet 15 mg PO HS RF: 0 metoprolol tartrate 25 MG tablet 25 mg PO BID RF: 0 magnesium chloride 10,000 MG/50 ML solution 254 mg IV .BY DURATION RF: 0 morphine 10 mg/5 mL Solution 10 mg PO Q4H PRN PRNRF: 0 ascorbic acid (vitamin C) [Vitamin C] 500 mg Tablet 500 mg PO BID Qty: 0 RF: 0 ferrous sulfate 325 mg (65 mg iron) Tablet 325 mg PO BID Qty: 60 RF: 0 tamsulosin [Flomax] 0.4 mg capsule 0.4 mg PO DAILY Qty: 30 RF: 0 pantoprazole [Protonix] 40 mg tablet,delayed release (DR/EC) 40 mg PO DAILY Qty: 30 RF: 0 Nicotrol 10 mg cartridge 1 inh IH 4-6XD PRN (Reason: nicotine cravings) Qty: 168 RF: 0 Discontinued Multitrace-4 Concentrate 1 ML solution 1 ml IV .BY DURATION RF: 0 potassium phosphate m-/d-basic 45 MM/15 ML solution 3 mm IV .BY DURATION RF: 0 sodium acetate 40 MEQ/20 ML solution 29.5 meq IV .BY DURATION RF: 0 calcium gluconate 4.65 MEQ/10 ML solution 4.5 meq IV .BY DURATION RF: 0 sodium chloride 120 MEQ/30 ML parenteral solution 5.5 meq IV .BY DURATION RF: 0 potassium chloride 20 MEQ/10 ML solution 10 meq IV .BY DURATION RF: 0 Infuvite Adult 10 ML solution 10 ml IV .BY DURATION RF: 0 Intralipid 250 ML emulsion 250 ml IV DAILY@1700 RF: 0 Phenaseptic 1.4 % Aerosol,[place] 5 spray Mucous Membrane QID PRN PRNQty: 1 RF: 0 Discharge Instructions Instructions: Hospice Care (GEN), Bacterial Pneumonia (DC) Additional Instructions: Follow up with your PCP and hospice for all your medical needs Activity:: Activity as Tolerated Equipment/Supplies:: 2 LPM Diet:: As Tolerated Discharge Orders Discharge Orders: Discharge Order (Routine); Ordered 10/08/18 Ordered By: July Olvera Exam Narrative Exam Narrative: General: Middle aged male, very pleasant, tearful when talking about how grateful he is for the care that he received. HEENT: EOMI, MMM Heart: RRR, +JUANA Lungs: Diminished breath sounds at B bases GI: abdomen is soft, nontender, nondistended Extremities: no e/c/c BLE's DS: Data Vitals/I&O Vitals and I&O: Vital Signs Temperature 36.9 C 10/08/18 11:21 Temperature Source Tympanic 10/08/18 11:21 Pulse 87 10/08/18 11:21 Pulse Rhythm Regular 10/08/18 08:00 Pulse 74 09/29/18 19:50 Respiratory Rate 18 10/08/18 11:21 Respiratory Effort Non-Labored 10/08/18 08:00 Respiratory Depth Shallow 10/08/18 08:00 Respiratory Pattern Normal 10/08/18 08:00 Blood Pressure 124/65 10/08/18 11:21 Blood Pressure Mean 74 09/29/18 19:33 Blood Pressure Position Supine 09/29/18 16:50 Pulse Oximetry 95 10/08/18 11:21 Oxygen Delivery Method Nasal Cannula 10/08/18 11:21 Oxygen Flow Rate 2 10/08/18 11:21 Pain Level 0 10/07/18 16:05 Comment 10/06/18 23:50 Intake & Output 10/07/18 10/07/18 10/08/18 11:59 23:59 11:59 Intake Total 1844.3333 / 3007.6663 1163.333 / 3007.6663 570 / 570 Output Total 700 / 1800 1100 / 1800 1125 / 1125 Balance 1144.3333 / 1207.6663 63.333 / 1207.6663 -555 / -555 Weight 54.8 kg 54.4 kg Intake: IV 1364.3333 / 2047.6663 683.333 / 2047.6663 570 / 570 Oral 480 / 960 480 / 960 Output: Urine 450 / 1150 700 / 1150 850 / 850 Stool 250 / 650 400 / 650 275 / 275 Other: Urine Color Pale Yellow Yellow Yellow [place] Urine Appearance Clear Clear Clear Urine Odor None None Comment Void x1 in the urinal. Void x1 in the urinal. Voiding Methods Urinal Urinal Urinal Completed studies during hospitalization [Text1]: CXR 09/29/18: Heart size and pulmonary vasculature are within normal limits. There are again seen post surgical changes of an aortic valve replacement. There is also a right PICC line. The tip of the catheter is stable in position at the cavo-atrial junction. Bilateral basilar infiltrates are noted right greater than left. There also appears to be a small right pleural effusion. There are bilateral chest tubes projected over the lower lobes laterally. No pneumothorax is identified. CXR 10/03/18: Increased prominence of the basilar areas of infiltration and interval development of a small moderate sized bilateral pleural effusion is demonstrated. CXR 10/04/18: When compared with the previous examination of 10/03/18, there has been a significant interval decrease in the region of atelectasis and size of a left pleural effusion. Also there has been some apparent partial re-expansion of the right lower lobe. The right pleural effusion appears unchanged. The heart is unchanged in size in this patient who is status post AVR. CT chest 10/04/18: 1. Bilateral basilar infiltrates suspicious for pneumonia, right greater than left. 2. Bilateral pleural effusions, moderate and loculated right and small left pleural effusion are present. 3. Patient motion artifact. 4. Small loculated right pneumothorax. [facility] Medical History Chronic bilateral pleural effusions (Chronic) Chronic congestive heart failure with left ventricular diastolic dysfunction (Chronic) Depression (Chronic) History of Henoch-Schonlein purpura (Chronic) Anemia (Chronic) Iron deficiency (Chronic) Protein-calorie malnutrition, severe (Chronic) COPD (chronic obstructive pulmonary disease) (Chronic) Back pain (Chronic) Short gut syndrome (Chronic) Colon cancer (Chronic) Elevated LFTs (Chronic) High output ileostomy (Chronic) PTSD (post-traumatic stress disorder) (Chronic) History of colon cancer, stage IV (Chronic) Pleural effusion (Chronic) End of life care (Chronic) Weight loss (Chronic) History of endocarditis (Resolved) History of glomerulonephritis (Resolved) History of ischemic bowel disease (Resolved) History of nephrotic syndrome (Resolved) PSVT (paroxysmal supraventricular tachycardia) (Resolved) Surgical History Status post thoracostomy tube placement (Acute ~2017) History of colectomy (Chronic) History of aortic valve replacement (Resolved) History of bowel resection (Resolved) S/P thoracostomy tube placement (Resolved) Family History Son No problems noted. Sister HSP (Henoch Schonlein purpura) Social History caregiver/support person: Yes household members: spouse housing: house marital status details: for 37 years lives independently: No (lives at home w/ help of his and visiting nurse) number of children: 1 highest education level completed: high school graduate retirement: No current occupational status: disabled leisure activities: fishing diet: other high-fat food intake: 3 or more times/day eating out: rarely or never reads food labels: seldom or never during the past year weight has: increased > 10 lbs Smoking and Tabacco status: Former Tobacco Use substance use type: does not use What is your relationship status?: How often do you talk on the phone with friends or family?: three or more times per week How often do you get together with friends or relatives?: three or more times per week Panel score (0-1 are the most socially isolated patients): 2
--- NOTE | 2018-10-08 12:39 | PDOC.CMDIS ---
- If Service Date Differs Date of service: 10/08/18 Time of Service: 12:39 LACE Index Scoring Tool - Questions: Length of Stay (in days): 7 - 13 Acuity (Admit via E.D.?): Yes Comorbidities: Diabetes w/o Complication, Congestive Heart Failure, Chronic Pulmonary Disease, Any Tumor E.D. Visits: 9 - Answers: Total Score: 17 Risk of Readmission: High Risk Care Management Discharge Reason for Hospitalization: Bilateral HCAP Discharge Plan: Boogie will be discharged home on Hospice today via [facility]. CM confirmed equipment and oxygen has been delivered. CM contacted [facility] and spoke with Nayeli to cootdinate hospice servcies. CM contacted [facility] to set up CADD pump for home. CM contacted spouse to arrange a time for Boogie to return home, and confirm that he will have oral morphine on hand upon arrival. Hospice nurse will meet with Boogie at home at 3:00 pm today. [facility] will try to deliver the CADD today once depending on the weather. Boogie states the oral morphine does work well however the CADD gives him better consistant pain relief. Boogie states he is happy to be going home and states We are his angels. Boogie is postive r/t discharge and his spouse states she is ready to have him home. Patient/Family Education Needs: Discharge education, limitations and what to expect from Hospice servcies and transition home. Services Needed at Discharge: DME Agency, Home Health Care Services, Transportation
--- NOTE | 2018-10-08 13:24 | CMDISCH_ITS ---
- If Service Date Differs Date of service: 10/08/18 Time of Service: 12:39 LACE Index Scoring Tool - Questions: Length of Stay (in days): 7 - 13 Acuity (Admit via E.D.?): Yes Comorbidities: Diabetes w/o Complication, Congestive Heart Failure, Chronic Pulmonary Disease, Any Tumor E.D. Visits: 9 - Answers: Total Score: 17 Risk of Readmission: High Risk Care Management Discharge Reason for Hospitalization: Bilateral HCAP Discharge Plan: Boogie will be discharged home on Hospice today via [facility]. CM confirmed equipment and oxygen has been delivered. CM contacted [facility] and spoke with Nayeli to cootdinate hospice servcies. CM contacted [employer] [facility] to set up CADD pump for home. CM contacted spouse to arrange a time for Boogie to return home, and confirm that he will have oral morphine on hand upon arrival. Hospice nurse will meet with Boogie at home at 3:00 pm today. [employer] will try to deliver the CADD today once depending on the weather. Boogie states the oral morphine does work well however the CADD gives him better consistant pain relief. Boogie states he is happy to be going home and states We are his angels. Boogie is postive r/t discharge and his spouse states she is ready to have him home. Patient/Family Education Needs: Discharge education, limitations and what to expect from Hospice servcies and transition home. Services Needed at Discharge: DME Agency, Home Health Care Services, Transportation
--- NOTE | 2018-10-10 14:05 | PCNE_ITS ---
Date of service: 10/04/18 History of Present Illness Chief Complaint: recurrent admissions for pneumonia and effusions Narrative: Humberto is back in again after. He is growing m [facility] Medical History Chronic bilateral pleural effusions (Chronic) Chronic congestive heart failure with left ventricular diastolic dysfunction (Chronic) Depression (Chronic) History of Henoch-Schonlein purpura (Chronic) Anemia (Chronic) Iron deficiency (Chronic) Protein-calorie malnutrition, severe (Chronic) COPD (chronic obstructive pulmonary disease) (Chronic) Back pain (Chronic) Short gut syndrome (Chronic) Colon cancer (Chronic) Elevated LFTs (Chronic) High output ileostomy (Chronic) PTSD (post-traumatic stress disorder) (Chronic) History of colon cancer, stage IV (Chronic) Pleural effusion (Chronic) End of life care (Chronic) Weight loss (Chronic) History of endocarditis (Resolved) History of glomerulonephritis (Resolved) History of ischemic bowel disease (Resolved) History of nephrotic syndrome (Resolved) PSVT (paroxysmal supraventricular tachycardia) (Resolved) Surgical History Status post thoracostomy tube placement (Acute ~2017) History of colectomy (Chronic) History of aortic valve replacement (Resolved) History of bowel resection (Resolved) S/P thoracostomy tube placement (Resolved) Family History Son No problems noted. Sister HSP (Henoch Schonlein purpura) Social History Smoking/Tobacco Use Status: Former Tobacco Use Drug use: Never Substance use type: does not use Caregiver/Support person: Yes Household members: spouse Housing: house What is your relationship status?: How often do you talk on the phone with friends or family?: three or more times per week How often do you get together with friends or relatives?: three or more times per week Panel score (0-1 are the most socially isolated patients): 2 Do you feel safe in your relationship?: Yes Results Last Vital Signs Temp 98.4 F 10/08/18 11:21 Pulse 87 10/08/18 11:21 Resp 18 10/08/18 11:21 BP 124/65 10/08/18 11:21 Pulse Ox 95 10/08/18 11:21 Labs : 10/07/18 05:35 10/07/18 05:35
== END 2018-10-08 12:13 | disposition other institution (70) | DRG 193 ==
LOC: ER 19:35 → MS 20:08
PROVIDERS: Family Medicine; Internal Medicine; Admitting Provider Family Medicine; Emergency Provider Student in an Organized Health Care Education/Training Program; PCP General Practice; Visit Provider Internal Medicine
DX: J18.9 Pneumonia, unspecified organism (principal); J86.9 Pyothorax without fistula; T85.79XA Infection and inflammatory reaction due to other internal prosthetic devices, implants and grafts, initial encounter; J90 Pleural effusion, not elsewhere classified; I50.32 Chronic diastolic (congestive) heart failure; C18.9 Malignant neoplasm of colon, unspecified; K91.2 Postsurgical malabsorption, not elsewhere classified; J94.2 Hemothorax; J44.0 Chronic obstructive pulmonary disease with (acute) lower respiratory infection; R78.81 Bacteremia; C79.9 Secondary malignant neoplasm of unspecified site; Z16.23 Resistance to quinolones and fluoroquinolones; Z16.11 Resistance to penicillins; Z16.29 Resistance to other single specified antibiotic; Y95 Nosocomial condition; D50.9 Iron deficiency anemia, unspecified; R94.5 Abnormal results of liver function studies; J44.9 Chronic obstructive pulmonary disease, unspecified; B95.4 Other streptococcus as the cause of diseases classified elsewhere; G89.18 Other acute postprocedural pain; Z22.322 Carrier or suspected carrier of Methicillin resistant Staphylococcus aureus; Z90.49 Acquired absence of other specified parts of digestive tract; I50.84 End stage heart failure; Z51.5 Encounter for palliative care; N18.9 Chronic kidney disease, unspecified; R13.11 Dysphagia, oral phase; Z95.4 Presence of other heart-valve replacement; Z93.2 Ileostomy status; Z87.891 Personal history of nicotine dependence
CPT/HCPCS: 32552; 36569; 36592; 71250; 80048; 80053; 82805; 85027; 87040; 87077; 87081; 92610; 93005; 96365; 99223; 99232; 99233; 99239; 99253; 99285; G8996; NC; 71045; 71046; 80202; 82565; 83605; 83735; 83880; 84100; 84484; 85025; 85610; 87070; 87186; 87205; 93010; 94640; J1644; J1956; J3490; J7613; J7620; J8597